=== PATIENT | female | born 1950 | race Caucasian/White ===

== ENCOUNTER 2018-08-01 15:40 | Emergency (ER) | payer MEDICARE, SELFPAY ==
[2018-08-01 15:40] VITALS: PULSE 68; RESP 24; TEMP 36.3; O2SAT 99; BMI 29.5
--- NOTE | 2018-08-01 15:55 | EKG12_ITS ---
Test Reason : Blood Pressure : / mmHG Vent. Rate : 066 BPM Atrial Rate : 066 BPM P-R Int : 134 ms QRS Dur : 072 ms QT Int : 424 ms P-R-T Axes : 045 048 034 degrees QTc Int : 444 ms Normal sinus rhythm Nonspecific ST abnormality Abnormal ECG Confirmed by MATILDE CHERRY, DEON ([id number]), subeditor LAMONTE LOPEZ ([id number]) on 08/06/2018 3:33:47 PM Referred By: DC Confirmed By:DEON CLAYTON MD
[2018-08-01 16:09] VITALS: O2SAT 100
[2018-08-01 16:10] LABS: Absolute Lymphocyte Count 1.67 X10^3/ul (0.83-4.51); Absolute Neutrophil Count 3.3 X10^3/uL (2.0-7.7); Basophil# 0.05 X10^3/uL; Basophil% 0.9 % (0-1); Eosinophil# 0.16 X10^3/uL; Eosinophils% 2.9 % (0-5); Hematocrit 41.4 % (37-47); Hemoglobin 13.5 g/dl (12.0-15.0); Lymphocyte # 1.67 X10^3/ul (4.0); Lymphocyte % 30.1 % (19-41); Mean Corp Hgb Conc 32.6 g/gl (32-36); Mean Corpuscular Hgb 29.5 pg (27.0-32.0); Mean Corpuscular Volume 90.4 fL (81-99); Mean Platelet Vol. 10.1 fl (6.2-12.0); Monocyte# 0.34 X10^3/uL; Monocyte% 6.1 % (0-10); Neutrophil # 3.31 X10^3/uL (2.7-7.7); Neutrophil % 59.8 % (47-70); Platelet Count 283 K/mm3 (150-450); RBC Distribution Width SD 46.2 fl (35.1-43.9); Red Blood Count 4.58 M/mm3 (4.2-5.4); White Blood Count 5.5 K/mm3 (4.4-11.0)
[2018-08-01 16:11] LABS: POSITIVE COUNT NO; POSITIVE DIFFERENTIAL NO; POSITIVE MORPHOLOGY NO
[2018-08-01] MEDS: 0.9% Normal Saline 1,000 ML 150 ML IV (16:11)
--- NOTE | 2018-08-01 16:15 | CT_ITS ---
STUDY: CT ABDOMEN AND PELVIS WITH CONTRAST REASON FOR EXAM: Female, 68 years old. Posterior chest pain and shortness of breath. Abnormal CT exam at outside facility. History of hypertension. Possible dissection. RADIATION DOSAGE (If Supplied By Facility): CTDIvol = ( 14.77 ) mGy, DLP = ( 1225.60 ) mGycm TECHNIQUE: Transaxial images were obtained from the dome of the diaphragm to the symphysis pubis without oral contrast. 100mL ml of Isovue 370 contrast was administered. Sagittal and coronal images were reconstructed. Individualized dose optimization techniques were used for this CT. COMPARISON: Prior abdomen and pelvic CT exam of March 20, 2017 FINDINGS: The maximum diameter of the abdominal portion of the aorta is at the level of the diaphragms with a maximum diameter of 3.4 cm. The remainder of the abdominal aorta is not aneurysmal. There is a moderate calcified plaque of the infrarenal aorta with more prominent mural thrombus in the lower thoracic aorta. There is a single area of the infrarenal aorta approximately 2 cm below the renal arteries where there is a minimal linear defect with underlying slight protrusion of the lumen which may indicate a minimal, limited dissection. The celiac artery, superior mesenteric artery and inferior mesenteric artery are fully patent without evidence of significant stenosis. The bilateral renal arteries are patent without significant stenosis. The iliac arteries are normal. Fatty liver. Normal gallbladder and extrahepatic biliary system. Normal spleen. Normal pancreas. Normal bilateral adrenal glands. Normal right kidney. Normal left kidney. Moderate sized hiatal hernia. Otherwise unremarkable stomach. Normal small intestine. Diverticulosis of the distal colon without evidence of acute diverticulitis. There are surgical clips in the region of the appendix consistent with a prior appendectomy. Normal inferior vena cava. Normal retroperitoneum. Normal urinary bladder. There is absence of the uterus consistent with a prior hysterectomy. Normal abdominal wall. Normal osseous structures. 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 Minimal linear defect in the right anterior wall of the aorta occurring at 2 cm below the renal arteries that does not extend proximally or distally. Defect secondary to overhanging soft plaque versus a minimal dissection. This was not identified on a prior exam of March 20, 2017 noting that this was not an angiographic exam. This does not expand the lumen is substantially. Otherwise mild calcified plaque of the infrarenal aorta. Negative for occlusion or significant stenosis of the major branch vessels. Fatty liver. Moderate hiatal hernia. Diverticulosis. Status post hysterectomy. N.B. : The above information has been verbally conveyed by Rhonda Campbell MD to DR TALI JARRELL MD, on 08/01/2018 17:24:37 (ET). Electronically Signed: Rhonda Campbell MD at 17:03 EST , Service support , STUDY: CTA CHEST REASON FOR EXAM: Female, 68 years old. Posterior chest pain and shortness of breath. Abnormal CT at outside facility showed possible dissection. RADIATION DOSAGE (If Supplied By Facility): CTDIvol = ( 14.77 ) mGy, DLP = ( 1225.60 ) mGycm TECHNIQUE: The examination was performed with the intravenous administration of 100mL ml of Isovue 370 contrast material. Post-processing of the angiographic images was performed, with multiplanar reformation and 3D reconstruction. Individualized dose optimization techniques were used for this CT. COMPARISON: None. FINDINGS: The diameter of the before meals ascending aorta is 2.7 cm. The diameter of the mid arch is 2.7 cm. The diameter of the proximal descending aorta is 3.4 cm. The remainder of the thoracic aorta remains approximately 3.4 cm to the level of the diaphragm with a substantial mural thrombus accumulation on the right lateral wall superiorly and posterior lateral wall inferiorly without a substantial narrowing of the lumen. Negative for dissection. Normal heart and pericardium. Moderate hiatal hernia. Normal hilar regions. Normal visualized trachea and bronchi. Linear atelectatic changes or scarring of the posterior left lung base and right midlung base. Otherwise negative for major consolidation. Negative for pleural effusion. Bilateral breast implants are present. There are degenerative changes of thoracic spine. CT/CT ANGIO ABD&PEL W/O&W/DYE IMPRESSION: Aneurysmal dilatation of the descending aorta, diameter 3.4 cm with substantial mural thrombus without a significant reduction in the flow lumen. Negative for acute dissection. The aneurysmal dilatation of the lower thoracic aorta has occurred since the prior exam March 20, 2017 Normal cardiac size without pericardial effusion. Negative for coronary calcifications. Moderate hiatal hernia. Atelectasis versus scarring lower lobes without other major consolidation or pleural effusion. N.B. : The above information has been verbally conveyed by Rhonda Campbell MD to DR TALI JARRELL MD, on 08/01/2018 17:24:37 (ET). Electronically Signed: Rhonda Campbell MD at 17:13 EST , Service support ,
--- NOTE | 2018-08-01 16:23 | CT_ITS ---
STUDY: CT ABDOMEN AND PELVIS WITH CONTRAST REASON FOR EXAM: Female, 68 years old. Posterior chest pain and shortness of breath. Abnormal CT exam at outside facility. History of hypertension. Possible dissection. RADIATION DOSAGE (If Supplied By Facility): CTDIvol = ( 14.77 ) mGy, DLP = ( 1225.60 ) mGycm TECHNIQUE: Transaxial images were obtained from the dome of the diaphragm to the symphysis pubis without oral contrast. 100mL ml of Isovue 370 contrast was administered. Sagittal and coronal images were reconstructed. Individualized dose optimization techniques were used for this CT. COMPARISON: Prior abdomen and pelvic CT exam of March 20, 2017 FINDINGS: The maximum diameter of the abdominal portion of the aorta is at the level of the diaphragms with a maximum diameter of 3.4 cm. The remainder of the abdominal aorta is not aneurysmal. There is a moderate calcified plaque of the infrarenal aorta with more prominent mural thrombus in the lower thoracic aorta. There is a single area of the infrarenal aorta approximately 2 cm below the renal arteries where there is a minimal linear defect with underlying slight protrusion of the lumen which may indicate a minimal, limited dissection. The celiac artery, superior mesenteric artery and inferior mesenteric artery are fully patent without evidence of significant stenosis. The bilateral renal arteries are patent without significant stenosis. The iliac arteries are normal. Fatty liver. Normal gallbladder and extrahepatic biliary system. Normal spleen. Normal pancreas. Normal bilateral adrenal glands. Normal right kidney. Normal left kidney. Moderate sized hiatal hernia. Otherwise unremarkable stomach. Normal small intestine. Diverticulosis of the distal colon without evidence of acute diverticulitis. There are surgical clips in the region of the appendix consistent with a prior appendectomy. Normal inferior vena cava. Normal retroperitoneum. Normal urinary bladder. There is absence of the uterus consistent with a prior hysterectomy. Normal abdominal wall. Normal osseous structures. 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 Minimal linear defect in the right anterior wall of the aorta occurring at 2 cm below the renal arteries that does not extend proximally or distally. Defect secondary to overhanging soft plaque versus a minimal dissection. This was not identified on a prior exam of March 20, 2017 noting that this was not an angiographic exam. This does not expand the lumen is substantially. Otherwise mild calcified plaque of the infrarenal aorta. Negative for occlusion or significant stenosis of the major branch vessels. Fatty liver. Moderate hiatal hernia. Diverticulosis. Status post hysterectomy. N.B. : The above information has been verbally conveyed by Rhonda Campbell MD to DR TALI JARRELL MD, on 08/01/2018 17:24:37 (ET). Electronically Signed: Rhonda Campbell MD at 17:03 EST , Service support , STUDY: CTA CHEST REASON FOR EXAM: Female, 68 years old. Posterior chest pain and shortness of breath. Abnormal CT at outside facility showed possible dissection. RADIATION DOSAGE (If Supplied By Facility): CTDIvol = ( 14.77 ) mGy, DLP = ( 1225.60 ) mGycm TECHNIQUE: The examination was performed with the intravenous administration of 100mL ml of Isovue 370 contrast material. Post-processing of the angiographic images was performed, with multiplanar reformation and 3D reconstruction. Individualized dose optimization techniques were used for this CT. COMPARISON: None. FINDINGS: The diameter of the before meals ascending aorta is 2.7 cm. The diameter of the mid arch is 2.7 cm. The diameter of the proximal descending aorta is 3.4 cm. The remainder of the thoracic aorta remains approximately 3.4 cm to the level of the diaphragm with a substantial mural thrombus accumulation on the right lateral wall superiorly and posterior lateral wall inferiorly without a substantial narrowing of the lumen. Negative for dissection. Normal heart and pericardium. Moderate hiatal hernia. Normal hilar regions. Normal visualized trachea and bronchi. Linear atelectatic changes or scarring of the posterior left lung base and right midlung base. Otherwise negative for major consolidation. Negative for pleural effusion. Bilateral breast implants are present. There are degenerative changes of thoracic spine. CT/CTA Chest W/WO Contrast IMPRESSION: Aneurysmal dilatation of the descending aorta, diameter 3.4 cm with substantial mural thrombus without a significant reduction in the flow lumen. Negative for acute dissection. The aneurysmal dilatation of the lower thoracic aorta has occurred since the prior exam March 20, 2017 Normal cardiac size without pericardial effusion. Negative for coronary calcifications. Moderate hiatal hernia. Atelectasis versus scarring lower lobes without other major consolidation or pleural effusion. N.B. : The above information has been verbally conveyed by Rhonda Campbell MD to DR TALI JARRELL MD, on 08/01/2018 17:24:37 (ET). Electronically Signed: Rhonad Campbell MD at 17:13 EST , Service support ,
[2018-08-01 16:27] LABS: Anion Gap 6 (5-15); BUN 15 mg/dL (7-18); BUN/Creat Ratio 12.8 RATIO (10-20); Calcium,Total 8.9 mg/dL (8.5-10.1); Chloride 103 mmol/L (98-107); Creatinine, Serum 1.17 mg/dL (0.55-1.02); EST Glomerular Filtration Rate 49 mL/min (>60); Est Glom Filt Rate - Afr Amer 59 mL/min (>60); Estimated Creatinine Clearance 43.68 ml/min; Glucose 103 mg/dL (74-106); Potassium 4.7 mmol/L (3.5-5.1); Sodium Level 137 mmol/L (136-145)
--- NOTE | 2018-08-01 16:30 | ED.VISSUMM ---
- ER Visit Summary Date of Service: 08/01/18 Chief Complaint: Aortic dissection History of Present Illness: The patient is a 68 F who developed pain in her back between her shoulder blades along with shortness of breath and dizziness 3 days ago. Patient was seen by her PCP. Her d-dimer was elevated and she was sent for a chest CT today. CT reportedly shows a dissection of the descending thoracic aorta. Physical Examination: Blood pressure in left arm is 178/97, heart rate is 68. Patient is sitting upright in bed. He is in no acute distress. Head neck examination is unremarkable. Heart is regular rate and rhythm. Lung sounds are clear. Abdomen is soft nontender. Extremity examination reveals palpable and equal distal pulses. Test Results: CT chest report was reviewed. The report states that there appears to be a new dissection of the descending thoracic aorta beginning just below the arch. The distal portion cannot be evaluated. CBC and chemistry studies returned with creatinine 1.17. Troponin is less than 0.015. EKG is sinus at [address]. Emergency Department Course and Treatment: Test results were immediately discussed with the patient. I advised her that we would require transfer to a larger institution. Patient works at [facility] [employer] and requested to go there. I spoke with the transfer line and patient has been accepted in transfer. Cardene drip has been started to control blood pressure. She was sent for a CTA of the abdomen and pelvis and disc will be available at the time of transfer. Treatment Plan: [] Disposition: Transfer Impression: Descending thoracic aorta dissection This note was generated with [employer] dictation software. It may contain incorrect words, spelling, and punctuation that were not noted in review of the chart prior to signing ED Disposition - Plan for ED Patient: Chief Complaint: Shortness of Breath Referrals: Lanny Raymond MD [Primary Care Provider] -
[2018-08-01 16:53] VITALS: BP 139/62; PULSE 80; RESP 16; O2SAT 100
[2018-08-01 17:04] VITALS: BP 139/82; PULSE 80; RESP 16; O2SAT 100
[2018-08-01 17:11] LABS: Prothrombin Time (Protime)PT. 13.5 SECONDS (11.7-14.9)
--- OUTSIDE RECORDS SUMMARY | 2018-11-05 07:15 | XMS RPT_ITS ---
:1950 Author Organization OH[facility] Care Team Providers Name Role Phone RAMESH MORGAN ([facility]) Attending Unavailable PETRONA ORTEGA Admitting Unavailable TERI CESAR Referring Unavailable GEGE ISRAELGE Attending Unavailable RAMESH MORGAN ([facility]) Referring Unavailable RAMESH MORGAN ([facility]) Referring Unavailable RAMESH MORGAN ([facility]) Referring Unavailable RAMESH MORGAN ([facility]) Attending Unavailable AUDREY OJEDA ([facility]) Referring Unavailable AUDREY OJEDA ([facility]) Attending Unavailable [facility] Unavailable Teri Cesar Attending Unavailable PROBLEMS PROBLEMS DATE TYPE CONDITION / CODE ATTENDING STATUS SOURCE 08/06/2018 Active Neuralgia and SHARON, SERGE Active [facility] neuritis, unspecified Clinic Main / M79.2(ICD-10) [place] Repository 08/06/2018 Active Cellulitis of left SHARON, SERGE Active [facility] lower limb / Clinic Main L03.116(ICD-10) [place] Repository 08/06/2018 Active Essential (primary) SHARON, SERGE Active [facility] hypertension / Clinic Main I10(ICD-10) [place] Repository 08/06/2018 Active Dissection of SHARON, SERGE Active [facility] thoracoabdominal aorta Clinic Main / I71.03(ICD-10) [place] Repository 08/06/2018 Active Other injury of SHARON, SERGE Active [facility] unspecified body Clinic Main region, initial [place] encounter / Repository T14.8XXA(ICD-10) 08/06/2018 Active Personal history of SHARON, SERGE Active [facility] other diseases of the Clinic Main musculoskeletal system [place] and connective tissue Repository / Z87.39(ICD-10) 08/06/2018 Active Hypothyroidism, SHARON, SERGE Active [facility] unspecified / Clinic Main E03.9(ICD-10) [place] Repository 08/06/2018 Active Personal history of SHARON, SERGE Active [facility] other endocrine, [facility] Main nutritional and [place] metabolic disease / Repository Z86.39(ICD-10) 08/06/2018 Active Gastro-esophageal SHARON, SERGE Active [place] reflux disease without [facility] Main esophagitis / [place] K21.9(ICD-10) Repository 08/01/2018 Active Encounter for NA Active [place] screening for other [facility] Main disorder / [place] Z13.89(ICD-10) Repository 08/01/2018 Active Other specified NA Active [place] abnormal findings of [facility] Main blood chemistry / [place] R79.89(ICD-10) Repository 08/01/2018 Active Pleurodynia / NA Active [place] R07.81(ICD-10) [facility] Main [place] Repository 07/31/2018 Active Shortness of breath / NA Active [place] R06.02(ICD-10) [facility] Main [place] Repository 07/31/2018 Active Chest pain, NA Active [place] unspecified / [facility] Main R07.9(ICD-10) [place] Repository 03/26/2018 Active Other abnormal glucose NA Active [place] / R73.09(ICD-10) [facility] Main [place] Repository PROCEDURES PROCEDURES No Procedure Records FoundRESULTS RESULTS PROGRESS Observed: 09/03/2018 Status: COMPLETED Source: [place] 1:16 PM [facility] REPOSITORY HNO ID: [id number] Author: Ramesh Morgan Service: (none) Author Type: Nurse Practitioner Type: Progress Notes Filed: 09/03/2018 3:47 PM Note Text: CC: Patient presents with: Hospital Follow Up HPI Mike Lunsford is a 68 year old female who presents today for hospital follow up. Patient had presented to the office 07/31/18 for c/o possible cellulitis of the LLE. During evaluation patient had vague complaints of SOB and upper back pain that prompted further investigation. Ddimer was elevated prompting follow up PE scan revealed descending thoracic aortic dissection. Patient was sent to [facility] ER for further imaging where CTA showed type B aortic dissection extending from distal to the left subclavian to the level of the renal arteries without renal artery involvement. Patient was started on Nicardipine drip and transferred to [facility]. Patient was admitted to the coronary ICU where she started on aggressive therapy of beta tasha and SUHAIL inhibitor. Vascular surgery consulted with recommendations for medical management. Patient was discharged after ~5 days. Current control goals set at BP <120/80 and HR <60. She has repeat imaging and vascular follow up scheduled 09/24. She is in need of cardiology consult/follow up. Since returning home patient reports doing well, but feeling more tired secondary to lower BP and HR. She indicates SOB and upper back pain persist. She has been taking things slow at home- continues with ADLs but rests frequently. Checking BP ~4x per day with occasional elevated readings. She denies any fever, chills, palpitations or edema since returning home. Dizziness has significantly improved, almost resolved. Notes continued cough with minimal sputum production. Cough seems to be worse at night and disrupts her sleep, requesting alternative cough suppressant. Currently taking OTC dayquil cough medicine. Review of most recent labs at time of discharge showed decreased GFR 42 and creatinine 1.28. Needs rechecked. REVIEW OF SYSTEMS General: no fevers, no chills, no recurrent infections, no change in appetite, no significant changes in weight and Positive for: low energy Respiratory: no wheezing, no hemoptysis, See HPI Cardiovascular: no chest pressure, no palpitations and no swelling GI: No nausea, vomiting, or diarrhea : No history of dysuria, frequency or incontinence Neurologic: No headache, weakness, numbness, tingling, neck stiffness, tremor, vertigo, memory loss, syncope. PAST MEDICAL HISTORY Diagnosis Date - ATOPIC DERMATITIS: Adult type: arms/elbows and neck 02/23/2008 - ACTINIC DAMAGE///CHR SOLAR SKIN DAMAGE NOS 02/23/2008 - Chondromalacia 06/25/2005 - Esophageal reflux - Esophagitis, unspecified - Glucose intolerance (impaired glucose tolerance) Treated with Glucophage - Hypothyroidism - Memory change - Migraines - Peripheral enthesopathies and allied syndromes 06/25/2005 - Phlebitis and thrombophlebitis of unspecified site 06/25/2005 - Pre-diabetes on medication - RA (rheumatoid arthritis) (HCC) - Sjogren's syndrome (HCC) - Unspecified essential hypertension PAST SURGICAL HISTORY Procedure Laterality Date - APPENDECTOMY age 45 - BREAST AUGMENTATION W/PROSTHETIC IMPLANT 1985 silicone imp - COLONOSCOP W/ OR W/O BRSH SPEC 04/16/03 Diverticulosis - EGD W/O OR W/BRUSH/WASH 08/09/2006 EGD - MICRODISSECTION MANUAL 05/19/07 [id number] - RIGHT HEART CATHETERIZATION 01/2009 Done at [facility] - VAGINAL HYSTERECTOMY age 42 Hysterectomy, vaginal and bladder repair ALLERGIES Asa [Salicylates]; Codeine; Sulfa (Sulfonamide Antibiotics); Clonidine; Estrogens; Mobic [Meloxicam]; Norvasc [Amlodipine Besylate]; Ywslvub-Khu-Hop Reductase Inhibitors MEDICATIONS carvedilol (COREG) 25 mg tablet Take 1 tablet by mouth twice daily with meals. lisinopril (ZESTRIL, PRINIVIL) 20 mg tablet Take 1 tablet by mouth once daily. triamcinolone acetonide (KENALOG) 0.1 % cream Apply 1 application to affected area three times daily. Apply to affected area. albuterol HFA (VENTOLIN HFA) 90 mcg/actuation inhaler Inhale 2 Puffs as instructed every 4 hours as needed for Wheezing/Shortness of Breath. gabapentin (NEURONTIN) 300 mg capsule Take 1 capsule by mouth daily at bedtime for 90 days. levothyroxine (LEVOXYL) 100 mcg tablet Take 1 tablet by mouth once daily. Take one extra tab once a week PARoxetine (PAXIL) 40 mg tablet Take 1 tablet by mouth once daily. pantoprazole DR (PROTONIX) 40 mg tablet Take 1 tablet by mouth once daily. ranitidine (ZANTAC) 150 mg tablet Take 1 tablet by mouth daily at bedtime. HYDROcodone-acetaminophen (NORCO) 5-325 mg per tablet Take 1 tablet by mouth every 8 hours as needed for up to 180 days.Earliest Fill Date: 03/26/18 SUMAtriptan (IMITREX) 50 mg tablet Take 1 tablet by mouth as directed. START AT ONSET OF HEADACHE. MAY REPEAT DOSE AFTER 2 HOURS. atorvastatin (LIPITOR) 10 mg tablet Patient takes it once a week Indications: MIXED HYPERLIPIDEMIA budesonide-formoterol (SYMBICORT) 80-4.5 mcg/actuation inhaler Inhale 2 Puffs as instructed twice daily. promethazine (PHENERGAN) 25 mg suppository 1 Suppository by RECTAL route every 8 hours as needed. Coenzyme Q10 (CO Q-10) 200 mg cap Take 1 capsule by mouth twice daily. clobetasol (TEMOVATE) 0.05 % cream Apply selectively as directed to affected areas or lesions of acute eczema dermatitis rash flares BID until clear and stop or taper as able. AVOID face, eyes and eyelids. fluticasone (FLONASE) 50 mcg/actuation nasal spray Use 2 Sprays in each nostril once daily. Rinse mouth after use. naproxen sodium(ALEVE 220 MG TAB) Take 1-2 tablets at bedtime as necessary FAMILY HISTORY Problem Relation Age of Onset - Diabetes Mother - Heart Mother CHF - Macular Degen Mother - Blindness Mother - Heart Father CHF [place] - other (alzheimer) Maternal Grandmother and two sisters. Social History Substance Use Topics - Smoking status: Never Smoker - Smokeless tobacco: Never Used - Alcohol use No Comment: maybe one drink a year PHYSICAL EXAM BP 118/68 Pulse 68 Temp 36.6 ?C (97.8 ?F) (Temporal Artery) Resp 16 Wt 81.2 kg (179 lb) SpO2 98% BMI 28.04 kg/m? General Appearance: well appearing, in no acute distress, alert Pysch: mood and affect broad and appropriate Skin: Skin color, texture, turgor normal for age; Head: normocephalic, atraumatic Lungs: lungs clear to auscultation. No wheezing, rhonchi, rales Heart: RRR without murmur, gallop, or rubs. No ectopy Bilateral Lower Extremities: No edema BP CONTROLLED (<130/80) due on 1969 DTAP,TDAP,TD(1 - Tdap) due on 06/07/2016 FECAL OCCULT BLOOD due on 06/06/2017 MAMMOGRAM due on 04/10/2018 PNEUMOVAX AGE 65 AND OVER WITH 5YR LOOKBACK(1) due on 06/16/2019 ANNUAL PCP TEAM CHRONIC DISEASE VISIT due on 07/31/2019 DIABETES SCREEN due on 08/06/2021 LIPID SCREEN due on 08/04/2023 BONE DENSITY Completed ADULT PREVNAR-13 Completed INFLUENZA Completed HEPATITIS C SCREENING Completed ASSESSMENT/PLAN: 1. Aortic dissection, thoracoabdominal (HCC) - ICD9: 441.03, ICD10: I71.03 (primary diagnosis) - Current medical management with carvedilol and lisinopril with blood pressure goal <120/80 and HR <60 - Follow up CT scheduled 09/24 - Follow up with vascular surgery scheduled 2 - Needs to establish with case coordinator, referral previously ordered walked patient to desk to schedule 2. Function kidney decreased - ICD9: 593.9, ICD10: N28.9 - GFR decreased from baseline, note trending decline during hospital admission- will recheck labs in 1 week - Recommend avoiding NSAIDs and adequate fluid intake - COMP METABOLIC PANEL 3. Hospital discharge follow-up - ICD9: V67.59, ICD10: Z09 - As above Ramesh Morgan APRN.TONGUE BINDER Prescription instructions reviewed with patient as applicable. Potential red flag symptoms discussed with the patient. Reviewed appropriate action plan to take if red flag symptoms occur. Patient agreeable to treatment plan. CNOV Observed: 09/03/2018 Status: COMPLETED Source: [place] 1:00 PM [facility] REPOSITORY Office Visit (INTMWS) MIKE LUNSFORD ([id number]) 1950 [facility] Date Time Provider Department 09/03/18 1:00 PM RAMESH MORGAN (TONGUE BINDER) INTMWS During your visit today, we recorded the following information about you: Temperature Pulse Respiration Blood pressure 97.8 degrees 68/minute 16/minute 118/68 Weight 81.2 kg Ramesh Morgan APRN.CNP 09/03/2018 3:47 PM Signed CC: Patient presents with: Hospital Follow Up HPI Mike Lunsford is a 68 year old female who presents today for hospital follow up. Patient had presented to the office 07/31/18 for c/o possible cellulitis of the LLE. During evaluation patient had vague complaints of SOB and upper back pain that prompted further investigation. Ddimer was elevated prompting follow up PE scan revealed descending thoracic aortic dissection. Patient was sent to [facility] ER for further imaging where CTA showed type B aortic dissection extending from distal to the left subclavian to the level of the renal arteries without renal artery involvement. Patient was started on Nicardipine drip and transferred to [facility]. Patient was admitted to the coronary ICU where she started on aggressive therapy of beta tasha and SUHAIL inhibitor. Vascular surgery consulted with recommendations for medical management. Patient was discharged after ~5 days. Current control goals set at BP <120/80 and HR <60. She has repeat imaging and vascular follow up scheduled 09/24. She is in need of cardiology consult/follow up. Since returning home patient reports doing well, but feeling more tired secondary to lower BP and HR. She indicates SOB and upper back pain persist. She has been taking things slow at home- continues with ADLs but rests frequently. Checking BP ~4x per day with occasional elevated readings. She denies any fever, chills, palpitations or edema since returning home. Dizziness has significantly improved, almost resolved. Notes continued cough with minimal sputum production. Cough seems to be worse at night and disrupts her sleep, requesting alternative cough suppressant. Currently taking OTC dayquil cough medicine. Review of most recent labs at time of discharge showed decreased GFR 42 and creatinine 1.28. Needs rechecked. REVIEW OF SYSTEMS General: no fevers, no chills, no recurrent infections, no change in appetite, no significant changes in weight and Positive for: low energy Respiratory: no wheezing, no hemoptysis, See HPI Cardiovascular: no chest pressure, no palpitations and no swelling GI: No nausea, vomiting, or diarrhea : No history of dysuria, frequency or incontinence Neurologic: No headache, weakness, numbness, tingling, neck stiffness, tremor, vertigo, memory loss, syncope. PAST MEDICAL HISTORY Diagnosis Date - ATOPIC DERMATITIS: Adult type: arms/elbows and neck 02/23/2008 - ACTINIC DAMAGE///CHR SOLAR SKIN DAMAGE NOS 02/23/2008 - Chondromalacia 06/25/2005 - Esophageal reflux - Esophagitis, unspecified - Glucose intolerance (impaired glucose tolerance) Treated with Glucophage - Hypothyroidism - Memory change - Migraines - Peripheral enthesopathies and allied syndromes 06/25/2005 - Phlebitis and thrombophlebitis of unspecified site 06/25/2005 - Pre-diabetes on medication - RA (rheumatoid arthritis) (HCC) - Sjogren's syndrome (HCC) - Unspecified essential hypertension PAST SURGICAL HISTORY Procedure Laterality Date - APPENDECTOMY age 45 - BREAST AUGMENTATION W/PROSTHETIC IMPLANT 1985 silicone imp - COLONOSCOP W/ OR W/O BRSH SPEC 04/16/03 Diverticulosis - EGD W/O OR W/BRUSH/WASH 08/09/2006 EGD - MICRODISSECTION MANUAL 05/19/07 [id number] - RIGHT HEART CATHETERIZATION 01/2009 Done at [facility] - VAGINAL HYSTERECTOMY age 42 Hysterectomy, vaginal and bladder repair ALLERGIES Asa [Salicylates]; Codeine; Sulfa (Sulfonamide Antibiotics); Clonidine; Estrogens; Mobic [Meloxicam]; Norvasc [Amlodipine Besylate]; Jqtaoga-Sva-Huy Reductase Inhibitors MEDICATIONS carvedilol (COREG) 25 mg tablet Take 1 tablet by mouth twice daily with meals. lisinopril (ZESTRIL, PRINIVIL) 20 mg tablet Take 1 tablet by mouth once daily. triamcinolone acetonide (KENALOG) 0.1 % cream Apply 1 application to affected area three times daily. Apply to affected area. albuterol HFA (VENTOLIN HFA) 90 mcg/actuation inhaler Inhale 2 Puffs as instructed every 4 hours as needed for Wheezing/Shortness of Breath. gabapentin (NEURONTIN) 300 mg capsule Take 1 capsule by mouth daily at bedtime for 90 days. levothyroxine (LEVOXYL) 100 mcg tablet Take 1 tablet by mouth once daily. Take one extra tab once a week PARoxetine (PAXIL) 40 mg tablet Take 1 tablet by mouth once daily. pantoprazole DR (PROTONIX) 40 mg tablet Take 1 tablet by mouth once daily. ranitidine (ZANTAC) 150 mg tablet Take 1 tablet by mouth daily at bedtime. HYDROcodone-acetaminophen (NORCO) 5-325 mg per tablet Take 1 tablet by mouth every 8 hours as needed for up to 180 days.Earliest Fill Date: 03/26/18 SUMAtriptan (IMITREX) 50 mg tablet Take 1 tablet by mouth as directed. START AT ONSET OF HEADACHE. MAY REPEAT DOSE AFTER 2 HOURS. atorvastatin (LIPITOR) 10 mg tablet Patient takes it once a week Indications: MIXED HYPERLIPIDEMIA budesonide-formoterol (SYMBICORT) 80-4.5 mcg/actuation inhaler Inhale 2 Puffs as instructed twice daily. promethazine (PHENERGAN) 25 mg suppository 1 Suppository by RECTAL route every 8 hours as needed. Coenzyme Q10 (CO Q-10) 200 mg cap Take 1 capsule by mouth twice daily. clobetasol (TEMOVATE) 0.05 % cream Apply selectively as directed to affected areas or lesions of acute eczema dermatitis rash flares BID until clear and stop or taper as able. AVOID face, eyes and eyelids. fluticasone (FLONASE) 50 mcg/actuation nasal spray Use 2 Sprays in each nostril once daily. Rinse mouth after use. naproxen sodium(ALEVE 220 MG TAB) Take 1-2 tablets at bedtime as necessary FAMILY HISTORY Problem Relation Age of Onset - Diabetes Mother - Heart Mother CHF - Macular Degen Mother - Blindness Mother - Heart Father CHF [place] - other (alzheimer) Maternal Grandmother and two sisters. Social History Substance Use Topics - Smoking status: Never Smoker - Smokeless tobacco: Never Used - Alcohol use No Comment: maybe one drink a year PHYSICAL EXAM BP 118/68 Pulse 68 Temp 36.6 ?C (97.8 ?F) (Temporal Artery) Resp 16 Wt 81.2 kg (179 lb) SpO2 98% BMI 28.04 kg/m? General Appearance: well appearing, in no acute distress, alert Pysch: mood and affect broad and appropriate Skin: Skin color, texture, turgor normal for age; Head: normocephalic, atraumatic Lungs: lungs clear to auscultation. No wheezing, rhonchi, rales Heart: RRR without murmur, gallop, or rubs. No ectopy Bilateral Lower Extremities: No edema BP CONTROLLED (<130/80) due on 1969 DTAP,TDAP,TD(1 - Tdap) due on 06/07/2016 FECAL OCCULT BLOOD due on 06/06/2017 MAMMOGRAM due on 04/10/2018 PNEUMOVAX AGE 65 AND OVER WITH 5YR LOOKBACK(1) due on 06/16/2019 ANNUAL PCP TEAM CHRONIC DISEASE VISIT due on 07/31/2019 DIABETES SCREEN due on 08/06/2021 LIPID SCREEN due on 08/04/2023 BONE DENSITY Completed ADULT PREVNAR-13 Completed INFLUENZA Completed HEPATITIS C SCREENING Completed ASSESSMENT/PLAN: 1. Aortic dissection, thoracoabdominal (HCC) - ICD9: 441.03, ICD10: I71.03 (primary diagnosis) - Current medical management with carvedilol and lisinopril with blood pressure goal <120/80 and HR <60 - Follow up CT scheduled 09/24 - Follow up with vascular surgery scheduled 09/24 - Needs to establish with case coordinator, referral previously ordered walked patient to desk to schedule 2. Function kidney decreased - ICD9: 593.9, ICD10: N28.9 - GFR decreased from baseline, note trending decline during hospital admission- will recheck labs in 1 week - Recommend avoiding NSAIDs and adequate fluid intake - COMP METABOLIC PANEL 3. Hospital discharge follow-up - ICD9: V67.59, ICD10: Z09 - As above Ramesh Morgan APRN.TONGUE BINDER Prescription instructions reviewed with patient as applicable. Potential red flag symptoms discussed with the patient. Reviewed appropriate action plan to take if red flag symptoms occur. Patient agreeable to treatment plan. Ramesh Morgan APRN.CNP 09/03/2018 1:45 PM Signed Delsym OTC for cough. Continue checking BP, notify vascular if readings are consistently higher than 120/80. At least 3-4 consecutive readings. Schedule with cardiology. Referring Provider: SELF [[id number]] Allergies As of Date: 09/03/2018 Noted Allergy Reaction ASA (SALICYLATES) 05/07/2005 8 - GI Upset CODEINE 05/07/2005 8 - GI Upset SULFA (SULFONAMIDE ANTIBIOTICS) 05/07/2005 8 - GI Upset CLONIDINE 07/02/2005 Comments: headache ESTROGENS 07/02/2005 Comments: hx thrombosis MOBIC (MELOXICAM) 12/11/2006 5 - Intolerance 6 - Diarrhea NORVASC (AMLODIPINE BESYLATE) 12/03/2005 [id number] REDUCTASE INHIBIT*06/16/2014 14 - Other: See Comments Comments: Myalgia Date Reviewed: 09/03/2018 Reviewed by: Mary Jane Dixon Ma - Fully Assessed Reason for Visit: Hospital Follow Up [177] Primary Visit Diagnosis:Aortic dissection, thoracoabdominal (HCC) [I71.03] Other Visit Diagnoses:Function kidney decreased [N28.9] Hospital discharge follow-up [Z09] Order(s):COMP METABOLIC PANEL [SQCMP] Order #: [id number] FUTURE benzonatate (TESSALON PERLES) 100 mg capsuleTake 1 capsule by mouth three times daily as needed.Disp: 12 capsuleRfl: 0 Prescriptions as of 09/03/2018 Sig: BENZONATATE 100 MG CAPSULE Take 1 capsule by mouth three* CARVEDILOL 25 MG TABLET Take 1 tablet by mouth twice * LISINOPRIL 20 MG TABLET Take 1 tablet by mouth once d* TRIAMCINOLONE ACETONIDE 0.1 %* Apply 1 application to affect* ALBUTEROL SULFATE HFA 90 MCG/* Inhale 2 Puffs as instructed * GABAPENTIN 300 MG CAPSULE Take 1 capsule by mouth daily* LEVOTHYROXINE 100 MCG TABLET Take 1 tablet by mouth once d* PAROXETINE 40 MG TABLET Take 1 tablet by mouth once d* PANTOPRAZOLE 40 MG TABLET,DEL* Take 1 tablet by mouth once d* RANITIDINE 150 MG TABLET Take 1 tablet by mouth daily * HYDROCODONE 5 MG-ACETAMINOPHE* Take 1 tablet by mouth every * SUMATRIPTAN 50 MG TABLET Take 1 tablet by mouth as dir* ATORVASTATIN 10 MG TABLET Patient takes it once a week * BUDESONIDE-FORMOTEROL HFA 80 * Inhale 2 Puffs as instructed * PROMETHAZINE 25 MG RECTAL SUP* 1 Suppository by RECTAL route* COENZYME Q10 200 MG CAPSULE Take 1 capsule by mouth twice* CLOBETASOL 0.05 % TOPICAL CRE* Apply selectively as directe* FLUTICASONE 50 MCG/ACTUATION * Use 2 Sprays in each nostril * ALEVE 220 MG TABLET Take 1-2 tablets at bedtime a* Problem List As Of Date 09/03/2018 Noted Resolved Phlebitis and thrombophlebitis of unspecified s*INVALID FOR*04/10/2016 Chondromalacia [M94.20] INVALID FOR*04/10/2016 Peripheral enthesopathies and allied syndromes *INVALID FOR*04/10/2016 Hypertension goal BP (blood pressure) < 140/90 * Gastroesophageal reflux disease without esophag* More... Other affections of shoulder region, not elsewh*INVALID FOR*04/10/2016 More... Rotator cuff syndrome of shoulder and allied di*INVALID FOR*04/10/2016 More... Primary localized osteoarthrosis, shoulder martha*INVALID FOR*04/10/2016 More... Disorders of bursae and tendons in shoulder reg*INVALID FOR*04/10/2016 Pain in joint, shoulder region [M25.519] INVALID FOR*04/10/2016 Esophagitis, unspecified [K20.9] INVALID FOR*04/10/2016 Pyoderma, unspecified [L08.0] INVALID FOR*04/10/2016 CHRONIC RHINITIS [J31.0] INVALID FOR* Other diseases of nasal cavity and sinuses(478.*INVALID FOR*04/10/2016 Enthesopathy of hip region [M76.899] INVALID FOR*04/10/2016 Lumbago [M54.5] INVALID FOR*04/10/2016 Displacement of lumbar intervertebral disc with*INVALID FOR*04/10/2016 History of hyperlipidemia [Z86.39] INVALID FOR* More... ECZEMA DERMATITIS NOS [L25.9] INVALID FOR*04/10/2016 ECZEMA DERMATITIS NEC [L25.8] INVALID FOR*04/10/2016 Unspecified pruritic disorder [L29.9] INVALID FOR*04/10/2016 XEROSIS//SEBACEOUS GLAND DIS NEC [L73.8] INVALID FOR*10/17/2015 GLUCOSE ABNORMAL TEST [R73.09] INVALID FOR*04/10/2016 Acquired hypothyroidism [E03.9] INVALID FOR* More... Eczematous dermatitis [L30.9] INVALID FOR* Xerosis cutis [L85.3] INVALID FOR*10/17/2015 Pruritus [L29.9] INVALID FOR*04/10/2016 Sjogren's syndrome (HCC) [M35.00] INVALID FOR* More... 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 History of rheumatoid arthritis [Z87.39] INVALID FOR* More... Migraine with aura and without status migrainos*INVALID FOR* ABNORMAL GLUCOSE [R73.09] INVALID FOR* Osteopenia [M85.80] INVALID FOR* Aortic dissection (HCC) [I71.00] INVALID FOR* Intramural hematoma [T14.8XXA] INVALID FOR* More... Aortic dissection, thoracoabdominal (HCC) [I71.*INVALID FOR* More... Primary hypertension [I10] INVALID FOR* More... Neuropathic pain [M79.2] INVALID FOR* More... Cellulitis of left lower extremity [L03.116] INVALID FOR* More... Other instructions from your clinician: Delsym OTC for cough. Continue checking BP, notify vascular if readings are consistently higher than 120/80. At least 3-4 consecutive readings. Schedule with cardiology. Prescriptions ordered this encounter Disp Refills Start End BENZONATATE 100 MG CAPSULE 12 c* 0 09/03/2018 Route: ORAL Sig: Take 1 capsule by mouth three times daily as needed. Encounter Status:Closed by RAMESH MORGAN CNP on 09/03/18 PROGRESS Observed: 08/28/2018 Status: COMPLETED Source: [place] 9:36 AM [facility] REPOSITORY HNO ID: [id number] Author: Mariana Langley Service: (none) Author Type: Retail Maintenance Technician Type: Progress Notes Filed: 08/28/2018 9:37 AM Note Text: POPULATION HEALTH SPRAY GUN STRIPER QUICKNOTE Provider Action/FYI: I spoke with Mike and she agreed to schedule a hospital follow up. Appointment scheduled for 09/03 with PCP. She thanks us for our call. Patient identified by name and . Mariana Langley CMA PROGRESS Observed: 08/28/2018 Status: COMPLETED Source: [place] 9:30 AM [facility] REPOSITORY HNO ID: [id number] Author: Mariana Langley Service: (none) Author Type: Retail Maintenance Technician Type: Progress Notes Filed: 08/28/2018 9:37 AM Note Text: PHMA TEAMLET DOCUMENTATION Provider Action/FYI: PSR Action/FYI: Schedule hospital follow up Teamlet has identified patient by name and date of . Team: Dr. Segundo Dumas ? Last Office Visit:08/01/2018 ? Next Office Visit: Visit date not found ? Last BP/Labs: Blood Pressure: Last 3 Encounter BP Readings: Date: BP: 08/01/2018 107/55 07/31/2018 142/82 03/26/2018 118/80 Lipids: Cholesterol, Total (mg/dL) Date Value 08/04/2018 194 03/26/2018 243 HDL Cholesterol (mg/dL) Date Value 08/04/2018 44 03/26/2018 46 LDL Cholesterol (mg/dL) Date Value 08/04/2018 114 03/26/2018 152 Triglyceride (mg/dL) Date Value 08/04/2018 182 03/26/2018 224 HGB A1C: Lab Results Component Value Date HBA1C 6.1 08/01/2018 HBA1C 5.9 03/26/2018 HBA1C 5.9 05/16/2017 TSH: TSH (uU/mL) Date Value 08/01/2018 10.440 07/31/2018 15.260 ) Care Gap: HTN Thyroid Plan: ? Confirm PCP / Status - active ? Type of appointment needed: Follow-up Hospital follow up next available with Provider pcp or cooler supervisor ? Consultation Appointments: n/a Labs, HM and Immunization: Health Maintenance Due: BP CONTROLLED (<130/80) due on 1969 DTAP,TDAP,TD(1 - Tdap) due on 06/07/2016 FECAL OCCULT BLOOD due on 06/06/2017 MAMMOGRAM due on 04/10/2018 Mariana Langley CMA CNPTOUTREACH Observed: 08/28/2018 Status: COMPLETED Source: [place] 12:00 AM [facility] REPOSITORY Patient Outreach (INTMWS) MIKE LUNSFORD ([id number]) 1950 F MAL Date Time Provider Department 08/28/18 MARIANA LANGLEY) INTMWS During your visit today, we recorded the following information about you: Mariana Langley CMA 08/28/2018 9:37 AM Signed PHMA TEAMLET DOCUMENTATION Provider Action/FYI: PSR Action/FYI: Schedule hospital follow up Teamlet has identified patient by name and date of . Team: Dr. Segundo Dumas ? Last Office Visit:08/01/2018 ? Next Office Visit: Visit date not found ? Last BP/Labs: Blood Pressure: Last 3 Encounter BP Readings: Date: BP: 08/01/2018 107/55 07/31/2018 142/82 03/26/2018 118/80 Lipids: Cholesterol, Total (mg/dL) Date Value 08/04/2018 194 03/26/2018 243 HDL Cholesterol (mg/dL) Date Value 08/04/2018 44 03/26/2018 46 LDL Cholesterol (mg/dL) Date Value 08/04/2018 114 03/26/2018 152 Triglyceride (mg/dL) Date Value 08/04/2018 182 03/26/2018 224 HGB A1C: Lab Results Component Value Date HBA1C 6.1 08/01/2018 HBA1C 5.9 03/26/2018 HBA1C 5.9 05/16/2017 TSH: TSH (uU/mL) Date Value 08/01/2018 10.440 07/31/2018 15.260 ) Care Gap: HTN Thyroid Plan: ? Confirm PCP / Status - active ? Type of appointment needed: Follow-up Hospital follow up next available with Provider pcp or cooler supervisor ? Consultation Appointments: n/a Labs, HM and Immunization: Health Maintenance Due: BP CONTROLLED (<130/80) due on 1969 DTAP,TDAP,TD(1 - Tdap) due on 06/07/2016 FECAL OCCULT BLOOD due on 06/06/2017 MAMMOGRAM due on 04/10/2018 NEL Barker CMA 08/28/2018 9:37 AM Signed POPULATION HEALTH SPRAY GUN STRIPER QUICKNOTE Provider Action/FYI: I spoke with Mike and she agreed to schedule a hospital follow up. Appointment scheduled for 09/03 with PCP. She thanks us for our call. Patient identified by name and . Mariana Langley CMA Allergies As of Date: 08/28/2018 Noted Allergy Reaction ASA (SALICYLATES) 05/07/2005 8 - GI Upset CODEINE 05/07/2005 8 - GI Upset SULFA (SULFONAMIDE ANTIBIOTICS) 05/07/2005 8 - GI Upset CLONIDINE 07/02/2005 Comments: headache ESTROGENS 07/02/2005 Comments: hx thrombosis MOBIC (MELOXICAM) 12/11/2006 5 - Intolerance 6 - Diarrhea NORVASC (AMLODIPINE BESYLATE) 12/03/2005 [id number] REDUCTASE INHIBIT*06/16/2014 14 - Other: See Comments Comments: Myalgia Date Reviewed: 08/06/2018 Reviewed by: Malini (Rn) CONSUELO Graves - Fully Assessed Reason for Visit: PHMA/Care Gap Outreach [[id number]] Prescriptions as of 08/28/2018 Sig: CARVEDILOL 25 MG TABLET Take 1 tablet by mouth twice * LISINOPRIL 20 MG TABLET Take 1 tablet by mouth once d* TRIAMCINOLONE ACETONIDE 0.1 %* Apply 1 application to affect* ALBUTEROL SULFATE HFA 90 MCG/* Inhale 2 Puffs as instructed * GABAPENTIN 300 MG CAPSULE Take 1 capsule by mouth daily* LEVOTHYROXINE 100 MCG TABLET Take 1 tablet by mouth once d* PAROXETINE 40 MG TABLET Take 1 tablet by mouth once d* PANTOPRAZOLE 40 MG TABLET,DEL* Take 1 tablet by mouth once d* RANITIDINE 150 MG TABLET Take 1 tablet by mouth daily * HYDROCODONE 5 MG-ACETAMINOPHE* Take 1 tablet by mouth every * SUMATRIPTAN 50 MG TABLET Take 1 tablet by mouth as dir* ATORVASTATIN 10 MG TABLET Patient takes it once a week * BUDESONIDE-FORMOTEROL HFA 80 * Inhale 2 Puffs as instructed * PROMETHAZINE 25 MG RECTAL SUP* 1 Suppository by RECTAL route* COENZYME Q10 200 MG CAPSULE Take 1 capsule by mouth twice* CLOBETASOL 0.05 % TOPICAL CRE* Apply selectively as directe* FLUTICASONE 50 MCG/ACTUATION * Use 2 Sprays in each nostril * ALEVE 220 MG TABLET Take 1-2 tablets at bedtime a* Problem List As Of Date 08/28/2018 Noted Resolved Phlebitis and thrombophlebitis of unspecified s*INVALID FOR*04/10/2016 Chondromalacia [M94.20] INVALID FOR*04/10/2016 Peripheral enthesopathies and allied syndromes *INVALID FOR*04/10/2016 Hypertension goal BP (blood pressure) < 140/90 * Gastroesophageal reflux disease without esophag* More... Other affections of shoulder region, not elsewh*INVALID FOR*04/10/2016 More... Rotator cuff syndrome of shoulder and allied di*INVALID FOR*04/10/2016 More... Primary localized osteoarthrosis, shoulder martha*INVALID FOR*04/10/2016 More... Disorders of bursae and tendons in shoulder reg*INVALID FOR*04/10/2016 Pain in joint, shoulder region [M25.519] INVALID FOR*04/10/2016 Esophagitis, unspecified [K20.9] INVALID FOR*04/10/2016 Pyoderma, unspecified [L08.0] INVALID FOR*04/10/2016 CHRONIC RHINITIS [J31.0] INVALID FOR* Other diseases of nasal cavity and sinuses(478.*INVALID FOR*04/10/2016 Enthesopathy of hip region [M76.899] INVALID FOR*04/10/2016 Lumbago [M54.5] INVALID FOR*04/10/2016 Displacement of lumbar intervertebral disc with*INVALID FOR*04/10/2016 History of hyperlipidemia [Z86.39] INVALID FOR* More... ECZEMA DERMATITIS NOS [L25.9] INVALID FOR*04/10/2016 ECZEMA DERMATITIS NEC [L25.8] INVALID FOR*04/10/2016 Unspecified pruritic disorder [L29.9] INVALID FOR*04/10/2016 XEROSIS//SEBACEOUS GLAND DIS NEC [L73.8] INVALID FOR*10/17/2015 GLUCOSE ABNORMAL TEST [R73.09] INVALID FOR*04/10/2016 Acquired hypothyroidism [E03.9] INVALID FOR* More... Eczematous dermatitis [L30.9] INVALID FOR* Xerosis cutis [L85.3] INVALID FOR*10/17/2015 Pruritus [L29.9] INVALID FOR*04/10/2016 Sjogren's syndrome (HCC) [M35.00] INVALID FOR* More... 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 History of rheumatoid arthritis [Z87.39] INVALID FOR* More... Migraine with aura and without status migrainos*INVALID FOR* ABNORMAL GLUCOSE [R73.09] INVALID FOR* Osteopenia [M85.80] INVALID FOR* Aortic dissection (HCC) [I71.00] INVALID FOR* Intramural hematoma [T14.8XXA] INVALID FOR* More... Aortic dissection, thoracoabdominal (HCC) [I71.*INVALID FOR* More... Primary hypertension [I10] INVALID FOR* More... Neuropathic pain [M79.2] INVALID FOR* More... Cellulitis of left lower extremity [L03.116] INVALID FOR* More... Encounter Status:Closed by MARIANA LANGLEY CMA on 08/28/18 12 LEAD ELECTROCARDIOGRAM Observed: 08/06/2018 Status: F Source: [place] 3:34 PM [facility] [place] Cardiovascular Services [address] [place] [address] 12 Lead EKG 08/01/18 1553 MR#: [id number] Acct: [id number] Name: MIKE LUNSFORD Rep #: [id number] : 1950 68 From: Dirk Pascual MD Attending Dr: Status: DEP ER Ordering Dr: Teri Cesar MD Date: 08/01/18 Location: ED Sex: F C Admitted: Test Reason : Blood Pressure : / mmHG Vent. Rate : 066 BPM Atrial Rate : 066 BPM P-R Int : 134 ms QRS Dur : 072 ms QT Int : 424 ms P-R-T Axes : 045 048 034 degrees QTc Int : 444 ms Normal sinus rhythm Nonspecific ST abnormality Abnormal ECG Confirmed by DIRK PASCUAL MD ([id number]), news assignment editor LAMONTE LOPEZ ([id number]) on 08/06/2018 3:33:47 PM Referred By: DC Confirmed By:DIRK PASCUAL MD 08/06/18 1533 Date Dirk Pascual MD CC: Franklin Mayberry MD; Teri Cesar MD Signed CNDS Observed: 08/06/2018 Status: COMPLETED Source: [place] 2:42 PM [facility] REPOSITORY [facility] ID: [id number] Author: Frederic Israel Service: Cardiovascular Medicine Author Type: Physician Type: Discharge Summaries Filed: 08/07/2018 2:10 PM Note Text: Department of Cardivascular Medicine Discharge Summary PATIENT NAME: Mike Lunsford ADMISSION DATE: 08/01/2018 DISCHARGE DATE: 08/06/2018 Attending Physician: Dr Jennifer Israel Code Status: Not on file Primary Service: Hvi Cicu; Hvi Imaging Admission Diagnosis: TPYE B DISSECTION Discharge Diagnosis: Type B Dissection Secondary Diagnoses: Patient Active Hospital Problem List: Gastroesophageal reflux disease without esophagitis () History of hyperlipidemia (11/21/2007) Acquired hypothyroidism (11/14/2010) History of rheumatoid arthritis (10/17/2015) Intramural hematoma (08/01/2018) Aortic dissection, thoracoabdominal (HCC) (08/02/2018) Primary hypertension (08/02/2018) Neuropathic pain (08/02/2018) Cellulitis of left lower extremity (08/02/2018) Reason for Hospitalization: Ms. Mike Lunsford is a 68-year-old lady who presented with chest pain and was found to have a type B aortic dissection extending from distal to the left subclavian to the level of the renal arteries without renal artery involvement. Medical history is significant for hypertension, rheumatoid arthritis, acid reflux. Hospital Course: She was admitted to coronary intensive care unit where she underwent aggressive impulse control with beta blockade and SUHAIL inhibitor Vascular surgery were consulted and they recommended medical management The patient was discharged in good condition and without any chest pain and will follow-up with her local case coordinator as well as vascular surgery in one month with a repeat CTA weight on date of discharge Wt 80.2 kg (176 lb 14.4 oz) BMI 27.71 kg/m2 Hemoglobin 11.7 08/06/2018 Platelet Count 203 08/06/2018 PT INR 1.0 08/06/2018 Creatinine 1.28 08/06/2018 HBA1C, Naveen 6.1 08/01/2018 Consults: Vasc Surgery Major Procedure or Operation: None Other Procedures, Testing AND Radiology: None Patient Condition at Discharge: Improved Disposition: Home/Self Care Information Provided to the Patient: Patient given copy of After Visit Summary which included activity instructions, diet instructions, wound care instructions, medication instructions and follow up appointment Diet: Resume pre-hospital diet Activity: Resume pre-hospital activity ALLERGIES Allergen Reactions - Asa [Salicylates] GI Upset - Codeine GI Upset - Sulfa (Sulfonamide * GI Upset - Clonidine headache - Estrogens hx thrombosis - Mobic [Meloxicam] Intolerance, Diarrhea - Norvasc [Amlodipine* - Cattgkh-Idh-Lqj Red* Other: See Comments Myalgia Discharge Medications: Discharge Medication List as of 08/06/2018 1:38 PM START taking these medications carvedilol (COREG) 25 mg tablet Take 1 tablet by mouth twice daily with meals. Normal, Disp-60 tablet, R-2, Long-term lisinopril (ZESTRIL, PRINIVIL) 20 mg tablet Take 1 tablet by mouth once daily. Normal, Disp-30 tablet, R-2, Long-term CONTINUE these medications which have NOT CHANGED albuterol HFA (VENTOLIN HFA) 90 mcg/actuation inhaler Inhale 2 Puffs as instructed every 4 hours as needed for Wheezing/Shortness of Breath. Normal, Disp-3 Inhaler, R-1, Long-term atorvastatin (LIPITOR) 10 mg tablet Patient takes it once a week Indications: MIXED HYPERLIPIDEMIA Normal, Disp-90 tablet, R-0 budesonide-formoterol (SYMBICORT) 80-4.5 mcg/actuation inhaler Inhale 2 Puffs as instructed twice daily. Normal, Disp-1 Inhaler, R-5 clobetasol (TEMOVATE) 0.05 % cream Apply selectively as directed to affected areas or lesions of acute eczema dermatitis rash flares BID until clear and stop or taper as able. AVOID face, eyes and eyelids. Print RX, Disp-60 g, R-4 Coenzyme Q10 (CO Q-10) 200 mg cap Take 1 capsule by mouth twice daily. OTC, R-0 fluticasone (FLONASE) 50 mcg/actuation nasal spray Use 2 Sprays in each nostril once daily. Rinse mouth after use. Normal, Disp-1 Bottle, R-11 Dx: 11. Chronic cough gabapentin (NEURONTIN) 300 mg capsule Take 1 capsule by mouth daily at bedtime for 90 days. Normal, Disp-90 capsule, R-0, Long-term HYDROcodone-acetaminophen (NORCO) 5-325 mg per tablet Take 1 tablet by mouth every 8 hours as needed for up to 180 days. Earliest Fill Date: 03/26/18 Print RX, Disp-30 tablet, R-0 Dx: 1. Rheumatoid arthritis with positive rheumatoid factor, involving unspecified site (HCC) levothyroxine (LEVOXYL) 100 mcg tablet Take 1 tablet by mouth once daily. Take one extra tab once a week Normal, Disp-90 tablet, R-3, Long-term Dx: 1. Acquired hypothyroidism naproxen sodium(ALEVE 220 MG TAB) Take 1-2 tablets at bedtime as necessary, Disp-0, R-0, ORAL, Normal pantoprazole DR (PROTONIX) 40 mg tablet Take 1 tablet by mouth once daily. Normal, Disp-90 tablet, R-3, Long-term Dx: 1. Gastroesophageal reflux disease without esophagitis PARoxetine (PAXIL) 40 mg tablet Take 1 tablet by mouth once daily. Normal, Disp-90 tablet, R-3, Long-term Dx: 1. Moderate single current episode of major depressive disorder (HCC) promethazine (PHENERGAN) 25 mg suppository 1 Suppository by RECTAL route every 8 hours as needed. Normal, Disp-20 Suppository, R-1 ranitidine (ZANTAC) 150 mg tablet Take 1 tablet by mouth daily at bedtime. Normal, Disp-90 tablet, R-3 Dx: 1. Gastroesophageal reflux disease without esophagitis SUMAtriptan (IMITREX) 50 mg tablet Take 1 tablet by mouth as directed. START AT ONSET OF HEADACHE. MAY REPEAT DOSE AFTER 2 HOURS. Normal, Disp-9 tablet, R-1 triamcinolone acetonide (KENALOG) 0.1 % cream Apply 1 application to affected area three times daily. Apply to affected area. Normal, Disp-15 g, R-0 STOP taking these medications iv contrast (will be provided with radiology test) Comments: Reason for Stopping: atenolol (TENORMIN) 25 mg tablet Comments: Reason for Stopping: cephALEXin (KEFLEX) 500 mg capsule Comments: Reason for Stopping: Transitions of Care Critical Issues: Close blood pressure controlled ventricular blood pressure is below 120/80 LABS AND PROCEDURES PENDING AT DISCHARGE: No pending results. Outpatient Management: * Are there important medication changes and/or outstanding issues that need to be addressed: as above * What is the plan for follow up: as below and locally Future Appointments: Future Appointments Date Time Provider Department Center 09/24/2018 10:15 AM [id number] MAIN F30 (I-STAT) RCTF RADIO (MAF30 09/24/2018 11:45 AM [id number] Main F This patient?s risk for 30-day readmission is determined using the following contributing drivers Pt variables contributing to increased readmission risk: 20 Most Recent BUN Result 10 Active Medication Orders 9.4 First Resulted Calcium During Admission 1 Insurance - Medicare 1 Discharge Disposition - Home Highest Readmission Risk Score: 9 The 30 day readmissions risk score is derived from an internally validated risk model which evaluates patient level characteristics, utilization history, medication orders and lab results up until the day of discharge. Patients with a score of 40 or above are considered highest risk for readmission. Specific patient level drivers will be listed at the bottom of the summary. Electronically SIGNED by Licensed Independent Practitioner: ZAIRA Bentley [facility] Observed: 08/06/2018 Status: COMPLETED Source: [place] 11:00 AM [facility] REPOSITORY O ID: [id number] Author: Mary (Consuelo) CONSUELO W[place]ster Service: Healing Service Author Type: Registered Nurse Type: Allied Health Filed: 08/06/2018 12:37 PM Note Text: HEALING SERVICES THERAPY NOTE SERVICE DATE: 08/06/2018 SERVICE TIME: 1100 INTERVENTIONAL FOCUS: Relaxation Visit With: Patient Urgency of Visit: Routine Type of Visit: Follow-up Visit INTERVENTION [place] Goal(s) of Visit: To build rapport To create a space for the patient to receive To provide support Patient Education: Patient/Family had no questions. PRACTITIONER VISUAL ASSESSMENT Facial Body Movement Vocal 0 = Smiling 0 = No movement/ appropriate movement 0 = Positive 1 = Neutral 1 = Restless 1 = Neutral/no vocal 2 = Frown/grimace 2 = Pulling at clothes, etc 2 = Crying, moaning, complaining 3 = Clenched teeth/tension 3 = Thrashing, flailing 3 = Screaming, yelling Before: 1 After: 0 Before: 0 After: 0 Before: 0 After: 0 Patient Selected Interventions:Supportive Care: Emotional Support Therapeutic Presence: Emotional Intervention Notes: Follow up visit with the patient. Provided supportive community for pt who is alone. Created an environment of peace and calm using slow, soothing speech and a quiet, gentle, accepting presence to promote pt's healing. She shared that she had a good night and is looking forward to going home soon. She shared that she is doing okay and declined modalities today. She thanked this practitioner for coming to see her. Empathetic, active listening and therapeutic presence provided, allowing the patient to express her feelings. [place] Plan Does the patient feel the mutual goal(s) was met? Yes, the goal(s) was met. Next Session: Yes; if requested Self-Care Education: Yes Family/Significant Other Education: NA Referred to Healing Services Team: No SIGNATURE: Mary W[place]ster RN PATIENT NAME: Mike Lunsford DATE: August 06, 2018 TIME: 12:34 PM PAGER/CONTACT #: [phone] CASE MANAGEM Observed: 08/06/2018 Status: COMPLETED Source: [place] 10:17 AM [facility] REPOSITORY HNO ID: [id number] Author: Liseth Sheehan Service: Care Management Author Type: (none) Type: Care Mgt Progress Note Filed: 08/06/2018 10:18 AM Note Text: CARE MANAGEMENT PROGRESS NOTE SERVICE DATE: 08/06/2018 SERVICE TIME: 10:11 AM LOS: 5 days IM letter given to patient on 08/06/18. SIGNATURE: Liseth Sheehan Marketing Community Liaison PATIENT NAME: Mike Lunsford DATE: August 06, 2018 TIME: 10:17 AM PAGER/CONTACT #: [phone] PROGRESS Observed: 08/06/2018 Status: COMPLETED Source: [place] 9:22 AM [facility] REPOSITORY HNO ID: [id number] Author: Frederic Israel Service: Cardiovascular Medicine Author Type: Physician Type: Progress Notes Filed: 08/06/2018 1:22 PM Note Text: [facility]ARD[facility]ICINE PROGRESS NOTE PRIMARY SERVICE: i Cicu; [facility] HOSPITAL DAY: # 5 INTERVAL HISTORY No acute events overnight. Patient transferred from [facility] yesterday. Adequate impulse control. PHYSICAL EXAM BP 106/65 Pulse 81 Temp 36.5 ?C (97.7 ?F) (Oral) Resp 16 Ht 170.2 cm (5' 7) Wt 80.2 kg (176 lb 14.4 oz) SpO2 97% BMI 27.71 kg/m? Intake/Output Summary (Last 24 hours) at 08/06/18 0923 Last data filed at 08/06/18 0909 Gross per 24 hour Intake 940 ml Output 0 ml Net 940 ml General Appearance: Well developed HEENT: PERRLA Lungs: Clear Heart: Regular rate AND rhythm Abdomen: Soft Skin: Warm Musculoskeletal: No deformities Neurologic/Psychiatric: Oriented to time, place AND person MEDICATIONS Current hospital medications: atorvastatin 10 mg tab(s) (LIPITOR) 10 mg ORAL AT BEDTIME budesonide 0.25 mg/2 mL 0.25 mg (PULMICORT) 0.25 mg INHALATION BID carvedilol 25 mg tab(s) (COREG) 25 mg ORAL BID w MEALS gabapentin 300 mg cap(s) (NEURONTIN) 300 mg ORAL AT BEDTIME levothyroxine 100 mcg tab(s) (SYNTHROID) 100 mcg ORAL DAILY lisinopril 20 mg tab(s) (ZESTRIL, PRINIVIL) 20 mg ORAL DAILY NaCl 0.9% 3-5 mL 3-5 mL INTRAVENOUS q [address] 40 mg tab(s) (PROTONIX) 40 mg ORAL DAILY PARoxetine 40 mg tab(s) (PAXIL) 40 mg ORAL AT BEDTIME senna 8.6 mg tab(s) (SENOKOT) 8.6 mg ORAL BID PRN DATA Recent Labs 08/06/18 0027 08/05/18 0100 08/04/18 0500 WBC 4.66 4.99 4.86 HB 11.7 13.3 12.0 HCT 36.1 40.8 36.6 PLT 203 226 212 Recent Labs 08/06/18 0027 08/05/18 0234 08/05/18 0100 08/04/18 0500 NA 141 -- 139 137 K 4.5 -- 4.1 3.8 CO2 25 Cancelled by clinician 22 22 BUN 20 -- 20 21 CREAT 1.28* -- 1.17* 1.12* GLUC 112* -- 115* 118* MG 2.3 -- 2.5* 2.3 IMAGING No new imaging ASSESSMENT AND PLAN 68M w PMH of HTN, hx of PE 2/2 HRT Estrogen, Rheumatoid arthritis, and LLE cellulitis who p/w SOB and back pain x 3 days found to have type b aortic dissection. No surgical intervention per vascular surgery. Plan for today: -Switch from captopril to lisinopril 20 mg daily -Continue carvedilol 25 BID, atorvastatin 10 daily -Follow up with Dr. Knutson in 1 month with repeat CTA and followup with cardiology for any further uptitration of anti-hypertensives -Likely discharge this afternoon Case to be discussed with staff SIGNATURE: Elizabeth Eugene MD PATIENT NAME: Mike Lunsford DATE: August 06, 2018 TIME: 9:23 AM PAGER/CONTACT #: SEE BELOW For communication after 5 pm on weekdays and after 12 pm on weekends, please page the following: - Clinical Cardiology patients on all floors: page [phone] - Other Cardiology patients on J5 and J6: page [phone] - Other Cardiology patients on J7 and J8: page [phone] [facility] STAFF PHYSICIAN NOTE OF PERSONAL INVOLVEMENT IN CARE ? I have reviewed the documentation obtained and documented by the Fellow and have reviewed and updated the problem list as appropriate. ?I have personally performed a face to face assessment of the patient and have personally participated in the marquez components. I have discussed the case and management of the patient's care. ? IMPRESSION: 68 year old female, transferred from [facility], for continue management of Type B aortic dissection. Vascular surgery recommended impulse control, no intervention for now, and follow up as outpatient. ? Patient feels fine. Understands her condition and the symptoms to look for. Also aware of the importance of BP control. She will follow with her local case coordinator in [place] and Vascular surgery here ? PLAN:? - Discharge ?? ? STAFF ASSOCIATE SOFTWARE APPLICATION ENGINEER: Frederic Israel MD ?ETX [id number] CASE MANAGEM Observed: 08/06/2018 Status: COMPLETED Source: [place] 8:27 AM [facility] REPOSITORY HNO ID: [id number] Author: Jeanette (Rn) CONSUELO Blanca Service: Care Management Author Type: Registered Nurse Type: Care Mgt Progress Note Filed: 08/06/2018 2:08 PM Note Text: CARE MANAGEMENT PROGRESS NOTE CHANGE IN CONDITION SERVICE DATE: 08/06/2018 SERVICE TIME: 8:28 AM LOS: 5 days Needs Prior to Discharge: Ready for Discharge Patient transferred from [facility] yesterday; admitted for Type B Aortic Dissection. Vascular surgery following and recommend no surgical intervention at this time; will follow-up as OP with Vascular surgery and cardiology. Patient on RA-94% pulse ox. CM will continue to follow patient's progress and plan for discharge accordingly. Anticipate discharge to home when medically ready. SIGNATURE: Jairo Blanca RN PATIENT NAME: Mike Lunsford DATE: August 06, 2018 TIME: 8:27 AM PAGER/CONTACT #: [phone] PROTIME Collected: 08/06/2018 Status: F Source: [place] 12:27 AM [facility] REPOSITORY TYPE CODE TESTS RESULT OUT OF RANGE REFERENCE UNITS LAB PSEC 9.7-13.0 sec PT Sec 10.9 LAB INR 0.9-1.3 PT INR 1.0 Result Comment: Vitamin K Antagonist (VKA) Therapeutic Range: INR 2 to 3 (Target INR of 2.5) Note: For patients treated with VKA drugs, such as warfarin, the [employer] 2012 Guideline recommends a therapeutic INR range of 2 to 3 (target INR of 2.5). This recommendation includes high-risk patients with antiphospholipid syndrome with previous arterial or venous thromboembolism, current-generation mechanical or bioprosthetic aortic heart valve replacement. Note: Patients with mechanical aortic valve replacement and additional risk factors for thromboembolic events (atrial fibrillation, previous thromboembolism, LV dysfunction, hypercoagulable conditions) or an older generation mechanical AVR (i.e., ball in-Cage) or any mechanical MVR should have a INR therapeutic range of 2.5 to 3.5 (target INR of 3). Lucrecia GH, et al. Chest 2012, 141:7S-47S Ca RA, et al. [facility] 2017, 70: 252-289 Performed By: #### PT, PTT, CMP, MG1, PHOS, CBCDIF #### [facility] [address] [place], [place] [id number] APTT Collected: 08/06/2018 Status: F Source: [place] 12:27 AM [facility] REPOSITORY TYPE CODE TESTS RESULT OUT OF RANGE REFERENCE UNITS LAB APTT 23.0-32.4 sec APTT 23.1 Result Comment: Unfractionated Heparin Therapeutic Ranges: Standard Heparin Nomogram: 53 to 78 seconds (anti-Xa level of 0.3 to 0.7 U/ml) Low Dose/ACS Nomogram: 49 to 67 seconds (anti-Xa level of 0.2 to 0.5 U/ml) Stroke Treatment Nomogram: 49 to 67 seconds (anti-Xa level of 0.2 to 0.5 U/ml) Note: The APTT therapeutic range has been determined for the current lot of laboratory APTT reagent in use throughout the [facility]. Performed By: #### PT, PTT, CMP, MG1, PHOS, CBCDIF #### [facility] [address] [place], [place] [address] COMP METABOLIC PANEL Collected: 08/06/2018 Status: F Source: [place] 12:27 AM [facility] REPOSITORY TYPE CODE TESTS RESULT OUT OF REFERENCE UNITS RANGE LAB TP 6.3-8.0 g/dL Protein, Total 6.7 LAB ALB 3.9-4.9 g/dL Albumin 3.9 LAB CA 8.5-10.2 mg/dL Calcium, Total 9.1 LAB TBIL 0.2-1.3 mg/dL Bilirubin, Total 0.3 LAB ALKP 34-123 U/L Alkaline Phosphatase 71 LAB AST 13-35 U/L AST 23 LAB GLU 74-99 mg/dL Glucose High 112 Result Comment: The [place] Diabetes Association (ADA) provides guidance for cutoff values for fasting glucose and random glucose. The ADA defines fasting as no caloric intake for at least 8 hours. Fas ting plasma glucose results between 100 to 125 mg/dL indicate increased risk for diabetes (prediabetes). Fasting plasma glucose results greater than or equal to 126 mg/dL meet the criteria for diagnosis of diabetes. In the absence of unequivocal hyperglycemia, results should be confirmed by repeat testing. In a patient with classic symptoms of hyperglycemia or hyperglycemic crisis, random plasma glucose results greater than or equal to 200 mg/dL meet the criteria for diagnosis of diabetes. Reference: Standards of Medical Care in Diabetes 2016, [place] Diabetes Association. Diabetes Care. 2016.39(Suppl 1). LAB BUN 7-21 mg/dL BUN 20 LAB CRET 0.58-0.96 mg/dL Creatinine High 1.28 LAB NA 136-144 mmol/L Sodium 141 LAB K 3.7-5.1 mmol/L Potassium 4.5 LAB CL 97-105 mmol/L Chloride 105 LAB CO2 22-30 mmol/L CO2 25 LAB AGAP 9-18 mmol/L Anion Gap 11 LAB ALT 7-38 U/L ALT 23 LAB GFRAA eGFR- Amer. 50 LAB GFRNAA . eGFR-All Other Races 42 Result Comment: eGFR (Estimated GFR) Units of measure: mL/min/1.73 meters squared eGFR is derived from the reexpressed MDRD Study equation using the following parameters: serum creatinine, age, gender and race. The creatinine assay has been calibrated to be traceable to IDMS. An eGFR <60 mL/min/1.73m2 for >3 months is consistent with chronic kidney disease. Refer to KDOQI guidelines for clinical interpretation. In patients with unstable renal function, e.g. those with acute kidney injury, the eGFR may not accurately reflect actual GFR. Performed By: #### PT, PTT, CMP, MG1, PHOS, CBCDIF #### [facility] [address] [place], [place] [address] MAGNESIUM Collected: 08/06/2018 Status: F Source: [place] 12:27 AM [facility] REPOSITORY TYPE CODE TESTS RESULT OUT OF REFERENCE UNITS RANGE LAB MG 1.7-2.3 mg/dL Magnesium 2.3 Performed By: #### PT, PTT, CMP, MG1, PHOS, CBCDIF #### [facility] [address] [place] [address] PHOSPHORUS Collected: 08/06/2018 Status: F Source: [place] 12:27 AM [facility] REPOSITORY TYPE CODE TESTS RESULT OUT OF REFERENCE UNITS RANGE LAB PHOS 2.7-4.8 mg/dL Phosphorus 3.7 Performed By: #### PT, PTT, CMP, MG1, PHOS, CBCDIF #### [address] [address] CBC AND DIFFERENTIAL Collected: 08/06/2018 Status: F Source: [place] 12:27 [facility] REPOSITORY TYPE CODE TESTS RESULT OUT OF REFERENCE UNITS RANGE LAB WBC 3.70-11.00 k/uL WBC 4.66 LAB RBC 3.90-5.20 m/uL RBC 3.92 LAB HGB 11.5-15.5 g/dL Hemoglobin 11.7 LAB HCT 36.0-46.0 % Hematocrit 36.1 LAB MCV 80.0-100.0 fL MCV 92.1 LAB MCH 26.0-34.0 pG MCH 29.8 LAB MCHC 30.5-36.0 g/dL MCHC 32.4 LAB RDWCV 11.5-15.0 % RDW-CV 13.9 LAB PLTCT 150-400 k/uL Platelet Count 203 LAB MPV 9.0-12.7 fL MPV 11.3 LAB ANEUT % Neut% 50.0 LAB AANEUT 1.45-7.50 k/uL Abs Neut 2.32 LAB ALYMP % Lymph% 36.7 LAB AALYMP 1.00-4.00 k/uL Abs Lymph 1.71 LAB AMONO % [place]% 8.4 LAB AAMONO <0.87 k/uL Abs [place] 0.39 LAB AEOS % Eosin% 3.4 LAB AAEOS <0.46 k/uL Abs Eosin 0.16 LAB ABASO % Baso% 1.5 LAB AABASO <0.11 k/uL Abs Baso 0.07 LAB AUNRBC 0 /100 WBC NRBCs 0.0 LAB ABNRBC <0.01 k/uL Absolute nRBC <0.01 LAB DTYP DTYPE Auto Diff Performed By: #### PT, PTT, CMP, MG1, PHOS, CBCDIF #### [facility] [address] [place], [place] [address] ALLIED HEALTH Observed: 08/05/2018 Status: COMPLETED Source: [place] 10:20 AM [facility] REPOSITORY HNO ID: [id number] Author: Mary NurRn) CONSUELO Winchester Service: Healing Service Author Type: Registered Nurse Type: Allied Health Filed: 08/05/2018 11:55 AM Note Text: HEALING SERVICES THERAPY NOTE SERVICE DATE: 08/05/2018 SERVICE TIME: 1020 INTERVENTIONAL FOCUS: Relaxation Visit With: Patient and Significant Other Urgency of Visit: Routine Type of Visit: Introductory Visit Patient introduced to Healing Services available to them. Provided supportive community for pt who is alone. Created an environment of peace and calm using slow, soothing speech and a quiet, gentle, accepting presence to promote pt's healing. She shared the reasons for her admission. She shared that she is happy to be going into a regular room and is feeling better today. She agreed to call if she would like to see Healing Services. Empathetic, active listening and therapeutic presence provided, allowing the patient to express her feelings. All questions answered and materials left at bedside. Re-visit from Healing Services Team: Yes. If requested. SIGNATURE: Mary Winchester RN PATIENT NAME: Mike Lunsford DATE: August 05, 2018 TIME: 11:52 AM PAGER/CONTACT #: [phone] NURSING PROG Observed: 08/05/2018 Status: COMPLETED Source: [place] 10:14 AM [facility] REPOSITORY HNO ID: [id number] Author: Malini NurRnAna Graves RN Service: (none) Author Type: Registered Nurse Type: Nursing Progress Note Filed: 08/05/2018 10:16 AM Note Text: Admission/Transfer Note PATIENT NAME: Mike Lunsford Patient transferred from [facility] via wheelchair in stable condition. Actions taken: Patient oriented to room, call light function, prescribed activities, Patient rights and Quiet at night. No futher actions taken at this time. Will continue to monitor and check with patient. Upon admission the pt's skin was assessed for signs of breakdown by BRIELLE, RN and MR, RN. Upon assessment, no signs of breakdown were found. Pt was educated on pressure ulcers and measures to prevent breakdown from occurring and verbalized understanding of material presented. Pt remains under constant observation. Fall protocol in place. Fall safety plan reviewed with patient. Yellow socks, yellow band and yellow fall sign outside door. Bed alarm on. This note was completed by: Malini Graves RN NURSING PROG Observed: 08/05/2018 Status: COMPLETED Source: [place] 9:44 AM [facility] REPOSITORY HNO ID: [id number] Author: Denny Bergman RN Service: Nursing Author Type: Registered Nurse Type: Nursing Progress Note Filed: 08/05/2018 9:45 AM Note Text: Nursing Progress Note Patient Name: Mike Lunsford Patient Location: [place] [id number] Transfer Note: Patient transferred into room/unit J51-12 in stable condition. Actions taken: Report given/called to RNF RN by previous shift. RNF RN updated on patient status before leaving. Patient belongings with patient This note was completed by: Denny Bergman RN CONSULT PROG Observed: 08/05/2018 Status: COMPLETED Source: [place] 6:55 AM [facility] REPOSITORY HNO ID: [id number] Author: Michael Parker Service: Vascular Surgery Author Type: Resident Type: Consult Progress Note Filed: 08/05/2018 6:56 AM Note Text: [facility]ERY CONSULT PROGRESS NOTE Service Date: 08/05/2018Admit Date: 08/01/2018Service Time: 6:55 AM LOS: 4 day(s) Primary Service: Consult Requesting Service: cards Vascular Physician: Ingris Knutson MD Interval Events/Issues: no acute events overnight. Pain nearly gone. Subjective Current hospital medications: atorvastatin 10 mg tab(s) (LIPITOR) 10 mg ORAL AT BEDTIME budesonide 0.25 mg/2 mL 0.25 mg (PULMICORT) 0.25 mg INHALATION BID captopril (CAPOTEN) tab(s) 37.5 mg 37.5 mg ORAL q 8 H carvedilol 12.5 mg tab(s) (COREG) 12.5 mg ORAL BID w MEALS gabapentin 300 mg cap(s) (NEURONTIN) 300 mg ORAL AT BEDTIME levothyroxine 100 mcg tab(s) (SYNTHROID) 100 mcg ORAL DAILY metoprolol 5 mg injection (LOPRESSOR) 5 mg INTRAVENOUS q 5 MIN PRN NaCl 0.9% 3-5 mL 3-5 mL INTRAVENOUS q [address] 40 mg tab(s) (PROTONIX) 40 mg ORAL DAILY PARoxetine 40 mg tab(s) (PAXIL) 40 mg ORAL DAILY Medication and Non-Pharmacologic VTE Prophylaxis/Anticoagulants 08/01/18 1830 graduated compression stockings ([place], [place]) 08/01/18 1815 activity - mobilize patient ([place]) VTE Prophylaxis: VTE prophylaxis appropriate ALLERGIES Allergen Reactions - Asa [Salicylates] GI Upset - Codeine GI Upset - Sulfa (Sulfonamide * GI Upset - Clonidine headache - Estrogens hx thrombosis - Mobic [Meloxicam] Intolerance, Diarrhea - Norvasc [Amlodipine* - Zkrgxln-Ujg-Naq Red* Other: See Comments Myalgia Objective PHYSICAL EXAM: Patient Vitals for the past 24 hrs: BP Temp Temp src Pulse Resp SpO2 08/04/18 0749 - - - 64 17 100 % 08/04/18 0741 - - - (!) 59 11 95 % 08/04/18 0730 120/66 - - 67 13 96 % 08/04/18 0700 104/58 36.3 ?C (97.4 ?F) Axillary 63 21 94 % 08/04/18 0630 96/53 - - 63 17 95 % 08/04/18 0600 126/60 - - 62 12 96 % 08/04/18 0530 111/53 - - 62 20 96 % 08/04/18 0500 118/57 - - 61 27 96 % 08/04/18 0430 134/68 - - 65 19 96 % 08/04/18 0405 - - - 61 - 94 % 08/04/18 0400 (!) 94/46 - - 65 16 95 % 08/04/18 0330 (!) 100/49 - - 63 11 94 % 08/04/18 0300 111/55 36.9 ?C (98.4 ?F) Oral 60 10 95 % 08/04/18 0230 101/51 - - 63 11 96 % 08/04/18 0200 (!) 95/42 - - 71 18 96 % 08/04/18 0130 103/52 - - 64 17 94 % 08/04/18 0100 100/52 - - 61 17 95 % 08/04/18 0030 113/53 - - 62 12 95 % 08/04/18 0005 (!) 89/43 - - 60 12 95 % 08/04/18 0000 (!) 86/43 - - 62 13 94 % 08/03/18 2339 - - - (!) 58 - 93 % 08/03/18 2330 (!) 97/48 - - (!) 58 19 94 % 08/03/18 2300 (!) 105/49 36.9 ?C (98.4 ?F) Oral 65 12 96 % 08/03/18 2230 129/87 - - 69 20 97 % 08/03/18 2200 111/53 - - 62 19 96 % 08/03/18 2130 128/62 - - 62 15 95 % 08/03/18 2100 117/56 - - (!) 56 12 95 % 08/03/18 2030 121/57 - - (!) 58 15 95 % 08/03/181999 123/57 - - 61 16 96 % 08/03/18 1940 - - - (!) 58 16 - 08/03/18 1934 - - - (!) 59 16 96 % 08/03/18 1930 112/63 - - 61 11 95 % 08/03/18 1900 - 36.9 ?C (98.4 ?F) Oral 65 17 96 % 08/03/18 1830 109/50 - - 68 20 96 % 08/03/18 1800 - - - 82 29 96 % 08/03/18 1730 150/65 - - 71 17 96 % 08/03/18 1700 118/57 - - 60 22 96 % 08/03/18 1630 132/61 - - (!) 57 11 95 % 08/03/18 1600 131/60 - - 60 19 96 % 08/03/18 1530 137/63 - - 62 22 96 % 08/03/18 1527 - 37 ?C (98.6 ?F) Oral (!) 59 12 97 % 08/03/18 1500 119/56 - - 62 21 96 % 08/03/18 1430 132/64 - - (!) 55 12 98 % 08/03/18 1400 134/63 - - (!) 56 10 96 % 08/03/18 1330 128/60 - - 61 12 96 % 08/03/18 1300 110/52 - - 63 12 96 % 08/03/18 1230 108/51 - - 69 24 96 % 08/03/18 1200 128/60 - - 61 23 96 % 08/03/18 1130 137/62 - - 63 22 96 % 08/03/18 1125 - - - 63 18 96 % 08/03/18 1100 116/58 37.1 ?C (98.8 ?F) Oral 61 10 96 % 08/03/18 1030 121/56 - - 68 22 96 % 08/03/18 1000 110/55 - - 62 12 95 % 08/03/18 0930 105/51 - - 68 17 96 % 08/03/18 0900 (!) 106/47 - - 72 24 95 % 08/03/18 0830 143/65 - - 69 19 95 % Intake/Output Summary (Last 24 hours) at 08/05/18 0655 Last data filed at 08/05/18 0100 Gross per 24 hour Intake 476 ml Output 2250 ml Net -1774 ml CONSTITUTIONAL: No acute distress NEUROLOGIC/PSYCHIATRIC: Alert and Oriented HEENT: normocephalic, atraumatic LUNGS: unlabored, no retractions HEART: RRR ABDOMEN: Soft and Non-tender INTEGUMENTARY: Wound - No SURGICAL SITES: None MUSCULOSKELETAL: No deformities Pulses/Signals: palp distal pulses in LE DATA: Laboratory: Recent Labs 08/05/18 0100 08/04/18 0500 08/03/18 0045 WBC 4.99 4.86 5.58 HB 13.3 12.0 12.8 HCT 40.8 36.6 38.8 PLT 226 212 251 Recent Labs 08/05/18 0100 08/04/18 0500 08/03/18 0045 NA 139 137 140 K 4.1 3.8 4.1 BUN 20 21 19 CREAT 1.17* 1.12* 1.11* GLUC 115* 118* 112* MG 2.5* 2.3 2.6* Recent Labs 08/03/18 0045 APTT 24.1 INR 1.0 Assessment/Plan Impression: 68F w/ h/o HTN, PE 2/2 HRT Estrogen, RA and LLE cellulitis who p/w SOB and back pain x 3 days found to have type b aortic dissection. Plan is impulse control until vascular surgery can determine a surgical vs medical approach. Plan: Impulse control Watch for signs of end-organ hypoperfusion (none) Ok for RNF Will follow-up as outpatient with Dr Knutson in 1 month with CTA 68M w PMH of HTN, hx of PE 2/2 HRT Estrogen, Rheumatoid arthritis, and LLE cellulitis who p/w SOB and back pain x 3 days found to have type b aortic dissection. No surgical intervention per vascular surgery. No problems updated. SIGNATURE: Michael Parker MD PATIENT NAME: Mike Lunsford DATE: August 05, 2018 TIME: 6:56 AM PAGER/CONTACT #: [phone] PROGRESS Observed: 08/05/2018 Status: COMPLETED Source: [place] 6:25 AM [facility] REPOSITORY HNO ID: [id number] Author: Petrona Ortega Service: Cardiovascular Medicine Author Type: Physician Type: Progress Notes Filed: 08/05/2018 9:51 AM Note Text: [facility] CARDIOVASCULAR MEDICINE PROGRESS NOTE PRIMARY SERVICE: [facility]; [facility] HOSPITAL DAY: # 4 INTERVAL HISTORY - Not acute events overnight - Denies chest discomfort/pressure/pain, SOB, pleurisy, SOB, N/V, diaphoresis, palpitations, lightheadedness, dizziness/presyncope, worsening swelling - Good impulse control PLAN FOR TODAY: Transition to [facility] this morning with impulse control - Vascular surgery following PHYSICAL EXAM BP 93/54 Pulse 68 Temp 36.7 ?C (98.1 ?F) (Oral) Resp 22 Ht 170.2 cm (5' 7) Wt 80.5 kg (177 lb 7.5 oz) SpO2 94% BMI 27.80 kg/m? Intake/Output Summary (Last 24 hours) at 08/05/18 06 Last data filed at 08/04/18 2100 Gross per 24 hour Intake 476 ml Output 2000 ml Net -1524 ml General Appearance: Well developed and Well nourished HEENT: PERRLA and EOM's intact Lungs: Clear Heart: Regular rate AND rhythm Abdomen: Soft, Non-tender and Bowel sounds present Skin: Warm Musculoskeletal: No deformities Neurologic/Psychiatric: Oriented to time, place AND person MEDICATIONS Current hospital medications: atorvastatin 10 mg tab(s) (LIPITOR) 10 mg ORAL AT BEDTIME budesonide 0.25 mg/2 mL 0.25 mg (PULMICORT) 0.25 mg INHALATION BID captopril (CAPOTEN) tab(s) 37.5 mg 37.5 mg ORAL q 8 H carvedilol 12.5 mg tab(s) (COREG) 12.5 mg ORAL BID w MEALS gabapentin 300 mg cap(s) (NEURONTIN) 300 mg ORAL AT BEDTIME levothyroxine 100 mcg tab(s) (SYNTHROID) 100 mcg ORAL DAILY metoprolol 5 mg injection (LOPRESSOR) 5 mg INTRAVENOUS q 5 MIN PRN NaCl 0.9% 3-5 mL 3-5 mL INTRAVENOUS q [address] 40 mg tab(s) (PROTONIX) 40 mg ORAL DAILY PARoxetine 40 mg tab(s) (PAXIL) 40 mg ORAL DAILY DATA Recent Labs 08/05/18 0100 08/04/18 0500 08/03/18 0045 WBC 4.99 4.86 5.58 HB 13.3 12.0 12.8 HCT 40.8 36.6 38.8 PLT 226 212 251 Recent Labs 08/05/18 0234 08/05/18 0100 08/04/18 0500 08/03/18 0045 NA -- 139 137 140 K -- 4.1 3.8 4.1 CO2 Cancelled by clinician 22 22 24 BUN -- 20 21 19 CREAT -- 1.17* 1.12* 1.11* GLUC -- 115* 118* 112* MG -- 2.5* 2.3 2.6* ASSESSMENT AND PLAN 68M w PMH of HTN, hx of PE 2/2 HRT Estrogen, Rheumatoid arthritis, and LLE cellulitis who p/w SOB and back pain x 3 days found to have type b aortic dissection. No surgical intervention per vascular surgery. Active Hospital Problems Diagnosis - Aortic dissection, thoracoabdominal (HCC) History: 3 day history of back pain found to have new finding of IMH. Pain improving w/BP control. Neurovascular intact. 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 Aorta non-aneurysmal, max diameter 35mm. Max IMH thickness about 10mm Plan: - impulse control w/HR 60s, SBP <120 - continue oral carvedilol/captopril as dosed - closely monitor symptoms - no acute surgical intervention at this time - Primary hypertension Nitroprusside gtt Metoprolol 5mg q 5min IV prn HR >70 Goal <120 mmHg Goal HR<60 - Neuropathic pain BL LE neuropathic pain Cont gabapentin - Cellulitis of left lower extremity Cont cephalexin LLE last day of abx 08/04/18 - Intramural hematoma History: 3 day history of back pain found to have new finding of IMH. Pain improving w/BP control. Neurovascular intact. 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 Aorta non-aneurysmal, max diameter 35mm. Max IMH thickness about 10mm Plan: - impulse control w/HR 60s, SBP <120 - closely monitor symptoms - no acute surgical intervention at this time - History of rheumatoid arthritis Pt has taken prednisone in past for RA and eczema Not on any current home meds - Acquired hypothyroidism Cont home dose levothyroxine - History of hyperlipidemia Per patient - unable to take higher dose statins, severe myalgias: Tried lovastatin, pravachol, simvastatin. Aortic ulceration reflecting unstable plaque and recent lipid profile w/ LDL in 150s, and elevated TG and total cholesterol Pt can tolerate atorvastatin 10mg, will continue this - would recommend high intensity statin, but unable to tolerate - recommend cardiology consider Ezetimibe or PCSK9 inhibitors or other alternatives for this patient - Gastroesophageal reflux disease without esophagitis Continue PPI Case to be discussed with staff SIGNATURE: Mariana Fernandez MD PATIENT NAME: Mike Lunsford DATE: August 05, 2018 TIME: 6:25 AM PAGER/CONTACT #: [phone] [facility] STAFF PHYSICIAN NOTE OF PERSONAL INVOLVEMENT IN CARE Coronary Intensive Care Unit I have reviewed the documentation above, obtained and documented by the resident. I have also reviewed and updated the problem list as appropriate. I have personally participated in the marquez components and physical exam and have discussed the case and management of the patient's care with the residents and [place]. The following comments revise or confirm relevant marquez components. Labs: Recent Labs 08/05/18 0100 08/04/18 0500 08/03/18 0045 WBC 4.99 4.86 5.58 HB 13.3 12.0 12.8 HCT 40.8 36.6 38.8 PLT 226 212 251 INR -- -- 1.0 Recent Labs 08/05/18 0234 08/05/18 0100 08/04/18 0500 08/03/18 0045 NA -- 139 137 140 K -- 4.1 3.8 4.1 CHLOR -- 103 103 103 CO2 Cancelled by clinician 22 22 24 BUN -- 20 21 19 CREAT -- 1.17* 1.12* 1.11* GLUC -- 115* 118* 112* MG -- 2.5* 2.3 2.6* CA -- 9.5 9.0 9.6 ALB -- -- 3.7* 4.3 Recent Labs 08/04/18 0447 LDL 114* HDL 44 TG 182* Recent Labs 08/04/18 0500 08/03/18 0045 ALT 24 26 AST 25 25 Current hospital medications: atorvastatin 10 mg tab(s) (LIPITOR) 10 mg ORAL AT BEDTIME budesonide 0.25 mg/2 mL 0.25 mg (PULMICORT) 0.25 mg INHALATION BID captopril (CAPOTEN) tab(s) 37.5 mg 37.5 mg ORAL q 8 H carvedilol 12.5 mg tab(s) (COREG) 12.5 mg ORAL BID w MEALS gabapentin 300 mg cap(s) (NEURONTIN) 300 mg ORAL AT BEDTIME levothyroxine 100 mcg tab(s) (SYNTHROID) 100 mcg ORAL DAILY metoprolol 5 mg injection (LOPRESSOR) 5 mg INTRAVENOUS q 5 MIN PRN NaCl 0.9% 3-5 mL 3-5 mL INTRAVENOUS q [address] 40 mg tab(s) (PROTONIX) 40 mg ORAL DAILY PARoxetine 40 mg tab(s) (PAXIL) 40 mg ORAL DAILY TIME BASED CARE: Critical Care: I personally spent 30 minutes of critical care time involved in the care of this patient. This care required my full attention and direct personal managment of dissecting aortic aneurysm. The time spent excluded other procedures/services provided by me. STAFF PHYSICIAN: Petrona Ortega MD Cardiology Staff Physician Office: [phone] PAGER: [phone] DATE OF SERVICE: August 05, 2018 TIME OF SERVICE: 6:40 AM GASV + ALL Collected: 08/05/2018 Status: C Source: [place] 2:34 AM [facility] [place] REPOSITORY TYPE CODE TESTS RESULT OUT OF REFERENCE UNITS RANGE LAB VPH 7.32-7.42 pH Cancelled by clinician Result Comment: Account Credited CHRISTIANNE J31 08.05.18331 JAMANDA Corrected on 08/05 AT 0402: Previously reported as 7.38 LAB VPC2 42-55 mm Hg Cancelled pCO2 by clinician Result Comment: Account Credited CHRISTIANNE J31 08.05.18331 J.ZAKRAEVANGELISTEK Corrected on 08/05 AT 0402: Previously reported as 53 LAB VPO2 35-45 mm Hg Cancelled pO2 by clinician Result Comment: Account Credited CHRISTIANNE J31 08.05.18331 J.ZAKRAEVANGELISTEK Corrected on 08/05 AT 0402: Previously reported as 39 LAB VBE mmol/L Cancelled Base Excess by clinician Result Comment: Account Credited CHRISTIANNE J31 08.05.18331 J.LUKEARUDY Corrected on 08/05 AT 0402: Previously reported as 6 LAB VHC3 24-28 mmol/L Bicarbonate Cancelled by clinician Result Comment: Account Credited CHRISTIANNE J31 08.05.18331 J.ZAKRAEVANGELISTEK Corrected on 08/05 AT 0402: Previously reported as 31 LAB VC2C 25-29 mmol/L CO2 Content Cancelled by clinician Result Comment: Account Credited CHRISTIANNE J31 08.05.18331 J.ZAKRAEVANGELISTEK Corrected on 08/05 AT 0402: Previously reported as 33 LAB O2HBCX 60-85 % Oxyhemoglobin, Juan. Cancelled by clinician Result Comment: Account Credited CHRISTIANNE J 08.05.18331 DEIDRE Corrected on 08/05 AT 0402: Previously reported as 66 LAB CO <2.0 % Carboxyhemoglobin,Juan Cancelled by clinician Result Comment: Account Credited CHRISTIANNE Stubbs 08.05.18331 DEIDRE Corrected on 08/05 AT 0402: Previously reported as 0.1 LAB METHB 0.4-1.5 % Methemoglobin Cancelled by clinician Result Comment: Account Credited CHRISTIANNE Stubbs 08.05.18331 DEIDRE Corrected on 08/05 AT 0402: Previously reported as 0.0 LAB VTMP C Temperature, Body Cancelled by clinician Result Comment: Account Credited CHRISTIANNE Stubbs 08.05.18331 DEIDRE Corrected on 08/05 AT 0402: Previously reported as 37.0 LAB VPHTC 7.32-7.42 pH, Temp Corrected Cancelled by clinician Result Comment: Account Credited CHRISTIANNE Stubbs 08.05.18331 DEIDRE Corrected on 08/05 AT 0402: Previously reported as 7.38 LAB VPC2T mm Hg pCO2, Cancelled Temp Correct by clinician Result Comment: Account Credited CHRISTIANNE Stubbs 08.05.18331 DEIDRE Corrected on 08/05 AT 0402: Previously reported as 53 LAB VPO2T mm Hg pO2, Temp Cancelled Corrected by clinician Result Comment: Account Credited CHRISTIANNE Rothman 08.05.18331 DEIDRE Corrected on 08/05 AT 0402: Previously reported as 39 LAB NAB 132-148 mmol/L Sodium,Whole Bld Cancelled by clinician Result Comment: Account Credited CHRISTIANNE Stubbs 08.05.18331 DEIDRE Corrected on 08/05 AT 0402: Previously reported as Cancelled by clinician Account Credited CHRISTIANNE Stubbs 08.05.18331 JTZ, Corrected on 08/05 AT 0336: Previously reported as 136 LAB KWB 3.5-5.0 mmol/L Potassium, Whole Bld Cancelled by clinician Result Comment: Account Credited CHRISTIANNE Stubbs 08.05.18331 DEIDRE Corrected on 08/05 AT 0402: Previously reported as Cancelled by clinician Account Credited CHRISTIANNE Rothman 08.05.18331 JTZ, Corrected on 08/05 AT 0336: Previously reported as 4.2 LAB HGBB 11.5-15.5 g/dL Hemoglobin,Total,ACL Cancelled by clinician Result Comment: Account Credited CHRISTIANNE Rothman 08.05.18 033 DEIDRE Corrected on 08/05 AT 0402: Previously reported as Cancelled by clinician Account Credited CHRISTIANNE Rothman 08.05.18 033 JTZ, Corrected on 08/05 AT 0336: Previously reported as 9.4 LAB HCTB 36.0-46.0 % Hematocrit, ACL Cancelled by clinician Result Comment: Account Credited CHRISTIANNE Rothman 08.05.18 033 DEIDRE Corrected on 08/05 AT 0402: Previously reported as Cancelled by clinician Account Credited BobbiWANDER Rothman 08.05.18 033 JTZ, Corrected on 08/05 AT 0336: Previously reported as 29 LAB IC 1.08-1.30 mmol/L Calcium, Ion, Cancelled by WB clinician Result Comment: Account Credited CHRISTIANNE Rothman 08.05.18 033 DEIDRE Corrected on 08/05 AT 0402: Previously reported as Cancelled by clinician Account Credited CHRISTIANNE Rothman 08.05.18 033 JTZ, Corrected on 08/05 AT 0336: Previously reported as 1.18 LAB GLB 60-105 mg/dL Glucose,Whole Bld Cancelled by clinician Result Comment: Account Credited CHRISTIANNE Rothman 08.05.18 033 DEIDRE Corrected on 08/05 AT 0402: Previously reported as Cancelled by clinician Account Credited BobbiWANDER Rothman 08.05.18 033 JTZ, Corrected on 08/05 AT 0336: Previously reported as 143 LAB LACT 0.5-2.2 mmol/L Lactate Cancelled by clinician Result Comment: Account Credited BobbiWANDER Rothman 08.05.18 033 DEIDRE Corrected on 08/05 AT 0402: Previously reported as Cancelled by clinician Account Credited CHRISTIANNE [facility] 08.05.18 0332 JTZ, Corrected on 08/05 AT 0336: Previously reported as 0.6 LAB VOAD O2 Administered Cancelled by clinician Result Comment: Account Credited CHRISTIANNE Rothman 08.05.18 033 [facility] VBGCOM Cancelled by Blood Gas clinician Comm, Juan Result Comment: Account Credited CHRISTIANNE Rothman 08.05.18 0332 [facility] VCBWHO Notified Cancelled Whom, Juan by clinician Result Comment: Account Credited CHRISTIANNE Rothman 08.05.18 0332 [facility] VCBDTE Cancelled by Notify Date, clinician Juan Result Comment: Account Credited CHRISTIANNE Rothman 08.05.18 0332 [facility]elle[facility] VCBTME Cancelled by Notify Time, clinician Juan Result Comment: Account Credited CHRISTIANNE Rothman 08.05.18 0332 DEIDRE Performed By: #### VALLBG #### [facility] [place], [place] [address] CBC Collected: 08/05/2018 Status: F Source: [place] 1:00 AM [facility] REPOSITORY TYPE CODE TESTS RESULT OUT OF REFERENCE UNITS RANGE LAB WBC 3.70-11.00 k/uL WBC 4.99 LAB RBC 3.90-5.20 m/uL RBC 4.59 LAB HGB 11.5-15.5 g/dL Hemoglobin 13.3 LAB HCT 36.0-46.0 % Hematocrit 40.8 LAB MCV 80.0-100.0 fL MCV 88.9 LAB MCH 26.0-34.0 pG MCH 29.0 LAB MCHC 30.5-36.0 g/dL MCHC 32.6 LAB RDWCV 11.5-15.0 % RDW-CV 13.6 LAB PLTCT 150-400 k/uL Platelet Count 226 LAB MPV 9.0-12.7 fL MPV 11.0 LAB ABSNUC <0.01 k/uL Absolute nRBC <0.01 Performed By: #### CBC, BMP, MG1, PHOS #### [facility] [address], [place] [address] BASIC METABOLIC PANL Collected: 08/05/2018 Status: F Source: [place] 1:00 AM [facility] REPOSITORY TYPE CODE TESTS RESULT OUT OF REFERENCE UNITS RANGE LAB GLU 74-99 mg/dL High Glucose 115 Result Comment: The English Diabetes Association (ADA) provides guidance for cutoff values for fasting glucose and random glucose. The ADA defines fasting as no caloric intake for at least 8 hours. Fas ting plasma glucose results between 100 to 125 mg/dL indicate increased risk for diabetes (prediabetes). Fasting plasma glucose results greater than or equal to 126 mg/dL meet the criteria for diagnosis of diabetes. In the absence of unequivocal hyperglycemia, results should be confirmed by repeat testing. In a patient with classic symptoms of hyperglycemia or hyperglycemic crisis, random plasma glucose results greater than or equal to 200 mg/dL meet the criteria for diagnosis of diabetes. Reference: Standards of Medical Care in Diabetes 2016, English Diabetes Association. Diabetes Care. 2016.39(Suppl 1). LAB BUN 7-21 mg/dL BUN 20 LAB CRET 0.58-0.96 mg/dL Creatinine High 1.17 LAB NA 136-144 mmol/L Sodium 139 LAB K 3.7-5.1 mmol/L Potassium 4.1 LAB CL 97-105 mmol/L Chloride 103 LAB CO2 22-30 mmol/L CO2 22 LAB AGAP 9-18 mmol/L Anion Gap 14 LAB CA 8.5-10.2 mg/dL Calcium, Total 9.5 LAB GFRAA eGFR- Amer. 56 LAB GFRNAA . eGFR-All Other Races 46 Result Comment: eGFR (Estimated GFR) Units of measure: mL/min/1.73 meters squared eGFR is derived from the reexpressed MDRD Study equation using the following parameters: serum creatinine, age, gender and race. The creatinine assay has been calibrated to be traceable to IDMS. An eGFR <60 mL/min/1.73m2 for >3 months is consistent with chronic kidney disease. Refer to KDOQI guidelines for clinical interpretation. In patients with unstable renal function, e.g. those with acute kidney injury, the eGFR may not accurately reflect actual GFR. Performed By: #### CBC, BMP, MG1, PHOS #### [facility] [address] [place], [place] [address] MAGNESIUM Collected: 08/05/2018 Status: F Source: [place] 1:00 AM [facility] REPOSITORY TYPE CODE TESTS RESULT OUT OF REFERENCE UNITS RANGE LAB MG 1.7-2.3 mg/dL High Magnesium 2.5 Performed By: #### CBC, BMP, MG1, PHOS #### [facility] [address] [place], [place] [address] PHOSPHORUS Collected: 08/05/2018 Status: F Source: [place] 1:00 AM [facility] REPOSITORY TYPE CODE TESTS RESULT OUT OF REFERENCE UNITS RANGE LAB PHOS 2.7-4.8 mg/dL Phosphorus 2.7 Performed By: #### CBC, BMP, MG1, PHOS #### [facility] [address] [place], [place] [address] CASE MGT INIT Observed: 08/04/2018 Status: COMPLETED Source: [place] YU 11:22 AM [facility] REPOSITORY HNO ID: [id number] Author: Kayli (Rn) CONSUELO Dave Service: Care Management Author Type: Registered Nurse Type: Care Mgt Initial Assessment Filed: 08/04/2018 11:49 AM Note Text: CARE MANAGEMENT: ASSESSMENT AND DISCHARGE PLAN SERVICE DATE: 08/04/2018 SERVICE TIME: 1122 PRIMARY CARE PHYSICIAN: FRANKLIN MAYBERRY MD (Pt indicated seeing MD) ADMISSION STATUS: Inpatient Needs Prior to Discharge: To Be Determined;Home Care Order 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 How often do you need to have someone help you when you read instructions, pamphlets, or other written material from your doctor or pharmacy? Never - 1 2. How confident are you filling out medical forms by yourself? Extremely - 1 If Patient scores > 3 on either question, the following interventions were put into place: Patient did not score > 3 FUNCTIONAL AND COGNITIVE/BEHAVIORAL PRIOR TO ADMISSION: Baseline Mental Status: Alert AND Oriented, Person, Place , Time and Situation Functional Status: Independent Does Patient Currently Receive Any Community Services or Home Care? None Equipment Prior to Admission: None Has the Patient Been in a Half-Way Facility in the Past 30 days? No SOCIAL: Living Arrangement: Home Lives With: Alone Financial Resources: Retired Primary Contact: Extended Emergency Contact Information Primary Emergency Contact: Bette Navas(HCPOA with documents completed today and tubed to 321)) Mobile Relation: Son Secondary Emergency Contact: Alesia Navas Relation: Daughter Supportive: Yes Other Important Patient Contacts: None Caregiver Assessment: Caregiver is ready, willing and able to meet the patient's needs as recommended by the inter-professional team? Pt indicated son is able to assist at home at d/c. 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 No Medication Adherence: I am convinced of the importance of my prescription medication: Agree completely - 0 I worry that my prescription medication will do more harm than good to me Disagree completely - 0 I feel financially burdened by my [id number] expenses for my prescription medication: Disagree completely - 0 Patient is categorized as low risk < 2 Are you interested in bedside delivery of your medications? No Food Concerns: In the Last Month, Have You had Trouble Getting Food? No trouble getting food During the Last Month, Have You Worried Whether Your Food Would Run Out Before You Had Enough Money to Buy More? No Is the Patient Psychosocially Complex? No ASSESSMENT AND PLAN: Medical Needs: None Psychosocial Needs: None FREEDOM OF CHOICE EXPLAINED: Yes 08/04/2018 1141 CM spoke w/ pt related to assistance with d/c planning if skilled needs indicated at d/c. POTENTIAL TRANSITION PLANS Home Home Care 68 YOF admit w/ SOB,lightheadness, progressive pain 3/10 b/w scapula [address] showed descending thoracic aortic dissection w/ thrombus to level of renal artery w/o extension. Vascular indicating no acute surgical intervention at this time. PO medications, R/A. 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 No home O2 or DME's. CM to follow. SIGNATURE: Kayli Dave RN PATIENT NAME: Mike Lunsford DATE: August 04, 2018 TIME: 11:22 AM PAGER/CONTACT #: [phone] CONSULT PROG Observed: 08/04/2018 Status: COMPLETED Source: [place] 8:15 AM [facility] REPOSITORY HNO ID: [id number] Author: Krystyna (Rama) Radha Service: Vascular Surgery Author Type: Resident Type: Consult Progress Note Filed: 08/04/2018 8:18 AM Note Text: [facility] CONSULT PROGRESS NOTE Service Date: 08/04/2018Admit Date: 08/01/2018Service Time: 6:30AM LOS: 3 day(s) Primary Service: Consult Requesting Service: cards Vascular Physician: Ingris Knutson MD Interval Events/Issues: no acute events overnight. Pain nearly gone. Subjective Current hospital medications: atorvastatin 10 mg tab(s) (LIPITOR) 10 mg ORAL AT BEDTIME budesonide 0.25 mg/2 mL 0.25 mg (PULMICORT) 0.25 mg INHALATION BID captopril 12.5 mg tab(s) (CAPOTEN) 12.5 mg ORAL q 8 H carvedilol 12.5 mg tab(s) (COREG) 12.5 mg ORAL BID w MEALS cephALEXin 500 mg cap(s) (KEFLEX) 500 mg ORAL q 6 H gabapentin 300 mg cap(s) (NEURONTIN) 300 mg ORAL AT BEDTIME influenza vaccine 180 mcg (Patients 65 years and older) (PF) (FLUZONE HIGH DOSE 2018-) 0.5 mL INTRAMUSCULAR ONCE (IMMUNIZATION) levothyroxine 100 mcg tab(s) (SYNTHROID) 100 mcg ORAL DAILY metoprolol 5 mg injection (LOPRESSOR) 5 mg INTRAVENOUS q 5 MIN PRN NaCl 0.9% 3-5 mL 3-5 mL INTRAVENOUS q [address] 40 mg tab(s) (PROTONIX) 40 mg ORAL DAILY PARoxetine 40 mg tab(s) (PAXIL) 40 mg ORAL DAILY Medication and Non-Pharmacologic VTE Prophylaxis/Anticoagulants 08/01/18 1830 graduated compression stockings (ar,oh) 08/01/18 1815 activity - mobilize patient (ar,il) VTE Prophylaxis: VTE prophylaxis appropriate ALLERGIES Allergen Reactions - Asa [Salicylates] GI Upset - Codeine GI Upset - Sulfa (Sulfonamide * GI Upset - Clonidine headache - Estrogens hx thrombosis - Mobic [Meloxicam] Intolerance, Diarrhea - Norvasc [Amlodipine* - Pnjqjpk-Rwk-Cfi Red* Other: See Comments Myalgia Objective PHYSICAL EXAM: Patient Vitals for the past 24 hrs: BP Temp Temp src Pulse Resp SpO2 08/04/18 0749 - - - 64 17 100 % 08/04/18 0741 - - - (!) 59 11 95 % 08/04/18 0730 120/66 - - 67 13 96 % 08/04/18 0700 104/58 36.3 ?C (97.4 ?F) Axillary 63 21 94 % 08/04/18 0630 96/53 - - 63 17 95 % 08/04/18 0600 126/60 - - 62 12 96 % 08/04/18 0530 111/53 - - 62 20 96 % 08/04/18 0500 118/57 - - 61 27 96 % 08/04/18 0430 134/68 - - 65 19 96 % 08/04/18 0405 - - - 61 - 94 % 08/04/18 0400 (!) 94/46 - - 65 16 95 % 08/04/18 0330 (!) 100/49 - - 63 11 94 % 08/04/18 0300 111/55 36.9 ?C (98.4 ?F) Oral 60 10 95 % 08/04/18 0230 101/51 - - 63 11 96 % 08/04/18 0200 (!) 95/42 - - 71 18 96 % 08/04/18 0130 103/52 - - 64 17 94 % 08/04/18 0100 100/52 - - 61 17 95 % 08/04/18 0030 113/53 - - 62 12 95 % 08/04/18 0005 (!) 89/43 - - 60 12 95 % 08/04/18 0000 (!) 86/43 - - 62 13 94 % 08/03/18 2339 - - - (!) 58 - 93 % 08/03/18 2330 (!) 97/48 - - (!) 58 19 94 % 08/03/18 2300 (!) 105/49 36.9 ?C (98.4 ?F) Oral 65 12 96 % 08/03/18 2230 129/87 - - 69 20 97 % 08/03/18 2200 111/53 - - 62 19 96 % 08/03/18 2130 128/62 - - 62 15 95 % 08/03/18 2100 117/56 - - (!) 56 12 95 % 08/03/18 2030 121/57 - - (!) 58 15 95 % 08/03/181999 123/57 - - 61 16 96 % 08/03/18 1940 - - - (!) 58 16 - 08/03/18 1934 - - - (!) 59 16 96 % 08/03/18 1930 112/63 - - 61 11 95 % 08/03/18 1900 - 36.9 ?C (98.4 ?F) Oral 65 17 96 % 08/03/18 1830 109/50 - - 68 20 96 % 08/03/18 1800 - - - 82 29 96 % 08/03/18 1730 150/65 - - 71 17 96 % 08/03/18 1700 118/57 - - 60 22 96 % 08/03/18 1630 132/61 - - (!) 57 11 95 % 08/03/18 1600 131/60 - - 60 19 96 % 08/03/18 1530 137/63 - - 62 22 96 % 08/03/18 1527 - 37 ?C (98.6 ?F) Oral (!) 59 12 97 % 08/03/18 1500 119/56 - - 62 21 96 % 08/03/18 1430 132/64 - - (!) 55 12 98 % 08/03/18 1400 134/63 - - (!) 56 10 96 % 08/03/18 1330 128/60 - - 61 12 96 % 08/03/18 1300 110/52 - - 63 12 96 % 08/03/18 1230 108/51 - - 69 24 96 % 08/03/18 1200 128/60 - - 61 23 96 % 08/03/18 1130 137/62 - - 63 22 96 % 08/03/18 1125 - - - 63 18 96 % 08/03/18 1100 116/58 37.1 ?C (98.8 ?F) Oral 61 10 96 % 08/03/18 1030 121/56 - - 68 22 96 % 08/03/18 1000 110/55 - - 62 12 95 % 08/03/18 0930 105/51 - - 68 17 96 % 08/03/18 0900 (!) 106/47 - - 72 24 95 % 08/03/18 0830 143/65 - - 69 19 95 % Intake/Output Summary (Last 24 hours) at 08/04/18 0815 Last data filed at 08/04/18 0200 Gross per 24 hour Intake 420 ml Output 1850 ml Net -1430 ml CONSTITUTIONAL: No acute distress NEUROLOGIC/PSYCHIATRIC: Alert and Oriented HEENT: normocephalic, atraumatic LUNGS: unlabored, no retractions HEART: RRR ABDOMEN: Soft and Non-tender INTEGUMENTARY: Wound - No SURGICAL SITES: None MUSCULOSKELETAL: No deformities Pulses/Signals: palp distal pulses in LE DATA: Laboratory: Recent Labs 08/04/18 0500 08/03/18 0045 08/02/18 0015 WBC 4.86 5.58 5.70 HB 12.0 12.8 12.1 HCT 36.6 38.8 36.6 PLT 212 251 220 Recent Labs 08/04/18 0500 08/03/18 0045 08/02/18 0015 NA 137 140 140 K 3.8 4.1 3.9 BUN 21 19 14 CREAT 1.12* 1.11* 0.96 GLUC 118* 112* 126* MG 2.3 2.6* 2.3 Recent Labs 08/03/18 0045 08/02/18 0015 08/01/18 1808 APTT 24.1 <20.0* -- INR 1.0 1.0 1.0 Assessment/Plan Impression: 68F w/ h/o HTN, PE 2/2 HRT Estrogen, RA and LLE cellulitis who p/w SOB and back pain x 3 days found to have type b aortic dissection. Plan is impulse control until vascular surgery can determine a surgical vs medical approach. Plan: Impulse control Watch for signs of end-organ hypoperfusion (none) Ok for RNF 68M w PMH of HTN, hx of PE 2/2 HRT Estrogen, Rheumatoid arthritis, and LLE cellulitis who p/w SOB and back pain x 3 days found to have type b aortic dissection. No surgical intervention per vascular surgery. Problem Aortic Dissection, Thoracoabdominal (Hcc) History: 3 day history of back pain found to have new finding of IMH. Pain improving w/BP control. Neurovascular intact. 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 Aorta non-aneurysmal, max diameter 35mm. Max IMH thickness about 10mm Plan: - impulse control w/HR 60s, SBP <120 - continue oral carvedilol/captopril as dosed - closely monitor symptoms - no acute surgical intervention at this time Intramural Hematoma History: 3 day history of back pain found to have new finding of IMH. Pain improving w/BP control. Neurovascular intact. 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 Aorta non-aneurysmal, max diameter 35mm. Max IMH thickness about 10mm Plan: - impulse control w/HR 60s, SBP <120 - closely monitor symptoms - no acute surgical intervention at this time SIGNATURE: Krystyna Garcia MD PATIENT NAME: Mike Lunsford DATE: August 04, 2018 TIME: 8:15 AM PAGER/CONTACT #: [phone] PROGRESS Observed: 08/04/2018 Status: COMPLETED Source: [place] 5:26 AM [facility] REPOSITORY O ID: [id number] Author: Petrona Ortega Service: Cardiovascular Medicine Author Type: Physician Type: Progress Notes Filed: 08/04/2018 9:23 AM Note Text: [facility]ARD[facility]ULAR [facility]ICINE PROGRESS NOTE PRIMARY SERVICE: i Cicu; i Imaging HOSPITAL DAY: # 3 INTERVAL HISTORY - Not acute events overnight - Denies chest discomfort/pressure/pain, SOB, pleurisy, SOB, N/V, diaphoresis, palpitations, lightheadedness, dizziness/presyncope, worsening swelling - Good impulse control PLAN FOR TODAY: Transition to RNF today with impulse control PHYSICAL EXAM BP 118/57 Pulse 61 Temp 36.9 ?C (98.4 ?F) (Oral) Resp 27 Ht 170.2 cm (5' 7) Wt 80.5 kg (177 lb 7.5 oz) SpO2 96% BMI 27.80 kg/m? Intake/Output Summary (Last 24 hours) at 1217/18 0581 Last data filed at 08/04/18 0200 Gross per 24 hour Intake 670 ml Output 2250 ml Net -1580 ml General Appearance: Well developed and Well nourished HEENT: PERRLA and EOM's intact Lungs: Clear Heart: Regular rate AND rhythm Abdomen: Soft, Non-tender and Bowel sounds present Skin: Warm Musculoskeletal: No deformities Neurologic/Psychiatric: Oriented to time, place AND person MEDICATIONS Current hospital medications: atorvastatin 10 mg tab(s) (LIPITOR) 10 mg ORAL AT BEDTIME budesonide 0.25 mg/2 mL 0.25 mg (PULMICORT) 0.25 mg INHALATION BID captopril 12.5 mg tab(s) (CAPOTEN) 12.5 mg ORAL q 8 H carvedilol 12.5 mg tab(s) (COREG) 12.5 mg ORAL BID w MEALS cephALEXin 500 mg cap(s) (KEFLEX) 500 mg ORAL q 6 H gabapentin 300 mg cap(s) (NEURONTIN) 300 mg ORAL AT BEDTIME influenza vaccine 180 mcg (Patients 65 years and older) (PF) (FLUZONE HIGH DOSE ) 0.5 mL INTRAMUSCULAR ONCE (IMMUNIZATION) levothyroxine 100 mcg tab(s) (SYNTHROID) 100 mcg ORAL DAILY metoprolol 5 mg injection (LOPRESSOR) 5 mg INTRAVENOUS q 5 MIN PRN NaCl 0.9% 3-5 mL 3-5 mL INTRAVENOUS q [address] 40 mg tab(s) (PROTONIX) 40 mg ORAL DAILY PARoxetine 40 mg tab(s) (PAXIL) 40 mg ORAL DAILY DATA Recent Labs 08/03/18 0045 08/02/18 0015 08/01/18 1808 WBC 5.58 5.70 5.31 HB 12.8 12.1 13.5 HCT 38.8 36.6 40.8 PLT 251 220 267 Recent Labs 08/03/18 0045 08/02/18 0015 08/01/18 1808 NA 140 140 139 K 4.1 3.9 3.9 CO2 24 22 21* BUN 19 14 13 CREAT 1.11* 0.96 0.98* GLUC 112* 126* 111* MG 2.6* 2.3 2.2 ASSESSMENT AND PLAN 68M w PMH of HTN, hx of PE 2/2 HRT Estrogen, Rheumatoid arthritis, and LLE cellulitis who p/w SOB and back pain x 3 days found to have type b aortic dissection. Plan is impulse control until vascular surgery can determine a surgical vs medical approach. Active Hospital Problems Diagnosis - Aortic dissection, thoracoabdominal (HCC) History: 3 day history of back pain found to have new finding of IMH. Pain improving w/BP control. Neurovascular intact. 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 Aorta non-aneurysmal, max diameter 35mm. Max IMH thickness about 10mm Plan: - impulse control w/HR 60s, SBP <120 - continue oral carvedilol/captopril as dosed - closely monitor symptoms - no acute surgical intervention at this time - Primary hypertension Nitroprusside gtt Metoprolol 5mg q 5min IV prn HR >70 Goal <120 mmHg Goal HR<60 - Neuropathic pain BL LE neuropathic pain Cont gabapentin - Cellulitis of left lower extremity Cont cephalexin LLE last day of abx 08/04/18 - Intramural hematoma History: 3 day history of back pain found to have new finding of IMH. Pain improving w/BP control. Neurovascular intact. 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 Aorta non-aneurysmal, max diameter 35mm. Max IMH thickness about 10mm Plan: - impulse control w/HR 60s, SBP <120 - closely monitor symptoms - no acute surgical intervention at this time - History of rheumatoid arthritis Pt has taken prednisone in past for RA and eczema Not on any current home meds - Acquired hypothyroidism Cont home dose levothyroxine - History of hyperlipidemia Per patient - unable to take higher dose statins, severe myalgias: Tried lovastatin, pravachol, simvastatin. Aortic ulceration reflecting unstable plaque and recent lipid profile w/ LDL in 150s, and elevated TG and total cholesterol Pt can tolerate atorvastatin 10mg, will continue this - would recommend high intensity statin, but unable to tolerate - recommend cardiology consider Ezetimibe or PCSK9 inhibitors or other alternatives for this patient - Gastroesophageal reflux disease without esophagitis Continue PPI Case to be discussed with staff SIGNATURE: Mariana Fernandez MD PATIENT NAME: Mike Lunsford DATE: August 04, 2018 TIME: 5:26 AM PAGER/CONTACT #: [phone] [facility] STAFF PHYSICIAN NOTE OF PERSONAL INVOLVEMENT IN CARE Coronary Intensive Care Unit I have reviewed the documentation above, obtained and documented by the resident. I have also reviewed and updated the problem list as appropriate. I have personally participated in the marquez components and physical exam and have discussed the case and management of the patient's care with the residents and [place]. The following comments revise or confirm relevant marquez components. Labs: Recent Labs 08/04/18 0500 08/03/18 0045 08/02/18 0015 08/01/18 1808 WBC 4.86 5.58 5.70 5.31 HB 12.0 12.8 12.1 13.5 HCT 36.6 38.8 36.6 40.8 PLT 212 251 220 267 INR -- 1.0 1.0 1.0 Recent Labs 08/04/18 0500 08/03/18 0045 08/02/18 0015 NA 137 140 140 K 3.8 4.1 3.9 CHLOR 103 103 103 CO2 22 24 22 BUN 21 19 14 CREAT 1.12* 1.11* 0.96 GLUC 118* 112* 126* MG 2.3 2.6* 2.3 CA 9.0 9.6 8.8 ALB 3.7* 4.3 -- Recent Labs 08/04/18 0447 08/01/18 1808 LDL 114* -- HDL 44 -- TG 182* -- HBA1C -- 6.1* Recent Labs 08/04/18 0500 08/03/18 0045 08/01/18 1808 CK -- -- 66 MB -- -- <1.0 TROPT -- -- <0.010 ALT 24 26 28 AST 25 25 28 Recent Labs 08/01/182000 PO2T 83 PCO2T 32* PHTC 7.45 Current hospital medications: atorvastatin 10 mg tab(s) (LIPITOR) 10 mg ORAL AT BEDTIME budesonide 0.25 mg/2 mL 0.25 mg (PULMICORT) 0.25 mg INHALATION BID captopril 12.5 mg tab(s) (CAPOTEN) 12.5 mg ORAL q 8 H carvedilol 12.5 mg tab(s) (COREG) 12.5 mg ORAL BID w MEALS cephALEXin 500 mg cap(s) (KEFLEX) 500 mg ORAL q 6 H gabapentin 300 mg cap(s) (NEURONTIN) 300 mg ORAL AT BEDTIME influenza vaccine 180 mcg (Patients 65 years and older) (PF) (FLUZONE HIGH DOSE ) 0.5 mL INTRAMUSCULAR ONCE (IMMUNIZATION) levothyroxine 100 mcg tab(s) (SYNTHROID) 100 mcg ORAL DAILY metoprolol 5 mg injection (LOPRESSOR) 5 mg INTRAVENOUS q 5 MIN PRN NaCl 0.9% 3-5 mL 3-5 mL INTRAVENOUS q [address] 40 mg tab(s) (PROTONIX) 40 mg ORAL DAILY PARoxetine 40 mg tab(s) (PAXIL) 40 mg ORAL DAILY TIME BASED CARE: Critical Care: I personally spent 30 minutes of critical care time involved in the care of this patient. This care required my full attention and direct personal managment of descending aortic dissection. The time spent excluded other procedures/services provided by me. STAFF PHYSICIAN: Petrona Ortega MD Cardiology Staff Physician Office: [phone] PAGER: [phone] DATE OF SERVICE: August 04, 2018 TIME OF SERVICE: 6:34 AM CBC AND DIFFERENTIAL Collected: 08/04/2018 Status: F Source: [place] 5:00 AM [facility] REPOSITORY TYPE CODE TESTS RESULT OUT OF REFERENCE UNITS RANGE LAB WBC 3.70-11.00 k/uL WBC 4.86 LAB RBC 3.90-5.20 m/uL RBC 4.09 LAB HGB 11.5-15.5 g/dL Hemoglobin 12.0 LAB HCT 36.0-46.0 % Hematocrit 36.6 LAB MCV 80.0-100.0 fL MCV 89.5 LAB MCH 26.0-34.0 pG MCH 29.3 LAB MCHC 30.5-36.0 g/dL MCHC 32.8 LAB RDWCV 11.5-15.0 % RDW-CV 13.5 LAB PLTCT 150-400 k/uL Platelet Count 212 LAB MPV 9.0-12.7 fL MPV 10.7 LAB ANEUT % Neut% 52.9 LAB AANEUT 1.45-7.50 k/uL Abs Neut 2.56 LAB ALYMP % Lymph% 34.6 LAB AALYMP 1.00-4.00 k/uL Abs Lymph 1.68 LAB AMONO % [place]% 8.0 LAB AAMONO <0.87 k/uL Abs [place] 0.39 LAB AEOS % Eosin% 3.7 LAB AAEOS <0.46 k/uL Abs Eosin 0.18 LAB ABASO % Baso% 0.8 LAB AABASO <0.11 k/uL Abs Baso 0.04 LAB AUNRBC 0 /100 WBC NRBCs 0.0 LAB ABNRBC <0.01 k/uL Absolute nRBC <0.01 LAB DTYP DTYPE Auto Diff Performed By: #### CBCDIF, CMP, MG1, PHOS #### [facility] [address] [place], [place] [address] COMP METABOLIC PANEL Collected: 08/04/2018 Status: F Source: [place] 5:00 AM [facility] REPOSITORY TYPE CODE TESTS RESULT OUT OF REFERENCE UNITS RANGE LAB TP 6.3-8.0 g/dL Protein, Total 7.1 LAB ALB 3.9-4.9 g/dL Low Albumin 3.7 LAB CA 8.5-10.2 mg/dL Calcium, Total 9.0 LAB TBIL 0.2-1.3 mg/dL Bilirubin, Total 0.4 LAB ALKP 34-123 U/L Alkaline Phosphatase 76 LAB AST 13-35 U/L AST 25 LAB GLU 74-99 mg/dL Glucose High 118 Result Comment: The English Diabetes Association (ADA) provides guidance for cutoff values for fasting glucose and random glucose. The ADA defines fasting as no caloric intake for at least 8 hours. Fas ting plasma glucose results between 100 to 125 mg/dL indicate increased risk for diabetes (prediabetes). Fasting plasma glucose results greater than or equal to 126 mg/dL meet the criteria for diagnosis of diabetes. In the absence of unequivocal hyperglycemia, results should be confirmed by repeat testing. In a patient with classic symptoms of hyperglycemia or hyperglycemic crisis, random plasma glucose results greater than or equal to 200 mg/dL meet the criteria for diagnosis of diabetes. Reference: Standards of Medical Care in Diabetes 2016, English Diabetes Association. Diabetes Care. 2016.39(Suppl 1). LAB BUN 7-21 mg/dL BUN 21 LAB CRET 0.58-0.96 mg/dL Creatinine High 1.12 LAB NA 136-144 mmol/L Sodium 137 LAB K 3.7-5.1 mmol/L Potassium 3.8 LAB CL 97-105 mmol/L Chloride 103 LAB CO2 22-30 mmol/L CO2 22 LAB AGAP 9-18 mmol/L Anion Gap 12 LAB ALT 7-38 U/L ALT 24 LAB GFRAA eGFR- Amer. 59 LAB GFRNAA . eGFR-All Other Races 49 Result Comment: eGFR (Estimated GFR) Units of measure: mL/min/1.73 meters squared eGFR is derived from the reexpressed MDRD Study equation using the following parameters: serum creatinine, age, gender and race. The creatinine assay has been calibrated to be traceable to IDMS. An eGFR <60 mL/min/1.73m2 for >3 months is consistent with chronic kidney disease. Refer to KDOQI guidelines for clinical interpretation. In patients with unstable renal function, e.g. those with acute kidney injury, the eGFR may not accurately reflect actual GFR. Performed By: #### CBCDIF, CMP, MG1, PHOS #### [facility] [address] [id number] MAGNESIUM Collected: 08/04/2018 Status: F Source: [place] 5:00 AM [facility] REPOSITORY TYPE CODE TESTS RESULT OUT OF REFERENCE UNITS RANGE LAB MG 1.7-2.3 mg/dL Magnesium 2.3 Performed By: #### CBCDIF, CMP, MG1, PHOS #### [facility] [address] [address] PHOSPHORUS Collected: 08/04/2018 Status: F Source: [place] 5:00 AM [facility] REPOSITORY TYPE CODE TESTS RESULT OUT OF REFERENCE UNITS RANGE LAB PHOS 2.7-4.8 mg/dL Phosphorus 3.0 Performed By: #### CBCDIF, CMP, MG1, PHOS #### [facility] [address] [address] LIPID PANEL, BASIC Collected: 08/04/2018 Status: F Source: [place] 4:47 AM [facility] REPOSITORY TYPE CODE TESTS RESULT OUT OF REFERENCE UNITS RANGE LAB CHOL <200 mg/dL Cholesterol 194 Result Comment: <200 mg/dL, Desirable 200-239 mg/dL, Borderline high >239 mg/dL, High LAB TRIGLY <150 mg/dL Triglyceride High 182 Result Comment: <150 mg/dL, Normal 150-199 mg/dL, Borderline high 200-499 mg/dL, High >499 mg/dL, Very high LAB HDL >39 mg/dL HDL-Cholesterol 44 Result Comment: 40-59 mg/dL, Acceptable >59 mg/dL, High: Negative risk factor for coronary heart disease <40 mg/dL, Low: Positive risk factor for coronary heart disease LAB LDL <100 mg/dL LDL-Cholesterol High 114 Result Comment: <100 mg/dL, Optimal 100-129 mg/dL, Near optimal/above optimal 130-159 mg/dL, Borderline high 160-189 mg/dL, High >189 mg/dL, Very high Secondary prevention optimal LDL Cholesterol levels are recommended to be < 70 mg/dL LAB NONHDL <130 mg/dL Non HDL High Cholesterol 150 Result Comment: <130 mg/dL, Optimal 130-159 mg/dL, Near optimal/above optimal 160-189 mg/dL, Borderline high 190-219 mg/dL, High >219 mg/dL, Very high Secondary prevention optimal non HDL Cholesterol levels are recommended to be < 100 mg/dL LAB FT hrs Fasting Time 6 LAB VLDL <30 mg/dL High VLDL Cholesterol 36 LAB TCHDL <5.10 TC:HDL Ratio 4.41 LAB LDLHDL <2.54 High LDL:HDL Ratio 2.59 Result Comment: Reference: 1. National Cholesterol Education Program ATP III Guideline At-A-Glance Quick Desk Reference: National Heart, Lung, and Blood [place]. National Institutes of Health. 2001: NIH Publication No. 01-3305. 2. An International Atherosclerosis Society position paper: global recommendations for the management of dyslipidemia: executive summary, Atherosclerosis. 2014: 232(2):410-413. Performed By: #### LIPB #### [facility] [address] [address] TYPE AND SCREEN Collected: 08/04/2018 Status: F Source: [place] 4:47 AM [facility] REPOSITORY TYPE CODE TESTS RESULT OUT OF REFERENCE UNITS RANGE LAB %ABR A ABO/RH(D) POSITIVE LAB % Antibody NEG Screen Performed By: #### TSCR #### [facility] [address] [address] CONSULT PROG Observed: 08/03/2018 Status: COMPLETED Source: [place] 9:08 AM [facility] REPOSITORY HNO ID: [id number] Author: Jin Felixanny Teresa Service: Vascular Surgery Author Type: Resident Type: Consult Progress Note Filed: 08/03/2018 9:10 AM Note Text: [facility] CONSULT PROGRESS NOTE Service Date: 08/03/2018Admit Date: 08/01/2018Service Time: 9:09 AM LOS: 2 day(s) Requesting Provider:?CICU Vascular Physician:?Ingris Knutson MD Interval Events/Issues: no acute issues overnight, pain improving Subjective Current hospital medications: atorvastatin 10 mg tab(s) (LIPITOR) 10 mg ORAL AT BEDTIME budesonide 0.25 mg/2 mL 0.25 mg (PULMICORT) 0.25 mg INHALATION BID captopril 12.5 mg tab(s) (CAPOTEN) 12.5 mg ORAL q 8 H carvedilol 12.5 mg tab(s) (COREG) 12.5 mg ORAL BID w MEALS cephALEXin 500 mg cap(s) (KEFLEX) 500 mg ORAL q 6 H gabapentin 300 mg cap(s) (NEURONTIN) 300 mg ORAL AT BEDTIME [START ON 08/04/2018] influenza vaccine 180 mcg (Patients 65 years and older) (PF) (FLUZONE HIGH DOSE 2017-) 0.5 mL INTRAMUSCULAR ONCE (IMMUNIZATION) levothyroxine 100 mcg tab(s) (SYNTHROID) 100 mcg ORAL DAILY metoprolol 5 mg injection (LOPRESSOR) 5 mg INTRAVENOUS q 5 MIN PRN NaCl 0.9% 3-5 mL 3-5 mL INTRAVENOUS q [address] 40 mg tab(s) (PROTONIX) 40 mg ORAL DAILY PARoxetine 40 mg tab(s) (PAXIL) 40 mg ORAL DAILY Medication and Non-Pharmacologic VTE Prophylaxis/Anticoagulants 08/01/18 183 graduated compression stockings (ar,il) 08/01/18 181 activity - mobilize patient ([place], [place]) VTE Prophylaxis: Needs to be revised ALLERGIES Allergen Reactions - Asa [Salicylates] GI Upset - Codeine GI Upset - Sulfa (Sulfonamide * GI Upset - Clonidine headache - Estrogens hx thrombosis - Mobic [Meloxicam] Intolerance, Diarrhea - Norvasc [Amlodipine* - Dhdkrih-Zhi-Gsa Red* Other: See Comments Myalgia Objective PHYSICAL EXAM: Patient Vitals for the past 24 hrs: BP Temp Temp src Pulse Resp SpO2 Weight 08/03/18 0830 143/65 - - 69 19 95 % - 08/03/18 0804 - - - (!) 59 23 100 % - 18 0800 132/60 - - 65 11 100 % - 08/03/18 0755 - - - (!) 58 20 95 % - 08/03/18 0730 135/60 - - 63 14 95 % - 08/03/18 0700 140/63 37.1 ?C (98.8 ?F) Oral 62 14 95 % - 08/03/18 0640 107/53 - - (!) 57 13 94 % - 08/03/18 0620 107/53 - - 71 (!) 33 96 % 80.5 kg (177 lb 7.5 oz) 08/03/18 0600 (!) 104/49 - - 61 22 94 % - 08/03/18 0540 121/59 - - (!) 58 23 94 % - 18 0520 133/63 - - (!) 58 12 95 % - 08/03/18 0500 133/62 - - 60 13 95 % - 08/03/18 0440 137/64 - - (!) 57 10 95 % - 08/03/18 0420 136/59 - - (!) 57 9 96 % - 08/03/18 0400 111/57 - - 74 (!) 35 94 % - 08/03/18 0345 - - - 60 - 95 % - 08/03/18 0340 112/54 - - (!) 59 19 94 % - 08/03/18 0320 120/60 - - (!) 58 14 93 % - 08/03/18 0300 124/55 36.9 ?C (98.4 ?F) Oral (!) 58 12 97 % - 08/03/18 0240 115/57 - - (!) 56 12 95 % - 08/03/18 0220 126/60 - - (!) 57 14 96 % - 08/03/18 0200 105/55 - - 62 13 96 % - 08/03/18 0140 115/56 - - 69 16 96 % - 08/03/18 0120 125/60 - - 64 19 94 % - 08/03/18 0100 138/63 - - (!) 58 13 96 % - 12/16/18 0040 138/60 - - 62 25 97 % - 16/18 0020 146/65 - - 62 14 96 % - 18 0000 (!) 94/48 - - 65 15 96 % - 1518 2352 - - - 63 - 96 % - 18 2340 111/56 - - 65 14 96 % - 15/18 2320 109/56 - - 63 (!) 34 96 % - 18 2300 113/56 36.9 ?C (98.4 ?F) Oral 69 27 97 % - 18 2240 106/51 - - 67 12 95 % - 18 2220 117/56 - - 67 13 95 % - 18 2140 119/60 - - 68 15 95 % - 18 2120 133/54 - - 67 12 95 % - 15/18 2100 134/60 - - 71 22 97 % - 18 2050 - - - 69 16 - - 18 2044 - - - 67 16 97 % - 18 2040 134/58 - - 68 28 95 % - 18 2020 129/59 - - 74 (!) 33 96 % - 08/02/181999 126/62 - - 68 19 96 % - 08/02/18 1940 - - - - - 97 % - 08/02/18 1920 122/58 - - 72 - 96 % - 18 1900 99/50 37 ?C (98.6 ?F) Oral 69 15 94 % - 1518 1830 100/50 - - 67 9 94 % - 1518 1800 108/55 - - 81 23 94 % - 1518 1730 144/65 - - 75 29 97 % - 1518 1700 111/56 - - 72 18 94 % - 18 1630 97/54 - - 69 11 94 % - 1518 1626 - - - 69 13 95 % - 15/18 1600 110/58 - - 71 16 94 % - 1518 1530 101/52 - - 69 11 94 % - 1518 1500 110/60 37.3 ?C (99.1 ?F) Oral 71 20 95 % - 08/02/18 1430 119/71 - - 92 28 97 % - 08/02/18 1400 122/65 - - 75 21 94 % - 08/02/18 1330 112/60 - - 75 11 94 % - 08/02/18 1300 109/56 - - 79 12 93 % - 08/02/18 1230 110/58 - - 77 11 96 % - 08/02/18 1200 107/53 - - 97 23 97 % - 08/02/18 1148 - - - 76 17 99 % - 08/02/18 1135 - - - 78 23 96 % - 08/02/18 1130 115/60 - - 77 25 97 % - 08/02/18 1100 103/55 36.9 ?C (98.4 ?F) Oral 75 11 95 % - 08/02/18 1030 107/54 - - 75 10 94 % - 08/02/18 1000 113/58 - - 76 11 95 % - 08/02/18 0930 120/56 - - 79 25 94 % - Intake/Output Summary (Last 24 hours) at 08/03/18 0910 Last data filed at 08/03/18 0800 Gross per 24 hour Intake 590 ml Output 1225 ml Net -635 ml CONSTITUTIONAL: Well developed and No distress NEUROLOGIC/PSYCHIATRIC: Oriented to time, place AND?person ?and No gross focal neurologic deficits HEENT: Fair dentition LUNGS: Clear HEART: Regular rate AND rhythm ABDOMEN: Soft, Non-tender and Non-distended INTEGUMENTARY: Wound - No?? 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 ?No evidence of malperfusion or aneurysmal degeneration. Pain improving w/BP control. ? ? 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 Plan is impulse control until vascular surgery can determine a surgical vs medical approach. Problem Intramural Hematoma History: 3 day history of back pain found to have new finding of IMH. Pain improving w/BP control. Neurovascular intact. 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 Aorta non-aneurysmal, max diameter 35mm. Max IMH thickness about 10mm Plan: - impulse control w/HR 60s, SBP <120 - closely monitor symptoms - no acute surgical intervention at this time SIGNATURE: Jonathan Teresa MD PHD PATIENT NAME: Mike Lunsford DATE: August 03, 2018 TIME: 9:08 AM PAGER/CONTACT #: [phone] XR CHEST 1V FRONTAL Observed: 08/03/2018 Status: F Source: [place] 4:30 AM [facility] REPOSITORY * * *Final Report* * * DATE OF EXAM: Aug 03 2018 4:30AM KAILEE [id number] - XR CHEST 1V FRONTAL / PROCEDURE REASON: Chest pain or SOB, pleurisy or effusion suspected * * * * Physician Interpretation * * * * EXAMINATION: CHEST RADIOGRAPH (PORTABLE SINGLE VIEW AP) Exam Date/Time: 08/03/2018 4:30 AM Clinical History: Chest pain or SOB, pleurisy or effusion suspected, MQ: [id number] Comparison: 2 days prior RESULT: See impression. IMPRESSION: Lines, tubes, and devices: None. Lungs and pleura: Right hemidiaphragm is mildly elevated. No substantial pleural effusion, consolidation, or pulmonary edema. No pneumothorax. Cardiomediastinal silhouette: Stable cardiomediastinal silhouette. Heart size appears normal. Other: . Radiation Control Technician: GIAN Transcribe Date/Time: Aug 03 2018 9:01A Dictated by : KODY REDMAN MD This examination was interpreted and the report reviewed and electronically signed by: KODY REDMAN MD on Aug 03 2018 9:03AM EST [id number] PROGRESS Observed: 08/03/2018 Status: COMPLETED Source: [place] 4:11 AM [facility] REPOSITORY HNO ID: [id number] Author: Petrona Ortega Service: Cardiovascular Medicine Author Type: Physician Type: Progress Notes Filed: 08/03/2018 9:35 AM Note Text: [facility] CARDIOVASCULAR MEDICINE PROGRESS NOTE PRIMARY SERVICE: [facility] DAY: # 2 INTERVAL HISTORY - SBP < 120 off of SNP since ~7pm yesterday - no acute events overnight, denies chest discomfort/pressure/pain, SOB, pleurisy, SOB, N/V, diaphoresis, palpitations, lightheadedness, dizziness/presyncope, worsening swelling, PLAN FOR TODAY: - transition to floor given adequate impulse control with oral medications - recheck lipid panel to help guide therapy given plaque burden and prior dyslipidemia PHYSICAL EXAM BP 105/55 Pulse 60 Temp 36.9 ?C (98.4 ?F) (Oral) Resp 13 Ht 170.2 cm (5' 7) Wt 80.7 kg (177 lb 14.6 oz) SpO2 95% BMI 27.86 kg/m? Intake/Output Summary (Last 24 hours) at 08/03/18 0412 Last data filed at 08/02/181999 Gross per 24 hour Intake 340 ml Output 1225 ml Net -885 ml BP 105/55 Pulse 60 Temp 36.9 ?C (98.4 ?F) (Oral) Resp 13 Ht 170.2 cm (5' 7) Wt 80.7 kg (177 lb 14.6 oz) SpO2 95% BMI 27.86 kg/m? General: No acute distress. Grossly well developed and well nourished HEENT: PERRLA. EOMi. Neck: Supple, No JVD. No LAD. CV: Normal rate, Regular rhythm. No accessory heart sounds auscultated. Resp: CTA b/l. No wheezing or crackles. Abdomen: Soft, nontender, nondistended abdomen. BSx4. Extremities: No LE edema b/l. Neuro: AANDOx3. CN II-XII Grossly Intact. MEDICATIONS Current hospital medications: albuterol 2.5 mg /3 mL (0.083 %) 2.5 mg (PROVENTIL) 2.5 mg INHALATION q 4 H PRN atorvastatin 10 mg tab(s) (LIPITOR) 10 mg ORAL AT BEDTIME budesonide 0.25 mg/2 mL 0.25 mg (PULMICORT) 0.25 mg INHALATION BID captopril 12.5 mg tab(s) (CAPOTEN) 12.5 mg ORAL q 8 H carvedilol 12.5 mg tab(s) (COREG) 12.5 mg ORAL BID w MEALS cephALEXin 500 mg cap(s) (KEFLEX) 500 mg ORAL q 6 H gabapentin 300 mg cap(s) (NEURONTIN) 300 mg ORAL AT BEDTIME [START ON 08/04/2018] influenza vaccine 180 mcg (Patients 65 years and older) (PF) (FLUZONE HIGH DOSE ) 0.5 mL INTRAMUSCULAR ONCE (IMMUNIZATION) levothyroxine 100 mcg tab(s) (SYNTHROID) 100 mcg ORAL DAILY metoprolol 5 mg injection (LOPRESSOR) 5 mg INTRAVENOUS q 5 MIN PRN NaCl 0.9% 3-5 mL 3-5 mL INTRAVENOUS q 12 H nitroprusside 50 mg in D5W 250 mL (NIPRIDE) 10-200 mcg/min INTRAVENOUS CONTINUOUS pantoprazole DR 40 mg tab(s) (PROTONIX) 40 mg ORAL DAILY PARoxetine 40 mg tab(s) (PAXIL) 40 mg ORAL DAILY SUMAtriptan 50 mg tab(s) (IMITREX) 50 mg ORAL q 12 H PRN DATA Recent Labs 08/03/18 0045 08/02/18 0015 08/01/18 1808 WBC 5.58 5.70 5.31 HB 12.8 12.1 13.5 HCT 38.8 36.6 40.8 PLT 251 220 267 Recent Labs 08/03/18 0045 08/02/18 0015 08/01/18 1808 NA 140 140 139 K 4.1 3.9 3.9 CO2 24 22 21* BUN 19 14 13 CREAT 1.11* 0.96 0.98* GLUC 112* 126* 111* MG 2.6* 2.3 2.2 IMAGING Reviewed ASSESSMENT AND PLAN 68M w PMH of HTN, hx of PE 2/2 HRT Estrogen, Rheumatoid arthritis, and LLE cellulitis who p/w SOB and back pain x 3 days found to have type b aortic dissection. Plan is impulse control until vascular surgery can determine a surgical vs medical approach. Active Hospital Problems Diagnosis - Aortic dissection, thoracoabdominal (HCC) History: 3 day history of back pain found to have new finding of IMH. Pain improving w/BP control. Neurovascular intact. 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 Aorta non-aneurysmal, max diameter 35mm. Max IMH thickness about 10mm Plan: - impulse control w/HR 60s, SBP <120 - closely monitor symptoms - no acute surgical intervention at this time - Primary hypertension Nitroprusside gtt Metoprolol 5mg q 5min IV prn HR >70 Goal <120 mmHg Goal HR<60 - Neuropathic pain BL LE neuropathic pain Cont gabapentin - Cellulitis of left lower extremity Cont cephalexin LLE last day of abx 08/04 - Intramural hematoma History: 3 day history of back pain found to have new finding of IMH. Pain improving w/BP control. Neurovascular intact. 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 Aorta non-aneurysmal, max diameter 35mm. Max IMH thickness about 10mm Plan: - impulse control w/HR 60s, SBP <120 - closely monitor symptoms - no acute surgical intervention at this time - History of rheumatoid arthritis Pt has taken prednisone in past for RA and eczema Not on any current home meds - Acquired hypothyroidism Cont home dose levothyroxine - History of hyperlipidemia Per patient - unable to take higher dose statins, severe myalgias: Tried lovastatin, pravachol, simvastatin. Aortic ulceration reflecting unstable plaque and recent lipid profile w/ LDL in 150s, and elevated TG and total cholesterol Pt can tolerate atorvastatin 10mg, will continue this - would recommend high intensity statin, but unable to tolerate - recommend cardiology consider Ezetimibe or PCSK9 inhibitors or other alternatives for this patient - Gastroesophageal reflux disease without esophagitis Cont PPI Case to be discussed with staff SIGNATURE: Janice Martinez DO PATIENT NAME: Mike Lunsford DATE: August 03, 2018 TIME: 4:12 AM PAGER/CONTACT #: [phone] [facility] STAFF PHYSICIAN NOTE OF PERSONAL INVOLVEMENT IN CARE Coronary Intensive Care Unit I have reviewed the documentation above, obtained and documented by the resident. I have also reviewed and updated the problem list as appropriate. I have personally participated in the marquez components and physical exam and have discussed the case and management of the patient's care with the residents and [place]. The following comments revise or confirm relevant marquez components. Labs: Recent Labs 08/03/185 08/02/18 0015 08/01/18 1808 WBC 5.58 5.70 5.31 HB 12.8 12.1 13.5 HCT 38.8 36.6 40.8 PLT 251 220 267 INR 1.0 1.0 1.0 Recent Labs 08/03/185 08/02/185 08/01/18 1808 NA 140 140 139 K 4.1 3.9 3.9 CHLOR 103 103 103 CO2 24 22 21* BUN 19 14 13 CREAT 1.11* 0.96 0.98* GLUC 112* 126* 111* MG 2.6* 2.3 2.2 CA 9.6 8.8 9.4 ALB 4.3 -- 4.2 Recent Labs 08/01/18 1808 HBA1C 6.1* Recent Labs 08/03/185 08/01/18 1808 CK -- 66 MB -- <1.0 TROPT -- <0.010 ALT 26 28 AST 25 28 Recent Labs 08/01/182000 PO2T 83 PCO2T 32* PHTC 7.45 Current hospital medications: albuterol 2.5 mg /3 mL (0.083 %) 2.5 mg (PROVENTIL) 2.5 mg INHALATION q 4 H PRN atorvastatin 10 mg tab(s) (LIPITOR) 10 mg ORAL AT BEDTIME budesonide 0.25 mg/2 mL 0.25 mg (PULMICORT) 0.25 mg INHALATION BID captopril 12.5 mg tab(s) (CAPOTEN) 12.5 mg ORAL q 8 H carvedilol 12.5 mg tab(s) (COREG) 12.5 mg ORAL BID w MEALS cephALEXin 500 mg cap(s) (KEFLEX) 500 mg ORAL q 6 H gabapentin 300 mg cap(s) (NEURONTIN) 300 mg ORAL AT BEDTIME [START ON 08/04/2018] influenza vaccine 180 mcg (Patients 65 years and older) (PF) (FLUZONE HIGH DOSE ) 0.5 mL INTRAMUSCULAR ONCE (IMMUNIZATION) levothyroxine 100 mcg tab(s) (SYNTHROID) 100 mcg ORAL DAILY metoprolol 5 mg injection (LOPRESSOR) 5 mg INTRAVENOUS q 5 MIN PRN NaCl 0.9% 3-5 mL 3-5 mL INTRAVENOUS q 12 H nitroprusside 50 mg in D5W 250 mL (NIPRIDE) 10-200 mcg/min INTRAVENOUS CONTINUOUS pantoprazole DR 40 mg tab(s) (PROTONIX) 40 mg ORAL DAILY PARoxetine 40 mg tab(s) (PAXIL) 40 mg ORAL DAILY SUMAtriptan 50 mg tab(s) (IMITREX) 50 mg ORAL q 12 H PRN TIME BASED CARE: Critical Care: I personally spent 30 minutes of critical care time involved in the care of this patient. This care required my full attention and direct personal managment of intramural hematoma of descending aorta, cellulitis. The time spent excluded other procedures/services provided by me. STAFF PHYSICIAN: Petrona Ortega MD Cardiology Staff Physician Office: [phone] PAGER: [phone] DATE OF SERVICE: August 03, 2018 TIME OF SERVICE: 6:30 AM CBC Collected: 08/03/2018 Status: F Source: [place] 12:45 AM [facility] [place] REPOSITORY TYPE CODE TESTS RESULT OUT OF REFERENCE UNITS RANGE LAB WBC 3.70-11.00 k/uL WBC 5.58 LAB RBC 3.90-5.20 m/uL RBC 4.29 LAB HGB 11.5-15.5 g/dL Hemoglobin 12.8 LAB HCT 36.0-46.0 % Hematocrit 38.8 LAB MCV 80.0-100.0 fL MCV 90.4 LAB MCH 26.0-34.0 pG MCH 29.8 LAB MCHC 30.5-36.0 g/dL MCHC 33.0 LAB RDWCV 11.5-15.0 % RDW-CV 13.8 LAB PLTCT 150-400 k/uL Platelet Count 251 LAB MPV 9.0-12.7 fL MPV 10.7 LAB ABSNUC <0.01 k/uL Absolute nRBC <0.01 Performed By: #### CBC, PT, PTT, CMP, MG1, PHOS #### [facility] [address] [place], [place] [address] PROTIME Collected: 08/03/2018 Status: F Source: [place] 12:45 AM [facility] REPOSITORY TYPE CODE TESTS RESULT OUT OF RANGE REFERENCE UNITS LAB PSEC 9.7-13.0 sec PT Sec 10.9 LAB INR 0.9-1.3 PT INR 1.0 Result Comment: Vitamin K Antagonist (VKA) Therapeutic Range: INR 2 to 3 (Target INR of 2.5) Note: For patients treated with VKA drugs, such as warfarin, the [employer] 2012 Guideline recommends a therapeutic INR range of 2 to 3 (target INR of 2.5). This recommendation includes high-risk patients with antiphospholipid syndrome with previous arterial or venous thromboembolism, current-generation mechanical or bioprosthetic aortic heart valve replacement. Note: Patients with mechanical aortic valve replacement and additional risk factors for thromboembolic events (atrial fibrillation, previous thromboembolism, LV dysfunction, hypercoagulable conditions) or an older generation mechanical AVR (i.e., ball in-Cage) or any mechanical MVR should have a INR therapeutic range of 2.5 to 3.5 (target INR of 3). Lucrecia GREY, et al. Chest 2012, 141:7S-47S Ca RA, et al. [facility] 2017, 70: 252-289 Performed By: #### CBC, PT, PTT, CMP, MG1, PHOS #### [facility] [address] [place], [place] [address] APTT Collected: 08/03/2018 Status: F Source: [place] 12:45 AM [facility] REPOSITORY TYPE CODE TESTS RESULT OUT OF RANGE REFERENCE UNITS LAB APTT 23.0-32.4 sec APTT 24.1 Result Comment: Unfractionated Heparin Therapeutic Ranges: Standard Heparin Nomogram: 53 to 78 seconds (anti-Xa level of 0.3 to 0.7 U/ml) Low Dose/ACS Nomogram: 49 to 67 seconds (anti-Xa level of 0.2 to 0.5 U/ml) Stroke Treatment Nomogram: 49 to 67 seconds (anti-Xa level of 0.2 to 0.5 U/ml) Note: The APTT therapeutic range has been determined for the current lot of laboratory APTT reagent in use throughout the [facility]. Performed By: #### CBC, PT, PTT, CMP, MG1, PHOS #### [facility] [address] [place], [place] [address] COMP METABOLIC PANEL Collected: 08/03/2018 Status: F Source: [place] 12:45 AM [facility] REPOSITORY TYPE CODE TESTS RESULT OUT OF REFERENCE UNITS RANGE LAB TP 6.3-8.0 g/dL Protein, Total 7.6 LAB ALB 3.9-4.9 g/dL Albumin 4.3 LAB CA 8.5-10.2 mg/dL Calcium, Total 9.6 LAB TBIL 0.2-1.3 mg/dL Bilirubin, Total 0.6 LAB ALKP 34-123 U/L Alkaline Phosphatase 82 LAB AST 13-35 U/L AST 25 LAB GLU 74-99 mg/dL Glucose High 112 Result Comment: The [place] Diabetes Association (ADA) provides guidance for cutoff values for fasting glucose and random glucose. The ADA defines fasting as no caloric intake for at least 8 hours. Fas ting plasma glucose results between 100 to 125 mg/dL indicate increased risk for diabetes (prediabetes). Fasting plasma glucose results greater than or equal to 126 mg/dL meet the criteria for diagnosis of diabetes. In the absence of unequivocal hyperglycemia, results should be confirmed by repeat testing. In a patient with classic symptoms of hyperglycemia or hyperglycemic crisis, random plasma glucose results greater than or equal to 200 mg/dL meet the criteria for diagnosis of diabetes. Reference: Standards of Medical Care in Diabetes 2016, English Diabetes Association. Diabetes Care. 2016.39(Suppl 1). LAB BUN 7-21 mg/dL BUN 19 LAB CRET 0.58-0.96 mg/dL Creatinine High 1.11 LAB NA 136-144 mmol/L Sodium 140 LAB K 3.7-5.1 mmol/L Potassium 4.1 LAB CL 97-105 mmol/L Chloride 103 LAB CO2 22-30 mmol/L CO2 24 LAB AGAP 9-18 mmol/L Anion Gap 13 LAB ALT 7-38 U/L ALT 26 LAB GFRAA eGFR- Amer. 59 LAB GFRNAA . eGFR-All Other Races 49 Result Comment: eGFR (Estimated GFR) Units of measure: mL/min/1.73 meters squared eGFR is derived from the reexpressed MDRD Study equation using the following parameters: serum creatinine, age, gender and race. The creatinine assay has been calibrated to be traceable to IDMS. An eGFR <60 mL/min/1.73m2 for >3 months is consistent with chronic kidney disease. Refer to KDOQI guidelines for clinical interpretation. In patients with unstable renal function, e.g. those with acute kidney injury, the eGFR may not accurately reflect actual GFR. Performed By: #### CBC, PT, PTT, CMP, MG1, PHOS #### [facility] [address] [address] MAGNESIUM Collected: 08/03/2018 Status: F Source: [place] 12:45 AM [facility] REPOSITORY TYPE CODE TESTS RESULT OUT OF REFERENCE UNITS RANGE LAB MG 1.7-2.3 mg/dL High Magnesium 2.6 Performed By: #### CBC, PT, PTT, CMP, MG1, PHOS #### [facility] [address] [address] PHOSPHORUS Collected: 08/03/2018 Status: F Source: [place] 12:45 AM [facility] REPOSITORY TYPE CODE TESTS RESULT OUT OF REFERENCE UNITS RANGE LAB PHOS 2.7-4.8 mg/dL Phosphorus 2.7 Performed By: #### CBC, PT, PTT, CMP, MG1, PHOS #### [facility] [address] [address] PROCEDURE Observed: 08/02/2018 Status: COMPLETED Source: [place] 11:46 AM [facility] REPOSITORY HNO ID: [id number] Author: Antonia Teague Service: (none) Author Type: Nurse Practitioner Type: Procedures Filed: 08/02/2018 11:50 AM Note Text: Arterial Line PROCEDURE NOTE Patient: Mike Lunsford Date: August 01, 2018 INFORMED CONSENT: Informed consent was not obtained due to clinical factors necessitating an emergent procedure. SAFE PRACTICE Sign in Communication: Emergent N/A. Time Out: The procedural team confirmed the Correct Patient, the Correct Procedure, the Correct Site and the Correct Position (if applicable) during the audible time out: Emergent N/A. Sign Out Communication: Emergent N/A. INDICATION FOR LINE PLACEMENT: Continuous blood pressure monitoring CONDITION OF LINE PLACEMENT: Sterile PRIMARY PROCEDURALIST: Antonia Teague APRN.CNP PROCEDURE NARRATIVE Site Marked: Yes Elvis?s Test Positive Skin Preparation: Chlorhexidine Gluconate Barriers Used by Proceduralist and All Assisting Personnel: Yes Barriers Used: Sterile Gloves CATHETER PLACEMENT/PLACEMENT TECHNIQUE Anesthesia was obtained with None. The left radial artery was cannulated with a 20 g arterial catheter. Number of attempts at insertion: 1 Bright red pulsatile blood exited catheter:NA Appropriate wave form was noted: NA Line Secured with: NA Sterile dressing applied and dated: NA Estimated Blood Loss: 0 Procedure was performed while vehicle in motion: no COMPLICATIONS: None. The patient tolerated the procedure: Patient requested cessation of procedure and declined any further attempts. Successful Placement: No SIGNATURE: Antonia Teague APRN.CNP PATIENT NAME: Mike Lunsford DATE: 08/01/2018 CONSULT PROG Observed: 08/02/2018 Status: COMPLETED Source: [place] 10:23 AM [facility] REPOSITORY HNO ID: [id number] Author: Jonathan Felix (Rama) Malick Service: Vascular Surgery Author Type: Resident Type: Consult Progress Note Filed: 08/02/2018 10:25 AM Note Text: [facility] CONSULT PROGRESS NOTE Service Date: 08/02/2018Admit Date: 08/01/2018Service Time: 10:24 AM LOS: 1 day(s) [facility] V[facility] Physician: Ingris Knutson MD ? Interval Events/Issues: no acute issues overnight, no chest pain or back pain this morning, no abd pain or legs pain Subjective Current hospital medications: albuterol 2.5 mg /3 mL (0.083 %) 2.5 mg (PROVENTIL) 2.5 mg INHALATION QID atorvastatin 10 mg tab(s) (LIPITOR) 10 mg ORAL AT BEDTIME budesonide 0.25 mg/2 mL 0.25 mg (PULMICORT) 0.25 mg INHALATION BID captopril 6.25 mg tab(s) (CAPOTEN) 6.25 mg ORAL q 8 H carvedilol 6.25 mg tab(s) (COREG) 6.25 mg ORAL BID w MEALS cephALEXin 500 mg cap(s) (KEFLEX) 500 mg ORAL q 6 H gabapentin 300 mg cap(s) (NEURONTIN) 300 mg ORAL AT BEDTIME [START ON 08/04/2018] influenza vaccine 180 mcg (Patients 65 years and older) (PF) (FLUZONE HIGH DOSE ) 0.5 mL INTRAMUSCULAR ONCE (IMMUNIZATION) levothyroxine 100 mcg tab(s) (SYNTHROID) 100 mcg ORAL DAILY metoprolol 5 mg injection (LOPRESSOR) 5 mg INTRAVENOUS q 5 MIN PRN NaCl 0.9% 3-5 mL 3-5 mL INTRAVENOUS q 12 H nitroprusside 50 mg in D5W 250 mL (NIPRIDE) 10-200 mcg/min INTRAVENOUS CONTINUOUS pantoprazole DR 40 mg tab(s) (PROTONIX) 40 mg ORAL DAILY PARoxetine 40 mg tab(s) (PAXIL) 40 mg ORAL DAILY Medication and Non-Pharmacologic VTE Prophylaxis/Anticoagulants 08/01/181829 graduated compression stockings ([place], [place]) 08/01/181814 activity - mobilize patient ([place]) VTE Prophylaxis: Needs to be revised ALLERGIES Allergen Reactions - Asa [Salicylates] GI Upset - Codeine GI Upset - Sulfa (Sulfonamide * GI Upset - Clonidine headache - Estrogens hx thrombosis - Mobic [Meloxicam] Intolerance, Diarrhea - Norvasc [Amlodipine* - Wlzievw-Nav-Ebw Red* Other: See Comments Myalgia Objective PHYSICAL EXAM: Patient Vitals for the past 24 hrs: BP Temp Temp src Pulse Resp SpO2 Height Weight 08/02/18 0901 - - - 79 13 96 % - - 08/02/18 09 93/52 - - 76 25 97 % - - 08/02/18 0838 - - - 68 21 95 % - - 08/02/18 0830 97/53 - - 65 10 94 % - - 08/02/18 0820 112/59 - - 81 23 95 % - - 08/02/18 0800 108/53 - - 65 10 95 % - - 08/02/18 0740 97/55 - - 67 20 93 % - - 08/02/18 0700 106/58 37 ?C (98.6 ?F) Oral 68 - - - - 08/02/18 0645 113/55 - - 67 - - - - 08/02/18 0630 113/56 - - 64 - - - - 08/02/18 0615 115/57 - - 65 - - - - 12/15/18 0600 114/51 - - 65 - - - - 08/02/18 0545 104/54 - - 71 - - - - 08/02/18 0530 114/58 - - 67 - - - - 08/02/18 0515 115/56 - - 67 - - - - 08/02/18 0500 134/63 - - 63 - - - - 08/02/18 0445 120/63 - - 64 - - - - 08/02/18 0430 118/63 - - 63 - - - - 08/02/18 0415 120/63 - - 61 - - - - 08/02/18 0400 118/58 - - 62 - - - - 08/02/18 0345 118/57 - - 61 - - - - 08/02/18 0330 119/58 - - 60 - - - - 08/02/18 0315 119/57 - - 64 - - - - 08/02/18 0300 122/58 36.9 ?C (98.4 ?F) Oral 60 - - - - 08/02/18 0245 119/58 - - 60 - - - - 08/02/18 0230 115/53 - - 60 - - - - 08/02/18 0215 118/59 - - 60 - - - - 08/02/18 0200 118/53 - - 76 - - - - 08/02/18 0145 116/57 - - 62 - - - - 08/02/18 0130 119/60 - - 60 - - - - 08/02/18 0115 121/56 - - 64 - - - - 08/02/18 0100 108/54 - - 68 - - - - 08/02/18 0045 112/58 - - 64 - - - - 08/02/18 0035 - - - 62 - 97 % - - 08/02/18 0030 102/57 - - 63 - - - - 08/02/18 0015 115/57 - - 62 - - - - 08/02/18 0000 114/58 - - 61 - - - - 08/01/18 2345 - - - 63 - - - - 08/01/18 2330 119/58 - - 66 12 96 % - - 08/01/18 2300 - - - 64 12 96 % - - 08/01/182229 - - - 72 10 94 % - - 08/01/182199 - 37 ?C (98.6 ?F) Oral 73 10 96 % - - 08/01/182129 - - - 65 10 98 % - - 08/01/182110 - - - (!) 56 16 96 % - - 08/01/182099 - - - 65 20 95 % - - 08/01/182029 - - - 62 20 98 % - - 08/01/181999 - - - 60 14 95 % - - 08/01/18 193 - - - 64 25 98 % - - 08/01/18 1900 112/59 37.2 ?C (99 ?F) Oral 61 12 96 % - - 08/01/18 1844 - - - - - - - 80.7 kg (177 lb 14.6 oz) 08/01/18 1830 108/59 - - 62 26 98 % - - 08/01/18 1820 119/57 - - 61 20 98 % - - 08/01/18 1800 160/62 - - 68 29 99 % - - 08/01/18 1759 160/62 - - 74 (!) 43 99 % - - 08/01/18 1752 140/65 - - 64 21 99 % - - 08/01/18 1750 133/61 - - 64 25 99 % - - 08/01/18 1745 140/63 36.9 ?C (98.4 ?F) Oral 62 24 99 % 170.2 cm (5' 7) - Intake/Output Summary (Last 24 hours) at 08/02/18 1025 Last data filed at 08/02/18 0500 Gross per 24 hour Intake 240 ml Output 1400 ml Net -1160 ml CONSTITUTIONAL: Well developed and No distress NEUROLOGIC/PSYCHIATRIC: Oriented to time, place AND person and No gross focal neurologic deficits HEENT: Fair dentition LUNGS: Clear HEART: Regular rate AND rhythm ABDOMEN: Soft, Non-tender and Non-distended INTEGUMENTARY: Wound - No SURGICAL SITES: None MUSCULOSKELETAL: No deformities Pulses/Signals: palp b/l DPs DATA: Laboratory: Recent Labs 08/02/18 0015 08/01/18 1808 WBC 5.70 5.31 HB 12.1 13.5 HCT 36.6 40.8 PLT 220 267 Recent Labs 08/02/18 0015 08/01/18 1808 08/01/18 1315 NA 140 139 -- K 3.9 3.9 -- BUN 14 13 -- CREAT 0.96 0.98* 1.02* GLUC 126* 111* -- MG 2.3 2.2 -- Recent Labs 08/02/18 0015 08/01/18 1808 APTT <20.0* -- INR 1.0 1.0 Assessment/Plan Impression: Mike Lunsford is a 68 year old White female with 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 No evidence of malperfusion or aneurysmal degeneration. Pain improving w/BP control. ? 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 Plan is impulse control until vascular surgery can determine a surgical vs medical approach. Problem Intramural Hematoma History: 3 day history of back pain found to have new finding of IMH. Pain improving w/BP control. Neurovascular intact. 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 Aorta non-aneurysmal, max diameter 35mm. Max IMH thickness about 10mm Plan: - impulse control w/HR 60s, SBP <120 - closely monitor symptoms - no acute surgical intervention at this time SIGNATURE: Jonathan Teresa MD PHD PATIENT NAME: Mike Lunsford DATE: August 02, 2018 TIME: 10:23 AM PAGER/CONTACT #: [phone] PROGRESS Observed: 08/02/2018 Status: COMPLETED Source: [place] 7:31 AM [facility] [place] REPOSITORY O ID: [id number] Author: Antonia Teague Service: (none) Author Type: Nurse Practitioner Type: Progress Notes Filed: 08/02/2018 11:50 AM Note Text: Critical Care Transport Note Patient Name: Mike Lunsford Service Date: 08/01/2018 Referring Physician: Imer Accepting Physician: Shannon Referring Facility: [place] Accepting Facility: [facility] Main SUBJECTIVE/CHIEF COMPLAINT: SOB, Back pain REASON FOR TRANSPORT: Necessary care unavailable at referring facility History of Present Illness: The following history is what was known to CCT team at time of given care and summarized through review of available medical records, patient/family interview and from referring physician and nursing report. Mike Lunsford is a 68 year old female with a past medical history significant for HTN. She presented to [place] ER on 08/01/2018 for evaluation of abnormal CT results. Patient reports that she had several days of dizziness and SOB with exertion. Patient went to her PCP who was concerned for a blood clot so he ordered lab work. Her D-Dimer resulted at >11469. This prompted a PE scan to be done. Scan was negative for a PE but did show a Type B dissection starting just below the aortic arch. Patient was told that there was a problem with her aorta so she was sent to the ER. At the ER in [place], patient had a CTA chest that showed a descending thoracic aortic dissection filled with thrombus to the level of the renal arteries without extension into or obstruction of branches. Patient presenting SBP 170's so patient was started on a Nicardipine gtt. Positive back pain and headache rated 6/10, positive lightheadedness and dizziness, positive SOB with exertion. At this time, the physician managing the patient requested transfer to the [facility] for tertiary and/or quaternary services unavailable at the referring facility. The physician managing the patient requested the [facility] Critical Care Transport Team transport and treat the patient for the purpose of tertiary care, evaluation, and management of her cardiovascular condition(s). Patient condition at time of exam was: Acutely ill and critically ill. Due to the unique circumstances of the patient, it was determined that this was the closest, most appropriate facility by referring physician. ROS: A complete review of systems was performed and is negative except as noted PAST MEDICAL HISTORY: HTN PAST SURGICAL HISTORY: PAST SURGICAL HISTORY Procedure Laterality Date - APPENDECTOMY age 45 - BREAST AUGMENTATION W/PROSTHETIC IMPLANT 1985 silicone imp - COLONOSCOP W/ OR W/O BRSH SPEC 04/16/03 Diverticulosis - EGD W/O OR W/BRUSH/WASH 08/09/2006 EGD - MICRODISSECTION MANUAL 05/19/07 [id number] - RIGHT HEART CATHETERIZATION 01/2009 Done at [place] [facility] - VAGINAL HYSTERECTOMY age 42 Hysterectomy, vaginal and bladder repair ALLERGIES: Patient reports Aspirin, Codeine and Sulfa SOCIAL HISTORY: Social History Substance Use Topics - Smoking status: Never Smoker - Smokeless tobacco: Never Used - Alcohol use No Comment: maybe one drink a year FAMILY HISTORY: Unknown to transport team HOME MEDICATIONS: Albuterol Atenolol Neurontin Paxil Protonix Medications Administered by Referring Facility: Nicardipine gtt @ 5 mg/hour OBJECTIVE: Recent Labs, Diagnostics AND Procedure Reports reviewed as available. Referring Facility Labs CBC: WBC 5.5k, Hgb 13.5, Hct 41.4, Plt 283K CHEMISTRY: Na 137, K 4.7, Cl 103, CO2 28, BUN 15, SCr 1.17, Glu 103 Cardiac Enzymes: Trop T <0.015 Diagnostics AND Procedure Reports ECG: normal sinus rhythm CXR: N/A CTA Scan Chest: Per report, descending thoracic aortic dissection filled with thrombus to the level of the renal arteries without extension into or obstruction of branches. Procedure/Operative Report(s): NA Invasive Lines/Devices/Tubes Placed by Referring Facility: PIV x 2 PHYSICAL EXAM: Upon CCT Arrival at Referring Facility Vital Signs: HR 78bpm, BP 153/63mmHg, RR 15, SpO2 99% Oxygen/Ventilator Settings: RA General appearance: healthy, alert, well hydrated, pleasant, no distress, cooperative, smiling. HEENT: normocephalic, EOMI, PERRL. Mucous membranes moist Respiratory: clear to auscultation bilaterally,no respiratory distress,no rales,no rhonchi,no wheezing. Cardiovascular: no murmurs, no rubs, no gallops, regular rate and rhythm, peripheral pulses symmetric. Gastrointestinal: soft, nontender, nondistended and normal bowel sounds. Genitourinary: No void observed Musculoskeletal: No clubbing, cyanosis or edema, no calf tenderness, normal ROM, no joint swelling, no bony tenderness, no deformities, equal palpable peripheral pulses and normal strength Skin: normal. Heme/Lymph: Not assessed Neurologic: Awake, alert and oriented x 3, normal speech, Reflexes symmetrical, Normal strength, No involuntary motions, Normal sensation GCS = 15 CRITICAL CARE COURSE Upon bedside arrival at referring facility the patient was assessed and detailed physical exam performed. Initial exam findings as described above. The patient was placed on the transport monitor and all transport equipment transitioned in standard fashion. The patient was transferred to the transport cot and transported to the Aircraft and loaded without incident. The patient was medically managed, monitored, and reassessed during transport. Medications Managed AND Administered by CCT: Fentanyl 25 mcg x 2 doses Metoprolol 5 mg x 2 doses Titrated Nicardipine gtt to 12.5 mg/hour Procedures Performed by CCT: Arterial line-unsuccessful ASSESSMENT/PLAN: Mike Lunsford is a 68 year old female Acute Type B Aortic Dissection Hypertension - Nicardipine gtt titrated to keep SBP<120 - Given Metoprolol 10 mg total for impulse control. HR decreased to 59-68 bpm - Given Fentanyl 25 mcg x 2 doses for pain control. Positive improvement - Taken emergently to [facility] for further evaluation and treatment The transport was completed without significant incident or change in the patient's status. The patient was transported to the the [facility] by Rotor (Helicopter) for tertiary and/or quaternary evaluation and management of her Emergent cardiovascular condition(s). Upon arrival to the receiving facility, a [id number] report was given to bedside nursing staff in [facility] and Dr. Smith. Patient care was transferred. The patient condition was Critical at the time of transfer. Vital Signs at time care transferred to the receiving facility unit: HR 68bpm, Rhythm SR, BP 118/64 mmHg, RR 13, SpO2 98% on RA SPECIAL EQUIPMENT: None MODE OF TRANSPORT: Rotor (Helicopter) CRITICAL CARE TIME:I personally performed 15 minutes of critical care time exclusive of separately billable procedures, ambulance charges and treating other patients. This was necessary to treat or prevent further deterioration of the following condition(s): Aortic dissection Cardiovascular impairment, Respiratory impairment, Shock and Cardiac Arrest which the patient had and/or had a high probability of suddenly developing. SIGNATURE: Antonia Teague APRN.TONGUE BINDER Acute Care Nurse Practitioner [facility] Critical Care Transport Team MAGNESIUM Collected: 08/02/2018 Status: F Source: [place] 12:15 AM [facility] REPOSITORY TYPE CODE TESTS RESULT OUT OF REFERENCE UNITS RANGE LAB MG 1.7-2.3 mg/dL Magnesium 2.3 Performed By: #### MG1, PHOS, BMP, CBCDIF, PTT, PT #### [facility] [address] [place], [place] [address] PHOSPHORUS Collected: 08/02/2018 Status: F Source: [place] 12:15 AM [facility] REPOSITORY TYPE CODE TESTS RESULT OUT OF REFERENCE UNITS RANGE LAB PHOS 2.7-4.8 mg/dL Phosphorus 3.1 Performed By: #### MG1, PHOS, BMP, CBCDIF, PTT, PT #### [facility] [address] [place] [id number] BASIC METABOLIC PANL Collected: 08/02/2018 Status: F Source: [place] 12:15 AM [facility] REPOSITORY TYPE CODE TESTS RESULT OUT OF REFERENCE UNITS RANGE LAB GLU 74-99 mg/dL High Glucose 126 Result Comment: The English Diabetes Association (ADA) provides guidance for cutoff values for fasting glucose and random glucose. The ADA defines fasting as no caloric intake for at least 8 hours. Fas ting plasma glucose results between 100 to 125 mg/dL indicate increased risk for diabetes (prediabetes). Fasting plasma glucose results greater than or equal to 126 mg/dL meet the criteria for diagnosis of diabetes. In the absence of unequivocal hyperglycemia, results should be confirmed by repeat testing. In a patient with classic symptoms of hyperglycemia or hyperglycemic crisis, random plasma glucose results greater than or equal to 200 mg/dL meet the criteria for diagnosis of diabetes. Reference: Standards of Medical Care in Diabetes 2016, English Diabetes Association. Diabetes Care. 2016.39(Suppl 1). LAB BUN 7-21 mg/dL BUN 14 LAB CRET 0.58-0.96 mg/dL Creatinine 0.96 LAB NA 136-144 mmol/L Sodium 140 LAB K 3.7-5.1 mmol/L Potassium 3.9 LAB CL 97-105 mmol/L Chloride 103 LAB CO2 22-30 mmol/L CO2 22 LAB AGAP 9-18 mmol/L Anion Gap 15 LAB CA 8.5-10.2 mg/dL Calcium, Total 8.8 LAB GFRAA eGFR- Amer. >60 LAB GFRNAA . eGFR-All Other Races 58 Result Comment: eGFR (Estimated GFR) Units of measure: mL/min/1.73 meters squared eGFR is derived from the reexpressed MDRD Study equation using the following parameters: serum creatinine, age, gender and race. The creatinine assay has been calibrated to be traceable to IDMS. An eGFR <60 mL/min/1.73m2 for >3 months is consistent with chronic kidney disease. Refer to KDOQI guidelines for clinical interpretation. In patients with unstable renal function, e.g. those with acute kidney injury, the eGFR may not accurately reflect actual GFR. Performed By: #### MG1, PHOS, BMP, CBCDIF, PTT, PT #### [facility] [address] [place], [place] [address] CBC AND DIFFERENTIAL Collected: 08/02/2018 Status: F Source: [place] 12:15 AM [facility] REPOSITORY TYPE CODE TESTS RESULT OUT OF REFERENCE UNITS RANGE LAB WBC 3.70-11.00 k/uL WBC 5.70 LAB RBC 3.90-5.20 m/uL RBC 4.12 LAB HGB 11.5-15.5 g/dL Hemoglobin 12.1 LAB HCT 36.0-46.0 % Hematocrit 36.6 LAB MCV 80.0-100.0 fL MCV 88.8 LAB MCH 26.0-34.0 pG MCH 29.4 LAB MCHC 30.5-36.0 g/dL MCHC 33.1 LAB RDWCV 11.5-15.0 % RDW-CV 13.6 LAB PLTCT 150-400 k/uL Platelet Count 220 Result Comment: No clot detected. LAB MPV 9.0-12.7 fL MPV 10.4 LAB ANEUT % Neut% 72.4 LAB AANEUT 1.45-7.50 k/uL Abs Neut 4.11 LAB ALYMP % Lymph% 21.1 LAB AALYMP 1.00-4.00 k/uL Abs Lymph 1.20 LAB AMONO % [place]% 4.7 LAB AAMONO <0.87 k/uL Abs [place] 0.27 LAB AEOS % Eosin% 0.9 LAB AAEOS <0.46 k/uL Abs Eosin 0.05 LAB ABASO % Baso% 0.9 LAB AABASO <0.11 k/uL Abs Baso 0.05 LAB AUNRBC 0 /100 WBC NRBCs 0.0 LAB ABNRBC <0.01 k/uL Absolute nRBC <0.01 LAB DTYP DTYPE Auto Diff Performed By: #### MG1, PHOS, BMP, CBCDIF, PTT, PT #### [facility] [address] [place], [place] [address] APTT Collected: 08/02/2018 Status: F Source: [place] 12:15 AM [facility] REPOSITORY TYPE CODE TESTS RESULT OUT OF RANGE REFERENCE UNITS LAB APTT 23.0-32.4 sec Low APTT <20.0 Result Comment: Unfractionated Heparin Therapeutic Ranges: Standard Heparin Nomogram: 53 to 78 seconds (anti-Xa level of 0.3 to 0.7 U/ml) Low Dose/ACS Nomogram: 49 to 67 seconds (anti-Xa level of 0.2 to 0.5 U/ml) Stroke Treatment Nomogram: 49 to 67 seconds (anti-Xa level of 0.2 to 0.5 U/ml) Note: The APTT therapeutic range has been determined for the current lot of laboratory APTT reagent in use throughout the [facility]. Sample checked for a clot. Result rechecked. Result confirmed by second method. Performed By: #### MG1, PHOS, BMP, CBCDIF, PTT, PT #### [facility] [address] [place], [place] [address] PROTIME Collected: 08/02/2018 Status: F Source: [place] 12:15 AM [facility] REPOSITORY TYPE CODE TESTS RESULT OUT OF RANGE REFERENCE UNITS LAB PSEC 9.7-13.0 sec PT Sec 11.0 LAB INR 0.9-1.3 PT INR 1.0 Result Comment: Vitamin K Antagonist (VKA) Therapeutic Range: INR 2 to 3 (Target INR of 2.5) Note: For patients treated with VKA drugs, such as warfarin, the [place] College [employer] Chest [employer]icians 2012 Guideline recommends a therapeutic INR range of 2 to 3 (target INR of 2.5). This recommendation includes high-risk patients with antiphospholipid syndrome with previous arterial or venous thromboembolism, current-generation mechanical or bioprosthetic aortic heart valve replacement. Note: Patients with mechanical aortic valve replacement and additional risk factors for thromboembolic events (atrial fibrillation, previous thromboembolism, LV dysfunction, hypercoagulable conditions) or an older generation mechanical AVR (i.e., ball in-Cage) or any mechanical MVR should have a INR therapeutic range of 2.5 to 3.5 (target INR of 3). Lucrecia GREY, et al. Chest 2012, 141:7S-47S Ca NUNEZ et al. [facility] 2017, 70: 252-289 Performed By: #### MG1, PHOS, BMP, CBCDIF, PTT, PT #### [facility] [address] [place], [place] [address] EMERGENCY DEPARTMENT Observed: 08/02/2018 Status: F Source: [place] SUMMARY 12:09 AM [facility] Medical Records Department [address] [place] [address] Emergency Department Summary 08/01/18 1630 MR#: [id number] Acct: [id number] Name: MIKE LUNSFORD Rep #: [id number] : 1950 68 From: Teri Cesar MD PCP: Franklin Mayberry MD Status: DEP ER - ER Visit Summary Date of Service: 08/01/18 Chief Complaint: Aortic dissection History of Present Illness: The patient is a 68 F who developed pain in her back between her shoulder blades along with shortness of breath and dizziness 3 days ago. Patient was seen by her PCP. Her d-dimer was elevated and she was sent for a chest CT today. CT reportedly shows a dissection of the descending thoracic aorta. Physical Examination: Blood pressure in left arm is 178/97, heart rate is 68. Patient is sitting upright in bed. He is in no acute distress. Head neck examination is unremarkable. Heart is regular rate and rhythm. Lung sounds are clear. Abdomen is soft nontender. Extremity examination reveals palpable and equal distal pulses. Test Results: CT chest report was reviewed. The report states that there appears to be a new dissection of the descending thoracic aorta beginning just below the arch. The distal portion cannot be evaluated. CBC and chemistry studies returned with creatinine 1.17. Troponin is less than 0.015. EKG is sinus at [address] change. Emergency Department Course and Treatment: Test results were immediately discussed with the patient. I advised her that we would require transfer to a larger institution. Patient works at [employer] and requested to go there. I spoke with the transfer line and patient has been accepted in transfer. Cardene drip has been started to control blood pressure. She was sent for a CTA of the abdomen and pelvis and disc will be available at the time of transfer. Treatment Plan: [] Disposition: Transfer Impression: Descending thoracic aorta dissection This note was generated with [employer] dictation software. It may contain incorrect words, spelling, and punctuation that were not noted in review of the chart prior to signing ED Disposition - Plan for ED Patient: Chief Complaint: Shortness of Breath Referrals: Franklin Mayberry MD [Primary Care Provider] - What to do if you have Problems For any increased pain, shortness of breath, bleeding, nausea or vomiting, chest pain, or any unexpected problems, contact your Primary Care Provider. Call [facility] ([phone]) or report to the closest Emergency Room. Call 911 if necessary. 08/02/18 0009 <Electronically signed by Teri Cesar MD> Date Teri Cesar MD Cosigner Signature (If Indicated): Date CC: Franklin Mayberry MD CNCRITCR Observed: 08/02/2018 Status: COMPLETED Source: [place] 12:00 AM [facility] REPOSITORY Critical Care Transport (CCT) MIKE LUNSFORD Jennifer ([id number]) 1950 F [facility] Date Time Provider Department 08/02/18 ANTONIA TEAGUE ([facility]) CCT During your visit today, we recorded the following information about you: Antonia Teague APRN.CNP 08/02/2018 11:50 AM Signed Critical Care Transport Note Patient Name: Mike Lunsford Service Date: 08/01/2018 Referring Physician: Imer Accepting Physician: Shannon Referring Facility: [place] Accepting Facility: [facility] Main SUBJECTIVE/CHIEF COMPLAINT: SOB, Back pain REASON FOR TRANSPORT: Necessary care unavailable at referring facility History of Present Illness: The following history is what was known to CCT team at time of given care and summarized through review of available medical records, patient/family interview and from referring physician and nursing report. Mike Lunsford is a 68 year old female with a past medical history significant for HTN. She presented to [place] ER on 08/01/2018 for evaluation of abnormal CT results. Patient reports that she had several days of dizziness and SOB with exertion. Patient went to her PCP who was concerned for a blood clot so he ordered lab work. Her D-Dimer resulted at >[id number]. This prompted a PE scan to be done. Scan was negative for a PE but did show a Type B dissection starting just below the aortic arch. Patient was told that there was a problem with her aorta so she was sent to the ER. At the ER in [place], patient had a CTA chest that showed a descending thoracic aortic dissection filled with thrombus to the level of the renal arteries without extension into or obstruction of branches. Patient presenting SBP 170's so patient was started on a Nicardipine gtt. Positive back pain and headache rated 6/10, positive lightheadedness and dizziness, positive SOB with exertion. At this time, the physician managing the patient requested transfer to the [facility] for tertiary and/or quaternary services unavailable at the referring facility. The physician managing the patient requested the [facility] Critical Care Transport Team transport and treat the patient for the purpose of tertiary care, evaluation, and management of her cardiovascular condition(s). Patient condition at time of exam was: Acutely ill and critically ill. Due to the unique circumstances of the patient, it was determined that this was the closest, most appropriate facility by referring physician. ROS: A complete review of systems was performed and is negative except as noted PAST MEDICAL HISTORY: HTN PAST SURGICAL HISTORY: PAST SURGICAL HISTORY Procedure Laterality Date - APPENDECTOMY age 45 - BREAST AUGMENTATION W/PROSTHETIC IMPLANT 1985 silicone imp - COLONOSCOP W/ OR W/O BRSH SPEC 04/16/03 Diverticulosis - EGD W/O OR W/BRUSH/WASH 08/09/2006 EGD - MICRODISSECTION MANUAL 05/19/07 [id number] - RIGHT HEART CATHETERIZATION 01/2009 Done at [place] [facility] - VAGINAL HYSTERECTOMY age 42 Hysterectomy, vaginal and bladder repair ALLERGIES: Patient reports Aspirin, Codeine and Sulfa SOCIAL HISTORY: Social History Substance Use Topics - Smoking status: Never Smoker - Smokeless tobacco: Never Used - Alcohol use No Comment: maybe one drink a year FAMILY HISTORY: Unknown to transport team HOME MEDICATIONS: Albuterol Atenolol Neurontin Paxil Protonix Medications Administered by Referring Facility: Nicardipine gtt @ 5 mg/hour OBJECTIVE: Recent Labs, Diagnostics AND Procedure Reports reviewed as available. Referring Facility Labs CBC: WBC 5.5k, Hgb 13.5, Hct 41.4, Plt 283K CHEMISTRY: Na 137, K 4.7, Cl 103, CO2 28, BUN 15, SCr 1.17, Glu 103 Cardiac Enzymes: Trop T <0.015 Diagnostics AND Procedure Reports ECG: normal sinus rhythm CXR: N/A CTA Scan Chest: Per report, descending thoracic aortic dissection filled with thrombus to the level of the renal arteries without extension into or obstruction of branches. Procedure/Operative Report(s): NA Invasive Lines/Devices/Tubes Placed by Referring Facility: PIV x 2 PHYSICAL EXAM: Upon CCT Arrival at Referring Facility Vital Signs: HR 78bpm, BP 153/63mmHg, RR 15, SpO2 99% Oxygen/Ventilator Settings: RA General appearance: healthy, alert, well hydrated, pleasant, no distress, cooperative, smiling. HEENT: normocephalic, EOMI, PERRL. Mucous membranes moist Respiratory: clear to auscultation bilaterally,no respiratory distress,no rales,no rhonchi,no wheezing. Cardiovascular: no murmurs, no rubs, no gallops, regular rate and rhythm, peripheral pulses symmetric. Gastrointestinal: soft, nontender, nondistended and normal bowel sounds. Genitourinary: No void observed Musculoskeletal: No clubbing, cyanosis or edema, no calf tenderness, normal ROM, no joint swelling, no bony tenderness, no deformities, equal palpable peripheral pulses and normal strength Skin: normal. Heme/Lymph: Not assessed Neurologic: Awake, alert and oriented x 3, normal speech, Reflexes symmetrical, Normal strength, No involuntary motions, Normal sensation GCS = 15 CRITICAL CARE COURSE Upon bedside arrival at referring facility the patient was assessed and detailed physical exam performed. Initial exam findings as described above. The patient was placed on the transport monitor and all transport equipment transitioned in standard fashion. The patient was transferred to the transport cot and transported to the Aircraft and loaded without incident. The patient was medically managed, monitored, and reassessed during transport. Medications Managed AND Administered by CCT: Fentanyl 25 mcg x 2 doses Metoprolol 5 mg x 2 doses Titrated Nicardipine gtt to 12.5 mg/hour Procedures Performed by CCT: Arterial line-unsuccessful ASSESSMENT/PLAN: Mike Lunsford is a 68 year old female Acute Type B Aortic Dissection Hypertension - Nicardipine gtt titrated to keep SBP<120 - Given Metoprolol 10 mg total for impulse control. HR decreased to 59-68 bpm - Given Fentanyl 25 mcg x 2 doses for pain control. Positive improvement - Taken emergently to [facility] for further evaluation and treatment The transport was completed without significant incident or change in the patient's status. The patient was transported to the the [facility] by Rotor (Helicopter) for tertiary and/or quaternary evaluation and management of her Emergent cardiovascular condition(s). Upon arrival to the receiving facility, a [id number] report was given to bedside nursing staff in [facility] and Dr. Smith. Patient care was transferred. The patient condition was Critical at the time of transfer. Vital Signs at time care transferred to the receiving facility unit: HR 68bpm, Rhythm SR, BP 118/64 mmHg, RR 13, SpO2 98% on RA SPECIAL EQUIPMENT: None MODE OF TRANSPORT: Rotor (Helicopter) CRITICAL CARE TIME:I personally performed 15 minutes of critical care time exclusive of separately billable procedures, ambulance charges and treating other patients. This was necessary to treat or prevent further deterioration of the following condition(s): Aortic dissection Cardiovascular impairment, Respiratory impairment, Shock and Cardiac Arrest which the patient had and/or had a high probability of suddenly developing. SIGNATURE: Antonia Teague APRN.CNP Acute Care Nurse Practitioner [facility] Critical Care Transport Team Antonia Teague APRN.CNP 08/02/2018 11:50 AM Signed Arterial Line PROCEDURE NOTE Patient: Mike Lunsford Date: August 01, 2018 INFORMED CONSENT: Informed consent was not obtained due to clinical factors necessitating an emergent procedure. SAFE PRACTICE Sign in Communication: Emergent N/A. Time Out: The procedural team confirmed the Correct Patient, the Correct Procedure, the Correct Site and the Correct Position (if applicable) during the audible time out: Emergent N/A. Sign Out Communication: Emergent N/A. INDICATION FOR LINE PLACEMENT: Continuous blood pressure monitoring CONDITION OF LINE PLACEMENT: Sterile PRIMARY PROCEDURALIST: Antonia Teague APRN.CNP PROCEDURE NARRATIVE Site Marked: Yes Elvis?s Test Positive Skin Preparation: Chlorhexidine Gluconate Barriers Used by Proceduralist and All Assisting Personnel: Yes Barriers Used: Sterile Gloves CATHETER PLACEMENT/PLACEMENT TECHNIQUE Anesthesia was obtained with None. The left radial artery was cannulated with a 20 g arterial catheter. Number of attempts at insertion: 1 Bright red pulsatile blood exited catheter:NA Appropriate wave form was noted: NA Line Secured with: NA Sterile dressing applied and dated: NA Estimated Blood Loss: 0 Procedure was performed while vehicle in motion: no COMPLICATIONS: None. The patient tolerated the procedure: Patient requested cessation of procedure and declined any further attempts. Successful Placement: No SIGNATURE: Antonia Teague APRN.TONGUE BINDER PATIENT NAME: Mike Lunsford DATE: 08/01/2018 Allergies As of Date: 08/02/2018 Noted Allergy Reaction ASA (SALICYLATES) 05/07/2005 8 - GI Upset CODEINE 05/07/2005 8 - GI Upset SULFA (SULFONAMIDE ANTIBIOTICS) 05/07/2005 8 - GI Upset CLONIDINE 07/02/2005 Comments: headache ESTROGENS 07/02/2005 Comments: hx thrombosis MOBIC (MELOXICAM) 12/11/2006 5 - Intolerance 6 - Diarrhea NORVASC (AMLODIPINE BESYLATE) 12/03/2005 [id number] REDUCTASE INHIBIT*06/16/2014 14 - Other: See Comments Comments: Myalgia Date Reviewed: 08/01/2018 Reviewed by: Simon (Rn) CONSUELO Sepulveda - Fully Assessed Reason for Visit: Critical Care Transport [1718] Prescriptions as of 08/02/2018 Sig: ALBUTEROL SULFATE HFA 90 MCG/* Inhale 2 Puffs as instructed * ATENOLOL 25 MG TABLET Take 1 tablet by mouth once d* ATORVASTATIN 10 MG TABLET Patient takes it once a week * BUDESONIDE-FORMOTEROL HFA 80 * Inhale 2 Puffs as instructed * CEPHALEXIN 500 MG CAPSULE Take 1 capsule by mouth four * CLOBETASOL 0.05 % TOPICAL CRE* Apply selectively as directe* COENZYME Q10 200 MG CAPSULE Take 1 capsule by mouth twice* FLUTICASONE 50 MCG/ACTUATION * Use 2 Sprays in each nostril * GABAPENTIN 300 MG CAPSULE Take 1 capsule by mouth daily* HYDROCODONE 5 MG-ACETAMINOPHE* Take 1 tablet by mouth every * IV CONTRAST (RADIOLOGY PROCED* CT Chest PE -Inject, intraven* LEVOTHYROXINE 100 MCG TABLET Take 1 tablet by mouth once d* ALEVE 220 MG TABLET Take 1-2 tablets at bedtime a* PANTOPRAZOLE 40 MG TABLET,DEL* Take 1 tablet by mouth once d* PAROXETINE 40 MG TABLET Take 1 tablet by mouth once d* PROMETHAZINE 25 MG RECTAL SUP* 1 Suppository by RECTAL route* RANITIDINE 150 MG TABLET Take 1 tablet by mouth daily * SUMATRIPTAN 50 MG TABLET Take 1 tablet by mouth as dir* TRIAMCINOLONE ACETONIDE 0.1 %* Apply 1 application to affect* Problem List As Of Date 08/02/2018 Noted Resolved Phlebitis and thrombophlebitis of unspecified s*INVALID FOR*04/10/2016 Chondromalacia [M94.20] INVALID FOR*04/10/2016 Peripheral enthesopathies and allied syndromes *INVALID FOR*04/10/2016 Hypertension goal BP (blood pressure) < 140/90 * Gastroesophageal reflux disease without esophag* More... Other affections of shoulder region, not elsewh*INVALID FOR*04/10/2016 More... Rotator cuff syndrome of shoulder and allied di*INVALID FOR*04/10/2016 More... Primary localized osteoarthrosis, shoulder martha*INVALID FOR*04/10/2016 More... Disorders of bursae and tendons in shoulder reg*INVALID FOR*04/10/2016 Pain in joint, shoulder region [M25.519] INVALID FOR*04/10/2016 Esophagitis, unspecified [K20.9] INVALID FOR*04/10/2016 Pyoderma, unspecified [L08.0] INVALID FOR*04/10/2016 CHRONIC RHINITIS [J31.0] INVALID FOR* Other diseases of nasal cavity and sinuses(478.*INVALID FOR*04/10/2016 Enthesopathy of hip region [M76.899] INVALID FOR*04/10/2016 Lumbago [M54.5] INVALID FOR*04/10/2016 Displacement of lumbar intervertebral disc with*INVALID FOR*04/10/2016 History of hyperlipidemia [Z86.39] INVALID FOR* More... ECZEMA DERMATITIS NOS [L25.9] INVALID FOR*04/10/2016 ECZEMA DERMATITIS NEC [L25.8] INVALID FOR*04/10/2016 Unspecified pruritic disorder [L29.9] INVALID FOR*04/10/2016 XEROSIS//SEBACEOUS GLAND DIS NEC [L73.8] INVALID FOR*10/17/2015 GLUCOSE ABNORMAL TEST [R73.09] INVALID FOR*04/10/2016 Acquired hypothyroidism [E03.9] INVALID FOR* More... Eczematous dermatitis [L30.9] INVALID FOR* Xerosis cutis [L85.3] INVALID FOR*10/17/2015 Pruritus [L29.9] INVALID FOR*04/10/2016 Sjogren's syndrome (HCC) [M35.00] INVALID FOR* More... 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 History of rheumatoid arthritis [Z87.39] INVALID FOR* More... Migraine with aura and without status migrainos*INVALID FOR* ABNORMAL GLUCOSE [R73.09] INVALID FOR* Osteopenia [M85.80] INVALID FOR* Aortic dissection (HCC) [I71.00] INVALID FOR* Intramural hematoma [T14.8XXA] INVALID FOR* More... Aortic dissection, thoracoabdominal (HCC) [I71.*INVALID FOR* More... Primary hypertension [I10] INVALID FOR* More... Neuropathic pain [M79.2] INVALID FOR* More... Cellulitis of left lower extremity [L03.116] INVALID FOR* More... Follow-up and Disposition History Recorded Encounter Status:Closed by ANTONIA TEAGUE on 08/02/18 GASA + ALL Collected: 08/01/2018 Status: F Source: [facility] 8:01 PM [facility] USE ONLY REPOSITORY TYPE CODE TESTS RESULT OUT OF REFERENCE UNITS RANGE LAB PH 7.35-7.45 pH 7.45 LAB PCO2 34-46 mm Hg pCO2 Low 32 LAB PO2 85-95 mm Hg pO2 Low 83 LAB BE mmol/L Base Excess NEG 1 LAB HCO3 22-26 mmol/L Bicarbonate 22 LAB CO2CT 22.0-28.0 mmol/L CO2 Content 23 LAB O2HB 95-98 % Oxyhemoglobin, Art. 95 LAB COHB 0-5.0 % Carboxyhemoglobin,A 0.9 rt LAB MHGB 0.4-1.5 % Methemoglobin 0.7 LAB TEMP C Temperature, Body 37.0 LAB PHTC 7.35-7.45 pH, Temp Corrected 7.45 LAB PCO2T 34-46 mm Hg pCO2, Temp Low Correct 32 LAB PO2T mm Hg pO2, Temp Corrected 83 LAB NAB 132-148 mmol/L Sodium,Whole Bld 139 LAB KWB 3.5-5.0 mmol/L Potassium, Whole Bld 3.7 LAB HGBB 11.5-15.5 g/dL Hemoglobin,Total,AC 12.6 L LAB HCTB 36.0-46.0 % Hematocrit, ACL 39 LAB IC 1.08-1.30 mmol/L Calcium, Ion, WB 1.16 LAB GLB 60-105 mg/dL Glucose,Whole Bld High 127 LAB LACT 0.5-2.2 mmol/L Lactate 1.0 Performed By: #### ALLBG #### [facility] [address] [place], [place] [address] CONSULT Observed: 08/01/2018 Status: COMPLETED Source: [place] 7:38 PM [facility] REPOSITORY HNO ID: [id number] Author: Ingris Knutson Service: Vascular Surgery Author Type: Physician Type: Consults Filed: 08/04/2018 1:33 PM Note Text: [facility]ULAR [facility] INITIAL CONSULT Service Date: 08/01/2018 Admit Date: 08/01/2018 Service Time: 7:38 PM LOS: 0 Requesting Provider: [facility] Vascular Physician: Ingris Knutson MD Subjective Chief Complaint: IMH HPI: Mike Lunsford is a 68 year old w/hx RA, HTN transferred from OSH for evaluation of IMH. Pt states 3 days ago she developed chest pain radiating to her back. Pain was persistent, also with worsening pain on inspiration. States was also lightheaded during this time and did not feel well. Denies any numbness/weakness UE/LE. No abdominal pain. Did not know how well controlled her BP has been. Went to her PCP who checked D-dimer, found to be elevated and sent for CT PE w/poor quality scan for aorta but did note part of IMH in descending thoracic aorta. No prior vascular surgeries. On repeat exam chest pain has improved w/improved BP control. Not on statin - states it causes flare of RA. PAST MEDICAL HISTORY Diagnosis Date - ATOPIC DERMATITIS: Adult type: arms/elbows and neck 02/23/2008 - ACTINIC DAMAGE///CHR SOLAR SKIN DAMAGE NOS 02/23/2008 - Chondromalacia 06/25/2005 - Esophageal reflux - Esophagitis, unspecified - Glucose intolerance (impaired glucose tolerance) Treated with Glucophage - Hypothyroidism - Memory change - Migraines - Peripheral enthesopathies and allied syndromes 06/25/2005 - Phlebitis and thrombophlebitis of unspecified site 06/25/2005 - Pre-diabetes on medication - RA (rheumatoid arthritis) (HCC) - Sjogren's syndrome (HCC) - Unspecified essential hypertension PAST SURGICAL HISTORY Procedure Laterality Date - APPENDECTOMY age 45 - BREAST AUGMENTATION W/PROSTHETIC IMPLANT 1985 silicone imp - COLONOSCOP W/ OR W/O BRSH SPEC 04/16/03 Diverticulosis - EGD W/O OR W/BRUSH/WASH 08/09/2006 EGD - MICRODISSECTION MANUAL 05/19/07 [id number] - RIGHT HEART CATHETERIZATION 01/2009 Done at [facility] - VAGINAL HYSTERECTOMY age 42 Hysterectomy, vaginal and bladder repair FAMILY HISTORY Problem Relation Age of Onset - Diabetes Mother - Heart Mother CHF - Macular Degen Mother - Blindness Mother - Heart Father CHF [place] - other (alzheimer) Maternal Grandmother and two sisters. Social History Substance Use Topics - Smoking status: Never Smoker - Smokeless tobacco: Never Used - Alcohol use No Comment: maybe one drink a year Prescriptions Prior to Admission: albuterol HFA (VENTOLIN HFA) 90 mcg/actuation inhaler Inhale 2 Puffs as instructed every 4 hours as needed for Wheezing/Shortness of Breath. Disp: 3 Inhaler Rfl: 1 07/31/2018 at Unknown time atenolol (TENORMIN) 25 mg tablet Take 1 tablet by mouth once daily. Disp: 90 tablet Rfl: 3 07/31/2018 at Unknown time atorvastatin (LIPITOR) 10 mg tablet Patient takes it once a week Indications: MIXED HYPERLIPIDEMIA Disp: 90 tablet Rfl: 0 07/31/2018 at Unknown time budesonide-formoterol (SYMBICORT) 80-4.5 mcg/actuation inhaler Inhale 2 Puffs as instructed twice daily. Disp: 1 Inhaler Rfl: 5 07/31/2018 at Unknown time cephALEXin (KEFLEX) 500 mg capsule Take 1 capsule by mouth four times daily for 5 days. Disp: 20 capsule Rfl: 0 07/31/2018 clobetasol (TEMOVATE) 0.05 % cream Apply selectively as directed to affected areas or lesions of acute eczema dermatitis rash flares BID until clear and stop or taper as able. AVOID face, eyes and eyelids. Disp: 60 g Rfl: 4 07/31/2018 Coenzyme Q10 (CO Q-10) 200 mg cap Take 1 capsule by mouth twice daily. Disp: Rfl: 0 07/31/2018 fluticasone (FLONASE) 50 mcg/actuation nasal spray Use 2 Sprays in each nostril once daily. Rinse mouth after use. Disp: 1 Bottle Rfl: 11 07/31/2018 gabapentin (NEURONTIN) 300 mg capsule Take 1 capsule by mouth daily at bedtime for 90 days. Disp: 90 capsule Rfl: 0 07/31/2018 HYDROcodone-acetaminophen (NORCO) 5-325 mg per tablet Take 1 tablet by mouth every 8 hours as needed for up to 180 days.Earliest Fill Date: 03/26/18 Disp: 30 tablet Rfl: 0 07/31/2018 iv contrast (will be provided with radiology test) CT Chest PE -Inject, intravenously, once for 1 dose.No IV access, insert saline lock prior to the beginning of sedation, infusion, injection of imaging exam. Discontinue saline lock post exam. If Pt. has a central line or IVAD, may access for administration according to line specific nursing protocol. Once exam is complete flush line and de-access according to line specific nursing protocol in the CT contrast administration guidelines link. Disp: 1 Each Rfl: 0 07/31/2018 levothyroxine (LEVOXYL) 100 mcg tablet Take 1 tablet by mouth once daily. Take one extra tab once a week Disp: 90 tablet Rfl: 3 07/31/2018 naproxen sodium(ALEVE 220 MG TAB) Take 1-2 tablets at bedtime as necessary Disp: 0 Rfl: 0 07/31/[address] (PROTONIX) 40 mg tablet Take 1 tablet by mouth once daily. Disp: 90 tablet Rfl: 3 07/31/2018 PARoxetine (PAXIL) 40 mg tablet Take 1 tablet by mouth once daily. Disp: 90 tablet Rfl: 3 07/31/2018 promethazine (PHENERGAN) 25 mg suppository 1 Suppository by RECTAL route every 8 hours as needed. Disp: 20 Suppository Rfl: 1 07/31/2018 ranitidine (ZANTAC) 150 mg tablet Take 1 tablet by mouth daily at bedtime. Disp: 90 tablet Rfl: 3 07/31/2018 SUMAtriptan (IMITREX) 50 mg tablet Take 1 tablet by mouth as directed. START AT ONSET OF HEADACHE. MAY REPEAT DOSE AFTER 2 HOURS. Disp: 9 tablet Rfl: 1 07/31/2018 triamcinolone acetonide (KENALOG) 0.1 % cream Apply 1 application to affected area three times daily. Apply to affected area. Disp: 15 g Rfl: 0 07/31/2018 Current hospital medications: albuterol 2.5 mg /3 mL (0.083 %) 2.5 mg (PROVENTIL) 2.5 mg INHALATION QID atorvastatin 10 mg tab(s) (LIPITOR) 10 mg ORAL AT BEDTIME budesonide 0.25 mg/2 mL 0.25 mg (PULMICORT) 0.25 mg INHALATION BID gabapentin 300 mg cap(s) (NEURONTIN) 300 mg ORAL AT BEDTIME [START ON 08/04/2018] influenza vaccine 180 mcg (Patients 65 years and older) (PF) (FLUZONE HIGH DOSE ) 0.5 mL INTRAMUSCULAR ONCE (IMMUNIZATION) levothyroxine 100 mcg tab(s) (SYNTHROID) 100 mcg ORAL DAILY metoprolol 5 mg injection (LOPRESSOR) 5 mg INTRAVENOUS q 5 MIN PRN NaCl 0.9% 3-5 mL 3-5 mL INTRAVENOUS q 12 H nitroprusside 50 mg in D5W 250 mL (NIPRIDE) 10-200 mcg/min INTRAVENOUS CONTINUOUS pantoprazole DR 40 mg tab(s) (PROTONIX) 40 mg ORAL DAILY PARoxetine 40 mg tab(s) (PAXIL) 40 mg ORAL DAILY SUMAtriptan 50 mg tab(s) (IMITREX) 50 mg ORAL As Directed Medication and Non-Pharmacologic VTE Prophylaxis/Anticoagulants 08/01/181829 graduated compression stockings ([place], [place]) 08/01/181814 activity - mobilize patient ([place]) VTE Prophylaxis: Needs to be revised ALLERGIES Allergen Reactions - Asa [Salicylates] GI Upset - Codeine GI Upset - Sulfa (Sulfonamide * GI Upset - Clonidine headache - Estrogens hx thrombosis - Mobic [Meloxicam] Intolerance, Diarrhea - Norvasc [Amlodipine* - Wgjhffr-Nrw-Pyt Red* Other: See Comments Myalgia COMPLETE REVIEW OF SYSTEMS CONSTITUTIONAL: No weight loss, malaise or fevers. HEENT: Negative for frequent or significant headaches, No changes in hearing or vision, no nose bleeds or other nasal problems. RESPIRATORY: Negative for cough, wheezing, or shortness of breath CARDIOVASCULAR: Negative for chest pain, leg swelling or palpitations GI: Negative for abdominal discomfort, blood in stools or black stools or change in bowel habits. : No history of dysuria, frequency, or incontinence and No difficulty urination, nocturia >1 times per night or hematuria. MUSCULOSKELETAL: Negative for joint pain or swelling, back pain or muscle pain. ENDOCRINE: Negative for cold or heat intolerance, polyuria, polydipsia and goiter HEMATOLOGIC/LYMPHATIC: Negative for prolonged bleeding, bruising easily or swollen nodes. NEUROLOGIC: No history or headaches, syncope, paralysis, seizures or tremors. INTEGUMENTARY: Negative for lesions, rash, and itching. Objective PHYSICAL EXAM Physical Exam Performed Patient Vitals for the past 24 hrs: BP Temp Temp src Pulse Resp SpO2 Height Weight 08/01/18 1844 - - - - - - - 80.7 kg (177 lb 14.6 oz) 08/01/18 1820 119/57 - - 61 20 98 % - - 08/01/18 1800 160/62 - - 68 29 99 % - - 08/01/18 1759 160/62 - - 74 (!) 43 99 % - - 08/01/18 1752 140/65 - - 64 21 99 % - - 08/01/18 1750 133/61 - - 64 25 99 % - - 08/01/18 1745 140/63 36.9 ?C (98.4 ?F) Oral 62 24 99 % 170.2 cm (5' 7) - Intake/Output Summary (Last 24 hours) at 08/01/18 1938 Last data filed at 08/01/18 1800 Gross per 24 hour Intake 0 ml Output 150 ml Net -150 ml CONSTITUTIONAL: Well developed and No distress NEUROLOGIC/PSYCHIATRIC: Oriented to time, place AND person and No gross focal neurologic deficits HEENT: Fair dentition LUNGS: Clear HEART: Regular rate AND rhythm ABDOMEN: Soft, Non-tender and Non-distended INTEGUMENTARY: Wound - No SURGICAL SITES: None MUSCULOSKELETAL: No deformities Pulses/Signals: Carotid Brachial Radial Femoral Popliteal Dorsalis Pedis Posterior Tibial Right Palpable +2 Palpable +2 Palpable +2 Palpable +2 Palpable +2 Palpable +2 Palpable +1 Left Palpable +2 Palpable +2 Palpable +2 Palpable +2 Palpable +2 Palpable +2 Palpable +1 Does the patient have critical limb ischemia, rest pain, tissue loss or gangrene?: No DATA: Laboratory: Recent Labs 08/01/18 1808 WBC 5.31 HB 13.5 HCT 40.8 PLT 267 Recent Labs 08/01/18 1315 CREAT 1.02* Recent Labs 08/01/18 1808 INR 1.0 Component Latest Ref Rng AND Units 03/26/2018 Cholesterol, Total <200 mg/dL 243 (H) Triglyceride <150 mg/dL 224 (H) HDL Cholesterol >39 mg/dL 46 LDL Cholesterol <100 mg/dL 152 (H) Non HDL Cholesterol <130 mg/dL 197 (H) Fasting Time hrs 24 VLDL Cholesterol <30 mg/dL 45 (H) TC:HDL Ratio <5.10 5.28 (H) LDL:HDL Ratio <2.54 3.30 (H) Radiology: 08/01/2018 CTA c/a/p Normal ascending and aortic arch IMH starting mid thoracic aorta to just prox to SMA Max thickness 10mm Small penetrating ulceration noted mid-distal thoracic aorta Max diameter 35mm I have personally reviewed the following images/data: CT Scan Impression/Recommendations Impression: Mike Lunsford is a 68 year old White female with uncomplicated, 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 Plan: see below Problem Intramural Hematoma History: 3 day history of back pain found to have new finding of IMH. Pain improving w/BP control. Neurovascular intact. 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 Aorta non-aneurysmal, max diameter 35mm. Max IMH thickness about 10mm Plan: - impulse control w/HR 60s, SBP <120 - closely monitor symptoms - no acute surgical intervention at this time Hyperlipidemia Per patient - unable to take statins, severe myalgias: Tried lovastatin, pravachol, simvastatin. Aortic ulceration reflecting unstable plaque and recent lipid profile w/ LDL in 150s, and elevated TG and total cholesterol - would recommend high intensity statin, but unable to tolerate - recommend cardiology consider PCSK9 inhibitors or other alternatives for this patient Discussed with Dr. Ingris Knutson, vascular surgery staff phone operator SIGNATURE: Katherin Shabazz MD PATIENT NAME: Mike Lunsford DATE: August 01, 2018 TIME: 7:38 PM PAGER/CONTACT #: [phone] [facility] STAFF PHYSICIAN NOTE OF PERSONAL INVOLVEMENT IN CARE Patient is seen in consultation at the request of the above noted physician. Based on my evaluation she does not require intervention for uncomplicated type B IMH without high-risk features. PLAN DISCUSSED WITH: patient and teams See problem list I have reviewed the documentation obtained and documented by the Resident and have reviewed and updated the problem list as appropriate. I have personally performed a face to face assessment of the patient and have personally participated in the marquez components. I have discussed the case and management of the patient's care. STAFF PHYSICIAN: Ingris Knutson MD DATE of SERVICE: 08/01/2018 XR CHEST 1V FRONTAL Observed: 08/01/2018 Status: F Source: [facility] 7:37 PM [facility] REPOSITORY * * *Final Report* * * DATE OF EXAM: Aug 01 2018 7:37PM [id number] - XR CHEST 1V FRONTAL PORT / PROCEDURE REASON: Chest pain * * * * Physician Interpretation * * * * EXAMINATION: CHEST RADIOGRAPH (PORTABLE SINGLE VIEW AP) Exam Date/Time: 08/01/2018 7:37 PM Clinical History: Chest pain, MQ: [id number] Comparison: RESULT: See impression. IMPRESSION: Lines, tubes, and devices: None. Lungs and pleura: Lungs clear Cardiomediastinal silhouette: Dilated tortuous descending aorta Other: . Radiation Control Technician: PSCB Transcribe Date/Time: Aug 01 2018 10:00P Dictated by : TOVA HERNANDEZ MD This examination was interpreted and the report reviewed and electronically signed by: TOVA HERNANDEZ MD on Aug 01 2018 10:01PM EST [id number] PROCEDURE Observed: 08/01/2018 Status: COMPLETED Source: [place] 6:46 PM [facility] REPOSITORY HNO ID: [id number] Author: Jyoti Patrick (Fel) Service: Cardiovascular Medicine Author Type: Fellow Type: Procedures Filed: 08/01/2018 6:47 PM Note Text: BEDSIDE PROCEDURE NOTE PROCEDURE DATE: August 01, 2018 PROCEDURE START TIME: 1814 PRIMARY PROCEDURALIST: Jyoti Patrick MD ELECTRONICS COMPUTER MECHANIC(S): None INFORMED CONSENT: Informed Consent obtained and on the chart UNIVERSAL PROTOCOL / SAFETY CHECKLIST Sign in Communication: Completed Time Out: Team Confirms the Correct Patient, Correct Procedure, Correct Site and Site Marking, Correct Position (if applicable), Prep and Dry Time (if applicable). Affirmation of Time Out: YES Sign Out Discussion: Completed PROCEDURE: ARTERIAL CATHETER INSERTION Line/Indication: Single lumen for Monitoring of vital bodily functions (BP, pH, paO2, paCO2) Anesthesia/Sedation: Local; lidocaine 1% Insertion Site: Right radial arteryArea Prep: Chlorhexidine gluconate The artery was cannulated with a 20 gauge catheter on the first attempt. A straight-tipped spring wire was passed into the artery through the indwelling catheter and left in situ while the catheter was advanced. The catheter was left in situ while the guidewire was removed. Pulsatile blood flow exited the catheter and an arterial waveform was noted on the monitor when the catheter was transduced. The catheter was secured in place with sterile sutures. A sterile dressing was applied and dated. All catheters, needles and/or wires were accounted for and intact: Yes. Patient tolerated procedure well. Complications: None No Specimens Collected Unless Noted Here Estimated Blood Loss: Scant SIGNATURE: Jyoti Patrick MD PATIENT NAME: Mike Lunsford DATE: August 01, 2018 TIME: 6:47 PM PAGER/CONTACT #: [phone] HISTORY PHYSICAL Observed: 08/01/2018 Status: COMPLETED Source: [place] 6:36 PM [facility] REPOSITORY HNO ID: [id number] Author: Petrona Ortega Service: Cardiovascular Medicine Author Type: Physician Type: HANDP Filed: 08/02/2018 10:05 AM Note Text: [facility]ULAR [facility]IC[facility] HISTORY AND PHYSICAL (Template ID [id number]) Mike Lunsford [id number] PRIMARY SERVICE: Cardiovascular Medicine: CICU DATE OF ADMISSION: 08/01/2018 CHIEF COMPLAINT Type B Aortic Dissection HISTORY OF PRESENT ILLNESS Mike Lunsford is a 68 year old female w PMH HTN Hx of PE 2/2 post menopausal estrogen use/HRT Rheumatoid Arthritis GERD Neuropathic LE pain Celluliitis L leg Hx of Depression Pt p/w subjective SOB, lightheadedness, and slowly progressive pain 3/10 pain btw scapula x 3 days. Pt presented first to PCP who got D dimer - elevated, sent to [facility] for PE scan, PE neg but Type B dissection noted starting immediately after the arch but scan was terminated before the distal dissection could be seen. Pt sent to [facility] for CT CAP w ivcon that showed descending thoracic aortic dissection filled with thrombus to ~ level of renal arteries without extension into or obstruction of branches. There is a minorPt started on nicardipine IV and TF to [facility] for surgery. Pt arrived HDS on RA, 3/10 pain, lightheaded, HR 60s, BP 140s on nicardipine gtt 12.5mg/hr. Vasc Surgery consulted, recommended impulse control. PAST MEDICAL HISTORY PAST MEDICAL HISTORY Diagnosis Date - ATOPIC DERMATITIS: Adult type: arms/elbows and neck 02/23/2008 - ACTINIC DAMAGE///CHR SOLAR SKIN DAMAGE NOS 02/23/2008 - Chondromalacia 06/25/2005 - Esophageal reflux - Esophagitis, unspecified - Glucose intolerance (impaired glucose tolerance) Treated with Glucophage - Hypothyroidism - Memory change - Migraines - Peripheral enthesopathies and allied syndromes 06/25/2005 - Phlebitis and thrombophlebitis of unspecified site 06/25/2005 - Pre-diabetes on medication - RA (rheumatoid arthritis) (HCC) - Sjogren's syndrome (HCC) - Unspecified essential hypertension PAST SURGICAL HISTORY Procedure Laterality Date - APPENDECTOMY age 45 - BREAST AUGMENTATION W/PROSTHETIC IMPLANT 1985 silicone imp - COLONOSCOP W/ OR W/O BRSH SPEC 04/16/03 Diverticulosis - EGD W/O OR W/BRUSH/WASH 08/09/2006 EGD - MICRODISSECTION MANUAL 05/19/07 [id number] - RIGHT HEART CATHETERIZATION 01/2009 [facility] - VAGINAL HYSTERECTOMY age 42 Hysterectomy, vaginal and bladder repair FAMILY HISTORY FAMILY HISTORY Problem Relation Age of Onset - Diabetes Mother - Heart Mother CHF - Macular Degen Mother - Blindness Mother - Heart Father CHF [place] - other (alzheimer) Maternal Grandmother and two sisters. SOCIAL HISTORY Social History Substance Use Topics - Smoking status: Never Smoker - Smokeless tobacco: Never Used - Alcohol use No Comment: maybe one drink a year HOME MEDICATIONS albuterol HFA (VENTOLIN HFA) 90 mcg/actuation inhaler Inhale 2 Puffs as instructed every 4 hours as needed for Wheezing/Shortness of Breath. atenolol (TENORMIN) 25 mg tablet Take 1 tablet by mouth once daily. atorvastatin (LIPITOR) 10 mg tablet Patient takes it once a week Indications: MIXED HYPERLIPIDEMIA budesonide-formoterol (SYMBICORT) 80-4.5 mcg/actuation inhaler Inhale 2 Puffs as instructed twice daily. cephALEXin (KEFLEX) 500 mg capsule Take 1 capsule by mouth four times daily for 5 days. clobetasol (TEMOVATE) 0.05 % cream Apply selectively as directed to affected areas or lesions of acute eczema dermatitis rash flares BID until clear and stop or taper as able. AVOID face, eyes and eyelids. Coenzyme Q10 (CO Q-10) 200 mg cap Take 1 capsule by mouth twice daily. fluticasone (FLONASE) 50 mcg/actuation nasal spray Use 2 Sprays in each nostril once daily. Rinse mouth after use. gabapentin (NEURONTIN) 300 mg capsule Take 1 capsule by mouth daily at bedtime for 90 days. HYDROcodone-acetaminophen (NORCO) 5-325 mg per tablet Take 1 tablet by mouth every 8 hours as needed for up to 180 days.Earliest Fill Date: 03/26/18 iv contrast (will be provided with radiology test) CT Chest PE -Inject, intravenously, once for 1 dose.No IV access, insert saline lock prior to the beginning of sedation, infusion, injection of imaging exam. Discontinue saline lock post exam. If Pt. has a central line or IVAD, may access for administration according to line specific nursing protocol. Once exam is complete flush line and de-access according to line specific nursing protocol in the CT contrast administration guidelines link. levothyroxine (LEVOXYL) 100 mcg tablet Take 1 tablet by mouth once daily. Take one extra tab once a week naproxen sodium(ALEVE 220 MG TAB) Take 1-2 tablets at bedtime as necessary pantoprazole DR (PROTONIX) 40 mg tablet Take 1 tablet by mouth once daily. PARoxetine (PAXIL) 40 mg tablet Take 1 tablet by mouth once daily. ranitidine (ZANTAC) 150 mg tablet Take 1 tablet by mouth daily at bedtime. SUMAtriptan (IMITREX) 50 mg tablet Take 1 tablet by mouth as directed. START AT ONSET OF HEADACHE. MAY REPEAT DOSE AFTER 2 HOURS. triamcinolone acetonide (KENALOG) 0.1 % cream Apply 1 application to affected area three times daily. Apply to affected area. promethazine (PHENERGAN) 25 mg suppository 1 Suppository by RECTAL route every 8 hours as needed. INPATIENT MEDICATIONS Current hospital medications: albuterol 2.5 mg /3 mL (0.083 %) 2.5 mg (PROVENTIL) 2.5 mg INHALATION QID atorvastatin 10 mg tab(s) (LIPITOR) 10 mg ORAL AT BEDTIME budesonide 0.25 mg/2 mL 0.25 mg (PULMICORT) 0.25 mg INHALATION BID cephALEXin 500 mg cap(s) (KEFLEX) 500 mg ORAL q 6 H gabapentin 300 mg cap(s) (NEURONTIN) 300 mg ORAL AT BEDTIME [START ON 08/04/2018] influenza vaccine 180 mcg (Patients 65 years and older) (PF) (FLUZONE HIGH DOSE 2017-) 0.5 mL INTRAMUSCULAR ONCE (IMMUNIZATION) levothyroxine 100 mcg tab(s) (SYNTHROID) 100 mcg ORAL DAILY metoprolol 5 mg injection (LOPRESSOR) 5 mg INTRAVENOUS q 5 MIN PRN NaCl 0.9% 3-5 mL 3-5 mL INTRAVENOUS q 12 H nitroprusside 50 mg in D5W 250 mL (NIPRIDE) 10-200 mcg/min INTRAVENOUS CONTINUOUS pantoprazole DR 40 mg tab(s) (PROTONIX) 40 mg ORAL DAILY PARoxetine 40 mg tab(s) (PAXIL) 40 mg ORAL DAILY SUMAtriptan 50 mg tab(s) (IMITREX) 50 mg ORAL As Directed ALLERGIES ALLERGIES Allergen Reactions - Asa [Salicylates] GI Upset - Codeine GI Upset - Sulfa (Sulfonamide * GI Upset - Clonidine headache - Estrogens hx thrombosis - Mobic [Meloxicam] Intolerance, Diarrhea - Norvasc [Amlodipine* - Nbsiwcj-Weh-Pqg Red* Other: See Comments Myalgia REVIEW OF SYSTEMS Neg except for HPI PHYSICAL EXAM BP 116/57 Pulse 62 Temp 37 ?C (98.6 ?F) (Oral) Resp 12 Ht 170.2 cm (5' 7) Wt 80.7 kg (177 lb 14.6 oz) SpO2 97% BMI 27.86 kg/m? General Appearance: Well developed, Well nourished and No acute distress HEENT: PERRLA, EOM's intact, Fair dentition and JVD - no Lungs: Clear Heart: Regular rate AND rhythm, No heaves, No lifts, No thrills and No rubs Abdomen: Soft, Non-tender, Bowel sounds present and Non-distended Skin: Warm and Dry Musculoskeletal: No deformities and No joint deformities Neurologic/Psychiatric: Oriented to time, place AND person and No gross focal neurologic deficits DATA Laboratory: Recent Labs 08/02/18 0015 08/01/18 180 WBC 5.70 5.31 HB 12.1 13.5 HCT 36.6 40.8 PLT 220 267 Recent Labs 08/02/18 0015 08/01/18 18008/01/18 1315 NA 140 139 -- K 3.9 3.9 -- CO2 22 21* -- BUN 14 13 -- CREAT 0.96 0.98* 1.02* GLUC 126* 111* -- MG 2.3 2.2 -- Recent Labs 08/01/18 180 CK 66 MB <1.0 TROPT <0.010 Recent Labs 08/01/18 180 INR 1.0 Cholesterol, Total (mg/dL) Date Value 03/26/2018 243 HDL Cholesterol (mg/dL) Date Value 03/26/2018 46 LDL Cholesterol (mg/dL) Date Value 03/26/2018 152 Triglyceride (mg/dL) Date Value 03/26/2018 224 Hemoglobin A1C (%) Date Value 03/26/2018 5.9 EKG: NORMAL SINUS RHYTHM Chest Radiograph: IMPRESSION: Lines, tubes, and devices: ?None. Lungs and pleura: ?Lungs clear Cardiomediastinal silhouette: ?Dilated tortuous descending aorta Other: ?. Echocardiogram: NA Stress Testing: NA Cardiac Catheterization: NA Other Radiology: 08/01/18 CT PE IMPRESSION: 1. ? New dissection of the descending thoracic aorta. 2. ?There appears to been previous surgery in the area of the aortic arch when compared to the previous exam. 3. ?No CT evidence of pulmonary embolism. URGENT RESULTS: Communicated with Sherita Morgan certified nurse practitioner ?on 08/01/2018 1520 hours ASSESSMENT AND PLAN 68M w PMH of HTN, hx of PE 2/2 HRT Estrogen, Rheumatoid arthritis, and LLE cellulitis who p/w SOB and back pain x 3 days found to have type b aortic dissection. Plan is impulse control until vascular surgery can determine a surgical vs medical approach. Active Hospital Problems Diagnosis - Aortic dissection, thoracoabdominal (HCC) History: 3 day history of back pain found to have new finding of IMH. Pain improving w/BP control. Neurovascular intact. 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 Aorta non-aneurysmal, max diameter 35mm. Max IMH thickness about 10mm Plan: - impulse control w/HR 60s, SBP <120 - closely monitor symptoms - no acute surgical intervention at this time - Primary hypertension Nitroprusside gtt Metoprolol 5mg q 5min IV prn HR >70 Goal <120 mmHg Goal HR<70 - Neuropathic pain BL LE neuropathic pain Cont gabapentin - Cellulitis Cont cephalexin LLE last day of abx 08/04 - Intramural hematoma History: 3 day history of back pain found to have new finding of IMH. Pain improving w/BP control. Neurovascular intact. 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 Aorta non-aneurysmal, max diameter 35mm. Max IMH thickness about 10mm Plan: - impulse control w/HR 60s, SBP <120 - closely monitor symptoms - no acute surgical intervention at this time - Rheumatoid arthritis with positive rheumatoid factor (HCC) Pt has taken prednisone in past for RA and eczema Not on any current home meds - Hypothyroid Cont home dose levothyroxine - Hyperlipidemia Per patient - unable to take higher dose statins, severe myalgias: Tried lovastatin, pravachol, simvastatin. Aortic ulceration reflecting unstable plaque and recent lipid profile w/ LDL in 150s, and elevated TG and total cholesterol Pt can tolerate atorvastatin 10mg, will continue this - would recommend high intensity statin, but unable to tolerate - recommend cardiology consider Ezetimibe or PCSK9 inhibitors or other alternatives for this patient - GERD (gastroesophageal reflux disease) Cont PPI DIET NPO DVT ppx - HOLD due to possible bleed risk GI ppx - PPI Case to be discussed with staff Aurelio Timmons MD Pager [phone] (please see below for after hours communication) 08/01/2018 6:36 PM [facility] STAFF PHYSICIAN NOTE OF PERSONAL INVOLVEMENT IN CARE Coronary Intensive Care Unit I have reviewed the documentation above, obtained and documented by the resident. I have also reviewed and updated the problem list as appropriate. I have personally participated in the marquez components and physical exam and have discussed the case and management of the patient's care with the residents and [place]. The following comments revise or confirm relevant marquez components. Labs: Recent Labs 08/02/181408/01/181807 WBC 5.70 5.31 HB 12.1 13.5 HCT 36.6 40.8 PLT 220 267 INR 1.0 1.0 Recent Labs 08/02/181408/01/18180708/01/18 1315 NA 140 139 -- K 3.9 3.9 -- CHLOR 103 103 -- CO2 22 21* -- BUN 14 13 -- CREAT 0.96 0.98* 1.02* GLUC 126* 111* -- MG 2.3 2.2 -- CA 8.8 9.4 -- ALB -- 4.2 -- Recent Labs 08/01/181807 CK 66 MB <1.0 TROPT <0.010 ALT 28 AST 28 Recent Labs 08/01/182000 PO2T 83 PCO2T 32* PHTC 7.45 Current hospital medications: albuterol 2.5 mg /3 mL (0.083 %) 2.5 mg (PROVENTIL) 2.5 mg INHALATION QID atorvastatin 10 mg tab(s) (LIPITOR) 10 mg ORAL AT BEDTIME budesonide 0.25 mg/2 mL 0.25 mg (PULMICORT) 0.25 mg INHALATION BID captopril 6.25 mg tab(s) (CAPOTEN) 6.25 mg ORAL q 8 H carvedilol 6.25 mg tab(s) (COREG) 6.25 mg ORAL BID w MEALS cephALEXin 500 mg cap(s) (KEFLEX) 500 mg ORAL q 6 H gabapentin 300 mg cap(s) (NEURONTIN) 300 mg ORAL AT BEDTIME [START ON 08/04/2018] influenza vaccine 180 mcg (Patients 65 years and older) (PF) (FLUZONE HIGH DOSE ) 0.5 mL INTRAMUSCULAR ONCE (IMMUNIZATION) levothyroxine 100 mcg tab(s) (SYNTHROID) 100 mcg ORAL DAILY metoprolol 5 mg injection (LOPRESSOR) 5 mg INTRAVENOUS q 5 MIN PRN NaCl 0.9% 3-5 mL 3-5 mL INTRAVENOUS q 12 H nitroprusside 50 mg in D5W 250 mL (NIPRIDE) 10-200 mcg/min INTRAVENOUS CONTINUOUS pantoprazole DR 40 mg tab(s) (PROTONIX) 40 mg ORAL DAILY PARoxetine 40 mg tab(s) (PAXIL) 40 mg ORAL DAILY TIME BASED CARE: Critical Care: I personally spent 30 minutes of critical care time involved in the care of this patient. This care required my full attention and direct personal managment of descending aortic dissection, history of pulmonary embolus, cellulitis. The time spent excluded other procedures/services provided by me. STAFF PHYSICIAN: Petrona Ortega MD Cardiology Staff Physician Office: [phone] PAGER: [phone] DATE OF SERVICE: August 02, 2018 TIME OF SERVICE: 6:42 AM TYPE AND SCREEN Collected: 08/01/2018 Status: F Source: [place] 6:23 PM [facility] REPOSITORY TYPE CODE TESTS RESULT OUT OF REFERENCE UNITS RANGE LAB %ABR A ABO/RH(D) POSITIVE LAB % Antibody NEG Screen Performed By: #### TSCR #### [facility] [address] [id number] CBC Collected: 08/01/2018 Status: F Source: [place] 6:08 PM [facility] REPOSITORY TYPE CODE TESTS RESULT OUT OF REFERENCE UNITS RANGE LAB WBC 3.70-11.00 k/uL WBC 5.31 LAB RBC 3.90-5.20 m/uL RBC 4.64 LAB HGB 11.5-15.5 g/dL Hemoglobin 13.5 LAB HCT 36.0-46.0 % Hematocrit 40.8 LAB MCV 80.0-100.0 fL MCV 87.9 LAB MCH 26.0-34.0 pG MCH 29.1 LAB MCHC 30.5-36.0 g/dL MCHC 33.1 LAB RDWCV 11.5-15.0 % RDW-CV 13.7 LAB PLTCT 150-400 k/uL Platelet Count 267 LAB MPV 9.0-12.7 fL MPV 10.4 LAB ABSNUC <0.01 k/uL Absolute nRBC <0.01 Performed By: #### CBC, PT, LACT, CMP, MG1, NTBNP, PHOS, ETHAN, TSH, CKCKMB, HBA1C #### [facility] [address] [place], [place] [address] PROTIME Collected: 08/01/2018 Status: F Source: [place] 6:08 PM [facility] REPOSITORY TYPE CODE TESTS RESULT OUT OF RANGE REFERENCE UNITS LAB PSEC 9.7-13.0 sec PT Sec 10.9 LAB INR 0.9-1.3 PT INR 1.0 Result Comment: Vitamin K Antagonist (VKA) Therapeutic Range: INR 2 to 3 (Target INR of 2.5) Note: For patients treated with VKA drugs, such as warfarin, the [place] [employer] 2012 Guideline recommends a therapeutic INR range of 2 to 3 (target INR of 2.5). This recommendation includes high-risk patients with antiphospholipid syndrome with previous arterial or venous thromboembolism, current-generation mechanical or bioprosthetic aortic heart valve replacement. Note: Patients with mechanical aortic valve replacement and additional risk factors for thromboembolic events (atrial fibrillation, previous thromboembolism, LV dysfunction, hypercoagulable conditions) or an older generation mechanical AVR (i.e., ball in-Cage) or any mechanical MVR should have a INR therapeutic range of 2.5 to 3.5 (target INR of 3). Lucrecia GH, et al. Chest 2012, 141:7S-47S Ca RA et al. [facility] 2017, 70: 252-289 Performed By: #### CBC, PT, LACT, CMP, MG1, NTBNP, PHOS, ETHAN, TSH, CKCKMB, HBA1C #### [facility] [address] [place], [place] [address] LACTATE Collected: 08/01/2018 Status: F Source: [place] 6:08 PM [facility] REPOSITORY TYPE CODE TESTS RESULT OUT OF REFERENCE UNITS RANGE LAB LACT 0.5-2.2 mmol/L Lactate 1.4 Performed By: #### CBC, PT, LACT, CMP, MG1, NTBNP, PHOS, ETHAN, TSH, CKCKMB, HBA1C #### [facility] [address] [place], [place] [address] COMP METABOLIC PANEL Collected: 08/01/2018 Status: F Source: [place] 6:08 PM [facility] REPOSITORY TYPE CODE TESTS RESULT OUT OF REFERENCE UNITS RANGE LAB TP 6.3-8.0 g/dL Protein, Total 7.6 LAB ALB 3.9-4.9 g/dL Albumin 4.2 LAB CA 8.5-10.2 mg/dL Calcium, Total 9.4 LAB TBIL 0.2-1.3 mg/dL Bilirubin, Total 0.6 LAB ALKP 34-123 U/L Alkaline Phosphatase 89 LAB AST 13-35 U/L AST 28 LAB GLU 74-99 mg/dL Glucose High 111 Result Comment: The [place] Diabetes Association (ADA) provides guidance for cutoff values for fasting glucose and random glucose. The ADA defines fasting as no caloric intake for at least 8 hours. Fas ting plasma glucose results between 100 to 125 mg/dL indicate increased risk for diabetes (prediabetes). Fasting plasma glucose results greater than or equal to 126 mg/dL meet the criteria for diagnosis of diabetes. In the absence of unequivocal hyperglycemia, results should be confirmed by repeat testing. In a patient with classic symptoms of hyperglycemia or hyperglycemic crisis, random plasma glucose results greater than or equal to 200 mg/dL meet the criteria for diagnosis of diabetes. Reference: Standards of Medical Care in Diabetes 2016, [place] Diabetes Association. Diabetes Care. 2016.39(Suppl 1). LAB BUN 7-21 mg/dL BUN 13 LAB CRET 0.58-0.96 mg/dL Creatinine High 0.98 LAB NA 136-144 mmol/L Sodium 139 LAB K 3.7-5.1 mmol/L Potassium 3.9 LAB CL 97-105 mmol/L Chloride 103 LAB CO2 22-30 mmol/L Low CO2 21 LAB AGAP 9-18 mmol/L Anion Gap 15 LAB ALT 7-38 U/L ALT 28 LAB GFRAA eGFR- Amer. >60 LAB GFRNAA . eGFR-All Other Races 57 Result Comment: eGFR (Estimated GFR) Units of measure: mL/min/1.73 meters squared eGFR is derived from the reexpressed MDRD Study equation using the following parameters: serum creatinine, age, gender and race. The creatinine assay has been calibrated to be traceable to IDMS. An eGFR <60 mL/min/1.73m2 for >3 months is consistent with chronic kidney disease. Refer to KDOQI guidelines for clinical interpretation. In patients with unstable renal function, e.g. those with acute kidney injury, the eGFR may not accurately reflect actual GFR. Performed By: #### CBC, PT, LACT, CMP, MG1, NTBNP, PHOS, ETHAN, TSH, CKCKMB, HBA1C #### [place] [address] MAGNESIUM Collected: 08/01/2018 Status: F Source: [place] 6:08 [facility] REPOSITORY TYPE CODE TESTS RESULT OUT OF REFERENCE UNITS RANGE LAB MG 1.7-2.3 mg/dL Magnesium 2.2 Performed By: #### CBC, PT, LACT, CMP, MG1, NTBNP, PHOS, ETHAN, TSH, CKCKMB, HBA1C #### [place] [address] NT PRO BNP Collected: 08/01/2018 Status: F Source: [place] 6:[address] [place] [address] REPOSITORY TYPE CODE TESTS RESULT OUT OF REFERENCE UNITS RANGE LAB PBNP <125 pg/mL High PRO B Natr 134 Peptide Performed By: #### CBC, PT, LACT, CMP, MG1, NTBNP, PHOS, ETHAN, TSH, CKCKMB, HBA1C #### [place] [address] PHOSPHORUS Collected: 08/01/2018 Status: F Source: [place] 6:08 [facility] REPOSITORY TYPE CODE TESTS RESULT OUT OF REFERENCE UNITS RANGE LAB PHOS 2.7-4.8 mg/dL Low Phosphorus 2.0 Performed By: #### CBC, PT, LACT, CMP, MG1, NTBNP, PHOS, ETHAN, TSH, CKCKMB, HBA1C #### [place] [address] TROPONIN T Collected: 08/01/2018 Status: F Source: [place] 6:[address] [place] [address] REPOSITORY TYPE CODE TESTS RESULT OUT OF REFERENCE UNITS RANGE LAB TROPT 0.000-0.029 ng/mL Troponin T <0.010 Performed By: #### CBC, PT, LACT, CMP, MG1, NTBNP, PHOS, ETHAN, TSH, CKCKMB, HBA1C #### [place] [address] [place], [place] [address] TSH Collected: 08/01/2018 Status: F Source: [place] 6:08 PM [facility] REPOSITORY TYPE CODE TESTS RESULT OUT OF RANGE REFERENCE UNITS LAB TSH 0.400-5.500 uU/mL High TSH 10.440 Performed By: #### CBC, PT, LACT, CMP, MG1, NTBNP, PHOS, ETHAN, TSH, CKCKMB, HBA1C #### [place] [address] [place], [place] [address] CK, TOTAL AND CKMB Collected: 08/01/2018 Status: F Source: [place] 6:08 PM [facility] REPOSITORY TYPE CODE TESTS RESULT OUT OF REFERENCE UNITS RANGE LAB CK 42-196 U/L 66 CK LAB MB <4.3 ng/mL MB <1.0 LAB CKMBRI 0.0-4.0 % CK CK MB MB % not % reported with CK <100 U/L. Performed By: #### CBC, PT, LACT, CMP, MG1, NTBNP, PHOS, ETHAN, TSH, CKCKMB, HBA1C #### [place] [address] [place] [id number] HEMOGLOBIN A1C Collected: 08/01/2018 Status: F Source: [place] 6:08 [facility] REPOSITORY TYPE CODE TESTS RESULT OUT OF REFERENCE UNITS RANGE LAB HGBA1C 4.3-5.6 % High Hemoglobin A1c 6.1 Result Comment: [place] Diabetes Association guidelines indicate that patients with HgbA1c in the range 5.7-6.4% are at increased risk for development of diabetes, and intervention by lifestyle modification may be beneficial. HgbA1c greater or equal to 6.5% is considered diagnostic of diabetes. LAB HBA0 mg/dL Est. Average Glucose 128 Result Comment: eAG: (Estimated average glucose) is a calculated value from HgbA1c and is employee's representative of the average blood glucose level in the last 2-3 month period. Performed By: #### CBC, PT, LACT, CMP, MG1, NTBNP, PHOS, ETHAN, TSH, CKCKMB, HBA1C #### [facility] [address] [place], [place] [address] EKG1 Observed: 08/01/2018 Status: F Source: [place] 5:54 PM [facility] REPOSITORY NAME : MIKE LUNSFORD PID : [id number] : 1950 Gender : Female Race : ORD : Procedure Date : Aug 01 2018 17:54:01 Edit Date : Aug 04 2018 10:28:22 Diagnosis:NORMAL SINUS RHYTHM NORMAL ECG Confirmed by MD DANIELLE, PhD, ADILIA ([id number]) on 08/04/2018 10:28:17 AM Ventricular Rate : 65 BPM Atrial Rate : 65 BPM P-R Interval : 140 ms QRS Duration : 86 ms Q-T Interval : 420 ms QTC Calculation(Bezet) : 436 ms P [place] : 49 degrees R [place] : 67 degrees T [place] : 53 degrees Test Reason : Location : 300 : [id number] Overread By : MD DANIELLE, PhD,ADILIA Edited By : MD DANIELLE, PhD,ADILIA Referred By : TERI CESAR Acquired by : [id number], CTA CHEST W/WO Observed: 08/01/2018 Status: F Source: [place] CONTRAST 4:24 PM [facility] [place] [facility] Imaging Services [address] [place] [id number] CTA Chest W/WO Contrast MR#: [id number] Acct: [id number] Name: MIKE LUNSFORD Rep #: [id number] : 1950 F 68 From: Rhonda Campbell MD PCP: Franklin Mayberry MD Status: DEP ER Study: CTA Chest W/WO Contrast Date of Exam: 08/01/18 Exam# [id number] Ordering Dr: Teri Cesar MD ADDENDUM by Rhonda Campbell MD on 08/01/18 at 1721 ADDENDUM Note: It is indeterminant whether this is a primary aortic aneurysm with mural thrombus or a prior dissection with a thrombosed false lumen. There are no calcifications of the aorta which assists in this distinction. Electronically Signed: Rhonda Campbell MD at 17:21 EST , Service support , N.B. : The above information has been verbally conveyed by Rhonda Campbell MD to DR TALI JARRELL MD, on 08/01/2018 17:24:37 (ET). 08/01/18 172 Date cc: Franklin Mayberry MD; Teri Cesar MD * Signed ADDENDUM by Rhonda Campbell MD on 08/01/[address]/CTA Chest W/WO Contrast 08/01/18 1731 Date cc: Franklin Mayberry MD; Teri Cesar MD * Signed STUDY: CT ABDOMEN AND PELVIS WITH CONTRAST REASON FOR EXAM: Female, 68 years old. Posterior chest pain and shortness of breath. Abnormal CT exam at outside facility. History of hypertension. Possible dissection. RADIATION DOSAGE (If Supplied By Facility): CTDIvol = ( 14.77 ) mGy, DLP = ( 1225.60 ) mGycm TECHNIQUE: Transaxial images were obtained from the dome of the diaphragm to the symphysis pubis without oral contrast. 100mL ml of Isovue 370 contrast was administered. Sagittal and coronal images were reconstructed. Individualized dose optimization techniques were used for this CT. COMPARISON: Prior abdomen and pelvic CT exam of March 20, 2017 FINDINGS: The maximum diameter of the abdominal portion of the aorta is at the level of the diaphragms with a maximum diameter of 3.4 cm. The remainder of the abdominal aorta is not aneurysmal. There is a moderate calcified plaque of the infrarenal aorta with more prominent mural thrombus in the lower thoracic aorta. There is a single area of the infrarenal aorta approximately 2 cm below the renal arteries where there is a minimal linear defect with underlying slight protrusion of the lumen which may indicate a minimal, limited dissection. The celiac artery, superior mesenteric artery and inferior mesenteric artery are fully patent without evidence of significant stenosis. The bilateral renal arteries are patent without significant stenosis. The iliac arteries are normal. Fatty liver. Normal gallbladder and extrahepatic biliary system. Normal spleen. Normal pancreas. Normal bilateral adrenal glands. Normal right kidney. Normal left kidney. Moderate sized hiatal hernia. Otherwise unremarkable stomach. Normal small intestine. Diverticulosis of the distal colon without evidence of acute diverticulitis. There are surgical clips in the region of the appendix consistent with a prior appendectomy. Normal inferior vena cava. Normal retroperitoneum. Normal urinary bladder. There is absence of the uterus consistent with a prior hysterectomy. Normal abdominal wall. Normal osseous structures. 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 Minimal linear defect in the right anterior wall of the aorta occurring at 2 cm below the renal arteries that does not extend proximally or distally. Defect secondary to overhanging soft plaque versus a minimal dissection. This was not identified on a prior exam of March 20, 2017 noting that this was not an angiographic exam. This does not expand the lumen is substantially. Otherwise mild calcified plaque of the infrarenal aorta. Negative for occlusion or significant stenosis of the major branch vessels. Fatty liver. Moderate hiatal hernia. Diverticulosis. Status post hysterectomy. N.B. : The above information has been verbally conveyed by Rhonda Campbell MD to DR TALI JARRELL MD, on 08/01/2018 17:24:37 (ET). Electronically Signed: Rhonda Campbell MD at 17:03 EST , Service support , STUDY: CTA CHEST REASON FOR EXAM: Female, 68 years old. Posterior chest pain and shortness of breath. Abnormal CT at outside facility showed possible dissection. RADIATION DOSAGE (If Supplied By Facility): CTDIvol = ( 14.77 ) mGy, DLP = ( 1225.60 ) mGycm TECHNIQUE: The examination was performed with the intravenous administration of 100mL ml of Isovue 370 contrast material. Post-processing of the angiographic images was performed, with multiplanar reformation and 3D reconstruction. Individualized dose optimization techniques were used for this CT. COMPARISON: None. FINDINGS: The diameter of the before meals ascending aorta is 2.7 cm. The diameter of the mid arch is 2.7 cm. The diameter of the proximal descending aorta is 3.4 cm. The remainder of the thoracic aorta remains approximately 3.4 cm to the level of the diaphragm with a substantial mural thrombus accumulation on the right lateral wall superiorly and posterior lateral wall inferiorly without a substantial narrowing of the lumen. Negative for dissection. Normal heart and pericardium. Moderate hiatal hernia. Normal hilar regions. Normal visualized trachea and bronchi. Linear atelectatic changes or scarring of the posterior left lung base and right midlung base. Otherwise negative for major consolidation. Negative for pleural effusion. Bilateral breast implants are present. There are degenerative changes of thoracic spine. CT/CTA Chest W/WO Contrast IMPRESSION: Aneurysmal dilatation of the descending aorta, diameter 3.4 cm with substantial mural thrombus without a significant reduction in the flow lumen. Negative for acute dissection. The aneurysmal dilatation of the lower thoracic aorta has occurred since the prior exam March 20, 2017 Normal cardiac size without pericardial effusion. Negative for coronary calcifications. Moderate hiatal hernia. Atelectasis versus scarring lower lobes without other major consolidation or pleural effusion. N.B. : The above information has been verbally conveyed by Rhonda Campbell MD to DR TALI JARRELL MD, on 08/01/2018 17:24:37 (ET). Electronically Signed: Rhonda Campbell MD at 17:13 EST , Service support , CC: Franklin Mayberry MD; Teri Cesar MD Radiation Control Technician: Signed CT ANGIO ABD AND Observed: 08/01/2018 Status: F Source: [place] PEL W/O AND W/DYE 4:16 PM [facility] [place] [facility] Imaging Services [address] [place] [address] CT ANGIO ABD AND PEL W/O AND W/DYE MR#: [id number] Acct: [id number] Name: MIKE LUNSFORD Rep #: [id number] : 1950 F 68 From: Rhonda Campbell MD PCP: Franklin Mayberry MD Status: DEP ER Study: CT ANGIO ABD AND PEL W/O AND W/DYE Date of Exam: 08/01/18 Exam# [id number] Ordering Dr: Teri Cesar MD ADDENDUM by Rhonda Campbell MD on 08/01/18 at 1721 ADDENDUM Note: It is indeterminant whether this is a primary aortic aneurysm with mural thrombus or a prior dissection with a thrombosed false lumen. There are no calcifications of the aorta which assists in this distinction. Electronically Signed: Rhonda Campbell MD at 17:21 EST , Service support , N.B. : The above information has been verbally conveyed by Rhonda Campbell MD to DR TALI JARRELL MD, on 08/01/2018 17:24:37 (ET). 08/01/18 1721 Date cc: Franklin Mayberry MD; Teri Cesar MD * Signed ADDENDUM by Rhonda Campbell MD on 08/01/[address]/CT ANGIO ABD AND PEL W/O AND W/DYE 08/01/18 1731 Date cc: Franklin Mayberry MD; Teri Cesar MD * Signed STUDY: CT ABDOMEN AND PELVIS WITH CONTRAST REASON FOR EXAM: Female, 68 years old. Posterior chest pain and shortness of breath. Abnormal CT exam at outside facility. History of hypertension. Possible dissection. RADIATION DOSAGE (If Supplied By Facility): CTDIvol = ( 14.77 ) mGy, DLP = ( 1225.60 ) mGycm TECHNIQUE: Transaxial images were obtained from the dome of the diaphragm to the symphysis pubis without oral contrast. 100mL ml of Isovue 370 contrast was administered. Sagittal and coronal images were reconstructed. Individualized dose optimization techniques were used for this CT. COMPARISON: Prior abdomen and pelvic CT exam of March 20, 2017 FINDINGS: The maximum diameter of the abdominal portion of the aorta is at the level of the diaphragms with a maximum diameter of 3.4 cm. The remainder of the abdominal aorta is not aneurysmal. There is a moderate calcified plaque of the infrarenal aorta with more prominent mural thrombus in the lower thoracic aorta. There is a single area of the infrarenal aorta approximately 2 cm below the renal arteries where there is a minimal linear defect with underlying slight protrusion of the lumen which may indicate a minimal, limited dissection. The celiac artery, superior mesenteric artery and inferior mesenteric artery are fully patent without evidence of significant stenosis. The bilateral renal arteries are patent without significant stenosis. The iliac arteries are normal. Fatty liver. Normal gallbladder and extrahepatic biliary system. Normal spleen. Normal pancreas. Normal bilateral adrenal glands. Normal right kidney. Normal left kidney. Moderate sized hiatal hernia. Otherwise unremarkable stomach. Normal small intestine. Diverticulosis of the distal colon without evidence of acute diverticulitis. There are surgical clips in the region of the appendix consistent with a prior appendectomy. Normal inferior vena cava. Normal retroperitoneum. Normal urinary bladder. There is absence of the uterus consistent with a prior hysterectomy. Normal abdominal wall. Normal osseous structures. 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 Minimal linear defect in the right anterior wall of the aorta occurring at 2 cm below the renal arteries that does not extend proximally or distally. Defect secondary to overhanging soft plaque versus a minimal dissection. This was not identified on a prior exam of March 20, 2017 noting that this was not an angiographic exam. This does not expand the lumen is substantially. Otherwise mild calcified plaque of the infrarenal aorta. Negative for occlusion or significant stenosis of the major branch vessels. Fatty liver. Moderate hiatal hernia. Diverticulosis. Status post hysterectomy. N.B. : The above information has been verbally conveyed by Rhonda Campbell MD to DR TALI JARRELL MD, on 08/01/2018 17:24:37 (ET). Electronically Signed: Rhonda Campbell MD at 17:03 EST , Service support , STUDY: CTA CHEST REASON FOR EXAM: Female, 68 years old. Posterior chest pain and shortness of breath. Abnormal CT at outside facility showed possible dissection. RADIATION DOSAGE (If Supplied By Facility): CTDIvol = ( 14.77 ) mGy, DLP = ( 1225.60 ) mGycm TECHNIQUE: The examination was performed with the intravenous administration of 100mL ml of Isovue 370 contrast material. Post-processing of the angiographic images was performed, with multiplanar reformation and 3D reconstruction. Individualized dose optimization techniques were used for this CT. COMPARISON: None. FINDINGS: The diameter of the before meals ascending aorta is 2.7 cm. The diameter of the mid arch is 2.7 cm. The diameter of the proximal descending aorta is 3.4 cm. The remainder of the thoracic aorta remains approximately 3.4 cm to the level of the diaphragm with a substantial mural thrombus accumulation on the right lateral wall superiorly and posterior lateral wall inferiorly without a substantial narrowing of the lumen. Negative for dissection. Normal heart and pericardium. Moderate hiatal hernia. Normal hilar regions. Normal visualized trachea and bronchi. Linear atelectatic changes or scarring of the posterior left lung base and right midlung base. Otherwise negative for major consolidation. Negative for pleural effusion. Bilateral breast implants are present. There are degenerative changes of thoracic spine. CT/CT ANGIO ABD AND PEL W/O AND W/DYE IMPRESSION: Aneurysmal dilatation of the descending aorta, diameter 3.4 cm with substantial mural thrombus without a significant reduction in the flow lumen. Negative for acute dissection. The aneurysmal dilatation of the lower thoracic aorta has occurred since the prior exam March 20, 2017 Normal cardiac size without pericardial effusion. Negative for coronary calcifications. Moderate hiatal hernia. Atelectasis versus scarring lower lobes without other major consolidation or pleural effusion. N.B. : The above information has been verbally conveyed by Rhonda Campbell MD to DR TALI JARRELL MD, on 08/01/2018 17:24:37 (ET). Electronically Signed: Rhonda Campbell MD at 17:13 EST , Service support , CC: Franklin Mayberry MD; Teri Cesar MD Radiation Control Technician: Signed CBC W/DIFF, AUTOMATED Collected: 08/01/2018 Status: F Source: [place] 4:00 PM [facility] [place] TYPE CODE TESTS RESULT OUT OF RANGE REFERENCE UNITS LAB L100.1000 4.4-11.0 K/mm3 Normal WBC 5.5 LAB L100.1200 4.2-5.4 M/mm3 Normal RBC 4.58 LAB L100.1300 12.0-15.0 g/dl Normal HGB 13.5 LAB L100.1400 37-47 % Normal HCT 41.4 LAB L100.1500 81-99 fL Normal MCV 90.4 LAB L100.1600 27.0-32.0 pg Normal MCH 29.5 LAB L100.1700 32-36 g/gl Normal MCHC 32.6 LAB L100.1810 11.6-14.6 % Normal RDW CV 14.0 LAB L100.1820 35.1-43.9 fl High RDW SD 46.2 LAB L100.1900 150-450 K/mm3 Normal PLT 283 LAB L100.2000 6.2-12.0 fl Normal MPV 10.1 LAB L100.2100 47-70 % Normal NEUT% 59.8 LAB L100.2200 19-41 % Normal LY% 30.1 LAB L100.2300 0-10 % Normal MONO% 6.1 LAB L100.2400 0-5 % Normal EO% 2.9 LAB L100.2500 0-1 % Normal BASO% 0.9 LAB L100.2550 0.0-0.9 % Normal IM GRAN % 0.200 Result Comment: IG% - Immature Granulocytes (promyelocytes, myelocytes and metamyelocytes) > 1% indicates that a LEFT SHIFT is Present. LAB L100.2620 2.0-7.7 X10 3/uL Normal Absolute Neut 3.3 LAB L100.2720 0.83-4.51 X10 3/ul Normal Absolute Lymph 1.67 Performed By: #### L100.0100 #### [facility] [address] [place], [place], [id number] BASIC METABOLIC Collected: 08/01/2018 Status: F Source: [place] PROFILE (BMP) 4:00 PM [facility] [place] TYPE CODE TESTS RESULT OUT OF RANGE REFERENCE UNITS LAB L501.0100 74-106 mg/dL Normal GLU 103 Result Comment: Fasting Glucose result from 100 to 125 mg/dL suggests IMPAIRED HOMEOSTASIS per A.D.A. criteria. Please note revised GLUCOSE reference range effective 2017. LAB L501.1000 7-18 mg/dL Normal BUN 15 LAB L501.1100 0.55-1.02 mg/dL High CREAT,SERUM 1.17 Result Comment: The validity of the calculated GFR AND GFRAA in patients over 70 years has not been determined. Clinical correlation is essential. LAB L501.1110 >60 mL/min Low EST GFR 49 Result Comment: Non- GFR Calc LAB L501.1115 >60 mL/min Low EST GFR - AA 59 Result Comment: GFR Calc LAB L501.1255 ml/min Normal Estimated CRCL 43.68 LAB L501.1300 10-20 RATIO Normal BUN/CRE 12.8 LAB L501.2200 8.5-10 mg/dL Normal .1 CA 8.9 LAB L501.5300 136-14 mmol/L Normal 5 NA 137 LAB L501.5600 3.5-5. mmol/L Normal 1 K 4.7 Result Comment: Moderate Hemolysis, Result may be falsely increased. LAB L501.5900 98-107 mmol/L Normal CL 103 LAB L501.6100 21.0-32.0 mmol/L Normal CO2 28.0 LAB L501.6200 5-15 Normal 6 GAP Performed By: #### L500.2500, L501.4010 #### [facility] [address] [place], [place], [id number] TROPONIN-I Collected: 08/01/2018 Status: F Source: [place] 4:00 PM [facility] [place] TYPE CODE TESTS RESULT OUT OF RANGE REFERENCE UNITS LAB L501.4010 <0.045 ng/mL Normal < 0.015 TROPONIN-I Result Comment: TROPONIN-I EXPECTED VALUES <0.045 Negative 0.045 - 0.590 Consistent with Cardiac Damage > OR = 0.600 Critical Value Not every elevated troponin is indicative of [place]. These values should be used with clinical judgement in examining the patient's clinical picture for diagnosis. To establish a diagnosis of [place] versus myocardial injury, there must be a demonstrated rise and/or fall in the troponin values, in addition to ischemic symptoms, EKG changes, new regional wall motion abnormality, and/or angiographical evidence. PLEASE NOTE: REFERENCE RANGES EDITED 17 Performed By: #### L500.2500, L501.4010 #### [facility] [address] [facility] [place], [place], [id number] PROTHROMBIN TIME W/INR Collected: 08/01/2018 Status: F Source: [place] 4:00 PM [facility] [place] TYPE CODE TESTS RESULT OUT OF RANGE REFERENCE UNITS LAB L300.4150 11.7-14.9 SECONDS Normal PROTIME 13.5 LAB L300.4200 Normal INR 1.0 Performed By: #### L300.3900, L300.4310 #### [facility] [address] [place], [address] PARTIAL THROMBOPLAST Collected: 08/01/2018 Status: F Source: [place] TIME 4:00 PM [facility] [place] TYPE CODE TESTS RESULT OUT OF RANGE REFERENCE UNITS LAB L300.4310 24.1-36.2 Seconds Normal PTT 29.0 Performed By: #### L300.3900, L300.4310 #### [facility] [address] [place], [address] PROGRESS Observed: 08/01/2018 Status: COMPLETED Source: [place] 3:00 PM [facility] REPOSITORY O ID: [id number] Author: Mandie Braun Service: (none) Author Type: (none) Type: Progress Notes Filed: 08/01/2018 3:01 PM Note Text: Radiology Service Progress Note PATIENT NAME: Mike Lunsford DATE OF SERVICE: August 01, 2018 TIME: 3:00 PM PATIENT IDENTITY VERIFICATION COMPLETED USING TWO (2) METHODS: Patient confirmed name verbally and Date of . PATIENT GENDER DATA: Female. status: : No status: NO. PATIENT RELEVANT IMPLANT DATA REVIEWED: Not Applicable CONTRAST INDUCED NEPHROPATHY RISK FACTORS: Patient age > 60 years CREATININE: Creatinine Date Value Ref Range Status 08/01/2018 1.02 (H) 0.58 - 0.96 mg/dL Final 03/26/2018 1.20 (H) 0.58 - 0.96 mg/dL Final 05/16/2017 1.28 (H) 0.58 - 0.96 mg/dL Final 05/16/2017 1.25 (H) 0.58 - 0.96 mg/dL Final eGFR-All Other Races Date Value Ref Range Status 08/01/2018 54 . Final Comment: eGFR (Estimated GFR) Units of measure: mL/min/1.73 meters squared eGFR is derived from the reexpressed MDRD Study equation using the following parameters: serum creatinine, age, gender and race. The creatinine assay has been calibrated to be traceable to IDMS. An eGFR <60 mL/min/1.73m2 for >3 months is consistent with chronic kidney disease. Refer to KDOQI guidelines for clinical interpretation. In patients with unstable renal function, e.g. those with acute kidney injury, the eGFR may not accurately reflect actual GFR. eGFR- Date Value Ref Range Status 08/01/2018 >60 Final P.O.C.T. RESULTS: POC done: Yes, See Lab Tab August 01, 2018 RADIOLOGIST NOTIFIED?: No ALLERGIES: Reviewed and unchanged CONTRAST ALLERGY: NO. PERIPHERAL IV ACCESS: Ambulatory: IV type: A peripheral IV was started in the Right antecubital site with a Angio cath: 20 gauge., Site assessment: Clean,Dry and Intact, Site disposition Discontinued RADIOLOGY DEPARTMENT: CT; Exam(s) Completed: PE Study SIGNED BY: Mandie De La Cruz Ct August 01, 2018 3:[address] CHEST W IVCON PE Observed: 08/01/2018 Status: F Source: [place] 2:56 PM [facility] REPOSITORY * * *Final Report* * * DATE OF EXAM: Aug 01 2018 2:56PM [facility] 0540 - CT CHEST W IVCON PE / PROCEDURE REASON: multiple diagnoses * * * * Physician Interpretation * * * * EXAMINATION: CHEST CT WITH CONTRAST (PULMONARY EMBOLISM PROTOCOL) CLINICAL HISTORY: Elevated d-dimer Pleuritic pain Technique: Spiral CT acquisition of the chest from the thoracic inlet to the upper abdomen following IV contrast. MQ: CTCPER_4 Contrast: 100 mL Omnipaque [address] Dose-Length Product: 355 mGy*cm CT Dose Reduction Employed: Automated exposure control(AEC) and iterative recon Comparison: CT 10/19/2010 RESULT: Limitations: None. Evaluation for thromboembolic disease: - Right heart chambers: No thromboembolic disease. - Main pulmonary arteries: No thromboembolic disease. - Lobar pulmonary arteries: No thromboembolic disease. - Segmental pulmonary arteries: No thromboembolic disease. - Subsegmental pulmonary arteries: Not well visualized for evaluation. Lines, tubes, and devices: None. Lung parenchyma and pleura: No consolidation. No suspicious pulmonary nodule. No pleural effusion. Central airways are patent. Thoracic inlet, heart, and mediastinum: The arch of aorta on the previous study was dilated 4.5 cm. There appears to been interval surgery in that area. There appears to be a new dissection of the descending thoracic aorta. It begins just below the level of the arch but the distal portion cannot be evaluated since this study was not done for optimal visualization of that area. Bones and soft tissues: No destructive bone lesion. Chest wall is unremarkable. Upper abdomen: No abnormality in the imaged upper abdomen. IMPRESSION: 1. New dissection of the descending thoracic aorta. 2. There appears to been previous surgery in the area of the aortic arch when compared to the previous exam. 3. No CT evidence of pulmonary embolism. URGENT RESULTS: Communicated with Sherita Morgan certified nurse practitioner on 08/01/2018 1520 hours Radiation Control Technician: GIAN Transcribe Date/Time: Aug 01 2018 3:04P Dictated by : GAGE JACK DO This examination was interpreted and the report reviewed and electronically signed by: GAGE JACK DO on Aug 01 2018 3:25PM EST [id number] Collected: 08/01/2018 Status: F Source: [place] 1:15 PM [facility] REPOSITORY TYPE CODE TESTS RESULT OUT OF REFERENCE UNITS RANGE LAB CRET 0.58-0.96 mg/dL High Creatinine 1.02 LAB GFRAA eGFR- >60 Amer. LAB GFRNAA . eGFR-All Other Races 54 Result Comment: eGFR (Estimated GFR) Units of measure: mL/min/1.73 meters squared eGFR is derived from the reexpressed MDRD Study equation using the following parameters: serum creatinine, age, gender and race. The creatinine assay has been calibrated to be traceable to IDMS. An eGFR <60 mL/min/1.73m2 for >3 months is consistent with chronic kidney disease. Refer to KDOQI guidelines for clinical interpretation. In patients with unstable renal function, e.g. those with acute kidney injury, the eGFR may not accurately reflect actual GFR. D DIMER Collected: 07/31/2018 Status: F Source: [place] 1:01 PM [facility] REPOSITORY TYPE CODE TESTS RESULT OUT OF REFERENCE UNITS RANGE LAB DDMER <500 ng/mL FEU High D dimer 1280 Result Comment: The D-dimer assay can be used to exclude pulmonary embolism (PE) and deep vein thrombosis (DVT) in conjunction with a low pre-test probability. For patients with a suspected DVT, a D Dimer level below 500 ng/mL FEU has a negative predictive value of >=99.0%, a sensitivity of >=97.0%, and a specificity of >=35.8%. For patients with a aguayo spected PE, a D Dimer level below 500 ng/mL FEU has a negative predictive value of >=98.6%, a sensitivity of >=96.6%, and a specificity of >=38.9%. Performed By: #### DDMER, TSH #### [facility] [address] [place], [place] [address] TSH Collected: 07/31/2018 Status: F Source: [place] 1:01 PM [facility] REPOSITORY TYPE CODE TESTS RESULT OUT OF RANGE REFERENCE UNITS LAB TSH 0.400-5.500 uU/mL High TSH 15.260 Performed By: #### DDMER, TSH #### [facility] [address] [place], [place] [address] CNOV Observed: 07/31/2018 Status: COMPLETED Source: [place] 12:40 PM [facility] REPOSITORY Office Visit (INTMWS) JONNMIKE ESPINOSA ([id number]) 1950 F [facility] Date Time Provider Department 07/31/18 12:40 PM RAMESH MORGAN ([facility]) INTMWS During your visit today, we recorded the following information about you: Pulse Respiration Blood pressure Weight 72/minute 16/minute 142/82 82.6 kg Ramesh Morgan APRN.CNP 07/31/2018 1:13 PM Signed CC: Patient presents with: Edema HPI Mike Rodriguez Jonn is a 68 year old female who presents today for complaints of redness, edema and itching to [facility] x 1 week. Patient reports symptoms started ~6 days ago with redness and itching of the left calf. Associated symptoms included edema. She denies any fever, chills, sores or drainage. She reports itching intensified and she though she had poison mervat or something similar. Tried OTC medications for the same as well as an antifungal that seemed to help with itching. She notes redness and swelling have improved over the last few days. She has scratched so much she broke the skin. Patient also reports sinus symptoms including sinus pain/pressure, ear pain and rhinorrhea, She again denies fever, chills, chest pain, new/worsening cough or wheezing. She does note over the past month having pain with deep inspiration and episodes of SOB with and without exertion with what is described as a muscle spasm between her shoulders. Patient has hx of asthma but does not use inhalers regularly. She also has hx of several blood clots associated with estrogen therapy. REVIEW OF SYSTEMS General: no fevers, no chills, no night sweats, no recurrent infections, no change in appetite, no change in energy and no significant changes in weight HEENT: no frequent or significant headaches, no changes in hearing, no visual changes, no nose bleeds, See HPI Neck: no lumps, no pain and no swelling Respiratory: no wheezing, no hemoptysis, See HPI Cardiovascular: no chest pain, no chest pressure, no palpitations and no swelling Skin: See HPI PAST MEDICAL HISTORY Diagnosis Date - ATOPIC DERMATITIS: Adult type: arms/elbows and neck 02/23/2008 - ACTINIC DAMAGE///CHR SOLAR SKIN DAMAGE NOS 02/23/2008 - Chondromalacia 06/25/2005 - Esophageal reflux - Esophagitis, unspecified - Glucose intolerance (impaired glucose tolerance) Treated with Glucophage - Hypothyroidism - Memory change - Migraines - Peripheral enthesopathies and allied syndromes 06/25/2005 - Phlebitis and thrombophlebitis of unspecified site 06/25/2005 - Pre-diabetes on medication - RA (rheumatoid arthritis) (HCC) - Sjogren's syndrome (HCC) - Unspecified essential hypertension PAST SURGICAL HISTORY Procedure Laterality Date - APPENDECTOMY age 45 - BREAST AUGMENTATION W/PROSTHETIC IMPLANT 1985 silicone imp - COLONOSCOP W/ OR W/O BRSH SPEC 04/16/03 Diverticulosis - EGD W/O OR W/BRUSH/WASH 08/09/2006 EGD - MICRODISSECTION MANUAL 05/19/07 [id number] - RIGHT HEART CATHETERIZATION 01/2009 Done at [facility] - VAGINAL HYSTERECTOMY age 42 Hysterectomy, vaginal and bladder repair ALLERGIES Asa [Salicylates]; Codeine; Sulfa (Sulfonamide Antibiotics); Clonidine; Estrogens; Mobic [Meloxicam]; Norvasc [Amlodipine Besylate]; Bmpxbwc-Ddd-Urs Reductase Inhibitors MEDICATIONS albuterol HFA (VENTOLIN HFA) 90 mcg/actuation inhaler Inhale 2 Puffs as instructed every 4 hours as needed for Wheezing/Shortness of Breath. atenolol (TENORMIN) 25 mg tablet Take 1 tablet by mouth once daily. atorvastatin (LIPITOR) 10 mg tablet Patient takes it once a week Indications: MIXED HYPERLIPIDEMIA budesonide-formoterol (SYMBICORT) 80-4.5 mcg/actuation inhaler Inhale 2 Puffs as instructed twice daily. clobetasol (TEMOVATE) 0.05 % cream Apply selectively as directed to affected areas or lesions of acute eczema dermatitis rash flares BID until clear and stop or taper as able. AVOID face, eyes and eyelids. Coenzyme Q10 (CO Q-10) 200 mg cap Take 1 capsule by mouth twice daily. fluticasone (FLONASE) 50 mcg/actuation nasal spray Use 2 Sprays in each nostril once daily. Rinse mouth after use. gabapentin (NEURONTIN) 300 mg capsule Take 1 capsule by mouth daily at bedtime for 90 days. HYDROcodone-acetaminophen (NORCO) 5-325 mg per tablet Take 1 tablet by mouth every 8 hours as needed for up to 180 days.Earliest Fill Date: 03/26/18 levothyroxine (LEVOXYL) 100 mcg tablet Take 1 tablet by mouth once daily. Take one extra tab once a week naproxen sodium(ALEVE 220 MG TAB) Take 1-2 tablets at bedtime as necessary pantoprazole DR (PROTONIX) 40 mg tablet Take 1 tablet by mouth once daily. PARoxetine (PAXIL) 40 mg tablet Take 1 tablet by mouth once daily. promethazine (PHENERGAN) 25 mg suppository 1 Suppository by RECTAL route every 8 hours as needed. ranitidine (ZANTAC) 150 mg tablet Take 1 tablet by mouth daily at bedtime. SUMAtriptan (IMITREX) 50 mg tablet Take 1 tablet by mouth as directed. START AT ONSET OF HEADACHE. MAY REPEAT DOSE AFTER 2 HOURS. FAMILY HISTORY Problem Relation Age of Onset - Diabetes Mother - Heart Mother CHF - Macular Degen Mother - Blindness Mother - Heart Father CHF [place] - other (alzheimer) Maternal Grandmother and two sisters. Social History Substance Use Topics - Smoking status: Never Smoker - Smokeless tobacco: Never Used - Alcohol use No Comment: maybe one drink a year PHYSICAL EXAM BP 142/82 (BP Site: Left Arm, BP Position: Sitting, BP Cuff Size: Regular Adult) Pulse 72 Resp 16 Wt 82.6 kg (182 lb) BMI 28.51 kg/m? General Appearance: well appearing, in no acute distress, alert Skin: Skin color, texture, turgor normal for age; Positives: Left calf erythema with scattered abrasions to lateral and medial calf. No edema, drainage or lymph streaking Head: normocephalic, atraumatic Eyes: conjunctiva pink and moist, no icterus, sclera white, non-injected Ears: external ears normal to inspection and palpation, canals clear, Left tympanic membrane normal. , Right tympanic membrane normal Neck: Thyroid normal size and symmetric without palpable nodules, No adenopathy Oropharynx: lips normal without lesions, tongue midline and normal, soft palate, uvula, and tonsils normal, mild oropharyngeal erythema Lungs: lungs clear to auscultation. No wheezing, rhonchi, rales Heart: RRR without murmur, gallop, or rubs. No ectopy BP CONTROLLED (<130/80) due on 1969 DTAP,TDAP,TD(1 - Tdap) due on 06/07/2016 FECAL OCCULT BLOOD due on 06/06/2017 MAMMOGRAM due on 04/10/2018 INFLUENZA(1) due on 04/19/2018 ANNUAL PCP TEAM CHRONIC DISEASE VISIT due on 03/26/2019 PNEUMOVAX AGE 65 AND OVER WITH 5YR LOOKBACK(1) due on 06/16/2019 DIABETES SCREEN due on 03/26/2021 LIPID SCREEN due on 03/26/2023 BONE DENSITY Completed ADULT PREVNAR-13 Completed HEPATITIS C SCREENING Completed ASSESSMENT/PLAN: 1. Cellulitis of left lower extremity - ICD9: 682.6, ICD10: L03.116 (primary diagnosis) - Begin treatment with Cephalaxin (Keflex) - No lymphangetic streaking, this was defined for patient to watch for and to seek medical care immediately if appears - Follow up for recheck in prn 2. Sinus congestion - ICD9: 478.19, ICD10: R09.81 - No acute or concerning exam findings - Recommend restarting Flonase and OTC decongestants - Follow up in 3-5 days if no symptom improvement 3. SOB (shortness of breath) - ICD9: 786.05, ICD10: R06.02 - Patient complains of pain with inspiration, Hx of asthma with inconsistent use of inhalers +hx of blood clots, will check labs - Recommend using inhalers as prescribed, rescue inhaler PRN - D-DIMER - Follow up to be determined by laboratory results 4. Chest pain varying with breathing - ICD9: 786.50, ICD10: R07.9 Atypical chest pain, symptoms are not consistent with cardiac ischemia due to pleuritic nature of pain possible etiology include asthma related, Pulmonary embolis, Pleurisy and Bronchitis - Lab evaluation as ordered - Inhalers as ordered - Follow up in 3-5 days if no symptom improvement with use of inhaler - D-DIMER Ramesh Morgan APRN.RENEE Prescription instructions reviewed with patient as applicable. Potential red flag symptoms discussed with the patient. Reviewed appropriate action plan to take if red flag symptoms occur. Patient agreeable to treatment plan. Ramesh Morgan APRN.CNP 07/31/2018 12:47 PM Signed Restart Flonase at bedtime. Restart Symbicort inhaler and albuterol as needed. Referring Provider: SELF [[id number]] Allergies As of Date: 07/31/2018 Noted Allergy Reaction ASA (SALICYLATES) 05/07/2005 8 - GI Upset CODEINE 05/07/2005 8 - GI Upset SULFA (SULFONAMIDE ANTIBIOTICS) 05/07/2005 8 - GI Upset CLONIDINE 07/02/2005 Comments: headache ESTROGENS 07/02/2005 Comments: hx thrombosis MOBIC (MELOXICAM) 12/11/2006 5 - Intolerance 6 - Diarrhea NORVASC (AMLODIPINE BESYLATE) 12/03/2005 [id number] REDUCTASE INHIBIT*06/16/2014 14 - Other: See Comments Comments: Myalgia Date Reviewed: 07/31/2018 Reviewed by: Norma Perkins LPN - Fully Assessed Reason for Visit: Edema [39] Primary Visit Diagnosis:Cellulitis of left lower extremity [L03.116] Other Visit Diagnoses:Sinus congestion [R09.81] SOB (shortness of breath) [R06.02] Chest pain varying with breathing [R07.9] Order(s):triamcinolone acetonide (KENALOG) 0.1 % creamApply 1 application to affected area three times daily. Apply to affected area.Disp: 15 gRfl: 0 cephALEXin (KEFLEX) 500 mg capsuleTake 1 capsule by mouth four times daily for 5 days.Disp: 20 capsuleRfl: 0 albuterol HFA (VENTOLIN HFA) 90 mcg/actuation inhalerInhale 2 Puffs as instructed every 4 hours as needed for Wheezing/Shortness of Breath.Disp: 3 InhalerRfl: 1 D-DIMER [SQDDMER] Order #: [id number] FUTURE Prescriptions as of 07/31/2018 Sig: ALBUTEROL SULFATE HFA 90 MCG/* Inhale 2 Puffs as instructed * ATENOLOL 25 MG TABLET Take 1 tablet by mouth once d* ATORVASTATIN 10 MG TABLET Patient takes it once a week * BUDESONIDE-FORMOTEROL HFA 80 * Inhale 2 Puffs as instructed * CEPHALEXIN 500 MG CAPSULE Take 1 capsule by mouth four * CLOBETASOL 0.05 % TOPICAL CRE* Apply selectively as directe* COENZYME Q10 200 MG CAPSULE Take 1 capsule by mouth twice* FLUTICASONE 50 MCG/ACTUATION * Use 2 Sprays in each nostril * GABAPENTIN 300 MG CAPSULE Take 1 capsule by mouth daily* HYDROCODONE 5 MG-ACETAMINOPHE* Take 1 tablet by mouth every * LEVOTHYROXINE 100 MCG TABLET Take 1 tablet by mouth once d* ALEVE 220 MG TABLET Take 1-2 tablets at bedtime a* PANTOPRAZOLE 40 MG TABLET,DEL* Take 1 tablet by mouth once d* PAROXETINE 40 MG TABLET Take 1 tablet by mouth once d* PROMETHAZINE 25 MG RECTAL SUP* 1 Suppository by RECTAL route* RANITIDINE 150 MG TABLET Take 1 tablet by mouth daily * SUMATRIPTAN 50 MG TABLET Take 1 tablet by mouth as dir* TRIAMCINOLONE ACETONIDE 0.1 %* Apply 1 application to affect* Problem List As Of Date 07/31/2018 Noted Resolved Phlebitis and thrombophlebitis of unspecified s*INVALID FOR*04/10/2016 Chondromalacia [M94.20] INVALID FOR*04/10/2016 Peripheral enthesopathies and allied syndromes *INVALID FOR*04/10/2016 Hypertension goal BP (blood pressure) < 140/90 * ESOPHAGEAL REFLUX [K21.9] Other affections of shoulder region, not elsewh*INVALID FOR*04/10/2016 More... Rotator cuff syndrome of shoulder and allied di*INVALID FOR*04/10/2016 More... Primary localized osteoarthrosis, shoulder martha*INVALID FOR*04/10/2016 More... Disorders of bursae and tendons in shoulder reg*INVALID FOR*04/10/2016 Pain in joint, shoulder region [M25.519] INVALID FOR*04/10/2016 Esophagitis, unspecified [K20.9] INVALID FOR*04/10/2016 Pyoderma, unspecified [L08.0] INVALID FOR*04/10/2016 CHRONIC RHINITIS [J31.0] INVALID FOR* Other diseases of nasal cavity and sinuses(478.*INVALID FOR*04/10/2016 Enthesopathy of hip region [M76.899] INVALID FOR*04/10/2016 Lumbago [M54.5] INVALID FOR*04/10/2016 Displacement of lumbar intervertebral disc with*INVALID FOR*04/10/2016 Hyperlipidemia [E78.5] INVALID FOR* More... ECZEMA DERMATITIS NOS [L25.9] INVALID FOR*04/10/2016 ECZEMA DERMATITIS NEC [L25.8] INVALID FOR*04/10/2016 Unspecified pruritic disorder [L29.9] INVALID FOR*04/10/2016 XEROSIS//SEBACEOUS GLAND DIS NEC [L73.8] INVALID FOR*10/17/2015 GLUCOSE ABNORMAL TEST [R73.09] INVALID FOR*04/10/2016 Hypothyroid [E03.9] INVALID FOR* Eczematous dermatitis [L30.9] INVALID FOR* Xerosis cutis [L85.3] INVALID FOR*10/17/2015 Pruritus [L29.9] INVALID FOR*04/10/2016 Sjogren's syndrome (HCC) [M35.00] INVALID FOR* More... 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 Rheumatoid arthritis with positive rheumatoid f*INVALID FOR* More... Migraine with aura and without status migrainos*INVALID FOR* ABNORMAL GLUCOSE [R73.09] INVALID FOR* Osteopenia [M85.80] INVALID FOR* Other instructions from your clinician: Restart Flonase at bedtime. Restart Symbicort inhaler and albuterol as needed. Prescriptions ordered this encounter Disp Refills Start End TRIAMCINOLONE ACETONIDE 0.1 % TOPICA* 15 g 0 07/31/2018 Route: TOPICAL Sig: Apply 1 application to affected area three times daily. Apply to affected area. CEPHALEXIN 500 MG CAPSULE 20 c* 0 07/31/2018 08/05/2018 Route: ORAL Sig: Take 1 capsule by mouth four times daily for 5 days. ALBUTEROL SULFATE HFA 90 MCG/ACTUATI* 3 In* 1 07/31/2018 Route: INHALATION Sig: Inhale 2 Puffs as instructed every 4 hours as needed for Wheezing/Shortness of Breath. Medications Discontinued During This Encounter albuterol HFA (VENTOLIN HFA) 90 mcg/* 3 In* 0 06/06/2016 07/31/2018 Cmt: This replaces previous RX Route: INHALATION Sig: Inhale 2 Puffs as instructed every 4 hours as needed for Wheezing/Shortness of Breath. Disc: Reason for discontinue is not on file. Encounter Status:Closed by RAMESH MORGAN CNP on 07/31/18 PROGRESS Observed: 07/31/2018 Status: COMPLETED Source: [place] 12:32 PM [facility] [place] REPOSITORY O ID: [id number] Author: Ramesh Morgan Service: (none) Author Type: Nurse Practitioner Type: Progress Notes Filed: 07/31/2018 1:13 PM Note Text: CC: Patient presents with: Edema HPI Mike Lunsford is a 68 year old female who presents today for complaints of redness, edema and itching to [facility] x 1 week. Patient reports symptoms started ~6 days ago with redness and itching of the left calf. Associated symptoms included edema. She denies any fever, chills, sores or drainage. She reports itching intensified and she though she had poison mervat or something similar. Tried OTC medications for the same as well as an antifungal that seemed to help with itching. She notes redness and swelling have improved over the last few days. She has scratched so much she broke the skin. Patient also reports sinus symptoms including sinus pain/pressure, ear pain and rhinorrhea, She again denies fever, chills, chest pain, new/worsening cough or wheezing. She does note over the past month having pain with deep inspiration and episodes of SOB with and without exertion with what is described as a muscle spasm between her shoulders. Patient has hx of asthma but does not use inhalers regularly. She also has hx of several blood clots associated with estrogen therapy. REVIEW OF SYSTEMS General: no fevers, no chills, no night sweats, no recurrent infections, no change in appetite, no change in energy and no significant changes in weight HEENT: no frequent or significant headaches, no changes in hearing, no visual changes, no nose bleeds, See HPI Neck: no lumps, no pain and no swelling Respiratory: no wheezing, no hemoptysis, See HPI Cardiovascular: no chest pain, no chest pressure, no palpitations and no swelling Skin: See HPI PAST MEDICAL HISTORY Diagnosis Date - ATOPIC DERMATITIS: Adult type: arms/elbows and neck 02/23/2008 - ACTINIC DAMAGE///CHR SOLAR SKIN DAMAGE NOS 02/23/2008 - Chondromalacia 06/25/2005 - Esophageal reflux - Esophagitis, unspecified - Glucose intolerance (impaired glucose tolerance) Treated with Glucophage - Hypothyroidism - Memory change - Migraines - Peripheral enthesopathies and allied syndromes 06/25/2005 - Phlebitis and thrombophlebitis of unspecified site 06/25/2005 - Pre-diabetes on medication - RA (rheumatoid arthritis) (HCC) - Sjogren's syndrome (HCC) - Unspecified essential hypertension PAST SURGICAL HISTORY Procedure Laterality Date - APPENDECTOMY age 45 - BREAST AUGMENTATION W/PROSTHETIC IMPLANT 1985 silicone imp - COLONOSCOP W/ OR W/O BRSH SPEC 04/16/03 Diverticulosis - EGD W/O OR W/BRUSH/WASH 08/09/2006 EGD - MICRODISSECTION MANUAL 05/19/07 [id number] - RIGHT HEART CATHETERIZATION 01/2009 Done at [facility] - VAGINAL HYSTERECTOMY age 42 Hysterectomy, vaginal and bladder repair ALLERGIES Asa [Salicylates]; Codeine; Sulfa (Sulfonamide Antibiotics); Clonidine; Estrogens; Mobic [Meloxicam]; Norvasc [Amlodipine Besylate]; Uvhoglq-Qpi-Cbu Reductase Inhibitors MEDICATIONS albuterol HFA (VENTOLIN HFA) 90 mcg/actuation inhaler Inhale 2 Puffs as instructed every 4 hours as needed for Wheezing/Shortness of Breath. atenolol (TENORMIN) 25 mg tablet Take 1 tablet by mouth once daily. atorvastatin (LIPITOR) 10 mg tablet Patient takes it once a week Indications: MIXED HYPERLIPIDEMIA budesonide-formoterol (SYMBICORT) 80-4.5 mcg/actuation inhaler Inhale 2 Puffs as instructed twice daily. clobetasol (TEMOVATE) 0.05 % cream Apply selectively as directed to affected areas or lesions of acute eczema dermatitis rash flares BID until clear and stop or taper as able. AVOID face, eyes and eyelids. Coenzyme Q10 (CO Q-10) 200 mg cap Take 1 capsule by mouth twice daily. fluticasone (FLONASE) 50 mcg/actuation nasal spray Use 2 Sprays in each nostril once daily. Rinse mouth after use. gabapentin (NEURONTIN) 300 mg capsule Take 1 capsule by mouth daily at bedtime for 90 days. HYDROcodone-acetaminophen (NORCO) 5-325 mg per tablet Take 1 tablet by mouth every 8 hours as needed for up to 180 days.Earliest Fill Date: 03/26/18 levothyroxine (LEVOXYL) 100 mcg tablet Take 1 tablet by mouth once daily. Take one extra tab once a week naproxen sodium(ALEVE 220 MG TAB) Take 1-2 tablets at bedtime as necessary pantoprazole DR (PROTONIX) 40 mg tablet Take 1 tablet by mouth once daily. PARoxetine (PAXIL) 40 mg tablet Take 1 tablet by mouth once daily. promethazine (PHENERGAN) 25 mg suppository 1 Suppository by RECTAL route every 8 hours as needed. ranitidine (ZANTAC) 150 mg tablet Take 1 tablet by mouth daily at bedtime. SUMAtriptan (IMITREX) 50 mg tablet Take 1 tablet by mouth as directed. START AT ONSET OF HEADACHE. MAY REPEAT DOSE AFTER 2 HOURS. FAMILY HISTORY Problem Relation Age of Onset - Diabetes Mother - Heart Mother CHF - Macular Degen Mother - Blindness Mother - Heart Father CHF [place] - other (alzheimer) Maternal Grandmother and two sisters. Social History Substance Use Topics - Smoking status: Never Smoker - Smokeless tobacco: Never Used - Alcohol use No Comment: maybe one drink a year PHYSICAL EXAM BP 142/82 (BP Site: Left Arm, BP Position: Sitting, BP Cuff Size: Regular Adult) Pulse 72 Resp 16 Wt 82.6 kg (182 lb) BMI 28.51 kg/m? General Appearance: well appearing, in no acute distress, alert Skin: Skin color, texture, turgor normal for age; Positives: Left calf erythema with scattered abrasions to lateral and medial calf. No edema, drainage or lymph streaking Head: normocephalic, atraumatic Eyes: conjunctiva pink and moist, no icterus, sclera white, non-injected Ears: external ears normal to inspection and palpation, canals clear, Left tympanic membrane normal. , Right tympanic membrane normal Neck: Thyroid normal size and symmetric without palpable nodules, No adenopathy Oropharynx: lips normal without lesions, tongue midline and normal, soft palate, uvula, and tonsils normal, mild oropharyngeal erythema Lungs: lungs clear to auscultation. No wheezing, rhonchi, rales Heart: RRR without murmur, gallop, or rubs. No ectopy BP CONTROLLED (<130/80) due on 1969 DTAP,TDAP,TD(1 - Tdap) due on 06/07/2016 FECAL OCCULT BLOOD due on 06/06/2017 MAMMOGRAM due on 04/10/2018 INFLUENZA(1) due on 04/19/2018 ANNUAL PCP TEAM CHRONIC DISEASE VISIT due on 03/26/2019 PNEUMOVAX AGE 65 AND OVER WITH 5YR LOOKBACK(1) due on 06/16/2019 DIABETES SCREEN due on 03/26/2021 LIPID SCREEN due on 03/26/2023 BONE DENSITY Completed ADULT PREVNAR-13 Completed HEPATITIS C SCREENING Completed ASSESSMENT/PLAN: 1. Cellulitis of left lower extremity - ICD9: 682.6, ICD10: L03.116 (primary diagnosis) - Begin treatment with Cephalaxin (Keflex) - No lymphangetic streaking, this was defined for patient to watch for and to seek medical care immediately if appears - Follow up for recheck in prn 2. Sinus congestion - ICD9: 478.19, ICD10: R09.81 - No acute or concerning exam findings - Recommend restarting Flonase and OTC decongestants - Follow up in 3-5 days if no symptom improvement 3. SOB (shortness of breath) - ICD9: 786.05, ICD10: R06.02 - Patient complains of pain with inspiration, Hx of asthma with inconsistent use of inhalers +hx of blood clots, will check labs - Recommend using inhalers as prescribed, rescue inhaler PRN - D-DIMER - Follow up to be determined by laboratory results 4. Chest pain varying with breathing - ICD9: 786.50, ICD10: R07.9 Atypical chest pain, symptoms are not consistent with cardiac ischemia due to pleuritic nature of pain possible etiology include asthma related, Pulmonary embolis, Pleurisy and Bronchitis - Lab evaluation as ordered - Inhalers as ordered - Follow up in 3-5 days if no symptom improvement with use of inhaler - D-DIMER Ramesh Morgan APRN.TONGUE BINDER Prescription instructions reviewed with patient as applicable. Potential red flag symptoms discussed with the patient. Reviewed appropriate action plan to take if red flag symptoms occur. Patient agreeable to treatment plan. HEMOGLOBIN A1C Collected: 03/26/2018 Status: F Source: [place] 2:42 PM [facility] REPOSITORY TYPE CODE TESTS RESULT OUT OF REFERENCE UNITS RANGE LAB HGBA1C 4.3-5.6 % High Hemoglobin A1c 5.9 LAB HBA0 mg/dL Est. Average Glucose 123 Result Comment: eAG: (Estimated average glucose) is a calculated value from HgbA1c and is employee's representative of the average blood glucose level in the last 2-3 month period. Performed By: #### HBA1C, BMP, LIPB, TSH #### [facility] [address] [address] BASIC METABOLIC PANL Collected: 03/26/2018 Status: F Source: [place] 2:42 PM [facility] REPOSITORY TYPE CODE TESTS RESULT OUT OF REFERENCE UNITS RANGE LAB GLU 74-99 mg/dL High Glucose 110 Result Comment: The [place] Diabetes Association (ADA) provides guidance for cutoff values for fasting glucose and random glucose. The ADA defines fasting as no caloric intake for at least 8 hours. Fas ting plasma glucose results between 100 to 125 mg/dL indicate increased risk for diabetes (prediabetes). Fasting plasma glucose results greater than or equal to 126 mg/dL meet the criteria for diagnosis of diabetes. In the absence of unequivocal hyperglycemia, results should be confirmed by repeat testing. In a patient with classic symptoms of hyperglycemia or hyperglycemic crisis, random plasma glucose results greater than or equal to 200 mg/dL meet the criteria for diagnosis of diabetes. Reference: Standards of Medical Care in Diabetes 2016, English Diabetes Association. Diabetes Care. 2016.39(Suppl 1). LAB BUN 7-21 mg/dL BUN 18 LAB CRET 0.58-0.96 mg/dL Creatinine High 1.20 LAB NA 136-144 mmol/L Sodium 139 LAB K 3.7-5.1 mmol/L Potassium 4.5 LAB CL 97-105 mmol/L Chloride 103 LAB CO2 22-30 mmol/L CO2 22 LAB AGAP 9-18 mmol/L Anion Gap 14 LAB CA 8.5-10.2 mg/dL Calcium, Total 9.2 LAB GFRAA eGFR- Amer. 54 LAB GFRNAA . eGFR-All Other Races 45 Result Comment: eGFR (Estimated GFR) Units of measure: mL/min/1.73 meters squared eGFR is derived from the reexpressed MDRD Study equation using the following parameters: serum creatinine, age, gender and race. The creatinine assay has been calibrated to be traceable to IDMS. An eGFR <60 mL/min/1.73m2 for >3 months is consistent with chronic kidney disease. Refer to KDOQI guidelines for clinical interpretation. In patients with unstable renal function, e.g. those with acute kidney injury, the eGFR may not accurately reflect actual GFR. Performed By: #### HBA1C, BMP, LIPB, TSH #### [facility] [address] [id number] LIPID PANEL, BASIC Collected: 03/26/2018 Status: F Source: [place] 2:42 PM [facility] REPOSITORY TYPE CODE TESTS RESULT OUT OF REFERENCE UNITS RANGE LAB CHOL <200 mg/dL Cholesterol High 243 Result Comment: <200 mg/dL, Desirable 200-239 mg/dL, Borderline high >239 mg/dL, High LAB TRIGLY <150 mg/dL Triglyceride High 224 Result Comment: <150 mg/dL, Normal 150-199 mg/dL, Borderline high 200-499 mg/dL, High >499 mg/dL, Very high LAB HDL >39 mg/dL HDL-Cholesterol 46 Result Comment: 40-59 mg/dL, Acceptable >59 mg/dL, High: Negative risk factor for coronary heart disease <40 mg/dL, Low: Positive risk factor for coronary heart disease LAB LDL <100 mg/dL LDL-Cholesterol High 152 Result Comment: <100 mg/dL, Optimal 100-129 mg/dL, Near optimal/above optimal 130-159 mg/dL, Borderline high 160-189 mg/dL, High >189 mg/dL, Very high Secondary prevention optimal LDL Cholesterol levels are recommended to be < 70 mg/dL LAB NONHDL <130 mg/dL Non HDL High Cholesterol 197 Result Comment: <130 mg/dL, Optimal 130-159 mg/dL, Near optimal/above optimal 160-189 mg/dL, Borderline high 190-219 mg/dL, High >219 mg/dL, Very high Secondary prevention optimal non HDL Cholesterol levels are recommended to be < 100 mg/dL LAB FT hrs Fasting Time 24 LAB VLDL <30 mg/dL High VLDL Cholesterol 45 LAB TCHDL <5.10 High TC:HDL Ratio 5.28 LAB LDLHDL <2.54 High LDL:HDL Ratio 3.30 Result Comment: Reference: 1. National Cholesterol Education Program ATP III Guideline At-A-Glance Quick Desk Reference: National Heart, Lung, and Blood [place]. National Institutes of Health. 2001: NIH Publication No. 01-3305. 2. An International Atherosclerosis Society position paper: global recommendations for the management of dyslipidemia: executive summary, Atherosclerosis. 2014: 232(2):410-413. Performed By: #### HBA1C, BMP, LIPB, TSH #### [facility] [address] [id number] TSH Collected: 03/26/2018 Status: F Source: [place] 2:42 PM [facility] REPOSITORY TYPE CODE TESTS RESULT OUT OF RANGE REFERENCE UNITS LAB TSH 0.400-5.500 uU/mL High TSH 5.530 Performed By: #### HBA1C, BMP, LIPB, TSH #### [facility] [address] [place], [place] [address] PROGRESS Observed: 03/26/2018 Status: COMPLETED Source: [place] 2:12 PM [facility] REPOSITORY HNO ID: [id number] Author: Audrey (Custodial Laborer) Older Service: (none) Author Type: Nurse Practitioner Type: Progress Notes Filed: 03/26/2018 3:37 PM Note Text: CC: Patient presents with: Refill Request HPI Mike Lunsford is a 67 year old female who presents today for routine follow-up. Denies any concerns or issues today. Depression: Takes Paxil daily. Still effective. No side effects. HTN: does check BP's away from this office with average BP's in the 110's over 80's range. Denies any symptoms referable to elevated blood pressure. Specifically denies headache, chest pain, palpitations, dyspnea and peripheral edema. Patient denies any side effects of her medication(s) and is compliant with their regimen. Last 3 Encounter BP Readings: Date: BP: 03/26/2018 118/80 05/16/2017 124/70 03/20/2017 108/64 Hypothyroidism. She is doing well on her current dose of Synthroid. Denies cold intolerance, constipation, weight gain, hair loss, dry skin, trouble swallowing and neck pain/pressure. TSH (uU/mL) Date Value 05/16/2017 11.650 07/17/2016 1.840 ) GERD. on therapy of pantoprazole (Protonix) daily and Zantac daily. Patient only has symptoms if she forgets to take either. Ms. Lunsford denies weight loss, black stools and diarrhea. RA: Symptoms are usually well controlled. Takes Aleve as needed for mild flare-ups, occasionally needs to take Hydrocodone though. Last prescription of 30 tabs one year ago, just now needs refill. No new or worsening symptoms. REVIEW OF SYSTEMS See HPI PAST MEDICAL HISTORY Diagnosis Date - ATOPIC DERMATITIS: Adult type: arms/elbows and neck 02/23/2008 - ACTINIC DAMAGE///CHR SOLAR SKIN DAMAGE NOS 02/23/2008 - Chondromalacia 06/25/2005 - Esophageal reflux - Esophagitis, unspecified - Glucose intolerance (impaired glucose tolerance) Treated with Glucophage - Hypothyroidism - Memory change - Migraines - Peripheral enthesopathies and allied syndromes 06/25/2005 - Phlebitis and thrombophlebitis of unspecified site 06/25/2005 - Pre-diabetes on medication - RA (rheumatoid arthritis) (HCC) - Sjogren's syndrome (HCC) - Unspecified essential hypertension PAST SURGICAL HISTORY Procedure Laterality Date - APPENDECTOMY age 45 - BREAST AUGMENTATION W/PROSTHETIC IMPLANT 1985 silicone imp - COLONOSCOP W/ OR W/O BRSH SPEC 04/16/03 Diverticulosis - EGD W/O OR W/BRUSH/WASH 08/09/2006 EGD - MICRODISSECTION MANUAL 05/19/07 [id number] - RIGHT HEART CATHETERIZATION 01/2009 Done at [facility] - VAGINAL HYSTERECTOMY age 42 Hysterectomy, vaginal and bladder repair ALLERGIES Asa [Salicylates]; Codeine; Sulfa (Sulfonamide Antibiotics); Clonidine; Estrogens; Mobic [Meloxicam]; Norvasc [Amlodipine Besylate]; Dnhmzgq-Zso-Tkg Reductase Inhibitors MEDICATIONS ranitidine (ZANTAC) 150 mg tablet Take 1 tablet by mouth daily at bedtime. levothyroxine (LEVOXYL) 100 mcg tablet Take 1 tablet by mouth once daily. Take on empty stomach. For Thyroid. atorvastatin (LIPITOR) 10 mg tablet Patient takes it once a week Indications: MIXED HYPERLIPIDEMIA budesonide-formoterol (SYMBICORT) 80-4.5 mcg/actuation inhaler Inhale 2 Puffs as instructed twice daily. SUMAtriptan (IMITREX) 50 mg tablet Take 1 tablet by mouth as directed. START AT ONSET OF HEADACHE. MAY REPEAT DOSE AFTER 2 HOURS. atenolol (TENORMIN) 25 mg tablet Take 1 tablet by mouth once daily. PARoxetine (PAXIL) 40 mg tablet Take 1 tablet by mouth once daily. pantoprazole DR (PROTONIX) 40 mg tablet Take 1 tablet by mouth once daily. gabapentin (NEURONTIN) 300 mg capsule Take 2 capsules by mouth twice daily. HYDROcodone-acetaminophen (NORCO) 5-325 mg per tablet Take 1 tablet by mouth every 8 hours as needed. azithromycin (ZITHROMAX Z-JESSICA) 250 mg tablet Take 2 tablets by mouth day one, then 1 tablet daily until gone. metFORMIN (GLUCOPHAGE) 500 mg tablet Take 1 tablet by mouth twice daily. promethazine (PHENERGAN) 25 mg suppository 1 Suppository by RECTAL route every 8 hours as needed. albuterol HFA (VENTOLIN HFA) 90 mcg/actuation inhaler Inhale 2 Puffs as instructed every 4 hours as needed for Wheezing/Shortness of Breath. Coenzyme Q10 (CO Q-10) 200 mg cap Take 1 capsule by mouth twice daily. clobetasol (TEMOVATE) 0.05 % cream Apply selectively as directed to affected areas or lesions of acute eczema dermatitis rash flares BID until clear and stop or taper as able. AVOID face, eyes and eyelids. fluticasone (FLONASE) 50 mcg/actuation nasal spray Use 2 Sprays in each nostril once daily. Rinse mouth after use. naproxen sodium(ALEVE 220 MG TAB) Take 1-2 tablets at bedtime as necessary FAMILY HISTORY Problem Relation Age of Onset - Diabetes Mother - Heart Mother CHF - Macular Degen Mother - Blindness Mother - Heart Father CHF [place] - alzheimer [OTHER] Maternal Grandmother and two sisters. Social History Substance Use Topics - Smoking status: Never Smoker - Smokeless tobacco: Never Used - Alcohol use No Comment: maybe one drink a year PHYSICAL EXAM BP 118/80 Pulse 71 Temp 36.3 ?C (97.4 ?F) (Temporal Artery) Resp 14 Wt 81.1 kg (178 lb 12.8 oz) SpO2 95% BMI 28.00 kg/m? General Appearance: well appearing, in no acute distress, alert Pysch: mood and affect broad and appropriate Skin: Skin color, texture, turgor normal for age; Neck: Thyroid normal size and symmetric without palpable nodules, Neck supple, No adenopathy Lymph nodes: No supraclavicular lymphadenopathy Lungs: Lungs clear to auscultation. No wheezing, rhonchi, rales Heart: RRR without murmur, gallop, or rubs. No ectopy Ext: no edema in LE bilaterally, good distal pulses DTAP,TDAP,TD(1 - Tdap) due on 06/07/2016 FECAL OCCULT BLOOD due on 06/06/2017 MAMMOGRAM due on 04/10/2018 INFLUENZA(1) due on 04/19/2018 ANNUAL PCP TEAM CHRONIC DISEASE VISIT due on 05/16/2018 BLOOD PRESSURE CONTROLLED due on 05/16/2018 PNEUMOVAX AGE 65 AND OVER WITH 5YR LOOKBACK(1) due on 06/16/2019 DIABETES SCREEN due on 05/16/2020 LIPID SCREEN due on 07/17/2021 BONE DENSITY Completed ADULT PREVNAR-13 Completed HEPATITIS C SCREENING Completed ASSESSMENT/PLAN: 1. Essential hypertension - ICD9: 401.9, ICD10: I10 (primary diagnosis) - good control - Continue current medication(s) - Recommended regular aerobic exercise. Discussed diet with plenty fruits, vegetables, lean meats and healthy fats/oils. Avoid processed foods, trans fats, vegetable oils and simple sugars. Watch portion sizes - Recommend home blood pressure monitoring, to bring results in on next visit - Recheck in 1 year, sooner should new symptoms or problems arise. - Goal of BP <130/80 - ATENOLOL 25 MG TABLET - BASIC METABOLIC PNL - LIPID PANEL BASIC 2. Acquired hypothyroidism - ICD9: 244.9, ICD10: E03.9 - Instructed patient on importance of taking on an empty stomach either first thing in the morning or at bedtime. - check TSH today - continue current dose of Synthroid - LEVOTHYROXINE 100 MCG TABLET - TSH BLD 3. Rheumatoid arthritis with positive rheumatoid factor, involving unspecified site (HCC) - ICD9: 714.0, ICD10: M05.9 Symptoms stable - HYDROCODONE 5 MG-ACETAMINOPHEN 325 MG TABLET uses rarely, refilled. [facility] website checked and validated. All prescriptions have been APPROPRIATELY filled. No suspicious activity was identified. 03/26/2018 by Audrey Ojeda APRN.TONGUE BINDER 4. Moderate single current episode of major depressive disorder (HCC) - ICD9: 296.22, ICD10: F32.1 Stable - Continue with PAROXETINE 40 MG TABLET 5. Gastroesophageal reflux disease without esophagitis - ICD9: 530.81, ICD10: K21.9 Asymptomatic. No alarm symptoms or exam findings. - Continue treatment with current therapy: - PANTOPRAZOLE 40 MG TABLET,DELAYED RELEASE - RANITIDINE 150 MG TABLET 6. Impaired glucose metabolism - ICD9: 790.29, ICD10: R73.09 Was on Metformin but stopped some time ago, HgbA1c have been stable - Check HGB A1C 7. Encounter for screening mammogram for breast cancer - ICD9: V76.12, ICD10: Z12.31 - TAL SCREENING 8. Osteopenia, unspecified location - ICD9: 733.90, ICD10: M85.80 - Reviewed the need for Calcium and Vitamin D supplements and weight bearing exercise as tolerated Prescription instructions reviewed with patient as applicable. Potential red flag symptoms discussed with the patient. Reviewed appropriate action plan to take if red flag symptoms occur. Patient agreeable to treatment plan. Audrey Ojeda APRN.TONGUE BINDER CNOV Observed: 03/26/2018 Status: COMPLETED Source: [place] 2:00 PM [facility] REPOSITORY Office Visit (INTMWS) MIKE LUNSFORD ([id number]) 1950 F MAL Date Time Provider Department 03/26/18 2:00 PM OLDER, AUDREY (RENEE) INTMWS During your visit today, we recorded the following information about you: Temperature Pulse Respiration Blood pressure 97.4 degrees 71/minute 14/minute 118/80 Weight 81.1 kg Audrey Shilpa, CHILD PROTECTIVE SERVICES SPECIALISTLORRAINE 03/26/2018 3:37 PM Signed CC: Patient presents with: Refill Request HPI Mike Lunsford is a 67 year old female who presents today for routine follow-up. Denies any concerns or issues today. Depression: Takes Paxil daily. Still effective. No side effects. HTN: does check BP's away from this office with average BP's in the 110's over 80's range. Denies any symptoms referable to elevated blood pressure. Specifically denies headache, chest pain, palpitations, dyspnea and peripheral edema. Patient denies any side effects of her medication(s) and is compliant with their regimen. Last 3 Encounter BP Readings: Date: BP: 03/26/2018 118/80 05/16/2017 124/70 03/20/2017 108/64 Hypothyroidism. She is doing well on her current dose of Synthroid. Denies cold intolerance, constipation, weight gain, hair loss, dry skin, trouble swallowing and neck pain/pressure. TSH (uU/mL) Date Value 05/16/2017 11.650 07/17/2016 1.840 ) GERD. on therapy of pantoprazole (Protonix) daily and Zantac daily. Patient only has symptoms if she forgets to take either. Ms. Lunsford denies weight loss, black stools and diarrhea. RA: Symptoms are usually well controlled. Takes Aleve as needed for mild flare-ups, occasionally needs to take Hydrocodone though. Last prescription of 30 tabs one year ago, just now needs refill. No new or worsening symptoms. REVIEW OF SYSTEMS See HPI PAST MEDICAL HISTORY Diagnosis Date - ATOPIC DERMATITIS: Adult type: arms/elbows and neck 02/23/2008 - ACTINIC DAMAGE///CHR SOLAR SKIN DAMAGE NOS 02/23/2008 - Chondromalacia 06/25/2005 - Esophageal reflux - Esophagitis, unspecified - Glucose intolerance (impaired glucose tolerance) Treated with Glucophage - Hypothyroidism - Memory change - Migraines - Peripheral enthesopathies and allied syndromes 06/25/2005 - Phlebitis and thrombophlebitis of unspecified site 06/25/2005 - Pre-diabetes on medication - RA (rheumatoid arthritis) (HCC) - Sjogren's syndrome (HCC) - Unspecified essential hypertension PAST SURGICAL HISTORY Procedure Laterality Date - APPENDECTOMY age 45 - BREAST AUGMENTATION W/PROSTHETIC IMPLANT 1985 silicone imp - COLONOSCOP W/ OR W/O BRSH SPEC 04/16/03 Diverticulosis - EGD W/O OR W/BRUSH/WASH 08/09/2006 EGD - MICRODISSECTION MANUAL 05/19/07 [id number] - RIGHT HEART CATHETERIZATION 01/2009 Done at [facility] - VAGINAL HYSTERECTOMY age 42 Hysterectomy, vaginal and bladder repair ALLERGIES Asa [Salicylates]; Codeine; Sulfa (Sulfonamide Antibiotics); Clonidine; Estrogens; Mobic [Meloxicam]; Norvasc [Amlodipine Besylate]; Skptvoc-Lcw-Xwn Reductase Inhibitors MEDICATIONS ranitidine (ZANTAC) 150 mg tablet Take 1 tablet by mouth daily at bedtime. levothyroxine (LEVOXYL) 100 mcg tablet Take 1 tablet by mouth once daily. Take on empty stomach. For Thyroid. atorvastatin (LIPITOR) 10 mg tablet Patient takes it once a week Indications: MIXED HYPERLIPIDEMIA budesonide-formoterol (SYMBICORT) 80-4.5 mcg/actuation inhaler Inhale 2 Puffs as instructed twice daily. SUMAtriptan (IMITREX) 50 mg tablet Take 1 tablet by mouth as directed. START AT ONSET OF HEADACHE. MAY REPEAT DOSE AFTER 2 HOURS. atenolol (TENORMIN) 25 mg tablet Take 1 tablet by mouth once daily. PARoxetine (PAXIL) 40 mg tablet Take 1 tablet by mouth once daily. pantoprazole DR (PROTONIX) 40 mg tablet Take 1 tablet by mouth once daily. gabapentin (NEURONTIN) 300 mg capsule Take 2 capsules by mouth twice daily. HYDROcodone-acetaminophen (NORCO) 5-325 mg per tablet Take 1 tablet by mouth every 8 hours as needed. azithromycin (ZITHROMAX Z-JESSICA) 250 mg tablet Take 2 tablets by mouth day one, then 1 tablet daily until gone. metFORMIN (GLUCOPHAGE) 500 mg tablet Take 1 tablet by mouth twice daily. promethazine (PHENERGAN) 25 mg suppository 1 Suppository by RECTAL route every 8 hours as needed. albuterol HFA (VENTOLIN HFA) 90 mcg/actuation inhaler Inhale 2 Puffs as instructed every 4 hours as needed for Wheezing/Shortness of Breath. Coenzyme Q10 (CO Q-10) 200 mg cap Take 1 capsule by mouth twice daily. clobetasol (TEMOVATE) 0.05 % cream Apply selectively as directed to affected areas or lesions of acute eczema dermatitis rash flares BID until clear and stop or taper as able. AVOID face, eyes and eyelids. fluticasone (FLONASE) 50 mcg/actuation nasal spray Use 2 Sprays in each nostril once daily. Rinse mouth after use. naproxen sodium(ALEVE 220 MG TAB) Take 1-2 tablets at bedtime as necessary FAMILY HISTORY Problem Relation Age of Onset - Diabetes Mother - Heart Mother CHF - Macular Degen Mother - Blindness Mother - Heart Father CHF [place] - alzheimer [OTHER] Maternal Grandmother and two sisters. Social History Substance Use Topics - Smoking status: Never Smoker - Smokeless tobacco: Never Used - Alcohol use No Comment: maybe one drink a year PHYSICAL EXAM BP 118/80 Pulse 71 Temp 36.3 ?C (97.4 ?F) (Temporal Artery) Resp 14 Wt 81.1 kg (178 lb 12.8 oz) SpO2 95% BMI 28.00 kg/m? General Appearance: well appearing, in no acute distress, alert Pysch: mood and affect broad and appropriate Skin: Skin color, texture, turgor normal for age; Neck: Thyroid normal size and symmetric without palpable nodules, Neck supple, No adenopathy Lymph nodes: No supraclavicular lymphadenopathy Lungs: Lungs clear to auscultation. No wheezing, rhonchi, rales Heart: RRR without murmur, gallop, or rubs. No ectopy Ext: no edema in LE bilaterally, good distal pulses DTAP,TDAP,TD(1 - Tdap) due on 06/07/2016 FECAL OCCULT BLOOD due on 06/06/2017 MAMMOGRAM due on 04/10/2018 INFLUENZA(1) due on 04/19/2018 ANNUAL PCP TEAM CHRONIC DISEASE VISIT due on 05/16/2018 BLOOD PRESSURE CONTROLLED due on 05/16/2018 PNEUMOVAX AGE 65 AND OVER WITH 5YR LOOKBACK(1) due on 06/16/2019 DIABETES SCREEN due on 05/16/2020 LIPID SCREEN due on 07/17/2021 BONE DENSITY Completed ADULT PREVNAR-13 Completed HEPATITIS C SCREENING Completed ASSESSMENT/PLAN: 1. Essential hypertension - ICD9: 401.9, ICD10: I10 (primary diagnosis) - good control - Continue current medication(s) - Recommended regular aerobic exercise. Discussed diet with plenty fruits, vegetables, lean meats and healthy fats/oils. Avoid processed foods, trans fats, vegetable oils and simple sugars. Watch portion sizes - Recommend home blood pressure monitoring, to bring results in on next visit - Recheck in 1 year, sooner should new symptoms or problems arise. - Goal of BP <130/80 - ATENOLOL 25 MG TABLET - BASIC METABOLIC PNL - LIPID PANEL BASIC 2. Acquired hypothyroidism - ICD9: 244.9, ICD10: E03.9 - Instructed patient on importance of taking on an empty stomach either first thing in the morning or at bedtime. - check TSH today - continue current dose of Synthroid - LEVOTHYROXINE 100 MCG TABLET - TSH BLD 3. Rheumatoid arthritis with positive rheumatoid factor, involving unspecified site (HCC) - ICD9: 714.0, ICD10: M05.9 Symptoms stable - HYDROCODONE 5 MG-ACETAMINOPHEN 325 MG TABLET uses rarely, refilled. PDMP website checked and validated. All prescriptions have been APPROPRIATELY filled. No suspicious activity was identified. 03/26/2018 by Audrey Ojeda, CHILD PROTECTIVE SERVICES SPECIALIST.TONGUE BINDER 4. Moderate single current episode of major depressive disorder (HCC) - ICD9: 296.22, ICD10: F32.1 Stable - Continue with PAROXETINE 40 MG TABLET 5. Gastroesophageal reflux disease without esophagitis - ICD9: 530.81, ICD10: K21.9 Asymptomatic. No alarm symptoms or exam findings. - Continue treatment with current therapy: - PANTOPRAZOLE 40 MG TABLET,DELAYED RELEASE - RANITIDINE 150 MG TABLET 6. Impaired glucose metabolism - ICD9: 790.29, ICD10: R73.09 Was on Metformin but stopped some time ago, HgbA1c have been stable - Check HGB A1C 7. Encounter for screening mammogram for breast cancer - ICD9: V76.12, ICD10: Z12.31 - TAL SCREENING 8. Osteopenia, unspecified location - ICD9: 733.90, ICD10: M85.80 - Reviewed the need for Calcium and Vitamin D supplements and weight bearing exercise as tolerated Prescription instructions reviewed with patient as applicable. Potential red flag symptoms discussed with the patient. Reviewed appropriate action plan to take if red flag symptoms occur. Patient agreeable to treatment plan. Audrey Ojeda, CHILD PROTECTIVE SERVICES SPECIALIST.RENEE Stewartsusanne Ojeda, CHILD PROTECTIVE SERVICES SPECIALIST.RENEE 03/26/2018 2:27 PM Addendum HEALTH MAINTENANCE RECOMMENDATIONS You are due for the following preventative care screenings and immunizations: Mammogram - to detect breast cancer early. Please take over the counter Vit d 3 2000 IU daily and get 0208-5506 mg per day calcium. Calcium is best absorbed from your diet. Green vegetables and low fat dairy are good dietary sources of calcium. Walking, weight bearing exercise, resistance training , limiting alcohol and not smoking are also good ways to help maintain your bone mass. We will repeat the bone density in two years. If you add a calcium supplement you will not absorb more than 600 mg at a time so split the dosing . Allergies As of Date: 03/26/2018 Noted Allergy Reaction ASA (SALICYLATES) 05/07/2005 8 - GI Upset CODEINE 05/07/2005 8 - GI Upset SULFA (SULFONAMIDE ANTIBIOTICS) 05/07/2005 8 - GI Upset CLONIDINE 07/02/2005 Comments: headache ESTROGENS 07/02/2005 Comments: hx thrombosis MOBIC (MELOXICAM) 12/11/2006 5 - Intolerance 6 - Diarrhea NORVASC (AMLODIPINE BESYLATE) 12/03/2005 [id number] REDUCTASE INHIBIT*06/16/2014 14 - Other: See Comments Comments: Myalgia Date Reviewed: 03/26/2018 Reviewed by: Elvira Matute [employer] [employer] - Fully Assessed Reason for Visit: Refill Request [94] Primary Visit Diagnosis:Essential hypertension [I10] Other Visit Diagnoses:Acquired hypothyroidism [E03.9] Rheumatoid arthritis with positive rheumatoid factor, involving unspecified site (HCC) [M05.9] Moderate single current episode of major depressive disorder (HCC) [F32.1] Gastroesophageal reflux disease without esophagitis [K21.9] Impaired glucose metabolism [R73.09] Encounter for screening mammogram for breast cancer [Z12.31] Osteopenia, unspecified location [M85.80] Order(s):PARoxetine (PAXIL) 40 mg tabletTake 1 tablet by mouth once daily.Disp: 90 tabletRfl: [address] (PROTONIX) 40 mg tabletTake 1 tablet by mouth once daily.Disp: 90 tabletRfl: 3 ranitidine (ZANTAC) 150 mg tabletTake 1 tablet by mouth daily at bedtime.Disp: 90 tabletRfl: 3 atenolol (TENORMIN) 25 mg tabletTake 1 tablet by mouth once daily.Disp: 90 tabletRfl: 3 levothyroxine (LEVOXYL) 100 mcg tabletTake 1 tablet by mouth once daily. Take on empty stomach. For Thyroid.Disp: 90 tabletRfl: 3 HYDROcodone-acetaminophen (NORCO) 5-325 mg per tabletTake 1 tablet by mouth every 8 hours as needed for up to 180 days. Earliest Fill Date: 03/26/18Disp: 30 tabletRfl: 0 SUMAtriptan (IMITREX) 50 mg tabletTake 1 tablet by mouth as directed. START AT ONSET OF HEADACHE. MAY REPEAT DOSE AFTER 2 HOURS.Disp: 9 tabletRfl: 1 TSH BLD [SQTSH] Order #: [id number] FUTURE BASIC METABOLIC PNL [SQBMP] Order #: [id number] FUTURE HGB A1C [NAERG4O] Order #: [id number] FUTURE LIPID PANEL BASIC [SQLIPB] Order #: [id number] FUTURE TAL SCREENING [3176602] Order #: [id number] FUTURE Prescriptions as of 03/26/2018 Sig: PAROXETINE 40 MG TABLET Take 1 tablet by mouth once d* PANTOPRAZOLE 40 MG TABLET,DEL* Take 1 tablet by mouth once d* RANITIDINE 150 MG TABLET Take 1 tablet by mouth daily * ATENOLOL 25 MG TABLET Take 1 tablet by mouth once d* LEVOTHYROXINE 100 MCG TABLET Take 1 tablet by mouth once d* HYDROCODONE 5 MG-ACETAMINOPHE* Take 1 tablet by mouth every * SUMATRIPTAN 50 MG TABLET Take 1 tablet by mouth as dir* ATORVASTATIN 10 MG TABLET Patient takes it once a week * BUDESONIDE-FORMOTEROL HFA 80 * Inhale 2 Puffs as instructed * GABAPENTIN 300 MG CAPSULE Take 2 capsules by mouth twic* PROMETHAZINE 25 MG RECTAL SUP* 1 Suppository by RECTAL route* ALBUTEROL SULFATE HFA 90 MCG/* Inhale 2 Puffs as instructed * COENZYME Q10 200 MG CAPSULE Take 1 capsule by mouth twice* CLOBETASOL 0.05 % TOPICAL CRE* Apply selectively as directe* FLUTICASONE 50 MCG/ACTUATION * Use 2 Sprays in each nostril * ALEVE 220 MG TABLET Take 1-2 tablets at bedtime a* Problem List As Of Date 03/26/2018 Noted Resolved Phlebitis and thrombophlebitis of unspecified s*INVALID FOR*04/10/2016 Chondromalacia [M94.20] INVALID FOR*04/10/2016 Peripheral enthesopathies and allied syndromes *INVALID FOR*04/10/2016 Hypertension goal BP (blood pressure) < 140/90 * ESOPHAGEAL REFLUX [K21.9] Other affections of shoulder region, not elsewh*INVALID FOR*04/10/2016 More... Rotator cuff syndrome of shoulder and allied di*INVALID FOR*04/10/2016 More... Primary localized osteoarthrosis, shoulder martha*INVALID FOR*04/10/2016 More... Disorders of bursae and tendons in shoulder reg*INVALID FOR*04/10/2016 Pain in joint, shoulder region [M25.519] INVALID FOR*04/10/2016 Esophagitis, unspecified [K20.9] INVALID FOR*04/10/2016 Pyoderma, unspecified [L08.0] INVALID FOR*04/10/2016 CHRONIC RHINITIS [J31.0] INVALID FOR* Other diseases of nasal cavity and sinuses(478.*INVALID FOR*04/10/2016 Enthesopathy of hip region [M76.899] INVALID FOR*04/10/2016 Lumbago [M54.5] INVALID FOR*04/10/2016 Displacement of lumbar intervertebral disc with*INVALID FOR*04/10/2016 Hyperlipidemia [E78.5] INVALID FOR* More... ECZEMA DERMATITIS NOS [L25.9] INVALID FOR*04/10/2016 ECZEMA DERMATITIS NEC [L25.8] INVALID FOR*04/10/2016 Unspecified pruritic disorder [L29.9] INVALID FOR*04/10/2016 XEROSIS//SEBACEOUS GLAND DIS NEC [L73.8] INVALID FOR*10/17/2015 GLUCOSE ABNORMAL TEST [R73.09] INVALID FOR*04/10/2016 Hypothyroid [E03.9] INVALID FOR* Eczematous dermatitis [L30.9] INVALID FOR* Xerosis cutis [L85.3] INVALID FOR*10/17/2015 Pruritus [L29.9] INVALID FOR*04/10/2016 Sjogren's syndrome (HCC) [M35.00] INVALID FOR* More... 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 Rheumatoid arthritis with positive rheumatoid f*INVALID FOR* More... Migraine with aura and without status migrainos*INVALID FOR* ABNORMAL GLUCOSE [R73.09] INVALID FOR* Osteopenia [M85.80] INVALID FOR* Other instructions from your clinician: HEALTH MAINTENANCE RECOMMENDATIONS You are due for the following preventative care screenings and immunizations: Mammogram - to detect breast cancer early. Please take over the counter Vit d 3 2000 IU daily and get 3250-0141 mg per day calcium. Calcium is best absorbed from your diet. Green vegetables and low fat dairy are good dietary sources of calcium. Walking, weight bearing exercise, resistance training , limiting alcohol and not smoking are also good ways to help maintain your bone mass. We will repeat the bone density in two years. If you add a calcium supplement you will not absorb more than 600 mg at a time so split the dosing . Prescriptions ordered this encounter Disp Refills Start End PAROXETINE 40 MG TABLET 90 t* 3 03/26/2018 Route: ORAL Sig: Take 1 tablet by mouth once daily. PANTOPRAZOLE 40 MG TABLET,DELAYED RE* 90 t* 3 03/26/2018 Route: ORAL Sig: Take 1 tablet by mouth once daily. RANITIDINE 150 MG TABLET 90 t* 3 03/26/2018 Route: ORAL Sig: Take 1 tablet by mouth daily at bedtime. ATENOLOL 25 MG TABLET 90 t* 3 03/26/2018 Route: ORAL Sig: Take 1 tablet by mouth once daily. LEVOTHYROXINE 100 MCG TABLET 90 t* 3 03/26/2018 Route: ORAL Sig: Take 1 tablet by mouth once daily. Take on empty stomach. For Thyroid. HYDROCODONE 5 MG-ACETAMINOPHEN 325 M* 30 t* 0 03/26/2018 09/22/2018 Class: Print RX Route: ORAL Sig: Take 1 tablet by mouth every 8 hours as needed for up to 180 days. Earliest Fill Date: 03/26/18 SUMATRIPTAN 50 MG TABLET 9 ta* 1 03/26/2018 Route: ORAL Sig: Take 1 tablet by mouth as directed. START AT ONSET OF HEADACHE. MAY REPEAT DOSE AFTER 2 HOURS. Medications Discontinued During This Encounter PARoxetine (PAXIL) 40 mg tablet 90 t* 3 04/09/2017 03/26/2018 Route: ORAL Sig: Take 1 tablet by mouth once daily. Disc: Reason for discontinue is not on file. pantoprazole DR (PROTONIX) 40 mg tab* 90 t* 3 04/09/2017 03/26/2018 Route: ORAL Sig: Take 1 tablet by mouth once daily. Disc: Reason for discontinue is not on file. ranitidine (ZANTAC) 150 mg tablet 90 t* 3 04/09/2017 03/26/2018 Route: ORAL Sig: Take 1 tablet by mouth daily at bedtime. Disc: Reason for discontinue is not on file. atenolol (TENORMIN) 25 mg tablet 90 t* 3 04/09/2017 03/26/2018 Route: ORAL Sig: Take 1 tablet by mouth once daily. Disc: Reason for discontinue is not on file. levothyroxine (LEVOXYL) 100 mcg tabl* 90 t* 11 04/09/2017 03/26/2018 Route: ORAL Sig: Take 1 tablet by mouth once daily. Take on empty stomach. For Thyroid. Disc: Reason for discontinue is not on file. HYDROcodone-acetaminophen (NORCO) 5-* 30 t* 0 03/20/2017 03/26/2018 Class: Print RX Route: ORAL Sig: Take 1 tablet by mouth every 8 hours as needed. Disc: Reason for discontinue is not on file. SUMAtriptan (IMITREX) 50 mg tablet 9 ta* 1 04/09/2017 03/26/2018 Route: ORAL Sig: Take 1 tablet by mouth as directed. START AT ONSET OF HEADACHE. MAY REPEAT DOSE AFTER 2 HOURS. Disc: Reason for discontinue is not on file. azithromycin (ZITHROMAX Z-JESSICA) 250 m* 1 Pa* 0 01/09/2017 03/26/2018 Class: Print RX Sig: Take 2 tablets by mouth day one, then 1 tablet daily until gone. Disc: Course of therapy completed metFORMIN (GLUCOPHAGE) 500 mg tablet 60 t* 11 07/19/2016 03/26/2018 Route: ORAL Sig: Take 1 tablet by mouth twice daily. Disc: Discontinued by Patient Encounter Status:Closed by AUDREY OJEDA CNP on 03/26/18 ALLERGIES ALLERGIES DATE TYPE / NAME / CODE REACTION SEVERITY SOURCE CODE 08/01/2018 Drug Sulfa Upset Stomach Unknown [place] Allergy/41 (Sulfonamide [facility] 3459559( Antibiotics)/F[address]) 289961(RXNORM) Repository 08/01/2018 Drug codeine/[id number] Upset Stomach Unknown [place] Allergy/41 0(RXNORM) Community 5909849( Hospital OMED CT) Repository 08/01/2018 Drug aspirin/[id number] Upset Stomach Unknown [place] Allergy/41 7(RXNORM) Community 3375386([facility] OMED CT) Repository 06/16/2014 Drug [id number] OTHER: SEE C [facility] Class/4195 REDUCTASE [place] [address](SNOM INHIBITORS Repository ED CT) 12/11/2006 DRUG MELOXICAM INTOLERANCE [facility] INGREDI/41 [place] 3115261(SN Repository OMED CT) 12/03/2005 [facility] [place] 9179878(SN Repository OMED CT) 07/02/2005 DRUG CLONIDINE [facility] INGREDI/41 [place] 5069138(SN Repository OMED CT) 07/02/2005 Drug ESTROGENS [facility] Class/4195 [place] [address](SNOM Repository ED CT) 05/07/2005 Drug SALICYLATES GI UPSET High [facility] Class/4195 [place] [address](SNOM Repository ED CT) 05/07/2005 DRUG CODEINE GI UPSET High [facility] INGREDI/41 [place] 6346815(SN Repository OMED CT) 05/07/2005 Drug SULFA GI UPSET High [facility] Class/4195 (SULFONAMIDE [place] [address](SNOM ANTIBIOTICS) Repository ED CT) ENCOUNTERS ENCOUNTERS ADMIT/DISCHARGE ACCOUNT ADMITTING ENCOUNTER LOCATION SOURCE NUMBER CLASS 09/03/2018/09/04/19 [id number] Ambulatory [address] [place] Repository 08/01/2018/08/06/20 [id number] [place], Inpatient [address] [place] Repository 08/01/2018/08/01/20 [id number] [place] [address] [place] [address] ing:ED Repository 08/01/2018/08/01/20 [id number] Ambulatory [address] Repository 08/01/2018/08/01/20 [id number] Ambulatory [address] Repository 07/31/2018/07/31/20 [id number] Ambulatory [address] Repository 07/31/2018/08/01/20 [id number] Ambulatory [address] Repository 03/26/2018/03/26/20 [id number] Ambulatory [address] Repository 03/26/2018/03/27/20 [id number] Ambulatory [address] Repository PAYERS PAYERS ENCOUNTER GUARANTOR PAYER SUBSCRIBER SOURCE 08/01/2018 MIKE Rodriguez Primary MIKE Hodge [id number] SHRUTI Insurance:MEDICARE HECKMANDOB: Community STP O BOX PART A [facility] [id number] Number: Repository [id number]: [phone] [id number] [phone] () Date:2018-08-01 08/01/2018 Secondary NOT GIVENCHAVEZ Hodge Insurance:SELF PAY [facility] Number: Effective Repository Date:2018-08-01
== END 2018-08-01 17:06 | disposition short-term general hospital (02) ==
PROVIDERS: Emergency Provider Emergency Medicine; Family Provider Internal Medicine; PCP Internal Medicine
DX: I71.01 Dissection of thoracic aorta (principal); Z86.711 Personal history of pulmonary embolism
CPT/HCPCS: 71275; 74174; 80048; 84484; 85025; 85610; 85730; 93005; 96365; 99285; J7030; J7050; Q9967; A4216

== ENCOUNTER 2019-04-04 09:47 | Emergency (ER) | payer MEDICARE, SELFPAY ==
[2019-04-04 09:48] VITALS: BP 102/57; PULSE 75; RESP 17; TEMP 37.1; O2SAT 93; BMI 27.5
--- NOTE | 2019-04-04 10:05 | CT_ITS ---
STUDY: CTA CHEST REASON FOR EXAM: Female, 68 years old. Thoracic back pain between shoulder blades RADIATION DOSAGE (If Supplied By Facility): CTDIvol = ( 12.97 ) mGy, DLP = ( 801.43 ) mGycm TECHNIQUE: The examination was performed with the intravenous administration of 100mL IV Isovue 370. Post-processing of the angiographic images was performed, with multiplanar reformation and 3D reconstruction. Individualized dose optimization techniques were used for this CT. COMPARISON: None. FINDINGS: Bilateral breast implants are unremarkable.. Normal enhancement of the main pulmonary artery and right and left pulmonary arteries. Normal enhancement of the bilateral peripheral pulmonary arteries. There is no demonstrated pulmonary embolism. There is significant noncalcified mural thrombus along the descending thoracic aortic wall with mild aneurysmal enlargement measuring up to 3.9 cm extending to the diaphragmatic hiatus. Degree of mural thrombus is increased since 2018. There is no demonstrated aortic dissection. Normal heart and pericardium. Normal mediastinum. Normal hilar regions. Normal visualized trachea and bronchi. The lungs are well expanded. Normal pulmonary parenchyma. Normal pleura. Normal chest wall structures. There are degenerative changes throughout the thoracic spine without demonstrated fracture. Upper abdomen described on abdomen CT report. IMPRESSION: 1. Increasing diameter of descending thoracic aorta (currently measuring up to 3.9 cm) with increased mural thrombus. No thoracic dissection or extraluminal contrast/extravasation. 2. Bilateral breast implants. Electronically Signed: Sravan Ornelas MD ([place]) at 12:28 EDT , Service support , PROCEDURE: CTA OF THE ABDOMEN WITH IV CONTRAST REASON FOR EXAM: Patient oriented dose modulation technique utilized. TECHNIQUE: Axial CT angiography multi-detector data acquisition was obtained from the lung bases to the iliac crests following intravenous administration of 100 ml of Isovue 370 contrast. Axial images and MIP images were reconstructed from the axial data set. Post-processing of the angiographic images was performed, with multiplanar reformation and 3D reconstruction. TECHNICAL QUALITY: Good COMPARISON: . FINDINGS: ABDOMINAL AORTA: Mild atherosclerosis of the abdominal aorta without evidence of aneurysm or dissection. Mild aneurysmal ectasia of the upper abdominal aorta is contiguous with lower thoracic aortic aneurysm described on CTA chest. CELIAC AND SUPERIOR MESENTERIC ARTERIES: Both are widely patent INFERIOR MESENTERIC ARTERY: The inferior mesenteric artery is patent. RIGHT RENAL ARTERY(ARTERIES): Single artery which is widely patent. LEFT RENAL ARTERY(ARTERIES): Single artery which is widely patent. RIGHT COMMON ILIAC ARTERY: Atherosclerosis without significant narrowing. LEFT COMMON ILIAC ARTERY: Atherosclerosis without significant narrowing. Diminished density throughout the liver. The spleen, pancreas are unremarkable. The gallbladder is unremarkable. Adrenal glands are normally sized. Kidneys are symmetric in size, contrast enhancement. No hydronephrosis. Visualized small bowel is unremarkable. There are diverticular changes of the colon. Small hiatal hernia noted. CT/CTA Chest W/WO Contrast IMPRESSION: 1. No abdominal aortic aneurysm or dissection. 2. Diverticulosis. 3. Hepatic steatosis. Electronically Signed: Sravan Ornelas MD ([place]) at 12:33 EDT , Service support ,
--- NOTE | 2019-04-04 10:05 | CT_ITS ---
STUDY: CTA CHEST REASON FOR EXAM: Female, 68 years old. Thoracic back pain between shoulder blades RADIATION DOSAGE (If Supplied By Facility): CTDIvol = ( 12.97 ) mGy, DLP = ( 801.43 ) mGycm TECHNIQUE: The examination was performed with the intravenous administration of 100mL IV Isovue 370. Post-processing of the angiographic images was performed, with multiplanar reformation and 3D reconstruction. Individualized dose optimization techniques were used for this CT. COMPARISON: None. FINDINGS: Bilateral breast implants are unremarkable.. Normal enhancement of the main pulmonary artery and right and left pulmonary arteries. Normal enhancement of the bilateral peripheral pulmonary arteries. There is no demonstrated pulmonary embolism. There is significant noncalcified mural thrombus along the descending thoracic aortic wall with mild aneurysmal enlargement measuring up to 3.9 cm extending to the diaphragmatic hiatus. Degree of mural thrombus is increased since 2018. There is no demonstrated aortic dissection. Normal heart and pericardium. Normal mediastinum. Normal hilar regions. Normal visualized trachea and bronchi. The lungs are well expanded. Normal pulmonary parenchyma. Normal pleura. Normal chest wall structures. There are degenerative changes throughout the thoracic spine without demonstrated fracture. Upper abdomen described on abdomen CT report. IMPRESSION: 1. Increasing diameter of descending thoracic aorta (currently measuring up to 3.9 cm) with increased mural thrombus. No thoracic dissection or extraluminal contrast/extravasation. 2. Bilateral breast implants. Electronically Signed: Sravan Ornelas MD ([place]) at 12:28 EDT , Service support , PROCEDURE: CTA OF THE ABDOMEN WITH IV CONTRAST REASON FOR EXAM: Patient oriented dose modulation technique utilized. TECHNIQUE: Axial CT angiography multi-detector data acquisition was obtained from the lung bases to the iliac crests following intravenous administration of 100 ml of Isovue 370 contrast. Axial images and MIP images were reconstructed from the axial data set. Post-processing of the angiographic images was performed, with multiplanar reformation and 3D reconstruction. TECHNICAL QUALITY: Good COMPARISON: . FINDINGS: ABDOMINAL AORTA: Mild atherosclerosis of the abdominal aorta without evidence of aneurysm or dissection. Mild aneurysmal ectasia of the upper abdominal aorta is contiguous with lower thoracic aortic aneurysm described on CTA chest. CELIAC AND SUPERIOR MESENTERIC ARTERIES: Both are widely patent INFERIOR MESENTERIC ARTERY: The inferior mesenteric artery is patent. RIGHT RENAL ARTERY(ARTERIES): Single artery which is widely patent. LEFT RENAL ARTERY(ARTERIES): Single artery which is widely patent. RIGHT COMMON ILIAC ARTERY: Atherosclerosis without significant narrowing. LEFT COMMON ILIAC ARTERY: Atherosclerosis without significant narrowing. Diminished density throughout the liver. The spleen, pancreas are unremarkable. The gallbladder is unremarkable. Adrenal glands are normally sized. Kidneys are symmetric in size, contrast enhancement. No hydronephrosis. Visualized small bowel is unremarkable. There are diverticular changes of the colon. Small hiatal hernia noted. CT/CTA Abdomen W/WO Contrast IMPRESSION: 1. No abdominal aortic aneurysm or dissection. 2. Diverticulosis. 3. Hepatic steatosis. Electronically Signed: Sravan Ornelas MD ([place]) at 12:33 EDT , Service support ,
--- NOTE | 2019-04-04 10:06 | EKG12_ITS ---
Test Reason : DYSRHYTHMIA Blood Pressure : / mmHG Vent. Rate : 066 BPM Atrial Rate : 066 BPM P-R Int : 134 ms QRS Dur : 074 ms QT Int : 404 ms P-R-T Axes : 039 050 051 degrees QTc Int : 423 ms Normal sinus rhythm Normal ECG Confirmed by MATILDE CHERRY, DEON ([id number]), newspaper copy editor ZANDER RUSSELL ([id number]) on 04/07/2019 1:17:48 PM Referred By: EK Confirmed By:DEON CLAYTON MD
--- NOTE | 2019-04-04 10:08 | ED.DCSUM_ITS ---
History of Present Illness Chief Complaint: Back Informant: Patient Onset: Weeks Narrative: Patient was sent to the ED by her PCP for worsening thoracic back pain. She states that in July 2018 she was diagnosed with a type B thoracic aortic aneurysm. She was seen at the [facility] for this and it was determined to treat this medically with antihypertensives. She states she has been compliant with her medication. She states that this pain is the same as her back pain when she was diagnosed with this aneurysm, however it is worsening in severity. She states she used to be able to alleviate the pain with bending over and stretching her thoracic back, however now this is not alleviating her pain. She denies any chest pain or shortness of breath. Past Medical History - Allergies and Home Meds Allergies/Adverse Reactions: Allergies aspirin Adverse Reaction (Verified 04/04/19 09:48) Upset Stomach codeine Adverse Reaction (Verified 04/04/19 09:48) Upset Stomach Sulfa (Sulfonamide Antibiotics) Adverse Reaction (Verified 04/04/19 09:48) Upset Stomach Primary Care Physician: Lanny Raymond MD [Primary Care Provider] - Smoking Status: Never smoker Review of Systems General: Denies: Chills, Fever, Sweats Eyes: Denies: Visual changes - bilaterally, Diplopia ENT: Denies: Rhinorrhea, Sore throat Cardiovascular: Denies: Chest pain, Palpitations Respiratory: Denies: Dyspnea, Cough, Dyspnea on exertion Gastrointestinal: Denies: Abdominal pain, Nausea, Vomiting, Diarrhea, Melena, Hematochezia Genitourinary: Denies: Dysuria, Hematuria, Frequency Musculoskeletal: Reports: Back pain - thoracic. Denies: Extremity Pain Skin: Denies: Rash, Wounds Neurological: Denies: Headache, Weakness, Numbness Physical Exam Vital Signs/Narrative: Vital Signs Temp Pulse Resp BP Pulse Ox 04/04/19 09:48 98.7 F 75 17 102/57 L 93 General: Well nourished, Well developed, No Acute Distress Head: Normocephalic, Atraumatic Eyes: Perrl, EOMI ENT: Moist mucous membranes, No rhinorrhea Neck: Supple, Nontender Cardiovascular: Regular rate, Regular rhythm, No murmurs Respiratory: No distress, CTA bilaterally, Chest nontender Abdomen: Soft, Nontender, Nondistended, Normal bowel sounds Back: - - Tenderness to palpation over thoracic spinous processes and thoracic paraspinal muscles. No rashes. No signs/symptoms concerning for epidural abscess. Extremities: Nontender, No edema Skin: Normal color, No rash Neurological: Alert, Oriented x3, Cranial nerves II-XII grossly intact, Normal Strength, Normal Sensation Psychological: Normal affect, Normal Mood Diagnostic/Tx/Re-eval - EKG Initial EKG Interpretation: Sinus Rhythm, No Acute Injury Pattern, - - Ventricular rate 66 bpm. SD interval 134. QRS 74. QT 404. - Medical Decision Making Presents to the ED with worsening thoracic back pain. She has a history of type B thoracic aortic aneurysm that measure 3.4 cm in July 2018. EKG today shows normal sinus rhythm with no ischemic changes. After reviewing her imaging from July 2018, it was indeterminate whether it was a primary aortic aneurysm with mural thrombus or prior dissection with thrombosed false lumen. On physical exam, patient was tender to palpation in her thoracic region. CBC and BMP are unremarkable. CTA of chest and abdomen/pelvis indicate increase in size of thoracic aortic aneurysm from 3.4 cm to 3.9 cm with no evidence of extension. I did discuss the patient's case with cardiothoracic fellow at [facility], Dr. Arellano, who felt patient continuing her antihypertensives and arranging close follow-up were appropriate. Patient will be treated with Flexeril as needed for her thoracic back pain as she does describe as a muscle spasm. She will contact them on Saturday to arrange follow-up and was provided with a disc of her imaging conducted today. She was educated on signs/symptoms to return to the ED. She is provided discharge instructions. She is agreeable to plan. Impression: Type B thoracic aortic aneurysm with no rupture. Thoracic back pain. Disposition: Home stable. ED Disposition - Plan for ED Patient: Disposition: Home or Assisted Living Diagnosis: Thoracic aortic aneurysm without rupture, Thoracic back pain Instructions: Thoracic Strain, BACK PAIN (Acute or Chronic) Prescriptions: cycloBENZAPRine HCl [Flexeril] 5 mg PO TID #15 tab Prescription Printed Referrals: Lanny Raymond MD [Primary Care Provider] - Additional Instructions: Call Dr. Knutson's office on Saturday and tell them your aneurysm has grown from 3.4 to 3.[address] Arellano recommended follow up. Bring disc of your CT scan with you.
[2019-04-04] MEDS: 0.9% Normal Saline 1,000 ML 999 ML IV (10:46)
[2019-04-04 11:06] LABS: Absolute Lymphocyte Count 1.09 X10^3/uL (0.83-4.51); Absolute Neutrophil Count 3.8 X10^3/uL (2.0-7.7); Basophil# 0.03 X10^3/uL; Basophil% 0.6 % (0-1); Eosinophils% 1.9 % (0-5); Hematocrit 37.7 % (37-47); Hemoglobin 12.5 g/dL (12.0-15.0); Lymphocyte # 1.09 X10^3/ul (4.0); Lymphocyte % 20.5 % (19-41); Mean Corp Hgb Conc 33.2 g/dL (32-36); Mean Corpuscular Hgb 29.8 pg (27.0-32.0); Mean Corpuscular Volume 89.8 fL (81-99); Mean Platelet Vol. 10.1 fl (6.2-12.0); Monocyte# 0.34 X10^3/uL; Monocyte% 6.4 % (0-10); NRBC Flagged by Analyzer 0 % (0-5); Neutrophil # 3.75 X10^3/uL (2.7-7.7); Neutrophil % 70.4 % (47-70); Platelet Count 191 K/mm3 (150-450); RBC Distribution Width CV 14.5 % (11.6-14.6); RBC Distribution Width SD 47.6 fl (35.1-43.9); White Blood Count 5.3 K/mm3 (4.4-11.0)
[2019-04-04 11:14] LABS: Anion Gap 8 (5-15); BUN 21 mg/dL (7-18); BUN/Creat Ratio 17.6 RATIO (10-20); Calcium,Total 8.4 mg/dL (8.5-10.1); Chloride 108 mmol/L (98-107); Creatinine, Serum 1.19 mg/dL (0.55-1.02); EST Glomerular Filtration Rate 48 mL/min (>60); Est Glom Filt Rate - Afr Amer 58 mL/min (>60); Estimated Creatinine Clearance 44.61 ml/min; Glucose 124 mg/dL (74-106); Potassium 4.3 mmol/L (3.5-5.1); Sodium Level 140 mmol/L (136-145)
[2019-04-04 12:02] VITALS: BP 138/91; PULSE 72; RESP 10; O2SAT 100
[2019-04-04 13:54] VITALS: BP 147/78; PULSE 73; RESP 16; O2SAT 97
== END 2019-04-04 13:56 | disposition home or self-care (01) ==
PROVIDERS: Emergency Provider Physician Assistant; Family Provider Internal Medicine; PCP Internal Medicine
DX: I71.2 Thoracic aortic aneurysm, without rupture (principal); M54.6 Pain in thoracic spine
CPT/HCPCS: 71275; 74175; 80048; 85025; 93005; 96360; 96361; 99285; J7030; Q9967; A4216

== ENCOUNTER 2020-12-31 13:53 | Observation (INO) | payer MEDICARE, SELFPAY ==
[2020-12-31] VITALS (13 sets, daily range): BP systolic 110–146; BP diastolic 48–79; PULSE 66–90; RESP 16–20; TEMP 36.6–37; O2SAT 85–99; BMI 27.9; BMI 26.6
--- NOTE | 2020-12-31 14:10 | EKG12_ITS ---
Test Reason : SOB Blood Pressure : / mmHG Vent. Rate : 073 BPM Atrial Rate : 073 BPM P-R Int : 122 ms QRS Dur : 070 ms QT Int : 404 ms P-R-T Axes : 038 030 039 degrees QTc Int : 445 ms Normal sinus rhythm Nonspecific ST abnormality Abnormal ECG Confirmed by MATILDE CHERRY, DEON ([id number]), image editor ZANDER RUSSELL ([id number]) on 01/03/2021 9:28:23 AM Referred By: ALETA Confirmed By:DEON CLAYTON MD
--- NOTE | 2020-12-31 14:12 | EDS_ITS ---
HPI <Dr. Rigo Wallace MD - Last Filed: 12/31/20 15:11> History of Present Illness Chief Complaint: Shortness of Breath Informant: patient Onset/Context/Timing Onset: Days Context: gradual Timing: Continuous Quality: Positive for Dyspnea on exertion Current Severity: Moderate Maximum Severity: Moderate Worsened by: Exertion and Coughing Relieved by: Nothing Associated Symptoms cough Chest Pain: Positive for None Narrative Narrative: The patient is a 70-year-old female with medical history significant for thoracic aortic aneurysm that is type B and has been followed medically, asthma, hypertension, who presents to the emergency department with shortness of breath. Patient states for the past 2 weeks, she said gradually worsening shortness of breath. She states today she was to the point where she felt like she could not catch her breath. She had a very scant cough. She denies lower extremity edema. She denies any chest pain. She does have history of asthma but states that this felt different. She denies weight gain but has had some orthopnea. She denies fever or chills. She denies any recent sick contacts. [facility] <Dr. 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) Neuropathic pain Osteopenia Rheumatoid arthritis Scleroderma Sjogren's syndrome Home Medications albuterol sulfate 1 - 2 puff INHALATION Q6H PRN PRN 04/04/19 [History Last Taken Unknown] aspirin 81 mg PO DAILY@0800 04/04/19 [History Last Taken Unknown] carvedilol 25 mg PO DAILY 04/04/19 [History Last Taken Unknown] ezetimibe 10 mg PO DAILY 04/04/19 [History Last Taken Unknown] levothyroxine 100 mcg PO DAILY 04/04/19 [History Last Taken Unknown] paroxetine HCl 20 mg PO DAILY 04/04/19 [History Last Taken Unknown] ranitidine HCl 150 mg PO DAILY 04/04/19 [History Last Taken Unknown] sumatriptan succinate 50 mg PO PRN PRN 04/04/19 [History Last Taken Unknown] losartan 50 mg PO DAILY 12/31/20 [History Last Taken Unknown] Allergy/AdvReac Type Severity Reaction Status Date / Time amlodipine Allergy Other Verified 12/31/20 15:20 aspirin AdvReac Upset Verified 04/04/19 09:48 Stomach clonidine AdvReac Other Verified 12/31/20 15:20 codeine AdvReac Upset Verified 04/04/19 09:48 Stomach Estrogens AdvReac Other Verified 12/31/20 15:20 meloxicam AdvReac Diarrhea Verified 12/31/20 15:20 [id number] Reductase AdvReac Pain in Verified 12/31/20 15:20 Inhibitor joints Sulfa (Sulfonamide AdvReac Upset Verified 04/04/19 09:48 Antibiotics) Stomach Social History Smoking Status: Never smoker ROS <Dr. Rigo Wallace MD - Last Filed: 12/31/20 15:11> ROS ED Constitutional Constitutional ED: Denies chills or fever(s) Eyes Eyes: Denies blurry vision or change in vision ENT ENT ED: Denies ear pain or sore throat Cardiovascular Cardiovascular: Denies chest pain or palpitations Respiratory/Chest Respiratory/Chest: Reports dyspnea and dyspnea on exertion Gastrointestinal Gastrointestinal: Denies abdominal pain, nausea or vomiting Genitourinary Genitourinary ED: Denies dysuria or urinary frequency Musculoskeletal Musculoskeletal: Denies arthralgias or myalgias Integumentary Denies rash Neurologic Neurologic: Denies headache(s) or paresthesias Psychiatric Psychiatric: Denies anxiety or depression Endocrine Endocrinology: Denies polydipsia or polyuria Allergic/Immunologic Allergic/Immunologic ED: Denies urticaria EXAM <Dr. Rigo Wallace MD - Last Filed: 12/31/20 15:11> Physical Exam Const Vital Signs: 12/31/20 13:55 12/31/20 13:57 12/31/20 14:07 Temperature 98.6 F 98.6 F Temperature Source Temporal Temporal Pulse Rate 90 90 76 Respiratory Rate 20 H 20 H 20 H Respiratory Effort Respiratory Depth Respiratory Pattern Blood Pressure 146/79 H 146/79 H 126/61 H Blood Pressure Mean 101 101 82 Pulse Ox 85 85 98 Oxygen Delivery Method Room Air Room Air Nasal Cannula Oxygen Flow Rate (L/min) 2 12/31/20 14:08 12/31/20 14:38 12/31/20 15:10 Temperature 98.0 F Temperature Source Temporal Pulse Rate 70 Respiratory Rate 18 Respiratory Effort Labored Respiratory Depth Deep Respiratory Pattern Tachypnea Blood Pressure 135/70 H Blood Pressure Mean 91 Pulse Ox 99 97 Oxygen Delivery Method Nasal Cannula Nasal Cannula Nasal Cannula Oxygen Flow Rate (L/min) 2 2 2 Positive well nourished and well developed General Appearance ED: well developed HEENT Reports normocephalic, head/scalp atraumatic and moist mucous membranes Eyes PERRL and EOMs intact bilaterally Neck no lymphadenopathy and supple General: Negative for tenderness Chest Wall inspection of chest normal Resp normal respiratory effort Auscultation: diminished lung sounds Cardio regular rate, regular rhythm and no murmurs GI normal to inspection, nondistended, normoactive bowel sounds Palpation: Negative for tender, guarding or rebound tenderness present Back/Spine no CVA tenderness Cervical Spine: Negative for cervical spine tenderness Thoracic Spine / Upper Back: Negative for thoracic spinal tenderness Extremity normal to inspection General Extremety ED: Negative for tenderness Neuro oriented x3 and CN's II-XII intact bilaterally Neuro Narrative: No focal deficits appreciated. Sensorium / Orientation: alert Psych mental status grossly normal Skin no rashes or lesions noted, no wounds and skin turgor normal <Dr. Jim Chung MD - Last Filed: 12/31/20 17:37> Physical Exam Const Vital Signs: 12/31/20 13:55 12/31/20 13:57 12/31/20 14:07 Temperature 98.6 F 98.6 F Temperature Source Temporal Temporal Pulse Rate 90 90 76 Respiratory Rate 20 H 20 H 20 H Respiratory Effort Respiratory Depth Respiratory Pattern Blood Pressure 146/79 H 146/79 H 126/61 H Blood Pressure Mean 101 101 82 Pulse Ox 85 85 98 Oxygen Delivery Method Room Air Room Air Nasal Cannula Oxygen Flow Rate (L/min) 2 12/31/20 14:08 12/31/20 14:38 12/31/20 15:10 Temperature 98.0 F Temperature Source Temporal Pulse Rate 70 Respiratory Rate 18 Respiratory Effort Labored Respiratory Depth Deep Respiratory Pattern Tachypnea Blood Pressure 135/70 H Blood Pressure Mean 91 Pulse Ox 99 97 Oxygen Delivery Method Nasal Cannula Nasal Cannula Nasal Cannula Oxygen Flow Rate (L/min) 2 2 2 MDM <Dr. Rigo Wallace MD - Last Filed: 12/31/20 15:11> MDM MDM Narrative Medical decision making narrative: The patient presents with shortness of breath. Her lung sounds are diminished and she does have history of asthma. She was not significantly wheezing however. She was given a nebulized treatment and stated that she felt improved. She was able to be weaned down to 1 L nasal cannula. EKG was obtained. It was sinus rhythm without evidence of acute ischemia. Screening labs were obtained and were relatively unremarkable. Covid test was negative. Cardiac enzymes are normal. BNP was also normal. Chest x- ray reviewed by both myself and the radiologist shows no focal infiltrative process. There is no pneumothorax. With the patient's hypoxia, history of chronic dissection, and exertional symptoms, she will undergo CTA of the chest. This will be signed out to the oncoming physician after completion. Impression 1. Acute dyspnea with hypoxia Lab Data Attestation: I reviewed the patient's lab results. Labs: Laboratory Results - last 24 hr 12/31/20 12/31/20 12/31/20 14:15 14:15 14:15 WBC 5.3 RBC 4.65 Hgb 13.2 Hct 40.8 MCV 87.7 MCH 28.4 MCHC 32.4 RDW Std Deviation 43.5 RDW Coeff of Lynnette 13.5 Plt Count 231 MPV 9.8 Immature Gran % (Auto) 0.200 Neut % (Auto) 68.3 Lymph % (Auto) 22.7 Haralson % (Auto) 7.1 Eos % (Auto) 1.1 Baso % (Auto) 0.6 Absolute Neuts (auto) 3.6 Absolute Lymphs (auto) 1.21 Nucleated RBC % 0 Sodium 134 L Potassium 4.3 Chloride 98 Carbon Dioxide 26.0 Anion Gap 10 BUN 17 Creatinine 1.32 H Estim Creat Clear Calc 39.12 Est GFR (MDRD) Af Amer 51 L Est GFR (MDRD) Non-Af 42 L BUN/Creatinine Ratio 12.9 Glucose 116 H Calcium 9.4 Total Bilirubin 1.40 H AST 20 ALT 32 Alkaline Phosphatase 107 Troponin I < 0.015 B-Natriuretic Peptide 25.1 Total Protein 8.1 Albumin 3.7 Globulin 4.4 H Albumin/Globulin Ratio 0.8 L Radiography Chest X-Ray - ED: 1 View, Read by ED Physician, Normal, Heart, Lungs, Bony Structures and Chronic Changes Diagnostic Testing: Radiology Impression Chest X-Ray 12/31/20 14:33 IMPRESSION: No acute thoracic pathology. Electronically Signed: Rashid Ellington MD at 15:14 EDT Tel , Service support , Chest/Abdomen/Pelvis CTA 12/31/20 14:36 IMPRESSION: Small segmental and subsegmental pulmonary emboli throughout all lobes of both lungs. Normal caliber pulmonary artery. No evidence of right heart strain. Redemonstration of a type B aortic dissection which currently measures 4.9 cm in diameter and has increased in size when compared with 04/04/19 (previously 3.9 cm). Clear lungs. No bowel obstruction or inflammation. Status post appendectomy. Normal kidneys. No hydronephrosis. Fatty liver. N.B. : The above information has been verbally conveyed by Rashid Ellington MD to MD Sheldon, on 12/31/2020 16:35:30 (ET). Electronically Signed: Rashid Ellington MD at 16:38 EDT Tel , Service support , ADDENDUM: 12/31/20 1645 IMPRESSION: Small segmental and subsegmental pulmonary emboli throughout all lobes of both lungs. Normal caliber pulmonary artery. No evidence of right heart strain. Redemonstration of a type B aortic dissection which currently measures 4.9 cm in diameter and has increased in size when compared with 04/04/19 (previously 3.9 cm). Clear lungs. No bowel obstruction or inflammation. Status post appendectomy. Normal kidneys. No hydronephrosis. Fatty liver. N.B. : The above information has been verbally conveyed by Rashid Ellington MD to MD Sheldon, on 12/31/2020 16:35:30 (ET). Electronically Signed: Rashid Ellington MD at 16:38 EDT Tel , Service support , EKG Initial EKG: Attestation: I personally reviewed and interpreted this EKG as follows: Interpretation: Sinus Rhythm, No Acute Injury Pattern and Non-Specific ST Changes Prior EKG tracings: available for review Prior: Unchanged <Dr. Jim Chung MD - Last Filed: 12/31/20 17:37> [facility] Lab Data Labs: Laboratory Results - last 24 hr 12/31/20 12/31/20 12/31/20 14:15 14:15 14:15 WBC 5.3 RBC 4.65 Hgb 13.2 Hct 40.8 MCV 87.7 MCH 28.4 MCHC 32.4 RDW Std Deviation 43.5 RDW Coeff of Lynnette 13.5 Plt Count 231 MPV 9.8 Immature Gran % (Auto) 0.200 Neut % (Auto) 68.3 Lymph % (Auto) 22.7 Haralson % (Auto) 7.1 Eos % (Auto) 1.1 Baso % (Auto) 0.6 Absolute Neuts (auto) 3.6 Absolute Lymphs (auto) 1.21 Nucleated RBC % 0 Sodium 134 L Potassium 4.3 Chloride 98 Carbon Dioxide 26.0 Anion Gap 10 BUN 17 Creatinine 1.32 H Estim Creat Clear Calc 39.12 Est GFR (MDRD) Af Amer 51 L Est GFR (MDRD) Non-Af 42 L BUN/Creatinine Ratio 12.9 Glucose 116 H Calcium 9.4 Total Bilirubin 1.40 H AST 20 ALT 32 Alkaline Phosphatase 107 Troponin I < 0.015 B-Natriuretic Peptide 25.1 Total Protein 8.1 Albumin 3.7 Globulin 4.4 H Albumin/Globulin Ratio 0.8 L Radiography Diagnostic Testing: Radiology Impression Chest X-Ray 12/31/20 14:33 IMPRESSION: No acute thoracic pathology. Electronically Signed: Rashid Ellington MD at 15:14 EDT Tel , Service support , Chest/Abdomen/Pelvis CTA 12/31/20 14:36 IMPRESSION: Small segmental and subsegmental pulmonary emboli throughout all lobes of both lungs. Normal caliber pulmonary artery. No evidence of right heart strain. Redemonstration of a type B aortic dissection which currently measures 4.9 cm in diameter and has increased in size when compared with 04/04/19 (previously 3.9 cm). Clear lungs. No bowel obstruction or inflammation. Status post appendectomy. Normal kidneys. No hydronephrosis. Fatty liver. N.B. : The above information has been verbally conveyed by Rashid Ellington MD to MD Sheldon, on 12/31/2020 16:35:30 (ET). Electronically Signed: Rashid Ellington MD at 16:38 EDT Tel , Service support , ADDENDUM: 12/31/20 1645 IMPRESSION: Small segmental and subsegmental pulmonary emboli throughout all lobes of both lungs. Normal caliber pulmonary artery. No evidence of right heart strain. Redemonstration of a type B aortic dissection which currently measures 4.9 cm in diameter and has increased in size when compared with 04/04/19 (previously 3.9 cm). Clear lungs. No bowel obstruction or inflammation. Status post appendectomy. Normal kidneys. No hydronephrosis. Fatty liver. N.B. : The above information has been verbally conveyed by Rashid Ellington MD to MD Sheldon, on 12/31/2020 16:35:30 (ET). Electronically Signed: Rashid Ellington MD at 16:38 EDT Tel , Service support , CT of the chest shows bilateral pulmonary emboli. Discussed with the hospitalist. Patient will be admitted. Started on p.o. Eliquis. Discharge Plan Triage Chief Complaint: Shortness of Breath ED Provider: Rigo Wallace Dx/Rx/DC Orders Clinical Impression: Bilateral pulmonary embolism, Hypoxia, Family history of aortic dissection Prescriptions: No Action carvedilol 25 MG tablet 25 mg PO DAILY RF: 0 sumatriptan succinate 50 MG tablet 50 mg PO PRN PRN (Reason: Migraine Symptoms) RF: 0 aspirin 81 MG tablet 81 mg PO DAILY@0800 RF: 0 levothyroxine 100 MCG tablet 100 mcg PO DAILY RF: 0 ranitidine HCl 150 MG tablet 150 mg PO DAILY RF: 0 albuterol sulfate 1 INHALER inhaler 1 - 2 puff inhalation Q6H PRN PRN (Reason: SOB/WHEEZE) RF: 0 paroxetine HCl 40 MG tablet 20 mg PO DAILY RF: 0 ezetimibe 10 MG tablet 10 mg PO DAILY RF: 0 losartan 50 mg Tablet 50 mg PO DAILY RF: 0 Primary Care Provider: Lanny Raymond Referrals: Lanny Raymond MD [Primary Care Provider] - Disposition Disposition: Acute Care Hospital [facility]
[2020-12-31 14:32] LABS: Absolute Lymphocyte Count 1.21 X10^3/uL (0.83-4.51); Absolute Neutrophil Count 3.6 X10^3/uL (2.0-7.7); Basophil# 0.03 X10^3/uL; Basophil% 0.6 % (0-1); Eosinophil# 0.06 X10^3/uL; Eosinophils% 1.1 % (0-5); Hematocrit 40.8 % (37-47); Hemoglobin 13.2 g/dL (12.0-15.0); Lymphocyte # 1.21 X10^3/ul (0.83-4.51); Lymphocyte % 22.7 % (19-41); Mean Corp Hgb Conc 32.4 g/dL (32-36); Mean Corpuscular Hgb 28.4 pg (27.0-32.0); Mean Corpuscular Volume 87.7 fL (81-99); Mean Platelet Vol. 9.8 fl (6.2-12.0); Monocyte# 0.38 X10^3/uL; Monocyte% 7.1 % (0-10); NRBC Flagged by Analyzer 0 % (0-5); Neutrophil # 3.64 X10^3/uL (2.7-7.7); Neutrophil % 68.3 % (47-70); Platelet Count 231 K/mm3 (150-450); RBC Distribution Width CV 13.5 % (11.6-14.6); RBC Distribution Width SD 43.5 fl (35.1-43.9); Red Blood Count 4.65 M/mm3 (4.2-5.4); White Blood Count 5.3 K/mm3 (4.4-11.0)
--- NOTE | 2020-12-31 14:33 | RAD_ITS ---
STUDY: X-RAY CHEST REASON FOR EXAM: Female, 70 years old. Shortness of breath TECHNIQUE: Frontal view of the chest COMPARISON: 11/15/14 FINDINGS: The lungs are clear. There are no pleural effusions. There is no pneumothorax. The heart is normal in size. The visualized osseous structures are within normal limits. RAD/Chest 1 View (Portable) IMPRESSION: No acute thoracic pathology. Electronically Signed: Rashid Ellington MD at 15:14 EDT Tel , Service support ,
--- NOTE | 2020-12-31 14:36 | CT_ITS ---
STUDY: CTA CHEST, ABDOMEN AND PELVIS WITH IV CONTRAST REASON FOR EXAM: Female, 70 years old. Hypoxia. History of type B aortic dissection. RADIATION DOSAGE (If Supplied By Facility): CTDIvol = ( 13.5 ) mGy, DLP = ( 1065.94 ) mGycm TECHNIQUE: Transaxial images were obtained through the chest, abdomen and pelvis without oral contrast, and with intravenous contrast. Sagittal and coronal images were reconstructed. 3-D images were reconstructed. Individualized dose optimization techniques were used for this CT. COMPARISON: 04/04/19 FINDINGS: There are no pulmonary infiltrates or pleural effusions. The central airways are patent. There is no pneumothorax. There are small segmental and subsegmental pulmonary emboli in all lobes of both lungs. The pulmonary arteries normal in caliber. The heart and pericardium are within normal limits. There is no evidence of right heart strain. The ascending aorta and great vessels are within normal limits. Again noted is a partially thrombosed type B aortic dissection which originates in the distal aortic arch and extends through the descending thoracic aorta and into the upper abdominal aorta. This measures 4.9 cm in maximal diameter and has increased in size when compared with the prior exam (previously 3.9 cm). The infrarenal abdominal aorta is normal in caliber without evidence of dissection. The celiac artery, superior mesenteric artery, bilateral renal arteries and inferior mesenteric artery are patent and normal in caliber. The bilateral common iliac arteries, internal iliac arteries, external iliac arteries and common femoral arteries are patent and normal in caliber. There is no contrast extravasation to suggest aortic rupture. There is a moderate-sized hiatal hernia. The liver is low in density, consistent with fatty infiltration. There are no focal hepatic lesions. The spleen, pancreas, adrenal glands and kidneys are within normal limits. There is no bowel obstruction or inflammation. There are surgical clips at the base of the cecum, consistent with prior appendectomy. There is no abdominal or pelvic free air, free fluid or lymphadenopathy. There are no destructive osseous lesions. CT/CTA Chst, Abd, Pel W and/or WO IMPRESSION: Small segmental and subsegmental pulmonary emboli throughout all lobes of both lungs. Normal caliber pulmonary artery. No evidence of right heart strain. Redemonstration of a type B aortic dissection which currently measures 4.9 cm in diameter and has increased in size when compared with 04/04/19 (previously 3.9 cm). Clear lungs. No bowel obstruction or inflammation. Status post appendectomy. Normal kidneys. No hydronephrosis. Fatty liver. N.B. : The above information has been verbally conveyed by Rashid Ellington MD to MD Sheldon, on 12/31/2020 16:35:30 (ET). Electronically Signed: Rashid Ellington MD at 16:38 EDT Tel , Service support ,
[2020-12-31] MEDS: Ipratropium/Albuterol Sulfate 3 ML AMPUL.NEB INHALATION (14:38)
[2020-12-31 14:46] LABS: BNP,B-Type NATRIURETIC PEPTIDE 25.1 pg/mL (0-100)
--- NOTE | 2020-12-31 14:48 | CM.ED ---
SW Referral Referral Source: MD Reason for Referral:Alf Facility (SNF) admission MD advised that patient reports she is not doing well at home. MD spoke to patient about SNF and patient in agreement with being admitted to hospital with plan being SNF at discharge.
[2020-12-31 14:49] LABS: ALB/GLOB Ratio 0.8 RATIO (0.9-2.4); AST(SGOT) 20 U/L (15-37); Alanine Aminotransfer ALT/SGPT 32 U/L (13-56); Albumin, Serum 3.7 g/dL (3.2-5.0); Alkaline Phosphatase 107 U/L (45-117); Anion Gap 10 (5-15); BUN 17 mg/dL (7-18); BUN/Creat Ratio 12.9 RATIO (10-20); Calcium,Total 9.4 mg/dL (8.5-10.1); Chloride 98 mmol/L (98-107); Creatinine, Serum 1.32 mg/dL (0.55-1.02); EST Glomerular Filtration Rate 42 mL/min (>60); Est Glom Filt Rate - Afr Amer 51 mL/min (>60); Estimated Creatinine Clearance 39.12 ml/min; Globulin 4.4 g/dL (2.2-4.2); Glucose 116 mg/dL (74-106); Potassium 4.3 mmol/L (3.5-5.1); Protein, Total 8.1 g/dL (6.4-8.2); Sodium Level 134 mmol/L (136-145)
--- NOTE | 2020-12-31 17:37 | NURSING ---
DR MOISES OJEDA
--- NOTE | 2020-12-31 18:09 | PCM.HP.STD ---
HPI - General General Date of Admission: 12/31/20 HPI Narrative MIKE HUBER, is a 70 F who presented to [facility] emergency department on 12/31/2020 with a chief complaint of shortness of breath. She indicates that she had been experiencing some shortness of breath with exertion for approximately 2 weeks which is not her baseline but today she had shortness of breath with rest and decided to come to the emergency department. Upon arrival her oxygen saturations were 85% on room air. She denies any fevers or chills. She has had no respiratory symptoms consistent with an upper or lower respiratory tract infection. She does indicate she has a history of asthma but this feels different than her baseline asthma. She has had no marked weight gain but does complain of orthopnea. She has had no recent sick contacts. Other than hypoxia her vital signs were stable and her oxygenation normalized on 2 L nasal cannula. With 2 L oxygen saturations were 97 to 99%. Her CBC was completely unremarkable. Her BMP shows mild hyponatremia with a sodium of 134 and a creatinine of 1.32. She had a mildly elevated total bilirubin of 1.40 which I suspect is related to her pulmonary embolism her LFTs were completely normal. A troponin was obtained and was within normal limits. A BNP was obtained and was 25.1. A CTA of her chest was performed and showed a stable type B aortic dissection which is mildly increased in size from a previous CT scan done 2 years ago and small segmental and subsegmental bilateral pulmonary emboli throughout all lobes of bilateral lungs. Of note, there was no right heart strain noted on the CT scan. Upon further discussion with the patient she indicates that she has had a history of DVTs both in her upper and lower extremities x3 and this was attributed to her being on estrogen. She is not currently on estrogen and this was discontinued related to her clot history. She is unable to tell me the last time she was treated for DVTs as it was that long ago. She had been on Coumadin in the past and this was discontinued after 3 months and the discontinuation of her estrogen. She will be admitted to telemetry for further monitoring, weaning of oxygen and initiation of Eliquis. Her first dose of Eliquis was given in the emergency department. [facility], LAT[facility] Medical History (Updated 12/31/20 @ 18:[address] Lubna Jones DO) Aortic aneurysm Asthma Eczema Family history of aortic dissection Gastro-esophageal reflux History of DVT (deep vein thrombosis) Hyperlipemia Hypertension Hypothyroid Migraine aura without headache (migraine equivalents) Neuropathic pain Osteopenia Rheumatoid arthritis Scleroderma Sjogren's syndrome Home Medications albuterol sulfate 1 - 2 puff INHALATION Q6H PRN PRN 04/04/19 [History Last Taken Unknown] aspirin 81 mg PO DAILY@0800 04/04/19 [History Last Taken Unknown] carvedilol 25 mg PO DAILY 04/04/19 [History Last Taken Unknown] ezetimibe 10 mg PO DAILY 04/04/19 [History Last Taken Unknown] levothyroxine 100 mcg PO DAILY 04/04/19 [History Last Taken Unknown] paroxetine HCl 20 mg PO DAILY 04/04/19 [History Last Taken Unknown] ranitidine HCl 150 mg PO DAILY 04/04/19 [History Last Taken Unknown] sumatriptan succinate 50 mg PO PRN PRN 04/04/19 [History Last Taken Unknown] losartan 50 mg PO DAILY 12/31/20 [History Last Taken Unknown] Allergy/AdvReac Type Severity Reaction Status Date / Time amlodipine Allergy Other Verified 12/31/20 15:20 aspirin AdvReac Upset Verified 04/04/19 09:48 Stomach clonidine AdvReac Other Verified 12/31/20 15:20 codeine AdvReac Upset Verified 04/04/19 09:48 Stomach Estrogens AdvReac Other Verified 12/31/20 15:20 meloxicam AdvReac Diarrhea Verified 12/31/20 15:20 [id number] Reductase AdvReac Pain in Verified 12/31/20 15:20 Inhibitor joints Sulfa (Sulfonamide AdvReac Upset Verified 04/04/19 09:48 Antibiotics) Stomach Family History (Updated 12/31/20 @ 18:[address] Lubna Jones DO) Other Asthma CAD (coronary artery disease) COPD (chronic obstructive pulmonary disease) Cancer Diabetes Heart disease Hypertension Kidney disease Myocardial infarction Thyroid disorder other (Pulmonary embolism) Social History Smoking Status: Never smoker ROS Review of Systems ROS Unobtainable: Denies due to encephalopathy, due to endotracheal tube, due to mental condition, due to mental status or other Constitutional Constitutional: Denies anorexia, change in weight, chills, fatigue, fever(s), malaise, night sweats, weakness or other Eyes Eyes: Denies blurry vision, change in eye color, change in vision, discharge from eye(s), double vision, erythema, eye pain, loss of vision or other ENT HEENT: Denies abnormal hearing, dysphagia, ear pain, epistaxis, headache(s), hearing loss, nasal congestion, nasal discharge, post nasal drip, sinus pressure, sore throat or other Cardiovascular Cardiovascular: Reports orthopnea; Denies chest pain, claudication, dyspnea on exertion, edema, lightheadedness, palpitations, paroxysmal nocturnal dyspnea, rapid heart rate, syncope or other Respiratory/Chest Respiratory/Chest: Reports dyspnea, shortness of breath at rest and shortness of breath with exertion; Denies cough, excessive phlegm production, hemoptysis, productive cough, wheezing or other Gastrointestinal Gastrointestinal: Denies abdominal pain, coffee ground emesis, constipation, diarrhea, dyspepsia, hematemesis, hematochezia, loose stools, melena, nausea, vomiting or other Genitourinary Genitourinary: Reports urinary incontinence; Denies burning urination, difficulty urinating, dysuria, hematuria, nocturia, urinary frequency, urinary hesitancy, urinary urgency or other Musculoskeletal Musculoskeletal: Denies arthralgias, back pain, joint pain, joint stiffness, joint swelling, myalgias, neck pain or other Neurologic Neurologic: Denies abnormal gait, abnormal speech, confusion, disequilibrium, dizziness, focal weakness, headache(s), numbness, paresthesias, seizure-like activity, seizures, syncope, tingling, tremor(s) or other Psychiatric Psychiatric: Denies anxiety, depression, homicidal ideation, suicidal ideation or other Endocrine Endocrinology: Denies change in body appearance, cold intolerance, excessive sweating, heat intolerance, polydipsia, polyuria or other Hematologic/Lymphatic Hematologic/Lymphatic: Denies anemia, easy bleeding, easy bruising, lymphadenopathy or other Allergic/Immunologic Allergic/Immunologic: Denies rhinitis, hives, eczemia, asthma or other Vital Signs Vital Signs Vital Signs: 12/31/20 13:55 12/31/20 13:57 12/31/20 14:07 Temperature 98.6 F 98.6 F Temperature Source Temporal Temporal Pulse Rate 90 90 76 Respiratory Rate 20 H 20 H 20 H Respiratory Effort Respiratory Depth Respiratory Pattern Blood Pressure 146/79 H 146/79 H 126/61 H Blood Pressure Mean 101 101 82 Pulse Ox 85 85 98 Oxygen Delivery Method Room Air Room Air Nasal Cannula Oxygen Flow Rate (L/min) 2 12/31/20 14:08 12/31/20 14:38 12/31/20 15:10 Temperature 98.0 F Temperature Source Temporal Pulse Rate 70 Respiratory Rate 18 Respiratory Effort Labored Respiratory Depth Deep Respiratory Pattern Tachypnea Blood Pressure 135/70 H Blood Pressure Mean 91 Pulse Ox 99 97 Oxygen Delivery Method Nasal Cannula Nasal Cannula Nasal Cannula Oxygen Flow Rate (L/min) 2 2 2 12/31/20 16:00 12/31/20 17:00 12/31/20 18:00 Temperature 97.8 F 98.0 F Temperature Source Temporal Temporal Pulse Rate 67 74 66 Respiratory Rate 20 H 16 16 Respiratory Effort Respiratory Depth Respiratory Pattern Blood Pressure 126/74 H 118/51 L 126/62 H Blood Pressure Mean 91 73 83 Pulse Ox 96 98 96 Oxygen Delivery Method Nasal Cannula Nasal Cannula Room Air Oxygen Flow Rate (L/min) 2 2 12/31/20 18:01 Temperature 98.0 F Temperature Source Temporal Pulse Rate 66 Respiratory Rate 18 Respiratory Effort Respiratory Depth Respiratory Pattern Blood Pressure 126/62 H Blood Pressure Mean 83 Pulse Ox 96 Oxygen Delivery Method Room Air Oxygen Flow Rate (L/min) Physical Exam Const alert, oriented x3, no apparent distress, average body habitus, healthy appearing and well nourished General Appearance: cooperative; Negative for uncooperative Orientation / Consciousness: Negative for confused, disoriented or lethargic HEENT normocephalic, head/scalp atraumatic, hearing grossly normal bilaterally, moist oral mucous membranes and oropharynx normal HEENT Narrative: Dentures in place Mouth: oral and palatal mucosa normal and moist mucous membranes abnormal Eyes PERRL, EOMs intact bilaterally and conjunctivae normal Neck no lymphadenopathy, supple, no JVD and no carotid bruits Resp normal respiratory effort, no retractions, no use of accessory muscles and clear to auscultation bilaterally Auscultation: Negative for crackles, rales, rhonchi or wheezes Cardio regular rate, regular rhythm, S1 normal heart sound, S2 normal heart sound, no murmurs, no rub, no gallops, no clicks and no JVD GI normal to inspection, nondistended, normoactive bowel sounds, soft to palpation, non-tender and non-distended; Negative for hepatosplenomegaly Auscultation: Negative for hyperactive bowel sounds or hypoactive bowel sounds Palpation: Negative for tender, guarding or hernia Extremity normal to inspection, full ROM and no clubbing, cyanosis or edema Peripheral Pulses: Yes pulses 2+ throughout Skin no rashes or lesions noted, no wounds, skin turgor normal, no jaundice, no petechiae and no mottling Neuro oriented x3, CN's II-XII intact bilaterally, moves all extremities and no focal motor deficits Sensorium / Orientation: awake, alert, oriented to person, oriented to place and oriented to time Speech: speech normal Motor Exam: strength 5/5 throughout Psych affect normal Mood & Affect: Negative for depressed or anxious Lab / Micro Data Attestation: I reviewed the patient's lab results. Result Diagrams: 12/31/20 14:15 12/31/20 14:15 Labs: Laboratory Results - last 24 hr 12/31/20 12/31/20 12/31/20 14:15 14:15 14:15 WBC 5.3 RBC 4.65 Hgb 13.2 Hct 40.8 MCV 87.7 MCH 28.4 MCHC 32.4 RDW Std Deviation 43.5 RDW Coeff of Lynnette 13.5 Plt Count 231 MPV 9.8 Immature Gran % (Auto) 0.200 Neut % (Auto) 68.3 Lymph % (Auto) 22.7 Beltrami % (Auto) 7.1 Eos % (Auto) 1.1 Baso % (Auto) 0.6 Absolute Neuts (auto) 3.6 Absolute Lymphs (auto) 1.21 Nucleated RBC % 0 Sodium 134 L Potassium 4.3 Chloride 98 Carbon Dioxide 26.0 Anion Gap 10 BUN 17 Creatinine 1.32 H Estim Creat Clear Calc 39.12 Est GFR (MDRD) Af Amer 51 L Est GFR (MDRD) Non-Af 42 L BUN/Creatinine Ratio 12.9 Glucose 116 H Calcium 9.4 Total Bilirubin 1.40 H AST 20 ALT 32 Alkaline Phosphatase 107 Troponin I < 0.015 B-Natriuretic Peptide 25.1 Total Protein 8.1 Albumin 3.7 Globulin 4.4 H Albumin/Globulin Ratio 0.8 L Micro: Microbiology 12/31/20 14:40 SARS-CoV-2 Antigen (Rapid) - Final Mucosa - Nose Radiology Impression Chest X-Ray 12/31/20 14:33 IMPRESSION: No acute thoracic pathology. Electronically Signed: Rashid Ellington MD at 15:14 EDT Tel , Service support , Chest/Abdomen/Pelvis CTA 12/31/20 14:36 IMPRESSION: Small segmental and subsegmental pulmonary emboli throughout all lobes of both lungs. Normal caliber pulmonary artery. No evidence of right heart strain. Redemonstration of a type B aortic dissection which currently measures 4.9 cm in diameter and has increased in size when compared with 04/04/19 (previously 3.9 cm). Clear lungs. No bowel obstruction or inflammation. Status post appendectomy. Normal kidneys. No hydronephrosis. Fatty liver. N.B. : The above information has been verbally conveyed by Rashid Ellington MD to MD Sheldon, on 12/31/2020 16:35:30 (ET). Electronically Signed: Rashid Ellington MD at 16:38 EDT Tel , Service support , ADDENDUM: 12/31/20 1645 IMPRESSION: Small segmental and subsegmental pulmonary emboli throughout all lobes of both lungs. Normal caliber pulmonary artery. No evidence of right heart strain. Redemonstration of a type B aortic dissection which currently measures 4.9 cm in diameter and has increased in size when compared with 04/04/19 (previously 3.9 cm). Clear lungs. No bowel obstruction or inflammation. Status post appendectomy. Normal kidneys. No hydronephrosis. Fatty liver. N.B. : The above information has been verbally conveyed by Rashid Ellington MD to MD Shelodn, on 12/31/2020 16:35:30 (ET). Electronically Signed: Rashid Ellington MD at 16:38 EDT Tel , Service support , Assessment & Plan Assessment/Plan (1) Hyperbilirubinemia: (2) Acute respiratory insufficiency: (3) Gastro-esophageal reflux: (4) Hypothyroid: (5) Hypertension: (6) Aortic aneurysm: (7) Bilateral pulmonary embolism: (8) Hyperlipemia: (9) Hypoxia: (10) GURMEET (acute kidney injury): PLAN: Acute hypoxic respiratory insufficiency secondary to bilateral pulmonary emboli -Supplemental oxygen as needed -Wean as able--> patient is currently requiring 2 L -Start Eliquis 10 mg twice daily x7 days then taper to 5 mg twice daily indefinitely -As needed aerosols Acute bilateral pulmonary emboli -No RV strain noted on CT -Troponin negative -No current need for echocardiogram without troponin elevation or RV strain noted -Eliquis 10 mg twice daily x7 days then taper to 5 mg daily indefinitely -Consider hypercoagulable work-up after 3 months treatment with history of bilateral lower extremity DVTs x3 -Patient has been on Coumadin in the past for blood clots but was also on estrogen at the time and it was felt that they were related to her estrogen use -Consider follow-up with hematology after discharge Mild hyperbilirubinemia -Suspect related to PE -Repeat in a.m. GURMEET -Baseline creatinine appears to be trending up although is higher than it has been -Suspect possible CKD -We will gently hydrate with 1 L of normal saline at 75 cc an hour -Repeat lab in a.m. -Okay for Eliquis with current estimated GFR Asthma -Continue home medication Hypertension -Continue carvedilol 25 mg daily -Continue losartan 50 mg daily Hyperlipidemia -Continue Zetia Hypothyroidism -Continue levothyroxine 100 mcg daily -Check TSH in a.m. Depression -Continue Paxil GERD -Continue ranitidine DVT prophylaxis -Full anticoagulation with NOAC CODE STATUS -Full code Disposition -Possible discharge home tomorrow if able to wean off supplemental oxygen and patient maintained sats with ambulation Visit Charges Inpatient E&M: 04041 Init Hosp L2
[2020-12-31] MEDS: 0.9% Normal Saline 1,000 ML 75 ML IV (19:17)
--- NOTE | 2020-12-31 19:50 | CM.ED ---
Addendum entered by Chloé Gomes 12/31/20 19:59: JOSE ELIAS reviewed legal documentation. NO Advanced Directives on file. Full Code. Chloé Parisder [employer] Original Note: JOSE ELIAS Note: Referral Source: Dr. Jones Referral Reason: Discharge planning PCP: Dr. Raymond Specialists: Dr. Damon at [facility] for heart and an [facility] heart surgeon (name unknown) Preferred Pharmacy:? Patient said that she just moved from [place] and [place] been her previous pharmacy. Subsequently she does not have a [place] pharmacy. She plans to use [facility] at discharge. Insurance: Medicare A and B Prescription Benefit:Medicare Part D Living Will/HPOA:? Patient reports she has a HCPOA/Living Will for herself with her son, Antoni Montalvo, being her designated agent. Patient reports she doubts it is when asked about if patient's has Advanced Directives on file. SW encouraged patient to bring Advanced Directives on file for the hospital. LNOK: Antoni Montalvo, son, who is listed on face sheet as LNOK. Living Arrangements: Patient resides in an apartment by herself. No steps into her apartment. Patient said that she resides on the first floor. Patient said that she has a loft but I never go up there. Prior Level of Functioning:Patient reports she is independent in everything. Patient reports for the last 1-2 weeks whenever she walked she experience shortness of breath. Patient said that she got up this morning and couldn't breathe. DME:?? None HHC/SNF: No previous HHC/SNF Assessment:Patient reports no needs.Treatment team will continue to monitor patient regarding any discharge needs. ? Plan:? To be determined.
[2020-12-31] MEDS: APIXABAN 5 MG TABLET 10 MG PO (21:53)
[2020-12-31] MEDS: Carvedilol 25 MG Tablet PO (21:53)
[2021-01-01] VITALS (10 sets, daily range): BP systolic 121–129; BP diastolic 51–65; PULSE 60–73; RESP 16–20; TEMP 36.6–36.9; O2SAT 92–97
[2021-01-01] MEDS: Levothyroxine 100 MCG Tablet PO (06:17)
[2021-01-01 06:38] LABS: Absolute Lymphocyte Count 1.32 X10^3/uL (0.83-4.51); Absolute Neutrophil Count 2.4 X10^3/uL (2.0-7.7); Basophil# 0.03 X10^3/uL; Basophil% 0.7 % (0-1); Eosinophil# 0.09 X10^3/uL; Eosinophils% 2.1 % (0-5); Hematocrit 35.7 % (37-47); Hemoglobin 11.3 g/dL (12.0-15.0); Lymphocyte # 1.32 X10^3/ul (0.83-4.51); Lymphocyte % 31.5 % (19-41); Mean Corp Hgb Conc 31.7 g/dL (32-36); Mean Corpuscular Hgb 27.7 pg (27.0-32.0); Mean Corpuscular Volume 87.5 fL (81-99); Mean Platelet Vol. 9.9 fl (6.2-12.0); Monocyte# 0.33 X10^3/uL; Monocyte% 7.9 % (0-10); NRBC Flagged by Analyzer 0 % (0-5); Neutrophil # 2.41 X10^3/uL (2.7-7.7); Neutrophil % 57.6 % (47-70); Platelet Count 179 K/mm3 (150-450); RBC Distribution Width CV 13.7 % (11.6-14.6); RBC Distribution Width SD 43.1 fl (35.1-43.9); Red Blood Count 4.08 M/mm3 (4.2-5.4); White Blood Count 4.2 K/mm3 (4.4-11.0)
[2021-01-01 07:02] LABS: Anion Gap 7 (5-15); BUN 15 mg/dL (7-18); BUN/Creat Ratio 14.3 RATIO (10-20); Calcium,Total 8.6 mg/dL (8.5-10.1); Chloride 107 mmol/L (98-107); Creatinine, Serum 1.05 mg/dL (0.55-1.02); EST Glomerular Filtration Rate 55 mL/min (>60); Est Glom Filt Rate - Afr Amer 67 mL/min (>60); Estimated Creatinine Clearance 49.17 ml/min; Glucose 118 mg/dL (74-106); Potassium 3.9 mmol/L (3.5-5.1); Sodium Level 139 mmol/L (136-145)
[2021-01-01] MEDS: Losartan Potassium 50 MG Tablet PO (09:42)
[2021-01-01] MEDS: APIXABAN 5 MG TABLET 10 MG PO (09:42)
[2021-01-01] MEDS: Aspirin E.C. 81 MG Tablet PO (09:42)
[2021-01-01] MEDS: Carvedilol 25 MG Tablet PO (09:43)
[2021-01-01] MEDS: Ezetimibe 10 MG Tablet PO (09:44)
[2021-01-01] MEDS: Famotidine 20 MG Tablet PO (09:44)
--- NOTE | 2021-01-01 11:32 | PCM.DC ---
Discharge Instructions Follow Up Care Test Results: Test results from this visit will be discussed in further detail at your follow-up appointment, if applicable. Discharge Plan Admission Admit Date/Time: 12/31/20 17:36 Primary Reason for Your Visit: Pulmonary embolism (blood clot to the lungs) Attending Provider: Trenotn Sal Primary Care Provider: Lanny Raymond Instructions Additional Instructions / Restrictions: Do not take ibuprofen or Aleve, do not take aspirin while you are on Eliquis, consult your physician if you have any abnormal bleeding Discharge Orders/Prescriptions Prescriptions: New Eliquis 5 mg tablet 5 mg PO UD Qty: 72 RF: 0 Continued carvedilol 25 MG tablet 25 mg PO BID RF: 0 sumatriptan succinate 50 MG tablet 50 mg PO PRN PRN (Reason: Migraine Symptoms) RF: 0 levothyroxine 100 MCG tablet 100 mcg PO DAILY RF: 0 albuterol sulfate 1 INHALER inhaler 1 - 2 puff inhalation Q6H PRN PRN (Reason: SOB/WHEEZE) RF: 0 paroxetine HCl 40 MG tablet 20 mg PO DAILY RF: 0 ezetimibe 10 MG tablet 10 mg PO DAILY RF: 0 losartan 50 mg Tablet 50 mg PO DAILY RF: 0 Discontinued aspirin 81 MG tablet 81 mg PO DAILY@0800 RF: 0 Referrals / Follow Up: Lanny Raymond MD [Primary Care Provider] - In 1 Week Disposition Disposition (needs filled in before D/C Order can be placed): Home, self care
--- NOTE | 2021-01-01 12:59 | NURSING ---
1200 pt up in room pox 95%, walked in hallway, tolerated well, pox after walk 93% Evelyne Krishnamurthy RN
--- NOTE | 2021-01-05 10:29 | PCM.DC.SUM ---
Providers Date of Admission: 12/31/20 Date of Discharge: 01/01/21 Primary Care Physician: Dr. Lanny Raymond MD Reason For Visit: PE Diagnosis Discharge Diagnosis (1) Hyperbilirubinemia: Status: Acute Code(s): E80.6 - Other disorders of bilirubin metabolism (2) Acute respiratory insufficiency: Status: Acute Code(s): R06.89 - Other abnormalities of breathing (3) Gastro-esophageal reflux: Status: Acute Code(s): K21.9 - Gastro-esophageal reflux disease without esophagitis (4) Hypothyroid: Status: Acute Code(s): E03.9 - Hypothyroidism, unspecified (5) Hypertension: Status: Chronic Code(s): I10 - Essential (primary) hypertension (6) Aortic aneurysm: Status: Acute Code(s): I71.9 - Aortic aneurysm of unspecified site, without rupture (7) Bilateral pulmonary embolism: Status: Acute Code(s): I26.99 - Other pulmonary embolism without acute cor pulmonale (8) Hyperlipemia: Status: Acute Code(s): E78.5 - Hyperlipidemia, unspecified (9) Hypoxia: Status: Acute Code(s): R09.02 - Hypoxemia (10) GURMEET (acute kidney injury): Status: Acute Code(s): N17.9 - Acute kidney failure, unspecified Plan: 1. Bilateral pulmonary emboli #2 hypoxia secondary to #1 #3 hyperbilirubinemia-etiology unclear #4 essential hypertension #5 hyperlipidemia #6 chronic kidney disease stage IIIa Medications at Discharge Home Medications albuterol sulfate 1 - 2 puff INHALATION Q6H PRN PRN 04/04/19 carvedilol 25 mg PO BID 04/04/19 ezetimibe 10 mg PO DAILY 04/04/19 levothyroxine 100 mcg PO DAILY 04/04/19 paroxetine HCl 20 mg PO DAILY 04/04/19 sumatriptan succinate 50 mg PO PRN PRN 04/04/19 losartan 50 mg PO DAILY 12/31/20 apixaban [Eliquis] 5 mg PO UD #72 tab 01/01/21 Hospital Course Operations None Procedures None Summary of Care Provided Minutes Spent on Discharge: 30 Hospital Course: This 70-year-old white female was seen in the emergency room at [facility] with a chief complaint of shortness of breath over 2 weeks. Work-up in the emergency room showed the patient have a normal CBC, creatinine was elevated at 1.32, troponin was unremarkable, and CTA of the abdomen and pelvis showed small segmental and subsegmental pulmonary emboli throughout all lobes of both lungs as well as a known type B aortic dissection which measured 4.9 cm in diameter. Patient required 3 L of oxygen to maintain her pulse ox above 90%. Patient was placed and observation status on MedSurg 3, she received Eliquis and was gradually weaned off oxygen. On 01/01/2021, patient was seen and examined: On examination she appeared in good health and spirits, she does not appear to be in any distress. Vital signs as documented. Skin warm and dry and without overt rashes. Neck without JVD, thyroid appears normal, trachea is midline, neck is supple. Lungs clear, normal air movement was noted. Heart exam notable for regular rhythm, normal sounds and absence of murmurs, rubs or gallops. Abdomen unremarkable and without evidence of organomegaly, masses, or abdominal aortic enlargement, bowel sounds are present in all 4 quadrants, no abdominal tenderness was noted. Extremities nonedematous, no cyanosis was noted, no clubbing was noted. Neuro: Cranial nerves II through XII are grossly intact, no focal motor deficits were noted, sensation to light touch and pinprick is intact, motor exam 5/5 throughout. Psych: Patient is alert and oriented x3, she does not appear anxious or depressed, she does not appear agitated. Patient appears stable for discharge on 01/01/2021. ABG / Lab / Microbiology Data Result Diagrams: 01/01/21 06:08 01/01/21 06:08 Microbiology: Microbiology 12/31/20 14:40 Mucosa - Nose SARS-CoV-2 Antigen (Rapid) - Final Meaningful Use Info Meaningful Use Diagnoses (Choose all that apply): VTE VTE Anticoag overlap given w/in hospital stay or rx'd at dc?: No Pt receive overlap for 5 days?: No Reason overlap not ordered, prescribed, or given for 5 days: Treatment Not Indicated Discharge Plan Admission Admit Date/Time: 12/31/20 17:36 Primary Reason for Your Visit: Pulmonary embolism (blood clot to the lungs) Attending Provider: Trenton Sal Primary Care Provider: Lanny Raymond Instructions Additional Instructions / Restrictions: Do not take ibuprofen or Aleve, do not take aspirin while you are on Eliquis, consult your physician if you have any abnormal bleeding Discharge Orders/Prescriptions Prescriptions: New Eliquis 5 mg tablet 5 mg PO UD Qty: 72 RF: 0 Continued carvedilol 25 MG tablet 25 mg PO BID RF: 0 sumatriptan succinate 50 MG tablet 50 mg PO PRN PRN (Reason: Migraine Symptoms) RF: 0 levothyroxine 100 MCG tablet 100 mcg PO DAILY RF: 0 albuterol sulfate 1 INHALER inhaler 1 - 2 puff inhalation Q6H PRN PRN (Reason: SOB/WHEEZE) RF: 0 paroxetine HCl 40 MG tablet 20 mg PO DAILY RF: 0 ezetimibe 10 MG tablet 10 mg PO DAILY RF: 0 losartan 50 mg Tablet 50 mg PO DAILY RF: 0 Discontinued aspirin 81 MG tablet 81 mg PO DAILY@0800 RF: 0 Referrals / Follow Up: Lanny Raymond MD [Primary Care Provider] - In 1 Week Disposition Disposition (needs filled in before D/C Order can be placed): Home, self care Visit Charges OBSV E&M: 74900 Observation care discharge
== END 2021-01-01 15:29 | disposition home or self-care (01) ==
LOC: ED 17:39 → MS3 18:03
PROVIDERS: Admitting Provider Internal Medicine; Emergency Provider Emergency Medicine; PCP Internal Medicine; Visit Provider Internal Medicine
DX: I26.93 Single subsegmental thrombotic pulmonary embolism without acute cor pulmonale (principal); R09.02 Hypoxemia; N17.9 Acute kidney failure, unspecified; F32.9 Major depressive disorder, single episode, unspecified; I71.9 Aortic aneurysm of unspecified site, without rupture; I12.9 Hypertensive chronic kidney disease with stage 1 through stage 4 chronic kidney disease, or unspecified chronic kidney disease; N18.31 Chronic kidney disease, stage 3a; E80.6 Other disorders of bilirubin metabolism; K21.9 Gastro-esophageal reflux disease without esophagitis; J45.909 Unspecified asthma, uncomplicated; E03.9 Hypothyroidism, unspecified; E78.5 Hyperlipidemia, unspecified; M06.9 Rheumatoid arthritis, unspecified; M35.00 Sjogren syndrome, unspecified; Z79.899 Other long term (current) drug therapy; Z79.82 Long term (current) use of aspirin; Z86.718 Personal history of other venous thrombosis and embolism
CPT/HCPCS: 36415; 71045; 71275; 74174; 80048; 80053; 83880; 84484; 85025; 87426; 93005; 94640; 94762; 96360; 96361; 99218; 99251; 99285; J7030; Q9967; A4216; G0378; G0463

== ENCOUNTER → 2022-06-26 | Outpatient (CLI) | payer MEDICARE, SELFPAY ==
--- NOTE | 2022-06-26 06:54 | ECHOD_ITS ---
Reason For Study: DYSPNEA Procedure This was a 2D Doppler, Color Flow transthoracic echocardiogram. Technically difficult study due to breast implants. Patient scanned supine from parasternal window. The study was technically difficult. Exam performed in department. Left Ventricle Sigmoid septum. Based upon the 2D echocardiographic images obtained there appears to be grossly normal left ventricular size, wall motion, and systolic function. The estimated ejection fraction is 55 %. No evidence for diastolic dysfunction. Right Ventricle Based upon the 2D echocardiographic images obtained there appears to be grossly normal right ventricular size and systolic function. Atria Normal left atrium. Normal right atrium. No doppler evidence for ASD. Mitral Valve There is no mitral annular calcification. Normal mitral valve. Mild (1+) eccentric mitral valve insufficiency. Tricuspid Valve Normal tricuspid valve. Trivial tricuspid valve insufficiency. Unable to estimate RV systolic pressure/pulmonary artery pressure due to technically difficult study. Aortic Valve Trisinus/trileaflet aortic valve. Normal aortic valve. Pulmonic Valve The pulmonic valve is not well visualized. Great Vessels The aortic root is not well visualized. Pericardium/Pleural No pericardial effusion. MMode/2D Measurements & Calculations RVDd: 3.2 cm LAV(MOD-bp): 40.7 ml LVAd ap4: 14.9 cm2 LAV(MOD-bp) Indexed: 23.1 ml/m2 LVLd ap4: 5.7 cm LAV(MOD-sp2): 42.3 ml EDV(MOD-sp4): 31.5 ml LAV(MOD-sp4): 39.1 ml EDV(sp4-el): 33.1 ml LVAs ap4: 9.0 cm2 LVLs ap4: 4.3 cm ESV(MOD-sp4): 17.0 ml ESV(sp4-el): 16.0 ml EF(MOD-sp4): 46.1 % EF(sp4-el): 51.7 % SV(MOD-sp4): 14.6 ml SV(sp4-el): 17.1 ml LA A4 area: 14.9 cm2 RA A4 area: 9.0 cm2 Time Measurements MV dec time: 0.18 sec Doppler Measurements & Calculations MV E max wade: 59.6 cm/sec Lat Peak E' Wade: 11.8 cm/sec Med Peak E' Wade: 5.9 cm/sec MV A max wade: 60.3 cm/sec E/E' lat: 5.0 E/E' med: 10.1 MV E/A: 0.99 MV V2 max: 86.4 cm/sec MV dec slope: 331.9 cm/sec2 Ao V2 max: 96.7 cm/sec MV max P.0 mmHg Ao max P.7 mmHg MV V2 mean: 47.0 cm/sec Ao V2 mean: 71.5 cm/sec MV mean P.1 mmHg Ao mean P.3 mmHg MV V2 VTI: 29.3 cm Ao V2 VTI: 26.4 cm LV V1 max: 94.3 cm/sec PA V2 max: 88.0 cm/sec LV V1 max P.6 mmHg PA V2 mean: 65.8 cm/sec LV V1 mean P.1 mmHg LV V1 mean: 67.9 cm/sec LV V1 VTI: 25.8 cm ECHO/Echo Complete Interpretation Summary The study was technically difficult. Based upon the 2D echocardiographic images obtained there appears to be grossly normal left ventricular size, wall motion, and systolic function. The estimated ejection fraction is 55 %. Sigmoid septum. Mild (1+) eccentric mitral valve insufficiency. Trivial tricuspid valve insufficiency. Unable to estimate RV systolic pressure/pulmonary artery pressure due to techni umair difficult study. No evidence for diastolic dysfunction. Ordering Physician: Michael Mcgowan Performed By: Isabela Olea RCS
--- NOTE | 2022-06-26 16:12 | STRESSREP ---
Stress Test Report Date: 06-26-2022 Procedure: Pharmacologic stress nuclear imaging study Indications: Shortness of breath/dyspnea on exertion; peripheral arterial occlusive disease Consent: Per the patient Procedure: The patient underwent pharmacologic (Regadenoson 0.4mg ) evaluation with a peak heart rate of 92 beats per minute (61%predicted maximal heart rate) and a resting blood pressure of 112/68 mmHg and a peak blood pressure of 112/68 mmHg. The baseline ECG demonstrated normal sinus rhythm. The peak pharmacologic ECG demonstrated no obvious ECG changes. There were no cardiac dysrhythmias pretest, during pharmacologic infusion, or recovery. There was no complaint of chest discomfort during pharmacologic infusion or recovery. The examination was discontinued secondary to completion of protocol. Impression: 1. Pharmacologic (Regadenoson) evaluation 2. Peak pharmacologic ECG with no obvious ECG changes. 3. There were no cardiac dysrhythmias pretest, during pharmacologic infusion, or recovery. 4. Nuclear images pending Myocardial perfusion imaging study: Technique: The patient was injected with 11.1 millicuries of technetium 99m Cardiolite and subsequently rest SPECT Cardiolite nuclear imaging was obtained in the horizontal long, vertical long, and short axis views. The patient underwent pharmacologic (Regadenoson) evaluation with a peak heart rate of 92 beats per minute (61% percent predicted maximal heart rate) and a resting blood pressure of 112/68 mmHg and a peak blood pressure of 112/60 mmHg. The patient was injected with 32.8 millicuries of technetium 99m Cardiolite and subsequently stress SPECT Cardiolite nuclear imaging was obtained in the horizontal long, vertical long, and short axis views. A gated Cardiolite study at peak stress was obtained. Interpretation: Rest and stress SPECT Cardiolite nuclear imaging status post realignment, normalization, and attenuation correction demonstrate at rest the appearance of relative uniform tracer uptake and myocardial perfusion appearing within normal limits. Status post stress there is an area of diminished myocardial perfusion/tracer uptake in portions of the distal anterior segments. There is end systolic thickening and brightening. The gated Cardiolite study demonstrates myocardial thickening and inward wall motion. The reported LVEF is 70%. Impression: 1. Rest and stress SPECT Cardiolite nuclear imaging demonstrate myocardial perfusion changes potentially compatible with shifting soft tissue attenuation/artifact, however, an element of stress-induced myocardial ischemia in portions of the distal anterior segments cannot necessarily be excluded. 2. The gated Cardiolite study reports an LVEF of 70%. This note was generated with [employer] software. It may contain incorrect words, spelling, and punctuation that were not noted in checking the note before signing.
== END | disposition home or self-care (01) ==
LOC: CVS 06:52
PROVIDERS: PCP Internal Medicine; Visit Provider Internal Medicine Cardiovascular Disease
DX: I25.10 Atherosclerotic heart disease of native coronary artery without angina pectoris (principal); I26.99 Other pulmonary embolism without acute cor pulmonale; E03.9 Hypothyroidism, unspecified; I10 Essential (primary) hypertension; E78.5 Hyperlipidemia, unspecified; R06.09 Other forms of dyspnea; Z98.890 Other specified postprocedural states; Z86.79 Personal history of other diseases of the circulatory system
CPT/HCPCS: 78452; 93017; 93306; A9500; A4216; J2785

== ENCOUNTER → 2022-09-27 | Outpatient (CLI) | payer MEDICARE, SELFPAY ==
--- NOTE | 2022-10-01 06:30 | PFT ---
INTRODUCTION: The patient is a 72-year-old female that presents for pulmonary function studies secondary to a diagnosis of shortness of breath. Respiratory therapy reported good patient effort. Bronchodilators were used during testing. INTERPRETATION: Forced expiration spirometry demonstrates no evidence of a large airways obstructive ventilatory defect. There was no significant response to aerosolized bronchodilators. Spirograms are of good quality and plateau normally. Body plethysmography was performed and revealed a decreased TLC to 3.84 L, 71% of predicted, indicative of a mild restrictive ventilatory impairment. Diffusing capacity by single breath CO was within normal limits at 79% of predicted. IMPRESSION: Mild restrictive ventilatory impairment with preserved diffusing capacity.
== END | disposition home or self-care (01) ==
LOC: PSN 12:16
PROVIDERS: PCP Internal Medicine; Visit Provider Internal Medicine
DX: R06.09 Other forms of dyspnea (principal); M35.00 Sjogren syndrome, unspecified; J45.909 Unspecified asthma, uncomplicated; Z86.711 Personal history of pulmonary embolism
CPT/HCPCS: 94060; 94726; 94729

== ENCOUNTER → 2022-10-02 | Outpatient (CLI) | payer MEDICARE, SELFPAY ==
[2022-10-04 15:08] LABS: Anti-Centromere B Ab 3.7 AI (0.0-0.9); Anti-Chromatin <0.2 AI (0.0-0.9); Anti-Jo <0.2 AI (0.0-0.9); Anti-Scleroderma-70 AB <0.2 AI (0.0-0.9); RNP Ab <0.2 AI (0.0-0.9); SJOGREN'S Anti-SS-A test < 0.2 AI (0.0-0.9); SJOGREN'S Anti-SS-B test < 0.2 AI (0.0-0.9); Smith Ab <0.2 AI (0.0-0.9)
[2022-10-05 18:51] LABS: Anti-dsDNA Ab <1 IU/mL (0-9)
== END | disposition home or self-care (01) ==
PROVIDERS: PCP Internal Medicine; Referring Provider Internal Medicine; Visit Provider Internal Medicine
DX: R06.09 Other forms of dyspnea (principal); M35.00 Sjogren syndrome, unspecified; J45.909 Unspecified asthma, uncomplicated; Z86.711 Personal history of pulmonary embolism
CPT/HCPCS: 36415; 86225; 86235